=== PATIENT | male | born 1940 | race Caucasian/White ===

== ENCOUNTER 2022-12-22 17:26 | Inpatient (IN) ==
[2022-12-22] MEDS ORDERED: ACETAMINOPHEN 500 MG TAB PO STA (17:57)
--- NOTE | 2022-12-22 17:57 | ED Triage Note ---
Date of Service December 22, 2022 History of Present Illness This patient was briefly evaluated while in triage. An abbreviated physical exam was performed. This patient is a 82-year-old Male who presents to the ED for evaluation of cough, decreased energy, decreased appetite and weakness. Symptoms have been ongoing for 2 days. Physical Exam VITALS: Vitals are noted on the nurse's note and reviewed by myself. GENERAL: This is an 82-year-old male, in no acute distress but somewhat ill- appearing. SKIN: The skin was without rashes. HEART: Regular rate and rhythm without murmurs gallops or rubs. LUNGS: Decreased breath sounds bilateral bases. NEURO: Patient was alert and oriented to person place and time. Initial orders for labs and / or imaging were placed and patient was placed in the waiting area until a bed is available. Please see further documentation for the full ED course.
[2022-12-22 18:34] LABS: Basophils # (auto) 0.01 K/uL (0.00-0.20); Basophils % (auto) 0.1 %; Hematocrit (blood only) 30.7 % (42.0-52.0); Hemoglobin 10.8 g/dl (14.0-18.0); Immature Granulocytes # (auto) 0.02 K/uL (0.01-0.20); Immature Granulocytes % (auto) 0.2 %; Lymphocytes # (auto) 0.46 K/uL (1.20-3.40); Lymphocytes % (auto) 5.7 %; Mean Corpuscular Hemoglobin 30.5 pg (25.0-34.0); Mean Corpuscular Hgb Conc 35.2 g/dL (32.0-36.0); Mean Corpuscular Volume 86.7 fL (80.0-100.0); Mean Platelet Volume 9.7 fL (9.4-12.4); Monocytes # (auto) 1.29 K/uL (0.11-0.59); Monocytes % (auto) 15.9 %; Neutrophils # (auto) 6.33 K/uL (1.40-6.50); Neutrophils % (auto) 78.1 %; Platelet Count 181 K/uL (130-400); RDW Coefficient of Variation 15.1 % (11.5-14.5); RDW Standard Deviation 48.4 fL (36.4-46.3); Red Blood Count 3.54 M/uL (4.70-6.10); White Blood Count 8.11 K/ul (4.8-10.8)
[2022-12-22 18:44] LABS: Alanine Aminotransferase 15 U/L (7-52); Albumin Globulin Ratio 1.1 (0.9-2); Albumin Level 4.4 gm/dl (3.4-5.0); Alkaline Phosphatase 52 U/L (34-104); Anion Gap 11 (3-11); Aspartate Aminotransferase 23 U/L (13-39); BUN Creatinine Ratio 16.4 (10-20); Bilirubin,Total 1.4 mg/dl (0.2-1.0); Blood Urea Nitrogen 36 mg/dl (6-23); Calcium 9.4 mg/dl (8.6-10.3); Carbon Dioxide 20 mmol/L (21-32); Chloride 97 mmol/L (98-107); Est GFR (African American) 30.9 ml/min; Est GFR (Non-African American) 26.7 ml/min; Glucose 262 mg/dl (70-99(Fasting)); Potassium 3.9 mmol/L (3.5-5.1); Sodium 128 mmol/L (136-145); Total Protein 8.4 gm/dl (6.0-8.3)
--- NOTE | 2022-12-22 19:04 | XRay Report ---
XR chest 1V portable CLINICAL HISTORY: cough, fever COMPARISON STUDY: Chest radiograph December 09, 2012. FINDINGS: Low lung volumes are noted. There is no pneumothorax or pleural effusion. There are mild bi basilar opacities. Cardiomegaly is noted without evidence for pulmonary edema. IMPRESSION: 1. Cardiomegaly without evidence for pulmonary edema. 2. Bibasilar opacities which favor atelectasis although an infectious process could appear similar. R adiographic follow-up is recommended. ACT 112: Negative or not required by law. Electronically signed by: Wiliam Disla M.D. 12/22/2022 7:03 PM
[2022-12-22 19:23] LABS: Influenza A virus by PCR Negative (Neg); Influenza B virus by PCR Negative (Neg); RSV by PCR Negative (Neg)
[2022-12-22 19:28] LABS: SARS CoV2 RNA(COVID-19) Ceph POSITIVE (Negative)
[2022-12-22] MEDS ORDERED: METOPROLOL TARTRATE 25 MG TAB PO STA (20:06)
[2022-12-22] MEDS ORDERED: SODIUM CHLORIDE 0.9% 500 ML IV ONE (20:08)
--- NOTE | 2022-12-22 20:13 | Emergency Department Note ---
Impression & Plan COVID, Acute hyponatremia ED Provider Note NAME: HANNAH MARY AGE: 82 SEX: M : 1940 ARRIVES VIA: Walk-In INFORMANT: Patient, ED PROVIDER(S): John Estrella MD CHIEF COMPLAINT: Cough, congestion HPI: This is an 82-year-old male with history of CKD, hypertension, diabetes, hypercholesterolemia presenting for cough, congestion. Patient states that over the past 2 days he has noticed increasing presser type symptoms. He notes a cough that was pretty severe for the past 2 days, slowly improving over the past 1 day. He notes fevers. He notes weakness, fatigue. He notes that drinking water but overall feels dehydrated and weak. He notes no nausea or vomiting. No chest pain. No slight shortness of breath. He notes pain with cough but otherwise no pleurisy. ROS: See above HPI for pertinent positives & negatives. A total of 10 systems reviewed and were otherwise negative. PAST MEDICAL HISTORY: See Below PAST SURGICAL HISTORY: See Below FAMILY HISTORY: See Below SOCIAL HISTORY: See Below HOME MEDICATIONS: See Below ALLERGIES: See Below VITALS: See Below PHYSICAL EXAMINATION: General: resting comfortably in no acute distress Head: Normocephalic and atraumatic Eyes: Normal inspection, extraocular muscles intact, no conjunctival pallor Ear, nose, throat: Normal external exam Neck: Normal range of motion Respiratory: Rhonchi Cardiovascular: RRR without murmur appreciated GI: soft, nontender, no guarding or rebound Extremities: pulses intact with good cap refills, no LE pitting edema or calf tenderness Neuro: The patient awake and alert, appropriately conversive,no focal decifits Skin: Warm, dry, and intact MEDICAL DECISION MAKING: This is an 82-year-old male presenting for cough and congestion. Patient was noted to be COVID-19 positive at triage. Chest x-ray independently interpreted by me as hazy opacities in bilateral lower segments consistent with pneumonia versus atelectasis. Also does show cardiomegaly. Otherwise patient had blood work done at triage, reviewed by me showing hyponatremia, hypochloremia. Patient does appear clinically dry. Patient not hypoxic at this time likely. He is slightly tachycardic with fever. Will admit for dehydration And hyponatremia. Triage Nursing notes reviewed. Prior medical records reviewed Vital Signs: reviewed and remarkable for no significant abnormalities Differential diagnosis: Pneumonia, low concern for PE, dehydration, CHF ER treatment provided: See below Diagnostics interpreted by me: ECG: ECG independently interpreted by me with atrial fibrillation with ventricular rate 98, normal QRS, normal QTc, no ST segment elevations consistent with STEMI criteria Cardiac Monitoring: An order was placed for continuous cardiac monitoring. The monitor shows a rate of 100 with sinus rhythm. Laboratory studies: As stated above and show below. Imaging studies: See below. 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 Verified 12/22/22 20:47 niacin Allergy Unknown RASH Verified 12/22/22 20:47 Home Meds Home Medications Medication Instructions Recorded Confirmed amlodipine 2.5 mg tablet 2.5 mg PO HS 12/22/22 12/22/22 aspirin 81 mg tablet,delayed 81 mg PO QDL 12/22/22 12/22/22 release atorvastatin 10 mg tablet 10 mg PO QDD 12/22/22 12/22/22 brinzolamide 1 %-brimonidine 0.2 % 1 p OPB AMPM 12/22/22 12/22/22 eye drops,suspension (Simbrinza) cholecalciferol (vitamin D3) 25 25 mcg PO QAM 12/22/22 12/22/22 mcg (1,000 unit) tablet (Vitamin D3) cyanocobalamin (vitamin B-12) 1,000 mcg PO QAM 12/22/22 12/22/22 1,000 mcg tablet (Vitamin B-12) insulin aspart U-100 100 unit/mL 22 unit subcut TIDM 12/22/22 12/22/22 (3 mL) subcutaneous pen (Novolog FlexPen U-100 Insulin aspart) insulin glargine 100 unit/mL (3 35 unit subcut QDB 12/22/22 12/22/22 mL) subcutaneous pen (Basaglar KwikPen U-100 Insulin) isosorbide mononitrate 60 mg 60 mg PO QAM 12/22/22 12/22/22 tablet,extended release 24 hr linagliptin 5 mg tablet (Tradjenta) 5 mg PO QDL 12/22/22 12/22/22 losartan 50 mg tablet 50 mg PO BID 12/22/22 12/22/22 metformin 500 mg tablet 500 mg PO BIDM 12/22/22 12/22/22 metoprolol tartrate 25 mg tablet 12.5 mg PO BID 12/22/22 12/22/22 netarsudil 0.02 %-latanoprost 1 drp OPB HS 12/22/22 12/22/22 0.005 % eye drops (Rocklatan) pantoprazole 40 mg tablet,delayed 40 mg PO Q OTHER DAY 12/22/22 12/22/22 release timolol maleate 0.5 % eye drops 1 drp OPB QAM 12/22/22 12/22/22 Previous Rx's Medication Instructions Recorded fluocinolone acetonide oil 0.01 % See Rx Instructions otic (ear) 01/29/21 ear drops .COMPLEX ear itching #20 mL Results & Data (ED) Vital Signs Vital Signs - 24 hr 12/22/22 17:55 Temperature 38 C H Temperature Source Temporal Artery Scan Pulse Rate 101 H Respiratory Rate 18 Blood Pressure 158/82 H Blood Pressure Mean 107 Pulse Oximetry 95 Oxygen Delivery Method Room Air Sepsis Recent Fever Within 48 Hours No Sepsis New/Unexplained Change in Mental Status No Sepsis Action Taken by Nursing No Action Required Laboratory Data 12/22/22 18:15 12/23/22 00:41 Lab Results 12/22/22 12/22/22 Range/Units 18:15 18:17 WBC 8.11 (4.8-10.8) K/ul RBC 3.54 L (4.70-6.10) M/uL Hgb 10.8 L (14.0-18.0) g/dl Hct 30.7 L (42.0-52.0) % MCV 86.7 (80.0-100.0) fL MCH 30.5 (25.0-34.0) pg MCHC 35.2 (32.0-36.0) g/dL RDW Std Deviation 48.4 H (36.4-46.3) fL RDW Coeff of Madina 15.1 H (11.5-14.5) % Plt Count 181 (130-400) K/uL MPV 9.7 (9.4-12.4) fL Immature Gran % (Auto) 0.2 % Neut % (Auto) 78.1 % Lymph % (Auto) 5.7 % [place] % (Auto) 15.9 % Eos % (Auto) 0.0 % Baso % (Auto) 0.1 % Neut # (Auto) 6.33 (1.40-6.50) K/uL Lymph # (Auto) 0.46 L (1.20-3.40) K/uL [place] # (Auto) 1.29 H (0.11-0.59) K/uL Eos # (Auto) 0.00 (0.00-0.50) K/uL Baso # (Auto) 0.01 (0.00-0.20) K/uL Immature Gran # (Auto) 0.02 (0.01-0.20) K/uL Sodium 128 L (136-145) mmol/L Potassium 3.9 (3.5-5.1) mmol/L Chloride 97 L (98-107) mmol/L Carbon Dioxide 20 L (21-32) mmol/L Anion Gap 11 (3-11) BUN 36 H (6-23) mg/dl Creatinine 2.19 H (0.6-1.4) mg/dl Est Cr Clr Drug Dosing Not Reportable Est GFR ( Amer) 30.9 ml/min Est GFR (Non-Af Amer) 26.7 ml/min BUN/Creatinine Ratio 16.4 (10-20) Glucose 262 H (70-99(Fasting)) mg/dl Osmolality 294 (280-300) mOsm/kg Calcium 9.4 (8.6-10.3) mg/dl Magnesium 1.7 (1.7-2.4) mg/dl Total Bilirubin 1.4 H (0.2-1.0) mg/dl AST 23 (13-39) U/L ALT 15 (7-52) U/L Alkaline Phosphatase 52 (34-104) U/L Total Protein 8.4 H (6.0-8.3) gm/dl Albumin 4.4 (3.4-5.0) gm/dl Globulin 4.0 (2.5-4.0) gm/dl Albumin/Globulin Ratio 1.1 (0.9-2) TSH 3.400 (0.300-4.500) uIu/ml SARS-CoV-2 (PCR) POSITIVE A* (Negative) Influenza Type A (PCR) Negative (Neg) Influenza Type B (PCR) Negative (Neg) RSV (RT-PCR) Negative (Neg) Administered Medications Insulin Aspart (Insulin Aspart Per Unit Charge) 0 units SC ACHS KATELIN Stop: 01/21/23 23:09 Last Admin: 12/22/22 23:44 Dose: 6 units Documented By: ESG Co-signed By: YULIA Insulin Glargine (Lantus Per Unit Charge) 5 units SQ BID KATELIN Stop: 01/21/23 23:09 Last Admin: 12/22/22 23:43 Dose: 5 units Documented By: ESG Co-signed By: YULIA Garzacellaneous (Order Awaiting Action: Brinzolamide-Brimonidine [Simbrinza] 1-0.2 % Drops,Suspension) 1 each N/A QS [facility] Stop: 01/22/23 00:00 Last Admin: 12/23/22 00:25 Dose: Not Given Documented By: ESZachary Miscellaneous (Order Awaiting Action: Netarsudil-Latanoprost [Rocklatan] 0.02- 0.005 % Drops) 1 each N/A QS [facility] Stop: 01/22/23 00:00 Last Admin: 12/23/22 00:25 Dose: Not Given Documented By: ESG Discontinued Medications Acetaminophen (Acetaminophen 500 Mg Tab) 1,000 mg PO NOW STA Stop: 12/22/22 17:58 Last Admin: 12/22/22 18:18 Dose: 1,000 mg Documented By: CL Sodium Chloride (Nss) 500 mls @ 100 mls/hr IV .Q5H ONE Stop: 12/23/22 01:07 Last Admin: 12/22/22 20:19 Dose: 100 mls/hr Documented By: OAM Magnesium Sulfate/Dextrose (Magnesium Sulfate / D5w) 1 gm in 100 mls @ 50 mls/hr IV ONE ONE Stop: 12/23/22 00:29 Last Admin: 12/22/22 23:43 Dose: 50 mls/hr Documented By: ESZachary Metoprolol Tartrate (Metoprolol Tartrate 25 Mg Tab) 12.5 mg PO NOW STA Stop: 12/22/22 20:07 Last Admin: 12/22/22 20:19 Dose: 12.5 mg Documented By: OAM Imaging Data Radiologist's Impression: Chest X-Ray 12/22/22 17:58 XR chest 1V portable CLINICAL HISTORY: cough, fever COMPARISON STUDY: Chest radiograph December 09, 2012. FINDINGS: Low lung volumes are noted. There is no pneumothorax or pleural effusion. There are mild bibasilar opacities. Cardiomegaly is noted without evidence for pulmonary edema. IMPRESSION: 1. Cardiomegaly without evidence for pulmonary edema. 2. Bibasilar opacities which favor atelectasis although an infectious process could appear similar. Radiographic follow-up is recommended. ACT 112: Negative or not required by law. Electronically signed by: Wiliam Disla M.D. 12/22/2022 7:03 PM Discharge Plan Visit Data Chief Complaint: Flu Like Symptoms Stated Complaint: COUGH, WEAKNESS ED Provider: John Estrella Discharge Problem: COVID, Acute hyponatremia Patient Disposition: Admitted As Inpatient Discharge Instructions Interventions: ED Discharge Assessment Last Done: 12/22/22 22:31
[2022-12-22 21:16] LABS: Magnesium 1.7 mg/dl (1.7-2.4)
[2022-12-22] MEDS ORDERED: LEVALBUTEROL TARTRATE 15 GM HFA.AER.AD INH STA (22:00)
--- NOTE | 2022-12-22 22:01 | History & Physical Report ---
Date of Service December 22, 2022 Assessment & Plan (1) Acute hyponatremia: Plan: Acute on chronic hyponatremia Secondary to decreased p.o. intake secondary to COVID-19 illness COVID-19 bronchitis, patient with wheezing on exam. hx CAD status post stent/PVD valvular heart disease (mild AR/TR), hypertension, slight elevated secondary discomfort hyperlipidemia, on statin Rx DM 2 insulin requiring, well-controlled as of recent hemoglobin A1c of 7 last August 2022 CRI, creatinine at baseline chronic anemia, hemoglobin at baseline past tobacco abuse Medical telemetry Careful correction of sodium Hyponatremia work-up Nephrology consult if without improvement. Supportive management for COVID-19 illness PT OT eval DVT prophylaxis. Heparin subcu Full code Patient son requesting updates providers. Mr. Patrick Martínez, contact #[phone]. Text document was generated using [employer] voice recognition software. It may contain grammatical or spelling errors. Kindly contact undersigned for clarification of any documentation item in question. History of Present Illness Chief Complaint: Weakness Primary Care Provider: Tito Grullon MD History obtained from patient, family, and records. Medical history significant for CAD status post stent, valvular heart disease (mild AR/TR), aortic root enlargement as per records, hypertension, hyperlipidemia, DM 2 insulin requiring, CRI (baseline creatinine 2), chronic hyponatremia, chronic anemia (baseline hemoglobin of 10 ), GERD, glaucoma, past tobacco abuse. Last confinement August 2012 for pericarditis status post NSAID Rx. Few days history of cough symptoms. Patient unable to expectorate. No chest pain or unusual shortness of breath. No fluid retention. Poor appetite. Generalized weakness and fatigue. Sick COVID-19 contacts. Patient completed COVID-19 vaccination. Patient brought by family to ER. 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 Verified 12/22/22 20:47 niacin Allergy Unknown RASH Verified 12/22/22 20:47 Home Medications Medication Instructions Recorded Confirmed Type fluocinolone acetonide oil 0.01 % See Rx Instructions otic (ear) 01/29/21 12/22/22 Rx ear drops .COMPLEX ear itching #20 mL amlodipine 2.5 mg tablet 2.5 mg PO HS 12/22/22 12/22/22 History aspirin 81 mg tablet,delayed 81 mg PO QDL 12/22/22 12/22/22 History release atorvastatin 10 mg tablet 10 mg PO QDD 12/22/22 12/22/22 History brinzolamide 1 %-brimonidine 0.2 % 1 drp OPB AMPM 12/22/22 12/22/22 History eye drops,suspension (Simbrinza) cholecalciferol (vitamin D3) 25 25 mcg PO QAM 12/22/22 12/22/22 History mcg (1,000 unit) tablet (Vitamin D3) cyanocobalamin (vitamin B-12) 1,000 mcg PO QAM 12/22/22 12/22/22 History 1,000 mcg tablet (Vitamin B-12) insulin aspart U-100 100 unit/mL 22 unit subcut TIDM 12/22/22 12/22/22 History (3 mL) subcutaneous pen (Novolog FlexPen U-100 Insulin aspart) insulin glargine 100 unit/mL (3 35 unit subcut QDB 12/22/22 12/22/22 History mL) subcutaneous pen (Basaglar KwikPen U-100 Insulin) isosorbide mononitrate 60 mg 60 mg PO QAM 12/22/22 12/22/22 History tablet,extended release 24 hr linagliptin 5 mg tablet (Tradjenta) 5 mg PO QDL 12/22/22 12/22/22 History losartan 50 mg tablet 50 mg PO BID 12/22/22 12/22/22 History metformin 500 mg tablet 500 mg PO BIDM 12/22/22 12/22/22 History metoprolol tartrate 25 mg tablet 12.5 mg PO BID 12/22/22 12/22/22 History netarsudil 0.02 %-latanoprost 1 drp OPB HS 12/22/22 12/22/22 History 0.005 % eye drops (Rocklatan) pantoprazole 40 mg tablet,delayed 40 mg PO Q OTHER DAY 12/22/22 12/22/22 History release timolol maleate 0.5 % eye drops 1 drp OPB QAM 12/22/22 12/22/22 History Past Med/Surg History Medical History History of Mohs micrographic surgery for skin cancer Surgical History History of cholecystectomy Family History Other No family history of adverse response to anesthesia No family history of bleeding disorder No significant family history Social History Smoking Status: Never smoker Tobacco Type: Cigars Cigarettes Per Day: 1 CIGAR/DAY; Second Hand Exposure: No; Do You Dip or Chew Tobacco: No; Hx Alcohol Use: No Hx Substance Use: No Preferred Language: Maori Communication Ability: Effective 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 Required: No Beliefs That Will Affect Care: None marital status: Current Living Situation: Alone current occupational status: retired Other Information That Helps Us Care for You: No Feels Safe at Home: Yes Safety Concerns: Feels Safe At This Time Assistive Devices: None Review of Systems Review of Systems: As per HPI, all other systems reviewed and negative Physical Exam Physical Exam: GENERAL: Slightly uncomfortable, pleasant, slightly hard of hearing, dysphonic, no respiratory distress SKIN: Pallor, warm HEENT: Alopecia, pale palpebral conjunctivae, no ptosis, dry buccal mucosa NECK : Supple, no tenderness CHEST : Decreased breath sounds, expiratory wheezes, no tenderness HEART : Tachycardic, no obvious murmurs ABDOMEN: Some distention, nontender EXTREMITIES : Minimal LE swelling, no LE tenderness, no other conspicuous deformities noted NEUROLOGIC : Coherent, no facial asymmetry, slightly hard of hearing, gait and stance not assessed Results & Data Results & Data Vital Signs (Past 12 Hours) Vital Signs Temp Pulse Resp BP Pulse Ox O2 Del Method 12/22/22 17:55 38 C H 101 H 18 158/82 H 95 Room Air Diagnostic Findings Laboratory Results WBC 8.11 K/ul (4.8-10.8) 12/22/22 18:15 RBC 3.54 M/uL (4.70-6.10) L 12/22/22 18:15 Hgb 10.8 g/dl (14.0-18.0) L 12/22/22 18:15 Hct 30.7 % (42.0-52.0) L 12/22/22 18:15 MCV 86.7 fL (80.0-100.0) 12/22/22 18:15 MCH 30.5 pg (25.0-34.0) 12/22/22 18:15 MCHC 35.2 g/dL (32.0-36.0) 12/22/22 18:15 RDW Std Deviation 48.4 fL (36.4-46.3) H 12/22/22 18:15 RDW Coeff of Madina 15.1 % (11.5-14.5) H 12/22/22 18:15 Plt Count 181 K/uL (130-400) 12/22/22 18:15 MPV 9.7 fL (9.4-12.4) 12/22/22 18:15 Immature Gran % (Auto) 0.2 % 12/22/22 18:15 Neut % (Auto) 78.1 % 12/22/22 18:15 Lymph % (Auto) 5.7 % 12/22/22 18:15 [place] % (Auto) 15.9 % 12/22/22 18:15 Eos % (Auto) 0.0 % 12/22/22 18:15 Baso % (Auto) 0.1 % 12/22/22 18:15 Neut # (Auto) 6.33 K/uL (1.40-6.50) 12/22/22 18:15 Lymph # (Auto) 0.46 K/uL (1.20-3.40) L 12/22/22 18:15 [place] # (Auto) 1.29 K/uL (0.11-0.59) H 12/22/22 18:15 Eos # (Auto) 0.00 K/uL (0.00-0.50) 12/22/22 18:15 Baso # (Auto) 0.01 K/uL (0.00-0.20) 12/22/22 18:15 Immature Gran # (Auto) 0.02 K/uL (0.01-0.20) 12/22/22 18:15 Sodium 128 mmol/L (136-145) L 12/22/22 18:15 Potassium 3.9 mmol/L (3.5-5.1) 12/22/22 18:15 Chloride 97 mmol/L (98-107) L 12/22/22 18:15 Carbon Dioxide 20 mmol/L (21-32) L 12/22/22 18:15 Anion Gap 11 (3-11) 12/22/22 18:15 BUN 36 mg/dl (6-23) H 12/22/22 18:15 Creatinine 2.19 mg/dl (0.6-1.4) H 12/22/22 18:15 Est Cr Clr Drug Dosing Not Reportable 12/22/22 18:15 Est GFR ( Amer) 30.9 ml/min 12/22/22 18:15 Est GFR (Non-Af Amer) 26.7 ml/min 12/22/22 18:15 BUN/Creatinine Ratio 16.4 (10-20) 12/22/22 18:15 Glucose 262 mg/dl (70-99(Fasting)) H 12/22/22 18:15 Osmolality 294 mOsm/kg (280-300) 12/22/22 18:15 Calcium 9.4 mg/dl (8.6-10.3) 12/22/22 18:15 Magnesium 1.7 mg/dl (1.7-2.4) 12/22/22 18:15 Total Bilirubin 1.4 mg/dl (0.2-1.0) H 12/22/22 18:15 AST 23 U/L (13-39) 12/22/22 18:15 ALT 15 U/L (7-52) 12/22/22 18:15 Alkaline Phosphatase 52 U/L (34-104) 12/22/22 18:15 Total Protein 8.4 gm/dl (6.0-8.3) H 12/22/22 18:15 Albumin 4.4 gm/dl (3.4-5.0) 12/22/22 18:15 Globulin 4.0 gm/dl (2.5-4.0) 12/22/22 18:15 Albumin/Globulin Ratio 1.1 (0.9-2) 12/22/22 18:15 TSH 3.400 uIu/ml (0.300-4.500) 12/22/22 18:15 SARS-CoV-2 (PCR) POSITIVE (Negative) A* 12/22/22 18:17 Influenza Type A (PCR) Negative (Neg) 12/22/22 18:17 Influenza Type B (PCR) Negative (Neg) 12/22/22 18:17 RSV (RT-PCR) Negative (Neg) 12/22/22 18:17 Impressions Chest X-Ray 12/22/22 17:58 XR chest 1V portable CLINICAL HISTORY: cough, fever COMPARISON STUDY: Chest radiograph December 09, 2012. FINDINGS: Low lung volumes are noted. There is no pneumothorax or pleural effusion. There are mild bibasilar opacities. Cardiomegaly is noted without evidence for pulmonary edema. IMPRESSION: 1. Cardiomegaly without evidence for pulmonary edema. 2. Bibasilar opacities which favor atelectasis although an infectious process could appear similar. Radiographic follow-up is recommended. ACT 112: Negative or not required by law. Electronically signed by: Wiliam Disla M.D. 12/22/2022 7:03 PM
[2022-12-22] MEDS ORDERED: oxyCODONE HCL IR 5 MG TAB (IMMEDIATE RELEASE) PO PRN (22:07)
[2022-12-22] MEDS ORDERED: ACETAMINOPHEN 325 MG TAB PO PRN (22:07)
[2022-12-22] MEDS ORDERED: PROMETHAZINE HCL 6.25 MG in SODIUM CHLORIDE 0.9% 50 ML IV PRN (22:07)
[2022-12-22] MEDS ORDERED: MAGNESIUM SULFATE / D5W 1 GM/100 ML BAG IV ONE (22:30)
[2022-12-22] MEDS ORDERED: INSULIN ASPART PER UNIT CHARGE SC SCH (23:10)
[2022-12-22] MEDS ORDERED: LANTUS PER UNIT CHARGE SQ SCH (23:10)
[2022-12-22] MEDS ORDERED: GLUCAGON FOR INJ 1 MG VIAL SQ PRN (23:10)
[2022-12-22] MEDS ORDERED: GLUCOSE 10 TAB/TUBE PO PRN (23:10)
[2022-12-22] MEDS ORDERED: DEXTROSE 50% 50 ML SYRINGE IV PRN (23:10)
[2022-12-22] MEDS ORDERED: GLUCOSE 40% GEL 15 GM TUBE PO PRN (23:10)
[2022-12-22] MEDS ORDERED: CARBOHYDRATES FOR HYPOGLYCEMIA PO PRN (23:10)
[2022-12-23 01:19] LABS: BUN Creatinine Ratio 17.6 (10-20); Creatinine Clr Calc Pharmacy 27.6 ml/min; Est GFR (African American) 30.4 ml/min; Est GFR (Non-African American) 26.2 ml/min; Potassium 3.7 mmol/L (3.5-5.1)
[2022-12-23 02:49] LABS: Appearance Urine Clear (Clear); Bacteria Urine Automated Negative (Negative); Bilirubin Urine Negative (Negative); Blood Urine 3+ (Negative); Color Urine Yellow; Epithelial Cell Urine Auto 20-30 /lpf (0-5); Glucose Urine UA 3+ (Negative); Ketones Urine Negative (Negative); Leukocyte Esterase Urine Negative (Negative); Nitrite Urine Negative (Negative); Protein Urine 3+ (Negative); RBC Urine Automated 0-4 /hpf (0-4); Specific Gravity Urine 1.019 (1.000-1.030); Urobilinogen Urine Negative (Negative); pH Urine 6.5 (4.5-7.5)
[2022-12-23 06:04] LABS: Basophils # (auto) 0.01 K/uL (0.00-0.20); Basophils % (auto) 0.2 %; Hematocrit (blood only) 29.1 % (42.0-52.0); Hemoglobin 10.3 g/dl (14.0-18.0); Immature Granulocytes # (auto) 0.03 K/uL (0.01-0.20); Immature Granulocytes % (auto) 0.5 %; Lymphocytes # (auto) 0.43 K/uL (1.20-3.40); Lymphocytes % (auto) 7.3 %; Mean Corpuscular Hemoglobin 30.3 pg (25.0-34.0); Mean Corpuscular Hgb Conc 35.4 g/dL (32.0-36.0); Mean Corpuscular Volume 85.6 fL (80.0-100.0); Mean Platelet Volume 9.8 fL (9.4-12.4); Monocytes # (auto) 1.11 K/uL (0.11-0.59); Monocytes % (auto) 18.8 %; Neutrophils # (auto) 4.33 K/uL (1.40-6.50); Neutrophils % (auto) 73.2 %; Platelet Count 172 K/uL (130-400); RDW Coefficient of Variation 15.1 % (11.5-14.5); RDW Standard Deviation 47.5 fL (36.4-46.3); White Blood Count 5.91 K/ul (4.8-10.8)
[2022-12-23 06:42] LABS: BUN Creatinine Ratio 17.4 (10-20); Creatinine Clr Calc Pharmacy 29.6 ml/min; Est GFR (African American) 33.1 ml/min; Est GFR (Non-African American) 28.6 ml/min; Potassium 3.7 mmol/L (3.5-5.1)
[2022-12-23] MEDS ORDERED: LACTATED RINGER'S 1,000 ML IV ONE (06:44)
[2022-12-23] MEDS ORDERED: INSULIN ASPART PER UNIT CHARGE SC SCH (06:45)
[2022-12-23] MEDS ORDERED: DEXTROSE 50% 50 ML SYRINGE IV PRN (06:46)
[2022-12-23] MEDS ORDERED: GLUCOSE 40% GEL 15 GM TUBE PO PRN (06:46)
[2022-12-23] MEDS ORDERED: CARBOHYDRATES FOR HYPOGLYCEMIA PO PRN (06:46)
[2022-12-23] MEDS ORDERED: GLUCOSE 10 TAB/TUBE PO PRN (06:46)
[2022-12-23] MEDS ORDERED: GLUCAGON FOR INJ 1 MG VIAL SQ PRN (06:46)
[2022-12-23] MEDS ORDERED: INSULIN ASPART PER UNIT CHARGE SC STA (06:51)
[2022-12-23] MEDS ORDERED: LANTUS PER UNIT CHARGE SQ SCH (07:00)
[2022-12-23] MEDS ORDERED: LEVALBUTEROL TARTRATE 15 GM HFA.AER.AD INH SCH (07:00)
[2022-12-23] MEDS: CYANOCOBALAMIN (B-12) 500 MCG TABLET PO SCH (08:20)
[2022-12-23] MEDS: TIMOLOL MALEATE 0.5% OP SOLN 5 ML BTL OP SCH (08:21)
[2022-12-23] MEDS: METOPROLOL TARTRATE 25 MG TAB PO SCH ×2 (08:21→21:39)
[2022-12-23] MEDS: PANTOprazole 40 MG TAB PO SCH (08:21)
[2022-12-23] MEDS ORDERED: LEVALBUTEROL TARTRATE 15 GM HFA.AER.AD INH PRN (10:04)
--- NOTE | 2022-12-23 10:07 | Hospitalist Progress Note ---
Date of Service December 23, 2022 Assessment & Plan (1) Acute hyponatremia: Plan: Sodium is around 129 likely secondary to poor p.o. intake. We will add a bag of fluid overnight as patient is still not eating and drinking sufficient amount and is now febrile. Trend BMP in AM. (2) COVID: Plan: Fever and weak with low appetite. Continue supportive care. Adding guaifenesin with codeine as needed cough and Flonase scheduled daily. Tylenol for fever or pain. We will trend CRP in AM. No evidence of pneumonia and no requirement for oxygen at this time. Continue supportive care. (3) HTN, goal below 140/90: Plan: Chronic, around goal. Continue amlodipine per home regimen. (4) CKD (chronic kidney disease), stage III: Plan: he is at his baseline creatinine of 2.1. Losartan was held. Trend BMP in am and consider restarting in am. (5) CAD (coronary artery disease): Plan: Chronic stable, continue current medical therapy. DVT prophy: heparin SQ Full Code Dispo-dc telemetry. Notably patient was documented as having afib on initial EKG and on telemetry all last night. RN called me with a report on afib. On telemetry review, however, he has been in sinus rhythm, not afib which he does not have a history of I spent a total [id number] coordinating, documenting, and providing care for this patient excluding time spent in the performance of separately billed services Kami Hill DO [facility]ist Admission and Anticipated Discharge Date Admission Date: December 22, 2022 Subjective Patient is an 82-year-old diabetic man with heart disease who presents with cough found to have COVID-19 infection. He is fatigued and weak with poor appetite. Has been sick for 3 days prior to arrival cough is improving feeling very weak, exhausted, fatigued able to ambulate in the room to the bathroom Physical Exam Physical Exam: CONSTITUTIONAL: WNWD, vitals as above, generally ill-appearing, fatigued EYES: normal conjunctivae, no scleral icterus ENT: external ear and nose normal, MMM NECK: trachea midline RESPIRATORY: clear to auscultation bilaterally, no crackles, rales or wheezes, normal respiratory effort CARDIOVASCULAR: regular rate and rhythm, S1 and 2 heard without murmurs, gallops or rubs, no JVD, no peripheral edema CHEST: inspection of chest was normal GASTROINTESTINAL: soft, nontender, ND, no guarding MUSCULOSKELETAL: strength 5/5 throughout, head is normocephalic and atraumatic SKIN: warm and dry NEUROLOGIC: CN 2-12 grossly intact, no sensory deficit, normal cognition, normal speech, no tremor PSYCHIATRIC: alert cooperative and oriented to person, place and time. Euthymic mood, makes good eye contact, language grossly intact, recent and remote memory grossly intact. Results & Data Results & Data Vital Signs (Past 12 Hours) Vital Signs Temp Pulse Pulse Pulse Resp BP Pulse Ox 12/23/22 08:00 99 H 12/23/22 07:45 12/23/22 07:21 96 H 16 95 12/23/22 02:45 37.5 C 93 H 18 166/71 H 95 12/22/22 23:10 71 12/22/22 23:10 37.6 C H 81 20 163/78 H 96 12/22/22 22:50 12/22/22 22:31 12/22/22 22:26 37.3 C 81 18 134/71 94 O2 Del Method 12/23/22 08:00 12/23/22 07:45 Room Air 12/23/22 07:21 Room Air 12/23/22 02:45 Room Air 12/22/22 23:10 12/22/22 23:10 Room Air 12/22/22 22:50 Room Air 12/22/22 22:31 Room Air 12/22/22 22:26 Room Air Laboratory Results Short CBC 12/22/22 12/23/22 Range/Units 18:15 05:30 WBC 8.11 5.91 (4.8-10.8) K/ul Hgb 10.8 L 10.3 L (14.0-18.0) g/dl Hct 30.7 L 29.1 L (42.0-52.0) % Plt Count 181 172 (130-400) K/uL BMP 12/22/22 12/23/22 12/23/22 18:15 00:41 05:30 Sodium 128 L 128 L 129 L Potassium 3.9 3.7 3.7 Chloride 97 L 99 99 Carbon Dioxide 20 L 21 20 L BUN 36 H 39 H 36 H Creatinine 2.19 H 2.22 H 2.07 H Glucose 262 H 293 H 304 H* Calcium 9.4 9.0 9.0 Liver Function 12/22/22 Range/Units 18:15 Total Bilirubin 1.4 H (0.2-1.0) mg/dl AST 23 (13-39) U/L ALT 15 (7-52) U/L Alkaline Phosphatase 52 (34-104) U/L Albumin 4.4 (3.4-5.0) gm/dl Urine 12/23/22 Range/Units 02:28 Urine Color Yellow Urine Appearance Clear (Clear) Urine pH 6.5 (4.5-7.5) Ur Specific [place] 1.019 (1.000-1.030) Urine Protein 3+ H (Negative) Urine Glucose (UA) 3+ H (Negative) Medications Administered Current Inpatient Medications Acetaminophen (Acetaminophen 325 Mg Tab) 650 mg PO QID PRN PRN Reason: pain/fever Stop: 01/21/23 22:06 Amlodipine Besylate (Amlodipine Besylate 5 Mg Tab) 2.5 mg PO HS KATELIN Stop: 01/22/23 20:59 Aspirin (Aspirin 81 Mg Ectab) 81 mg PO QDL KATELIN Stop: 01/22/23 11:29 Atorvastatin Calcium (Atorvastatin 10 Mg Tab) 10 mg PO QDD KATELIN Stop: 01/22/23 16:29 Cyanocobalamin (Cyanocobalamin (B-12) 500 Mcg Tablet) 1,000 mcg PO QAM KATELIN Stop: 01/22/23 08:59 Last Admin: 12/23/22 08:20 Dose: 1,000 mcg Dextrose (Dextrose 50% 50 Ml Syringe) 25 - 50 ml IV UD PRN; Protocol PRN Reason: Hypoglycemia Protocol Stop: 01/21/23 23:09 Dextrose (Dextrose 50% 50 Ml Syringe) 25 - 50 ml IV UD PRN; Protocol PRN Reason: Hypoglycemia Protocol Stop: 01/22/23 06:45 Glucagon (Glucagon For Inj 1 Mg Vial) 1 mg SQ UD PRN; Protocol PRN Reason: Hypoglycemia Protocol Stop: 01/21/23 23:09 Glucagon (Glucagon For Inj 1 Mg Vial) 1 mg SQ UD PRN; Protocol PRN Reason: Hypoglycemia Protocol Stop: 01/22/23 06:45 Glucose (Glucose 10 Tab/Tube) 4 - 8 tab PO UD PRN; Protocol PRN Reason: Hypoglycemia Treatment Stop: 01/21/23 23:09 Glucose (Glucose 40% Gel 15 Gm Tube) 15 - 30 gm PO UD PRN; Protocol PRN Reason: Hypoglycemia Protocol Stop: 01/21/23 23:09 Glucose (Glucose 10 Tab/Tube) 4 - 8 tab PO UD PRN; Protocol PRN Reason: Hypoglycemia Treatment Stop: 01/22/23 06:45 Glucose (Glucose 40% Gel 15 Gm Tube) 15 - 30 gm PO UD PRN; Protocol PRN Reason: Hypoglycemia Protocol Stop: 01/22/23 06:45 Promethazine HCl 6.25 mg/ (Sodium Chloride) 50.25 mls @ 201 mls/hr IV Q6H PRN PRN Reason: Nausea And Vomiting Stop: 01/21/23 22:06 Insulin Aspart (Insulin Aspart Per Unit Charge) 0 units SC ACHS KATELIN Stop: 01/22/23 11:29 Insulin Glargine (Lantus Per Unit Charge) 20 units SQ DAILY KATELIN Stop: 01/22/23 06:59 Last Admin: 12/23/22 07:04 Dose: 20 units Levalbuterol HCl (Levalbuterol Tartrate 15 Gm Hfa.Aer.Ad) 2 puffs INH QIDR PRN PRN Reason: SOB/wheezing Stop: 01/22/23 06:59 Metoprolol Tartrate (Metoprolol Tartrate 25 Mg Tab) 12.5 mg PO BID KATELIN Stop: 01/22/23 08:59 Last Admin: 12/23/22 08:21 Dose: 12.5 mg Miscellaneous (Order Awaiting Action: Brinzolamide-Brimonidine [Simbrinza] 1-0.2 % Drops,Suspension) 1 each N/A QS KATELIN Stop: 01/22/23 00:00 Last Admin: 12/23/22 07:35 Dose: Not Given Miscellaneous (Order Awaiting Action: Netarsudil-Latanoprost [Rocklatan] 0.02- 0.005 % Drops) 1 each N/A QS KATELIN Stop: 01/22/23 00:00 Last Admin: 12/23/22 07:35 Dose: Not Given Miscellaneous (Carbohydrates For Hypoglycemia ) 15 - 30 gm PO UD PRN PRN Reason: Hypoglycemia Protocol Stop: 01/21/23 23:09 Miscellaneous (Carbohydrates For Hypoglycemia ) 15 - 30 gm PO UD PRN PRN Reason: Hypoglycemia Protocol Stop: 01/22/23 06:45 Oxycodone HCl (Oxycodone Hcl Ir 5 Mg Tab (Immediate Release)) 5 mg PO Q4H PRN PRN Reason: Pain Stop: 01/05/23 22:06 Pantoprazole Sodium (Pantoprazole 40 Mg Tab) 40 mg PO Q48H [facility] Stop: 01/22/23 08:59 Last Admin: 12/23/22 08:21 Dose: 40 mg Timolol Maleate (Timolol Maleate 0.5% Op Soln 5 Ml Btl) 1 drops OP QAM [facility] Stop: 01/22/23 08:59 Last Admin: 12/23/22 08:21 Dose: 1 drops
--- NOTE | 2022-12-23 11:41 | Electrocardiogram Report ---
Test Reason : Blood Pressure : / mmHG Vent. Rate : 098 BPM Atrial Rate : 000 BPM P-R Int : 000 ms QRS Dur : 074 ms QT Int : 368 ms P-R-T Axes : 000 013 022 degrees QTc Int : 469 ms Poor data quality, interpretation may be adversely affected Atrial fibrillation Nonspecific T wave abnormality Abnormal ECG When compared with ECG of 09-DEC-2012 13:14, Previous ECG has undetermined rhythm, needs review Nonspecific T wave abnormality, improved in Lateral leads QT has lengthened Confirmed by Cholo Tomlinson ([id number]) on 12/23/2022 11:41:22 AM Referred By: REFERRED SELF Confirmed By:Vahe Tomlinson
[2022-12-23] MEDS: INSULIN ASPART PER UNIT CHARGE SC SCH ×3 (11:59→21:28)
[2022-12-23] MEDS: ASPIRIN 81 MG ECTAB PO SCH (12:02)
[2022-12-23] MEDS ORDERED: Heparin IV Adult Wt-Based Standard WITH Bolus Protocol IV STA (14:19)
[2022-12-23] MEDS ORDERED: POTASSIUM CHLORIDE CRTAB 20 MEQ TABCR PO STA (14:33)
[2022-12-23] MEDS ORDERED: HEPARIN SOD (PORCINE) 1000 UNIT/ML IV ONE (14:35)
--- NOTE | 2022-12-23 14:35 | Cardiology Consultation ---
Date of Consultation December 23, 2022 Assessment & Plan (1) New onset atrial fibrillation: (2) COVID: (3) CAD (coronary artery disease): (4) HTN, goal below 140/90: (5) Hyponatremia: History of Present Illness Reason for Consultation: New onset atrial fibrillation Requesting Physician: [facility] hospitalist Attending Physician: Kami Hill DO History of Present Illness 82-year-old male who initially presented to [facility] emergency department on 12/22 due to cough and generalized weakness. Patient was positive for COVID-19. Has not been eating or drinking well over the last few days due to illness and hyponatremia was noted on blood work. Supportive treatments were implemented. Cardiology consulted for concerns of new onset atrial fibrillation. Primary outpatient bass fisher: Dr. 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 Verified 12/22/22 20:47 niacin Allergy Unknown RASH Verified 12/22/22 20:47 Home Medications Medication Instructions Recorded Confirmed Type fluocinolone acetonide oil 0.01 % See Rx Instructions otic (ear) 01/29/21 12/22/22 Rx ear drops .COMPLEX ear itching #20 mL amlodipine 2.5 mg tablet 2.5 mg PO HS 12/22/22 12/22/22 History aspirin 81 mg tablet,delayed 81 mg PO QDL 12/22/22 12/22/22 History release atorvastatin 10 mg tablet 10 mg PO QDD 12/22/22 12/22/22 History brinzolamide 1 %-brimonidine 0.2 % 1 drp OPB AMPM 12/22/22 12/22/22 History eye drops,suspension (Simbrinza) cholecalciferol (vitamin D3) 25 25 mcg PO QAM 12/22/22 12/22/22 History mcg (1,000 unit) tablet (Vitamin D3) cyanocobalamin (vitamin B-12) 1,000 mcg PO QAM 12/22/22 12/22/22 History 1,000 mcg tablet (Vitamin B-12) insulin aspart U-100 100 unit/mL 22 unit subcut TIDM 12/22/22 12/22/22 History (3 mL) subcutaneous pen (Novolog FlexPen U-100 Insulin aspart) insulin glargine 100 unit/mL (3 35 unit subcut QDB 12/22/22 12/22/22 History mL) subcutaneous pen (Basaglar KwikPen U-100 Insulin) isosorbide mononitrate 60 mg 60 mg PO QAM 12/22/22 12/22/22 History tablet,extended release 24 hr linagliptin 5 mg tablet (Tradjenta) 5 mg PO QDL 12/22/22 12/22/22 History losartan 50 mg tablet 50 mg PO BID 12/22/22 12/22/22 History metformin 500 mg tablet 500 mg PO BIDM 12/22/22 12/22/22 History metoprolol tartrate 25 mg tablet 12.5 mg PO BID 12/22/22 12/22/22 History netarsudil 0.02 %-latanoprost 1 drp OPB HS 12/22/22 12/22/22 History 0.005 % eye drops (Rocklatan) pantoprazole 40 mg tablet,delayed 40 mg PO Q OTHER DAY 12/22/22 12/22/22 History release timolol maleate 0.5 % eye drops 1 drp OPB QAM 12/22/22 12/22/22 History Patient History Medical History History of Mohs micrographic surgery for skin cancer Surgical History History of cholecystectomy Family History Other No family history of adverse response to anesthesia No family history of bleeding disorder No significant family history Social History Smoking Status: Never smoker Tobacco Type: Cigars Cigarettes Per Day: 1 CIGAR/DAY; Second Hand Exposure: No; Do You Dip or Chew Tobacco: No; Hx Alcohol Use: No Hx Substance Use: No Preferred Language: Yoruba Communication Ability: Effective Sole Tier Required: No Beliefs That Will Affect Care: None marital status: Current Living Situation: Alone current occupational status: retired Other Information That Helps Us Care for You: No Feels Safe at Home: Yes Safety Concerns: Feels Safe At This Time Assistive Devices: None Results & Data Vital Signs (Past 12 Hours) Vital Signs Temp Pulse Pulse Resp BP Pulse Ox O2 Del Method 12/23/22 11:57 36.8 C 77 20 133/62 95 Room Air 12/23/22 08:00 99 H 12/23/22 07:45 Room Air 12/23/22 07:21 96 H 16 95 Room Air 12/23/22 02:45 37.5 C 93 H 18 166/71 H 95 Room Air Diagnostic Findings Outpatient echocardiogram November 19, 2020 Normal LV chamber size with mild concentric LVH. Normal LV systolic function. The apical septum is mildly hypokinetic at rest, otherwise, normal wall motion. Calculated LV ejection Fraction = 56% (bi-plane method of discs). The global longitudinal strain (GLS) is - 18 %. Normal left ventricular systolic function is suggested if GLS is -14% to -30%. Grade 1 diastolic dysfunction. Mild aortic valve sclerosis without stenosis. Mild aortic regurgitation. Mild tricuspid regurgitation. The aortic root is normal sized. The proximal ascending thoracic aorta is mildly enlarged
[2022-12-23] MEDS ORDERED: HEPARIN SODIUM/DEXTROSE 25,000 UNITS/500 ML BAG IV SCH (14:45)
[2022-12-23] MEDS: ATORVASTATIN 10 MG TAB PO SCH (15:08)
[2022-12-23] MEDS: SODIUM CHLORIDE 0.9% 1,000 ML IV SCH (19:30)
[2022-12-23] MEDS: FLUTICASONE PROPIONATE NA SPR 16 GM BTL SCH (21:24)
[2022-12-23] MEDS: HEPARIN SOD 5,000 UNIT/0.5 ML VIAL SQ SCH (21:25)
[2022-12-23] MEDS: LANTUS PER UNIT CHARGE SQ SCH (21:28)
[2022-12-23] MEDS: amLODIPine BESYLATE 5 MG TAB PO SCH (21:35)
[2022-12-23] MEDS: BRIMONIDINE TARTRATE 0.2% 5ML OP SCH (21:37)
[2022-12-23] MEDS: BRINZOLAMIDE (AZOPT) OPS 10 ML BTL OP SCH (21:38)
[2022-12-24] MEDS: HEPARIN SOD 5,000 UNIT/0.5 ML VIAL SQ SCH ×3 (05:01→21:45)
[2022-12-24 06:59] LABS: Hematocrit (blood only) 25.4 % (42.0-52.0); Mean Corpuscular Hemoglobin 30.5 pg (25.0-34.0); Mean Corpuscular Hgb Conc 35.4 g/dL (32.0-36.0); Mean Corpuscular Volume 86.1 fL (80.0-100.0); Mean Platelet Volume 9.6 fL (9.4-12.4); Platelet Count 172 K/uL (130-400); RDW Coefficient of Variation 15.4 % (11.5-14.5); RDW Standard Deviation 48.3 fL (36.4-46.3); Red Blood Count 2.95 M/uL (4.70-6.10); White Blood Count 5.59 K/ul (4.8-10.8)
[2022-12-24 07:51] LABS: BUN Creatinine Ratio 18.7 (10-20); C Reactive Protein 14.99 mg/dl (0-0.5); Calcium 7.8 mg/dl (8.6-10.3); Creatinine Clr Calc Pharmacy 26.1 ml/min; Est GFR (African American) 28.4 ml/min; Est GFR (Non-African American) 24.5 ml/min; Magnesium 1.8 mg/dl (1.7-2.4); Phosphorus 2.7 mg/dl (2.5-4.9); Potassium 3.4 mmol/L (3.5-5.1)
[2022-12-24 08:02] LABS: Estimated Average Glucose 174 mg/dl; Hemoglobin A1C 7.7 % (4.5-5.6)
[2022-12-24] MEDS ORDERED: POTASSIUM CHLORIDE CRTAB 20 MEQ TABCR PO STA (08:08)
[2022-12-24] MEDS: INSULIN ASPART PER UNIT CHARGE SC SCH ×4 (08:41→21:43)
[2022-12-24] MEDS: LANTUS PER UNIT CHARGE SQ SCH ×2 (08:42→21:44)
[2022-12-24] MEDS: SODIUM CHLORIDE 0.9% 1,000 ML IV SCH (09:04)
[2022-12-24] MEDS: METOPROLOL TARTRATE 25 MG TAB PO SCH ×2 (09:10→19:48)
[2022-12-24] MEDS: CYANOCOBALAMIN (B-12) 500 MCG TABLET PO SCH (09:10)
[2022-12-24] MEDS: BRINZOLAMIDE (AZOPT) OPS 10 ML BTL OP SCH ×2 (09:10→19:48)
[2022-12-24] MEDS: BRIMONIDINE TARTRATE 0.2% 5ML OP SCH ×2 (09:11→19:48)
[2022-12-24] MEDS: TIMOLOL MALEATE 0.5% OP SOLN 5 ML BTL OP SCH (09:11)
[2022-12-24] MEDS: ASPIRIN 81 MG ECTAB PO SCH (12:36)
[2022-12-24] MEDS: ATORVASTATIN 10 MG TAB PO SCH (17:10)
--- NOTE | 2022-12-24 18:12 | Hospitalist Progress Note ---
Date of Service December 24, 2022 Assessment & Plan (1) Acute hyponatremia: Plan: Sodium is improved and he is now eating. Stop IVF. Trend BMP in am. (2) COVID: Plan: Fever and weak with low appetite. Continue supportive care. No evidence of pneumonia and no requirement for oxygen at this time. He is improving. (3) HTN, goal below 140/90: Plan: Chronic, around goal. Continue amlodipine per home regimen. (4) CKD (chronic kidney disease), stage III: Plan: he is at his baseline creatinine of 2.1. Losartan was held. Trend BMP in am and consider restarting in am. (5) CAD (coronary artery disease): Plan: Chronic stable, continue current medical therapy. DVT prophy: heparin SQ Full Code Dispo-to home tomorrow. I spent a total [id number] coordinating, documenting, and providing care for this patient excluding time spent in the performance of separately billed services [facility] and [facility]tic[facility]ated Discharge Date Admission Date: December 22, 2022 Subjective Patient is an 82-year-old diabetic man with heart disease who presents with cough found to have COVID-19 infection. He is fatigued and weak with poor appetite. cough, weakness and appetite have improved feeling better lives alone and not quite back to baseline so one more night. Physical Exam Physical Exam: CONSTITUTIONAL: WNWD, vitals as above, NAD, ambulating independently around the room. EYES: normal conjunctivae, no scleral icterus ENT: external ear and nose normal, MMM NECK: trachea midline RESPIRATORY: clear to auscultation bilaterally, no crackles, rales or wheezes, normal respiratory effort CARDIOVASCULAR: regular rate and rhythm, S1 and 2 heard without murmurs, gallops or rubs, no JVD, no peripheral edema CHEST: inspection of chest was normal GASTROINTESTINAL: soft, nontender, ND, no guarding MUSCULOSKELETAL: strength 5/5 throughout, head is normocephalic and atraumatic SKIN: warm and dry NEUROLOGIC: CN 2-12 grossly intact, no sensory deficit, normal cognition, normal speech, no tremor PSYCHIATRIC: alert cooperative and oriented to person, place and time. Euthymic mood, makes good eye contact, language grossly intact, recent and remote memory grossly intact. Results & Data Results & Data Vital Signs (Past 12 Hours) Vital Signs Temp Pulse Resp BP Pulse Ox O2 Del Method 12/24/22 15:23 37.1 C 80 18 144/71 H 99 Room Air 12/24/22 09:00 Room Air 12/24/22 08:05 36.8 C 80 16 132/67 99 Room Air Laboratory Results Short CBC 12/24/22 Range/Units 06:35 WBC 5.59 (4.8-10.8) K/ul Hgb 9.0 L (14.0-18.0) g/dl Hct 25.4 L (42.0-52.0) % Plt Count 172 (130-400) K/uL BMP 12/24/22 06:35 Sodium 130 L Potassium 3.4 L Chloride 104 Carbon Dioxide 19 L BUN 44 H Creatinine 2.35 H Glucose 214 H Calcium 7.8 L Medications Administered Current Inpatient Medications Acetaminophen (Acetaminophen 325 Mg Tab) 650 mg PO QID PRN PRN Reason: pain/fever Stop: 01/21/23 22:06 Amlodipine Besylate (Amlodipine Besylate 5 Mg Tab) 2.5 mg PO HS KATELIN Stop: 01/22/23 20:59 Last Admin: 12/23/22 21:35 Dose: 2.5 mg Aspirin (Aspirin 81 Mg Ectab) 81 mg PO QDL [facility]ELIN Stop: 01/22/23 11:29 Last Admin: 12/24/22 12:36 Dose: 81 mg Atorvastatin Calcium (Atorvastatin 10 Mg Tab) 10 mg PO QDD KATELIN Stop: 01/22/23 16:29 Last Admin: 12/24/22 17:10 Dose: 10 mg Brimonidine Tartrate (Brimonidine Tartrate 0.2% 5ml) 1 drops OP BID [facility] Stop: 01/22/23 20:59 Last Admin: 12/24/22 09:11 Dose: 1 drops Brinzolamide (Brinzolamide (Azopt) Ops 10 Ml Btl) 1 drops OP BID [facility]ELIN Stop: 01/22/23 20:59 Last Admin: 12/24/22 09:10 Dose: 1 drops Cyanocobalamin (Cyanocobalamin (B-12) 500 Mcg Tablet) 1,000 mcg PO QAM [facility] Stop: 01/22/23 08:59 Last Admin: 12/24/22 09:10 Dose: 1,000 mcg Dextrose (Dextrose 50% 50 Ml Syringe) 25 - 50 ml IV UD PRN; Protocol PRN Reason: Hypoglycemia Protocol Stop: 01/22/23 06:45 Fluticasone Propionate (Fluticasone Propionate Na Spr 16 Gm Btl) 2 sprays NA HS [facility] Stop: 01/22/23 20:59 Last Admin: 12/23/22 21:24 Dose: 2 sprays Glucagon (Glucagon For Inj 1 Mg Vial) 1 mg SQ UD PRN; Protocol PRN Reason: Hypoglycemia Protocol Stop: 01/22/23 06:45 Glucose (Glucose 10 Tab/Tube) 4 - 8 tab PO UD PRN; Protocol PRN Reason: Hypoglycemia Treatment Stop: 01/22/23 06:45 Glucose (Glucose 40% Gel 15 Gm Tube) 15 - 30 gm PO UD PRN; Protocol PRN Reason: Hypoglycemia Protocol Stop: 01/22/23 06:45 Guaifenesin/Codeine Phosphate (Guaifenesin/Codeine 200mg/20mg 10ml Udc) 10 ml PO Q6H PRN PRN Reason: Cough Stop: 01/22/23 19:18 Heparin Sodium (Porcine) (Heparin Sod 5,000 Unit/0.5 Ml Vial) 5,000 units SQ Q8 [facility]ATELIN Stop: 01/22/23 21:59 Last Admin: 12/24/22 15:17 Dose: 5,000 units Promethazine HCl 6.25 mg/ (Sodium Chloride) 50.25 mls @ 201 mls/hr IV Q6H PRN PRN Reason: Nausea And Vomiting Stop: 01/21/23 22:06 Sodium Chloride (Nss) 1,000 mls @ 80 mls/hr IV .[id number] [facility] Stop: 12/24/22 20:29 Last Admin: 12/24/22 09:04 Dose: 80 mls/hr Insulin Aspart (Insulin Aspart Per Unit Charge) 0 units SC ACHS [facility] Stop: 01/22/23 11:29 Last Admin: 12/24/22 17:00 Dose: 4 units Insulin Glargine (Lantus Per Unit Charge) 25 units SQ BID [facility] Stop: 01/22/23 20:59 Last Admin: 12/24/22 08:42 Dose: 25 units Levalbuterol HCl (Levalbuterol Tartrate 15 Gm Hfa.Aer.Ad) 2 puffs INH QIDR PRN PRN Reason: SOB/wheezing Stop: 01/22/23 06:59 Metoprolol Tartrate (Metoprolol Tartrate 25 Mg Tab) 12.5 mg PO BID [facility] Stop: 01/22/23 08:59 Last Admin: 12/24/22 09:10 Dose: 12.5 mg Miscellaneous (Order Awaiting Action: Netarsudil-Latanoprost [Rocklatan] 0.02- 0.005 % Drops) 1 each N/A QS [facility] Stop: 01/22/23 00:00 Last Admin: 12/24/22 15:18 Dose: Not Given Miscellaneous (Carbohydrates For Hypoglycemia ) 15 - 30 gm PO UD PRN PRN Reason: Hypoglycemia Protocol Stop: 01/22/23 06:45 Oxycodone HCl (Oxycodone Hcl Ir 5 Mg Tab (Immediate Release)) 5 mg PO Q4H PRN PRN Reason: Pain Stop: 01/05/23 22:06 Pantoprazole Sodium (Pantoprazole 40 Mg Tab) 40 mg PO Q48H [facility] Stop: 01/22/23 08:59 Last Admin: 12/23/22 08:21 Dose: 40 mg Timolol Maleate (Timolol Maleate 0.5% Op Soln 5 Ml Btl) 1 drops OP QAM [facility] Stop: 01/22/23 08:59 Last Admin: 12/24/22 09:11 Dose: 1 drops
[2022-12-24] MEDS: amLODIPine BESYLATE 5 MG TAB PO SCH (19:46)
[2022-12-24] MEDS: FLUTICASONE PROPIONATE NA SPR 16 GM BTL SCH (19:49)
[2022-12-25] MEDS ORDERED: SODIUM CHLORIDE 0.65% NA SOLN 45 ML (OCEAN) PRN (03:02)
[2022-12-25] MEDS: HEPARIN SOD 5,000 UNIT/0.5 ML VIAL SQ SCH (05:37)
[2022-12-25 07:21] LABS: BUN Creatinine Ratio 19.9 (10-20); Calcium 8.1 mg/dl (8.6-10.3); Est GFR (African American) 28.2 ml/min; Est GFR (Non-African American) 24.4 ml/min; Potassium 3.7 mmol/L (3.5-5.1)
[2022-12-25] MEDS: INSULIN ASPART PER UNIT CHARGE SC SCH ×2 (08:34→12:21)
[2022-12-25] MEDS: LANTUS PER UNIT CHARGE SQ SCH (08:35)
[2022-12-25] MEDS: TIMOLOL MALEATE 0.5% OP SOLN 5 ML BTL OP SCH (08:52)
[2022-12-25] MEDS: BRINZOLAMIDE (AZOPT) OPS 10 ML BTL OP SCH (08:52)
[2022-12-25] MEDS: BRIMONIDINE TARTRATE 0.2% 5ML OP SCH (08:52)
[2022-12-25] MEDS: CYANOCOBALAMIN (B-12) 500 MCG TABLET PO SCH (08:52)
[2022-12-25] MEDS: METOPROLOL TARTRATE 25 MG TAB PO SCH (08:53)
[2022-12-25] MEDS: PANTOprazole 40 MG TAB PO SCH (08:54)
[2022-12-25] MEDS: ASPIRIN 81 MG ECTAB PO SCH (12:37)
--- NOTE | 2022-12-25 13:02 | Discharge Summary ---
Discharge Summary Date of Service December 25, 2022 Notes For Next Care Provider BMP in 1 week Medication Changes From Visit see med rec Admission HPI Per Admitting Provider History obtained from patient, family, and records. Medical history significant for CAD status post stent, valvular heart disease (mild AR/TR), aortic root enlargement as per records, hypertension, hyperlipidemia, DM 2 insulin requiring, CRI (baseline creatinine 2), chronic hyponatremia, chronic anemia (baseline hemoglobin of 10 ), GERD, glaucoma, past tobacco abuse. Last confinement August 2012 for pericarditis status post NSAID Rx. Few days history of cough symptoms. Patient unable to expectorate. No chest pain or unusual shortness of breath. No fluid retention. Poor appetite. Generalized weakness and fatigue. Sick COVID-19 contacts. Patient completed COVID-19 vaccination. Patient brought by family to ER. 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 Work-up revealed acute hyponatremia and COVID-19 infection. Chest x-ray revealed bibasilar opacities favoring atelectasis although an infectious process could appear similar. Patient was not hypoxic. He was slightly tachycardic and febrile. He was admitted for treatment of dehydration and hyponatremia. His poor oral intake improved throughout his hospital stay. Chronic comorbidities including CAD and CKD Stage III remained stable and he continues to respond well to supportive care and time. At time of discharge she was hemodynamically stable and afebrile with symptoms greatly improved. He was eager to return home. He was evaluated by physical therapy who supported safety to return home. He was discharged in stable condition with close primary care follow-up recommended. Discharge Exam CONSTITUTIONAL: WNWD, vitals as above, NAD, ambulating independently around the room. EYES: normal conjunctivae, no scleral icterus ENT: external ear and nose normal, MMM NECK: trachea midline RESPIRATORY: clear to auscultation bilaterally, no crackles, rales or wheezes, normal respiratory effort CARDIOVASCULAR: regular rate and rhythm, S1 and 2 heard without murmurs, gallops or rubs, no JVD, no peripheral edema CHEST: inspection of chest was normal GASTROINTESTINAL: soft, nontender, ND, no guarding MUSCULOSKELETAL: strength 5/5 throughout, head is normocephalic and atraumatic SKIN: warm and dry NEUROLOGIC: CN 2-12 grossly intact, no sensory deficit, normal cognition, normal speech, no tremor PSYCHIATRIC: alert cooperative and oriented to person, place and time. Euthymic mood, makes good eye contact, language grossly intact, recent and remote memory grossly intact. Updated Medication List Medication Instructions Recorded Confirmed Type fluocinolone acetonide oil 0.01 % See Rx Instructions otic (ear) 01/29/21 12/29/22 Rx ear drops .COMPLEX ear itching #20 mL amlodipine 2.5 mg tablet 2.5 mg PO HS 12/22/22 12/29/22 History aspirin 81 mg tablet,delayed 81 mg PO QDL 12/22/22 12/29/22 History release atorvastatin 10 mg tablet 10 mg PO QDD 12/22/22 12/29/22 History brinzolamide 1 %-brimonidine 0.2 % 1 drp OPB AMPM 12/22/22 12/29/22 History eye drops,suspension (Simbrinza) cholecalciferol (vitamin D3) 25 25 mcg PO QAM 12/22/22 12/29/22 History mcg (1,000 unit) tablet (Vitamin D3) cyanocobalamin (vitamin B-12) 1,000 mcg PO QAM 12/22/22 12/29/22 History 1,000 mcg tablet (Vitamin B-12) insulin aspart U-100 100 unit/mL 22 unit subcut TIDM 12/22/22 12/29/22 History (3 mL) subcutaneous pen (Novolog FlexPen U-100 Insulin aspart) insulin glargine 100 unit/mL (3 35 unit subcut QDB 12/22/22 12/29/22 History mL) subcutaneous pen (Basaglar KwikPen U-100 Insulin) isosorbide mononitrate 60 mg 60 mg PO QAM 12/22/22 12/29/22 History tablet,extended release 24 hr linagliptin 5 mg tablet (Tradjenta) 5 mg PO QDL 12/22/22 12/29/22 History losartan 50 mg tablet 50 mg PO BID 12/22/22 12/29/22 History metformin 500 mg tablet 500 mg PO BIDM 12/22/22 12/29/22 History metoprolol tartrate 25 mg tablet 12.5 mg PO BID 12/22/22 12/29/22 History netarsudil 0.02 %-latanoprost 1 drp OPB HS 12/22/22 12/29/22 History 0.005 % eye drops (Rocklatan) pantoprazole 40 mg tablet,delayed 40 mg PO Q2D 12/22/22 12/29/22 History release timolol maleate 0.5 % eye drops 1 drp OPB QAM 12/22/22 12/29/22 History codeine 10 mg-guaifenesin 100 mg/5 10 ml PO Q6H PRN cough #120 mL 12/25/22 12/29/22 Rx mL oral liquid fluticasone propionate 50 2 spray NA HS #16 grams 12/25/22 12/29/22 Rx mcg/actuation nasal spray,suspension Hospital Stay Data Consultations 12/22/22 20:03 ED Decision to Admit Stat Pending Results Patient Have Any Pending Studies at Discharge: No Discharge Instructions Given to Patient (Per Discharging Provider) Please take all medications as instructed on discharge list below. Please follow-up with your primary care physician in one week to repeat labwork and make sure this has improved. Specifically, we want to repeat your chemistry panel to check on your sodium--low in the setting of poor food intake over the past few days--and your kidney function, etc. You are contagious as long as you have ongoing symptoms of covid-19. Ten days after symptom onset you may come off isolation. If you are around anyone prior to that, please wear a mask to protect others. It was a pleasure taking care of you! Please call if you have any questions or problems. You can reach a [facility] hospitalist on duty at [facility] 24 hours a day by calling [phone]. Take care of yourself. Kami Hill, [facility] Campusist Total Time Total Time Spent Total Time Spent (In Minutes): 60
--- OUTSIDE RECORDS SUMMARY | 2022-12-29 09:29 | External Medical Summary | Summary of Care ---
Author Name Unknown Organization [facility] Address [address] [facility] [address] [address] [address] Phone [phone] Care Team Providers Care Hotel Engineer Name Role Phone Tito Grullon MD Primary Care Provider + Reason for Visit * Reason Onset Date Comments Order Request 12/20/2022 RSV Vaccination Encounter Details Date Type Department Care Team (Late st Contact Info) Description 12/20/2022 Telephone Family Practice [facility] [address] [place] [address] Tito Grullon MD [address] [facility] [place] [id number] Order Request (RSV Vaccination) Allergies Active Allergy Reactions Criticality Noted Date Comments Lisinopril 07/15/2008 Swelling, hives Metronidazole Hcl 06/28/2001 rash,itchy Niacin 10/16/2008 Itching, Can tolerate Niacin documented as of this encounter (statuses as of 12/20/2022) Medications Medication Sig Dispensed Refills Start Date End Date Status ASPIRIN 81 MG PO CHEW One pill by mouth once a day with food 100 5 07/12/2007 Active Jymob ULTRA SYSTEM W/DEVICE KITIndications:DM type 2, goal A1C 7-8 Use to check sugar once a day. Dx: 250.00 1 Kit 0 03/04/2013 Active Cyanocobalamin (B-12-SL) [address] 1,000 mcg under the tongue daily. 90 Tab 3 09/26/2017 Active Glucose Blood In Vitro StripIndications:Typ e 2 diabetes mellitus with hemoglobin A1c goal of less than 8.0% ([facility]) Tests daily 100 Strip 3 09/27/2017 Active Cholecalciferol 1000 units Capsule Take 1 Capsule by mouth in the morning. 0 05/24/2018 Active tacrolimus (PROTOPIC) 0.1 % ointment Apply topically to affected area 2 times a day . Apply to eyelids as needed 0 Active Pen [place] 32G X 6 MMIndications: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 ([facility]) Use as directed . Use to take insulin 4 times daily 400 Each 3 11/02/2021 Active Timolol Maleate 0.5 % Ophthalmic Solution (Timoptic) INSTILL ONE DROP IN BOTH EYES EVERY MORNING 10 mL 5 01/18/2022 01/18/2023 Active Insulin Pen Needle 32G X 6 MM USE DIRECTED TAKE INSULIN 4 TIMES DAILY 400 Each 11/02/2021 2023 Active Isosorbide Mononitrate ER 60 MG Oral Tablet Extended Release 24 Hour (Imdur)Indications:C oronary artery disease involving [place] coronary artery of [place] heart without angina pectoris,Dyslipidemi a, goal LDL below 70,Type 2 diabetes mellitus with hemoglobin A1c goal of less than 8.0% ([facility]),Essential hypertension with goal blood pressure less than 140/90 TAKE ONE TABLET BY MOUTH IN THE MORNING 90 Tablet 3 03/21/2022 03/21/2023 Active Insulin Aspart 100 UNIT/ML Subcutaneous Solution Pen-injector (novoLOG) 22 units subcut 3 times a day with meals as directed by diabetes team 9 mL 5 04/17/2022 Active Rocklatan 0.02-0.005 % Ophthalmic Solution (Netarsudil-Latanopr ost) Instill 1 drop into both eyes at night 7.5 mL 5 05/04/2022 Active Simbrinza 1-0.2 % Ophthalmic Suspension (Brinzolamide-Brimon idine) instill one drop into both eyes twice daily 24 mL 6 06/17/2022 Active Metoprolol Tartrate 25 MG Oral Tablet (Lopressor)Indicatio ns:Dyslipidemia, goal LDL below 100,HTN, goal below 130/80 TAKE 1/2 TBLET BY MOUTH IN THE MORNING THEN 1/2 TABLET BEFORE BEDTIME 90 Tablet 3 06/27/2022 06/27/2023 Active amLODIPine Besylate 5 MG Oral Tablet (Norvasc) TAKE ONE TABLET BY MOUTH IN THE MORNING 90 Tablet 3 06/27/2022 06/27/2023 Active NovoLOG FlexPen 100 UNIT/ML Subcutaneous Solution Pen-injector (insulin aspart) INJECT 30 UNITS UNDER THE SKIN THREE TIMES A DAY WITH MEALS DIRECTED BY DIABETIC CLINIC 90 mL 2 07/25/2022 07/25/2023 Active Losartan Potassium 50 MG Oral Tablet (Cozaar)Indications: 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) TAKE ONE TABLET BY MOUTH IN THE MORNING AND ONE TABLET BEFORE BEDTIME 180 Tablet 1 09/06/2022 Active linaGLIPtin 5 MG Oral Tablet (Tradjenta)Indicatio ns:Type 2 diabetes mellitus with hemoglobin A1c goal of less than 8.0% ([facility]) Take 1 Tablet by mouth in the morning. 90 Tablet 3 09/09/2022 Active Pantoprazole Sodium 40 MG Oral Tablet Delayed Release (Protonix)Indication s:Gastroesophageal reflux disease without esophagitis Take 1 Tablet by mouth every other day. 90 Tablet 3 09/09/2022 Active Atorvastatin Calcium 10 MG Oral Tablet (Lipitor) TAKE 1 WHOLE TABLET BY MOUTH DAILY. 90 Tablet 0 10/19/2022 10/19/2023 Active Insulin Glargine Solostar 100 UNIT/ML Subcutaneous Solution Pen-injector (Basaglar KwikPen)Indications: 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 45 mL 1 10/19/2022 Active Nitroglycerin 0.4 MG Sublingual Tablet Sublingual (Nitrostat)Indicatio ns:Coronary artery disease involving [place] coronary artery of [place] heart without angina pectoris DISSOLVE ONE TABLET UNDER THE TONGUE EVERY 5 MINUTES NEEDED FOR CHEST PAINS 25 Tablet 1 10/27/2022 10/27/2023 Active RSVPreF3 Vac Recomb Adjuvanted 120 MCG/0.5ML Intramuscular Suspension Reconstituted Inject 0.5 mL into a large muscle once for 1 dose. 1 Each 0 12/20/2022 12/20/2022 Active documented as of this encounter (statuses as of 12/20/2022) Active Problems Problem Noted Date Diagnosed Date Type 2 diabetes mellitus wit h stage 3 chronic kidney disease and hypertension 03/03/2021 Chronic kidney disease, stage 3b 08/04/2020 Overview: Per CKD protocol Hypertension associated with stage 3b chronic kidney disease due to type 2 diabetes mellitus 06/30/2020 Overview: Per CKD protocol Primary open-angle glaucoma, bilateral, indeterm inate stage 08/01/2019 Gastroesophageal reflux disease without esophagi tis 01/15/[address] 01/15/2019 Overview: HCP. Son Seamus and daughter are backup Well adult exam 01/03/2018 Overview: 07/[address] Arreola. 01/08 decrease metformin due to ckd3, inc glipizide. 07/09 a1c 8+ B12 deficiency 09/26/2017 Chronic right shoulder pain 06/22/2017 HTN, goal below 140/90 11/19/2015 CAD (coronary artery disease) 11/03/2012 S/P primary angioplasty with coronary stent 10/21 Overview: ENRIKE-LAD x 1 Dyslipidemia, goal LDL below 70 01/27/2009 Overview: Per Lipid Taxonomy. Type 2 diabetes mellitus wit h hemoglobin A1c goal of less than 8.0% 12/18/2008 Overview: Per Diabetes Taxonomy. ICD-10 update of inactive term History of herpes zoster 07/06/2007 ADVANCE DIRECTIVE INFORMATION 10/06/2004 Overview: Yes, Patient instructed to provide copy of advance directive for provider to review and to be scanned into Electronic Medical Record GENERAL OSTEOARTHROSIS Diaphragmatic hernia documented as of this encounter (statuses as of 12/20/2022) Resolved Problems Problem Noted Date Diagnosed Date Resolved Date Type 2 diabetes mellitus wit h stage 3 chronic kidney disease and hypertension 01/03/2018 07/03/19 21 Overview: Per CKD protocol Kidney disease, chronic, sta ge III (GFR 30-59 ml/min) 04/15/2013 02/02/2018 Overview: Per CKD protocol #1 Unstable angina 11/03/2012 12/14/2016 [employer] Other*[id number] 11/02/2012 03/29/2016 Overview: Study Title: Genomic Markers for Patients with Cardiovascular Disease Project # [id number] Quarantine Officer: Eleni Briggs MD [phone] HTN, goal below 130/80 10/12/201211/18 ACTIVE CASE MANAGEMENT Tamera De RN [phone] 07/04/2008 12/07/2009 ACTIVE CASE MANAGEMENT Tamera De RN [phone] 07/06/2007 05/14/2008 RECTAL & ANAL DIS NEC 11/26/20022016 Dermatitis 02/07/2002 12/14/2016 Other psoriasis 02/07/2002 01/03/2018 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 Type 2 diabetes mellitus wit h hemoglobin A1c goal of less than 7.0% 12/18/2008 Overview: Per Diabetes Taxonomy. ICD-10 update of inactive term HYPERTENSION NOS 01/13/2009 Overview: Modified per HTN protocol #16. documented as of this encounter (statuses as of 12/20/2022) Immunizations Name Administration Dates Next Due COVID-19 mRNA, LNP-s, No Pre serve, 2-Dose Series (Pfizer) 05/28/2021,11/16/2020,05/15/2020,2020 Covid-19, Mrna, Lnp-s, Pf, B ivalent, 30 Mcg, IM, 12 yrs and above (Pfizer) 11/09/2021 Pneumococcal Conjugate Vacc, 13 Valent (Prevnar) 12/02/2015 SEASONAL INFLUENZA, PF, 6 M & Above, IM , (FLULAVAL or FLUZONE) 11/21/2020,11/06/2017,12/14/2016 Season Influenza, Quad, PF, Adjuvanted, 65+ Yrs, IM (FLUAD) 11/02/2019 Seasonal Influenza, Quadriva lent Hd (Fluzone Hd) 12/14/2022,11/04/2021 Seasonal Influenza, Quadriva lent, No Preserve, IM 12/02/2015,12/06/2014 Seasonal Influenza, Split, I IV3, With Preserve, Inj 11/25/2013,11/07/2012,12/20/2011,2010,11/30/2009,12/10/2008,12/05/2007,1 ,11/30/2005 Seasonal Influenza, Trivalen t, Adjuvanted, 65+ yrs 11/13/2018 TD - Tetanus/Diptheria (ADULT) 10/08/2007 TDAP (age 10 and older)(Boostrix) 09/25/2013 Varicella Zoster Vaccine (Adult) 09/18/2008 Zoster Vaccine Recombinant (Shingrix) 01/15/2019 ,07/13/2018 documented as of this encounter Social History Tobacco Use Types Packs/Day Years Used Date Smoking Tobacco: Former Cigars Q uit: 02/21/1972 Smokeless Tobacco: Never Alcohol Use Standard Drinks/Week Comments No 0 (1 standard drink = 0.6 oz pur e alcohol) PHQ-2 Answer Date Recorded PHQ Adult Total Score 0 09/09/2022 Hunger Vital Sign Answer Date Recorded Within the past 12 months, y ou worried that your food would run out before you got the money to buy more. Never true 09/10/19 23 Within the past 12 months, t he food you bought just didn't last and you didn't have money to get more. Never true 09/09/2022 Sex and Gender Information Value Date Recorded Sex Assigned at Male 09/23/2019 9:43 AM EDT Gender Identity Male 09/23/2019 9:43 AM EDT Sexual Orientation Straight 09/23/2019 9: 43 AM EDT Job Start Date Occupation Industry Not on file Not on file Not on file documented as of this encounter Miscellaneous Notes * Telephone Encounter - Tito Grullon MD - 12/20/2022 3:06 PM EDT Rx signed-notify pt can get at pharmacy * Telephone Encounter - Nika Haney LPN - 12/20/2022 2:39 PM EDT Order pend below if you agree * Telephone Encounter - Rosalio Dunbar OSA - 12/20/2022 12:06 PM EDT An order was requested for this patient. Name of Requesting Provider: Patient request Order Requested: RSV Vaccination Diagnosis/Reason for Request: Health Maintenance If order request is for Mammogram: Is the patient having any breast symptoms? N/A Is there a chance of ? N/A Has the patient had any breast problems in the past? NA What location AND department does the patient wish to have their order completed at? [facility] Fax Number, if applicable: N/A Call Back Number: [phone] If the caller is not a current patient, please advise the patient to call their current PCP to havethe order's prior to being seen in our office. The patient was informed that our providers would not order anything (medication, labs, etc.) prior to being seen. documented in this encounter Plan of Treatment Upcoming Encounters Date Type Department Care Team (Late st Contact Info) Description 12/21/2022 10:00 AM EDT Immunization Ancillary [address] [place] [address] [place], Covid19 Vaccine [address] [place] [address] 04/21/2023 9:20 AM EST Office Visit Family Practice [facility] [address] [address] Tito Grullon MD [address] [place] [address] 05/04/2023 11:00 AM EDT Office Visit Pharmacy, [facility] [address] [address] [facility] [address] [facility] [place] [address] 05/26/2023 2:00 PM EDT Office Visit Nephrology, [facility] [address] [place] [address] Marshal Davis MD [address] [place] [address] Health Maintenance Due Date Last Done Comments Hepatitis B (1 of 3 - Risk 3-dose series) 1998 COVID-19 Vaccine ( season) 2022 11/09/2021, 05/28/2021, 11/16/2020, Additional history exists HbA1c 03/08/2023 09/05/2022, 06/2022, 08/27/2021, Additional history exists GFR 05/16/2023 11/15/2022, 08/20, 12/30/2021, Additional history exists Diabetic Eye Exam 08/02/2023 08/01/2022, , 05/19/2020, Additional history exists Albumin/Creatinine Ratio 09/06/2023 023, 08/27/2021, 05/06/2021, Additional history exists CKD HGB USE SMARTSET 21627 09/06/202309/05, 06/18/2021, 06/18/2021, Additional history exists CKD PHOS USE SMARTSET 80411 09/06/202308/20, 05/06/2021, 07/16/2020, Additional history exists Depression Screening 09/10/2023 09/09/2022 DTaP,Tdap,and Td Vaccines (2 - Td or Tdap) 09/26/2023 09/25/2013, 10/08/2007 Diabetic Foot Exam 10/11/2023 10/10/2022, 0 08/27/2021, 09/23/2019, Additional history exists Pneumococcal Vaccine: 65+ Years Completed 12/02/2015, 12/08/2004 Zoster Vaccines Completed 01/15/2019, 06/21, 09/18/2008 Influenza Vaccine (FLU shot) Completed , 11/04/2021, 11/21/2020, Additional history exists GARDASIL-HPV IMMUNIZATION SERIES Aged Out No longer eligible based on patient's age to complete this topic MENINGOCOCCAL (MENACTRA/MENVEO) Aged Out No longer eligible based on patient's age to complete this topic documented as of this encounter Medical Devices Not on filedocumented as of this encounter Advance Directives Latest Code Status on File Code Status Date Activated Date Inactivated Comments Full Code 11/02/2012 2:17 PM 11/03/2012 4:32 PM This order reflects the patients wishes and were consensually agreed upon. Question Answer Comments Discussion of Advance Directives occurred with: Not Discussed Does the patient have a Living Will? No Does the patient have Health Care Power of Academic Hospitalist? No Care Teams Hotel Engineer Relationship Specialty Start Date End Date Tito Grullon MD [address] [facility] [place] [address] PCP - General Family Medicine 09/01/15 documented as of this encounter
--- OUTSIDE RECORDS SUMMARY | 2022-12-29 09:30 | External Medical Summary ---
Author Name Unknown Address Unknown Organization : Laboratory Report Ordering Provider Test Date Status NEYMAR AYALA 11/29/2022 15:21:00 Final Observation Date Value Abnormality Reference (Units ) Status Color of Urine by Auto 11/29/2022 15:21:00 Yellow Light Yellow, Yellow Final Clarity, Urine 11/29/2022 15:21:00 Clear Clear Final Glucose [Mass/volume] in Urine by Automated test strip 11/29/2022 15:21:00 100 Abnormal Negative (mg/dL) Final Bilirubin.total [Presence] in Urine by Automated test strip 11/29/2022 15:21:00 Negative Negative Final Ketones [Mass/volume] in Urine by Automated test strip 11/29/2022 15:21:00 Negative Negative (mg/dL) Final Specific gravity, Urine 11/29/2022 15:21:00 1.010 1.003-1.030 Final Hemoglobin [Presence] in Urine by Automated test strip 11/29/2022 15:21:00 Trace-intact Abnormal Negative Final pH, Urine 11/29/2022 15:21:00 7.0 5.0, 5.5, 6.0, 6.5, 7.0, 7.5 (units) Final Protein [Mass/volume] in Urine by Automated test strip 11/29/2022 15:21:00 Trace Abnormal Negative (mg/dL) Final Urobilinogen, Urine 11/29/2022 15:21:00 0.2 0.2, 1.0 (mg/dL) Final Nitrite [Presence] in Urine by Automated test strip 11/29/2022 15:21:00 Negative Negative Final Leukocyte esterase [Presence] in Urine by Automated test strip 11/29/2022 15:21:00 Negative Negative Final Performing Location
--- OUTSIDE RECORDS SUMMARY | 2022-12-29 09:30 | External Medical Summary | Summary of Care ---
Author Name Unknown Organization [facility] Address [address] [facility] [place] [address] Phone [phone] Care Team Providers Care Senior Manager Mmcoe Name Role Phone Tito Grullon MD Primary Care Provider + Reason for Visit * Reason Comments Outpatient Testing Encounter Details Date Type Department Care Team Description 11/15/2022 Laboratory Laboratory, [facility] [address] [facility] [place] [id number] [facility] [address] Arrived Allergies Active Allergy Reactions Severity Noted Date Comments Lisinopril 07/15/2008 Swelling, hives Metronidazole Hcl 06/28/2001 rash,itchy Niacin 10/16/2008 Itching, Can tolerate Niacin documented as of this encounter (statuses as of 11/15/2022) Medications Medication Sig Dispensed Refills Start Date End Date Status ASPIRIN 81 MG PO CHEW One pill by mouth once a day with food 100 5 07/12/2007 Active ONEPanGo NetworksUCH ULTRA SYSTEM W/DEVICE KITIndications:DM type 2, goal A1C 7-8 Use to check sugar once a day. Dx: 250.00 1 Kit 0 03/04/2013 Active Cyanocobalamin (B-12-SL) [address] 1,000 mcg under the tongue daily. 90 Tab 3 09/26/2017 Active Glucose Blood In Vitro StripIndications:Ty pe 2 diabetes mellitus with hemoglobin A1c goal of less than 8.0% ([facility]) Tests daily 100 Strip 3 09/27/2017 Active Cholecalciferol 1000 units Capsule Take 1 Capsule by mouth in the morning. 0 05/24/2018 Active tacrolimus (PROTOPIC) 0.1 % ointment Apply topically to affected area 2 times a day . Apply to eyelids as needed 0 Active Pen Tripp 32G X 6 MMIndications: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 ([facility]) Use as directed . Use to take insulin 4 times daily 400 Each 3 11/02/2021 Active Timolol Maleate 0.5 % Ophthalmic Solution (Timoptic) INSTILL ONE DROP IN BOTH EYES EVERY MORNING 10 mL 5 01/18/2022 01/18/2023 Active Insulin Pen Needle 32G X 6 MM USE DIRECTED TAKE INSULIN 4 TIMES DAILY 400 Each 3 11/02/2021 2023 Active Isosorbide Mononitrate ER 60 MG Oral Tablet Extended Release 24 Hour (Imdur)Indications: Coronary artery disease involving [place] coronary artery of [place] heart without angina pectoris,Dyslipidem ia, goal LDL below 70,Type 2 diabetes mellitus with hemoglobin A1c goal of less than 8.0% ([facility]),Essential hypertension with goal blood pressure less than 140/90 TAKE ONE TABLET BY MOUTH IN THE MORNING 90 Tablet 3 03/21/2022 03/21/2023 Active Insulin Aspart 100 UNIT/ML Subcutaneous Solution Pen-injector (novoLOG) 22 units subcut 3 times a day with meals as directed by diabetes team 9 mL 5 04/17/2022 Active Rocklatan 0.02-0.005 % Ophthalmic Solution (Netarsudil-Latanop kyrie) Instill 1 drop into both eyes at night 7.5 mL 5 05/04/2022 Active Simbrinza 1-0.2 % Ophthalmic Suspension (Brinzolamide-Brimo nidine) instill one drop into both eyes twice daily 24 mL 6 06/17/2022 Active Metoprolol Tartrate 25 MG Oral Tablet (Lopressor)Indicati ons:Dyslipidemia, goal LDL below 100,HTN, goal below 130/80 [...] Active Losartan Potassium 50 MG Oral Tablet (Cozaar)Indications :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) TAKE ONE TABLET BY MOUTH IN THE MORNING AND ONE TABLET BEFORE BEDTIME 180 Tablet 1 09/06/2022 Active linaGLIPtin 5 MG Oral Tablet (Tradjenta)Indicati ons:Type 2 diabetes mellitus with hemoglobin A1c goal of less than 8.0% (HCC) Take 1 Tablet by mouth in the morning. 90 Tablet 3 09/09/2022 Active Pantoprazole Sodium 40 MG Oral Tablet Delayed Release (Protonix)Indicatio ns:Gastroesophageal reflux disease without esophagitis Take 1 Tablet by mouth every other day. 90 Tablet 3 09/09/2022 Active Clopidogrel Bisulfate 75 MG Oral Tablet (pLAVix) TAKE 1 TABLET BY MOUTH DAILY IN THE MORNING 90 Tablet 1 09/29/2022 09/29/2023 Active Atorvastatin Calcium 10 MG Oral Tablet (Lipitor) TAKE 1 WHOLE TABLET BY MOUTH DAILY. 90 Tablet 0 10/19/2022 10/19/2023 Active Insulin Glargine Solostar 100 UNIT/ML Subcutaneous Solution Pen-injector (Basaglar KwikPen)Indications :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 45 mL 1 10/19/2022 Active Nitroglycerin 0.4 MG Sublingual Tablet Sublingual (Nitrostat)Indicati ons:Coronary artery disease involving [place] coronary artery of [place] heart without angina pectoris DISSOLVE ONE TABLET UNDER THE TONGUE EVERY 5 MINUTES NEEDED FOR CHEST PAINS 25 Tablet 1 10/27/2022 10/27/2023 Active documented as of this encounter (statuses as of 11/15/2022) Active Problems Problem Noted Date Type 2 diabetes mellitus wit h stage 3 chronic kidney disease and hypertension 03/03/2021 Chronic kidney disease, stage 3b 021 Overview: Per CKD protocol Hypertension associated with stage 3b chronic kidney disease due to type 2 diabetes mellitus 06/30/2020 Overview: Per CKD protocol Primary open-angle glaucoma, bilateral, indeterminate stage 08/01/2019 Gastroesophageal reflux disease without esophagitis 01/15/[address] 01/15/2019 Overview: HCP. Son Seamus and daughter are backup Well adult exam 01/03/2018 Overview: 07/[address]TM[address] Dr Arreola. 01/08 decrease metformin due to ckd3, inc glipizide. 07/09 a1c 8+ B12 deficiency 09/26/2017 Chronic right shoulder pain 06/22/2017 HTN, goal below 140/90 11/19/2015 CAD (coronary artery disease) 11/03/2012 S/P primary angioplasty with coronary st ent 11/03/2012 Overview: ENRIKE-LAD x 1 Dyslipidemia, goal LDL below 70 01/28/20 09 Overview: Per Lipid Taxonomy. Type 2 diabetes mellitus with hemoglobin A1c goal [...] as of this encounter (statuses as of 11/15/2022) Resolved Problems Problem Noted Date Resolved Date Type 2 diabetes mellitus wit h stage 3 chronic kidney disease and hypertension 01/03/2018 07/02/2020 Overview: Per CKD protocol Kidney disease, chronic, stage III (GFR 30-59 ml /min) 04/15/2013 02/02/2018 Overview: Per CKD protocol #1 Unstable angina 11/03/2012 12/14/2016 [employer] Other*[id number] 201203/29/2016 Overview: Study Title: Genomic Markers for Patients with Cardiovascular Disease Project # [id number] [employer] [place]: Eleni Briggs MD [phone] HTN, goal below 130/80 10/12/2012 6 ACTIVE CASE MANAGEMENT Tamera De RN 07/04/2008 12/07/2009 ACTIVE CASE MANAGEMENT Tamera De RN 07/06/2007 05/14/2008 RECTAL & ANAL DIS NEC 11/26/2002 12/14/2016 Dermatitis 02/07/2002 12/14/2016 Other psoriasis 02/07/2002 01/03/2018 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 Type 2 diabetes mellitus wit h hemoglobin A1c goal of less than 7.0% 12/18/2008 Overview: Per Diabetes Taxonomy. ICD-10 update of inactive term HYPERTENSION NOS 01/13/2009 Overview: Modified per HTN protocol #16. documented as of this encounter (statuses as of 11/15/2022) Immunizations Name Administration Dates Next Due COVID-19 mRNA, LNP-s, No Pre serve, 2-Dose Series ([employer]) 05/28/2021,11/16/2020,05/15/2020,2020 Covid-19, Mrna, Lnp-s, Pf, B ivalent, 30 Mcg, IM, 12 yrs and above (Pfizer) 11/09/2021 Pneumococcal Conjugate Vacc, 13 Valent (Prevnar) 12/02/2015 Season Influenza, Quad, PF, Adjuvanted, 65+ Yrs, IM (FLUAD) 11/02/2019 Seasonal Influenza, PF, 6 mo ns & Above, IM , (Flulaval) 11/21/2020,11/06/2017,12/14/2016 Seasonal Influenza, Quadriva lent Hd (Fluzone Hd) 11/04/2021 Seasonal Influenza, Quadriva lent, No Preserve, IM [...] drink = 0.6 oz pur e alcohol) Food Insecurity Answer Date Recorded Within the past 12 months, y ou worried that your food would run out before you got money to buy more. Never true 09/09/2022 Within the past 12 months, t he food you bought just didn't last and you didn't have money to get more. Never true 09/09/2022 Sex Assigned at Date Recorded Male 09/23/2019 9:43 AM E DT Job Start Date Occupation Industry Not on file Not on file Not on file documented as of this encounter Plan of Treatment Upcoming Encounters Date Type Specialty Care Team Description 11/29/2022 Appointment Radiology 11/29/2022 Procedure Only Urology Ned España MD [address] [place] [address] 12/07/2022 Office Visit Nephrology Sabina Keyes PA-C [address] [facility] [place] [address] 12/14/2022 Office Visit Cardiology Aminata Estrada PA-C [address] [place] [id number] 04/21/2023 Office Visit Family Medicine Tito Grullon MD [address] [place] [address] 05/04/2023 Office Visit Pharmacy [facility] [address] [place] [address] Health Maintenance Due Date Last Done Comments Influenza Vaccine (FLU shot) (#1) 2022 11/04/2021, 11/21/2020, 11/02/2019, Additional history exists GFR 03/08/2023 09/05/2022, 12/21, 08/27/2021, Additional history exists HbA1c 03/08/2023 09/05/2022, 06/2022, 08/27/2021, Additional history exists DIABETES-EYE EXAM 08/02/2023 08/01/2022, , 05/19/2020, Additional history exists Albumin/Creatinine Ratio 09/06/2023 023, 08/27/2021, 05/06/2021, Additional history exists CKD HGB USE SMARTSET 57379 09/06/202309/05, 06/18/2021, 06/18/2021, Additional history exists CKD PHOS USE SMARTSET 94579 09/06/202308/20, 05/06/2021, 07/16/2020, Additional history exists Depression Screening 09/10/2023 09/09/2022 DTaP,Tdap,and Td Vaccines (2 - Td or Tdap) 09/26/2023 09/25/2013, 10/08/2007 Diabetic Foot Exam 10/11/2023 10/10/2022, 0 08/27/2021, 09/23/2019, Additional history exists Pneumococcal Vaccine: 65+ Years Completed 12/02/2015, 12/08/2004 Zoster Vaccines Completed 01/15/2019, 06/21, 09/18/2008 COVID-19 Vaccine Completed 11/09/2021, 09/2021, 11/16/2020, Additional history exists GARDASIL-HPV IMMUNIZATION SERIES Aged Out No longer eligible based on patient's age to complete this topic Hepatitis B Aged Out No longer eligi ble based on patient's age to complete this [...] the patient have Health Care Power of Accountant Budget? No Care Teams Senior Manager Mmcoe Relationship Specialty Start Date End Date Tito Grullon MD [address] [place] [address] PCP - General Family Medicine 09/01/15 documented as of this encounter
--- OUTSIDE RECORDS SUMMARY | 2022-12-29 09:30 | External Medical Summary | Summary of Care ---
Author Name Unknown Organization [facility] Address [address] [place] [address] Phone [phone] Care Team Providers Care Cath Lab Manager Name Role Phone Tito Grullon MD Primary Care Provider + Reason for Visit * Reason Comments Chronic Kidney Disease (CKD) Encounter Details Date Type Department Care Team Description 12/07/2022 Office Visit Nephrology, Mira Newcomb [address] [facility] [place] [address] ZemaitisSabina PA-C [address] [facility] [place] [address] Stage 3b chronic kidney disease (HCC)*; HTN, goal below 140/90; Hyponatremia Allergies Active Allergy Reactions Severity Noted Date Comments Lisinopril 07/15/2008 Swelling, hives Metronidazole Hcl 06/28/2001 rash,itchy Niacin 10/16/2008 Itching, Can tolerate Niacin documented as of this encounter (statuses as of 12/09/2022) Medications Medication Sig Dispensed Refills Start Date End Date Status ASPIRIN 81 MG PO CHEW One pill by mouth once a day with food 100 5 07/12/2007 Active PlaySpan ULTRA SYSTEM W/DEVICE KITIndications:DM type 2, goal A1C 7-8 Use to check sugar once a day. Dx: 250.00 1 Kit 0 03/04/2013 Active Cyanocobalamin (B-12-SL) [address] 1,000 mcg under the tongue daily. 90 Tab 3 09/26/2017 Active Glucose Blood In Vitro StripIndications:Ty pe 2 diabetes mellitus with hemoglobin A1c goal of less than 8.0% ([facility]) Tests daily 100 Strip 3 09/27/2017 Active Cholecalciferol 1000 units Capsule Take 1 Capsule by mouth in the morning. 0 05/24/2018 Active tacrolimus (PROTOPIC) 0.1 % ointment Apply topically to affected area 2 times a day . Apply to eyelids as needed 0 Active Pen Dameron 32G X 6 MMIndications: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 ([facility]) Use as directed . Use [...] 24 Hour (Imdur)Indications: Coronary artery disease involving [place] coronary artery of [place] heart without angina pectoris,Dyslipidem ia, goal LDL below 70,Type 2 diabetes mellitus with hemoglobin A1c goal of less than 8.0% ([facility]),Essential hypertension with goal blood pressure [...] Tablet Sublingual (Nitrostat)Indicati ons:Coronary artery disease involving [place] coronary artery of [place] heart without angina pectoris DISSOLVE ONE TABLET UNDER THE TONGUE EVERY 5 MINUTES NEEDED FOR CHEST PAINS 25 Tablet 1 10/27/2022 10/27/2023 Active documented as of this encounter (statuses as of 12/09/2022) Active Problems Problem Noted Date Type 2 [...] 1 Dyslipidemia, goal LDL below 70 01/28/20 Overview: Per Lipid Taxonomy. Type 2 diabetes [...] as of this encounter (statuses as of 12/09/2022) Resolved Problems Problem Noted Date Resolved Date Type 2 diabetes mellitus wit h stage 3 chronic kidney disease and hypertension 01/03/2018 07/02/2020 Overview: Per CKD protocol Kidney disease, chronic, stage III (GFR 30-59 ml /min) 04/15/2013 02/02/2018 Overview: Per CKD protocol #1 Unstable angina 11/03/2012 12/14/2016 [employer] Other*[id number] 201203/29/2016 Overview: Study Title: Genomic Markers for Patients with Cardiovascular Disease Project # [id number] Exploration Manager: Eleni Briggs MD [phone] HTN, goal below 130/80 10/12/2012 6 ACTIVE [...] as of this encounter (statuses as of 12/09/2022) Immunizations Name Administration Dates Next Due COVID-19 mRNA, LNP-s, No Pre serve, 2-Dose Series (Polyheal) 05/28/2021,11/16/2020,05/15/2020,2020 Covid-19, Mrna, Lnp-s, Pf, B ivalent, [...] on file documented as of this encounter Last Filed Vital Signs Vital Sign Reading Time Taken Comments Blood Pressure 139/60 12/07/2022 1:36 PM EDT Pulse 65 12/07/2022 1:36 PM EDT Temperature 36.5 C (97.7 F) 12/07/2022 1:36 PM ED T Respiratory Rate - - Oxygen Saturation - - Inhaled Oxygen Concentration - - Weight 90.8 kg (200 lb 3.2 oz) 12/07/2022 1:36 P M EDT Height - - Body Mass Index 30.44 10/10/2022 10:40 AM EDT documented in this encounter Patient Instructions * Patient Instructions* Sabina Keyes PA-C - 12/07/2022 2:03 PM EDT Cont to monitor bp Repeat labs in January documented in this encounter Progress Notes * Sabina Keyes PA-C - 12/07/2022 1:30 PM EDT NEPHROLOGY CLINIC NOTE Nephrology, [facility] [address] [facility] [place] [address] Patient Name: Rei Martínez Patient Active Problem List Diagnosis Code GENERAL OSTEOARTHROSIS M15.9 ADVANCE DIRECTIVE INFORMATION History of herpes zoster Z86.19 Type 2 diabetes mellitus with hemoglobin A1c goal of less than 8.0% ([facility]) E11.9 Dyslipidemia, goal LDL below 70 E78.5 Diaphragmatic hernia K44.9 CAD (coronary artery disease) I25.10 S/P primary angioplasty with coronary stent Z95.5 HTN, goal below 140/90 I10 Chronic right shoulder pain M25.511, G89.29 B12 deficiency E53.8 Well adult exam Z00.00 Gastroesophageal reflux disease without esophagitis K21.[address] Z78.9 Primary open-angle glaucoma, bilateral, indeterminate stage H40.1134 Hypertension associated with stage 3b chronic kidney disease due to type 2 diabetes mellitus (HCC) E11.22, I12.9, N18.32 Chronic kidney disease, stage 3b (HCC) N18.32 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) E11.22, I12.9, N18.30 BACKGROUND: 82 year old male presents for f/u of non proteinuric CKD3 secondary to advanced age, HTN, and diabetes PMH (from last Nephrology note): Patient with hypertension since about 2003 and diabetes since age 58. PMH also includes hyponatremia, CAD with hx of a stent in [address] Doe. Quit tobacco in 2004. Has garden, lawn work , weed whatcking; working around house. He does most of this work w/ some help from his who does the trimming. has early dementia; to point where pt has to cook. Took care of her mother w/ dementia as well. Follows w/ MTM re DM. Goes to chiropactor for the pass 30 yrs- helps with aches and pains Drinks at least : ? oz water daily. Drinks by the cup full throughout the day Home blood pressure checks: yes- with validated cuff NSAID use: No does not take anything -only Aspirin 81 mg Herbals/supplements: Vit b12, Vit D, Today 12/07/22: Denies any recent hospitalizations, procedures or infections. Reports bout of hematuria and dec RBC - imaging completed with no significant findings Patient reports taking bp once daily has been trying to get hal on his phone to work but even his grandson has been unsuccessful. Reports sipping water throghout the day but has been trying to increase due to constipation - approx 24 oz daily Metformin stopped given renal function REVIEW OF SYSTEMS General: + fatigue, No change in weight Head: No significant headache Respiratory: No cough,No wheezing, No shortness of breath Cardiovascular:No chest pain, No palpitations, and No syncope, No falls Gastrointestinal: No nausea, vomiting, diarrhea No blood in stools No abdominal pain Urinary: No dysuira, + Microhematuria. No flank pain Musculoskeletal: + muscle/joint pains , No edema Skin: No itching All other systems were reviewed and were negative. Current Outpatient Medications Medication Sig Dispense Refill ASPIRIN 81 MG PO CHEW One pill by mouth once a day with food 100 5 OneTok SYSTEM W/DEVICE KIT Use to check sugar once a day. Dx: 250.00 1 Kit 0 Cyanocobalamin (B-12-SL) [address] 1,000 mcg under the tongue daily. 90 Tab 3 Glucose Blood In Vitro Strip Tests daily 100 Strip 3 Cholecalciferol 1000 units Capsule Take 1 Capsule by mouth in the morning. tacrolimus (PROTOPIC) 0.1 % ointment Apply topically to affected area 2 times a day . Apply to eyelids as needed Pen Dameron 32G X 6 MM Use as directed . Use to take insulin 4 times daily 400 Each 3 Timolol Maleate 0.5 % Ophthalmic Solution (Timoptic) INSTILL ONE DROP IN BOTH EYES EVERY MORNING 10mL 5 Insulin Pen Needle 32G X 6 MM USE DIRECTED TAKE INSULIN 4 TIMES DAILY 400 Each 3 Isosorbide Mononitrate ER 60 MG Oral Tablet Extended Release 24 Hour (Imdur) TAKE ONE TABLET BY MOUTH IN THE MORNING 90 Tablet 3 Insulin Aspart 100 UNIT/ML Subcutaneous Solution Pen-injector (novoLOG) 22 units subcut 3 times a day with meals as directed by diabetes team 9 mL 5 Rocklatan 0.02-0.005 % Ophthalmic Solution (Netarsudil-Latanoprost) Instill 1 drop into both eyes at night 7.5 mL 5 Simbrinza 1-0.2 % Ophthalmic Suspension (Brinzolamide-Brimonidine) instill one drop into both eyes twice daily 24 mL 6 Metoprolol Tartrate 25 MG Oral Tablet (Lopressor) TAKE 1/2 TBLET BY MOUTH IN THE MORNING THEN 1/2 TABLET BEFORE BEDTIME 90 Tablet 3 amLODIPine Besylate 5 MG Oral Tablet (Norvasc) TAKE ONE TABLET BY MOUTH IN THE MORNING 90 Tablet 3 NovoLOG FlexPen 100 UNIT/ML Subcutaneous Solution Pen-injector (insulin aspart) INJECT 30 UNITS UNDER THE SKIN THREE TIMES A DAY WITH MEALS DIRECTED BY DIABETIC CLINIC 90 mL 2 Losartan Potassium 50 MG Oral Tablet (Cozaar) TAKE ONE TABLET BY MOUTH IN THE MORNING AND ONE TABLET BEFORE BEDTIME 180 Tablet 1 linaGLIPtin 5 MG Oral Tablet (Tradjenta) Take 1 Tablet by mouth in the morning. 90 Tablet 3 Pantoprazole Sodium 40 MG Oral Tablet Delayed Release (Protonix) Take 1 Tablet by mouth every otherday. 90 Tablet 3 Clopidogrel Bisulfate 75 MG Oral Tablet (pLAVix) TAKE 1 TABLET BY MOUTH DAILY IN THE MORNING 90 Tablet 1 Atorvastatin Calcium 10 MG Oral Tablet (Lipitor) TAKE 1 WHOLE TABLET BY MOUTH DAILY. 90 Tablet 0 Insulin Glargine Solostar 100 UNIT/ML Subcutaneous Solution Pen-injector (Basaglar KwikPen) Inject 35 Units under the skin every night at bedtime. 45 mL 1 Nitroglycerin 0.4 MG Sublingual Tablet Sublingual (Nitrostat) DISSOLVE ONE TABLET UNDER THE TONGUE EVERY 5 MINUTES NEEDED FOR CHEST PAINS 25 Tablet 1 No current facility-administered medications for this visit. PHYSICAL EXAMINATION Last 4 BP Readings: BP Readings from Last 4 Encounters: 12/07/22 139/60 11/29/22 142/68 10/10/22 150/70 10/06/22 150/67 Last 3 Weights: Wt Readings from Last 3 Encounters: 12/07/22 90.8 kg (200 lb 3.2 oz) 10/10/22 90.1 kg (198 lb 9.6 oz) 09/09/22 90.1 kg (198 lb 9 oz) BP 139/60 (BP Site: Right Arm, BP Position: Sitting, BP Cuff Size: Regular) | Pulse 65 | Temp 36.5 C (97.7 F) (Tympanic) | Wt 90.8 kg (200 lb 3.2 oz) | BMI 30.44 kg/m | BSA 2.09 m Wt Readings from Last 1 Encounters: 12/07/22 90.8 kg (200 lb 3.2 oz) General appearance: alert, no apparent distress. Ambulatory without assistance HEAD: Normocephalic, No masses, lesions, tenderness Respiratory: clear to auscultation, no rhonchi, no wheezes, and no crackles Heart: regular rate and regular rhythm Abdomen: abdomen soft, non-tender, and no CVA tenderness EXTREMITIES: No edema, No cyanosis or clubbing Skin: skin color, texture, turgor are normal NEURO: alert & oriented x 3 with fluent speech, no focal motor/sensory deficits No tremor Patient is a reliable historian of events LABS: Latest Reference Range & Units 05/06/21 08:47 06/18/21 10:00 08/27/21 09:46 12/30/21 11:21 09/05/22 09:33 11/15/22 09:58 Sodium 135 - 146 mmol/L 133 (L) 133 (L) 135 135 136 Potassium 3.5 - 5.1 mmol/L 4.5 4.7 4.3 4.5 4.6 Chloride 98 - 107 mmol/L 99 98 102 101 103 CO2 22 - 32 mmol/L 23 22 22 21 (L) 21 (L) BUN 6 - 20 mg/dL 29 (H) 24 (H) 27 (H) 38 (H) 36 (H) Creatinine 0.6 - 1.2 mg/dL 1.9 (H) 1.7 (H) 1.9 (H) 1.9 (H) 2.2 (H) 2.1 (H) Estimated Glomerular Filtration Rate >=60 mL/min 34 (L) 39 (L) 35 (L) 34 (L) 29 (L) 30 (L) Anion Gap 7 - 15 mmol/L 11 13 11 13 12 Glucose 70 - 120 mg/dL 164 (H) 264 (H) 253 (H) 252 (H) 182 (H) Calcium 8.4 - 10.2 mg/dL 9.4 9.3 9.2 9.1 9.1 Magnesium 1.5 - 2.6 mg/dL 2.0 Phosphorus 2.5 - 4.8 mg/dL 4.3 4.0 (L): Data is abnormally low (H): Data is abnormally high Latest Reference Range & Units 07/16/20 11:38 10/16/20 10:10 05/06/21 08:47 08/27/21 09:46 09/05/22 09:33 Albumin / Creatinine Ratio, Urine <30 mg/g Creat 225 (H) 108 (H) 105 (H) 204 (H) 209 (H) ALBUMIN / CREATININE RATIO, URINE Rpt ! Rpt ! Rpt ! Rpt ! Rpt ! (H): Data is abnormally high !: Data is abnormal Rpt: View report in Results Review for more information IMAGING: PROCEDURE INFORMATION: Exam: US Retroperitoneal; Complete; Kidneys and Bladder Exam date and time: 10/03/2022 1:55 PM Age: 82 years old Clinical indication: Hematuria, unspecified; Additional info: Hematuria, crcl30. TECHNIQUE: Imaging protocol: Real-time ultrasound of the retroperitoneum with image documentation. Complete exam focused on the kidneys and bladder. COMPARISON: US (Sonographers Findings, ABDOMEN, ) 10/20/2015 12:00 AM FINDINGS: Right kidney: 11.2 cm demonstrating multiple cortical simple cysts, largest in the lower pole measuring 2.4 cm. Otherwise normal echotexture, renal cortical thickness is normal without shadowing calculi or hydronephrosis. Left kidney: 11.7 cm demonstrating multiple cortical simple cysts, largest measuring 8 mm. Otherwise normal echotexture, renal cortical thickness is normal without shadowing calculi or hydronephrosis. Urinary bladder: Likely apparent wall thickening of a partially distended urinary bladder. Other findings: Visualized aorta/IVC unremarkable. IMPRESSION IMPRESSION: 1. Bilateral renal cortical simple cysts, otherwise unremarkable kidneys without hydronephrosis or nephrolithiasis. 2. Likely apparent wall thickening of a partially distended urinary bladder. Recommend correlation with urinary analysis. PROCEDURE INFORMATION: Exam: CT Abdomen And Pelvis Without And With Contrast Exam date and time: 11/29/2022 2:38 PM Age: 82 years old Clinical indication: Asymptomatic microscopic hematuria; Additional info: Gross hematuria TECHNIQUE: Imaging protocol: Computed tomography of the abdomen and pelvis without and with contrast. 3D rendering (Not supervised by radiologist): MIP and/or 3D reconstructed images were created by the technologist. Radiation optimization: All CT scans at this facility use at least one of these dose optimization techniques: automated exposure control; mA and/or kV adjustment per patient size (includes targeted exams where dose is matched to clinical indication); or iterative reconstruction. Contrast material: ULTRAVIST 30; Contrast volume: 100 ml; Contrast route: INTRAVENOUS (IV); REPORTING DATA: Count of CT and Cardiac NM exams in prior 12 months: This patient has received 0 known CTs and 0 known cardiac nuclear medicine studies in the 12 months prior to the current study. COMPARISON: US RENAL 10/03/2022 1:55 PM FINDINGS: Lungs: Mild chronic increased interstitial markings in the lung bases. Coronary arteries: Coronary artery calcifications are present. Diaphragm: Small to moderate hiatal hernia. Liver: Normal. No mass. Gallbladder and bile ducts: Status post cholecystectomy. Pancreas: Normal. No ductal dilation. Spleen: Normal. No splenomegaly. Adrenal glands: Normal. No mass. Kidneys and ureters: 2.3 cm cyst lower pole right kidney. Stomach and bowel: Few proximal duodenal diverticula measuring up to 3 cm. Focal inflammatory changes adjacent to redone in sigmoid colon in the left mid abdomen with diverticula and findings are suggestive of mild diverticulitis (series 8, images 65-71). Appendix: No evidence of appendicitis. Intraperitoneal space: Unremarkable. No free air. No significant fluid collection. Vasculature: Arterial calcifications are present. Dilatation of the aortic root measuring up to 4.4 cm. Lymph nodes: Unremarkable. No enlarged lymph nodes. Urinary bladder: Unremarkable as visualized. Reproductive: Unremarkable as visualized. Bones/joints: Spinal degenerative changes are noted. Soft tissues: Unremarkable. IMPRESSION IMPRESSION: 1. Dilatation of the aortic root measuring up to 4.4 cm. 2. Focal inflammatory changes adjacent to redone in sigmoid colon in the left mid abdomen with diverticula and findings are suggestive of mild diverticulitis (series 8, images 65-71). 3. No etiology for the patient's hematuria is identified. Remainder of findings as described above. ASSESSMENT/PLAN: The patient's most recent labs (from 3 months ago) were reviewed and the assessment/plan is as follows: Stable ckd 3B w/ acceptable with slightly worsening albuminuria. Volume status good but with mild edema noted to the left leg-likely due to inc car traveling. Chemistries stable with normal sodium lvls in the pss yr. Worsening albuminuria Stage 3b chronic kidney disease (HCC) (Primary) - RENAL FUNCTION PANEL; Future; Expected date: 01/20/2023 - PTH; Future; Expected date: 01/20/2023 - 25-HYDROXY VITAMIN D; Future; Expected date: 01/20/2023 - PHOSPHORUS; Future; Expected date: 01/20/2023 HTN, goal below 140/90 Labile bp w/ higher morning readings; cont current meds: losartan 50 mg bid, amlodipine 5 qhs, Metoprolol,12.5 mg bid and isosorbide 60 mg qd, More liberal target d/t age, bP lability.- cont with remote bp monitoring Hyponatremia-stable NA levels stable with most recent labs( )- No offending meds. Fluid levels discussed . Will cont to monitor - RENAL FUNCTION PANEL; Future; Expected date: 01/20/2023 Repeat labs in 3 months for stability No changes to medications Cont with remote bp monitoring Fluid monitoring of 40-50 oz daily. 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 Take only tylenol (acetaminophen) up to 2000 mg daily as needed for pain or as directed by your primary care provider. Reviewed previous status of kidney function and goals of care. All questions were answered. Check-out note: 3-5 months with Ryan Keyes PA-C Nephrology, [address] [place] [address] documented in this encounter Nursing Notes * Carolyn Harley LPN - 12/07/2022 1:36 PM EDT Return patient- no recent illness or hospitalizations.pt stated he has notice a tiny bit of swelling around his socks. documented in this encounter Plan of Treatment Upcoming Encounters Date Type Specialty Care Team Description 12/14/2022 Office Visit Cardiology Aminata Estrada PA-C [address] [place] [address] 04/21/2023 Office Visit Family Medicine Tito Grullon MD [address] [place] [address] 05/04/2023 Office Visit [facility] [address] [place] [address] 05/26/2023 Office Visit Nephrology Marshal Davis MD [address] [facility] [place] [address] Scheduled Orders Name Type Priority Associated Diagnoses Orde r Schedule RENAL FUNCTION PANEL Lab Routine Stage 3b chronic kidney disease (HCC) Hyponatremia Expected: 01/20/2023, Expires: 12/08/2023 PTH Lab Routine Stage 3b chronic kidney disease (HCC) Expected: 01/20/2023, Expires: 12/08/2023 25-HYDROXY VITAMIN D Lab Routine Stage 3b chronic kidney disease (HCC) Expected: 01/20/2023, Expires: 12/08/2023 PHOSPHORUS Lab Routine Stage 3b chronic kidney disease (HCC) Expected: 01/20/2023, Expires: 12/08/2023 Health Maintenance Due Date Last Done Comments COVID-19 Vaccine ( season) 2022 11/09/2021, 05/28/2021, 11/16/2020, Additional history exists Influenza Vaccine (FLU shot) (#1) 2022 11/04/2021, 11/21/2020, 11/02/2019, Additional history exists HbA1c 03/08/2023 09/05/2022, 01/0 06/2022, 08/27/2021, Additional history exists GFR 05/16/2023 11/15/2022, 08/20, 12/30/2021, Additional history exists DIABETES-EYE EXAM 08/02/2023 08/01/2022, , 05/19/2020, Additional history exists Albumin/Creatinine Ratio 09/06/2023 023, 08/27/2021, 05/06/2021, Additional history exists CKD HGB USE SMARTSET 54976 09/06/202309/05, 06/18/2021, 06/18/2021, Additional history exists CKD PHOS USE SMARTSET 10998 09/06/202308/20, 05/06/2021, 07/16/2020, Additional history exists Depression Screening 09/10/2023 09/09/2022 DTaP,Tdap,and Td Vaccines (2 - Td or Tdap) 09/26/2023 09/25/2013, 10/08/2007 Diabetic Foot Exam 10/11/2023 10/10/2022, 0 08/27/2021, 09/23/2019, Additional history exists Pneumococcal Vaccine: 65+ Years Completed 12/02/2015, 12/08/2004 Zoster Vaccines Completed 01/15/2019, 06/21, 09/18/2008 GARDASIL-HPV IMMUNIZATION SERIES Aged Out No longer eligible based on patient's age to complete this topic Hepatitis B Aged Out No longer eligi ble based on patient's age to complete this topic MENINGOCOCCAL (MENACTRA/MENVEO) Aged Out No longer eligible based on patient's age to complete this topic documented as of this encounter Medical Devices Not on filedocumented as of this encounter Visit Diagnoses Diagnosis Stage 3b chronic kidney disease (HCC)- Primary HTN, goal below 140/90 Unspecified essential hypertension Hyponatremia Hyposmolality and/or hyponatremia documented in this encounter Advance Directives Latest Code Status on File Code Status Date Activated Date Inactivated Comments Full Code 11/02/2012 2:17 PM 11/03/2012 4:32 PM This order reflects the patients wishes and were consensually agreed upon. Question Answer Comments Discussion of Advance Directives occurred with: Not Discussed Does the patient have a Living Will? No Does the patient have Health Care Power of Gas Flow Regulator? No Care Teams Cath Lab Manager Relationship Specialty Start Date End Date Tito Grullon MD [address] [place] [address] PCP - General Family Medicine 09/01/15 documented as of this encounter"
--- OUTSIDE RECORDS SUMMARY | 2022-12-29 09:30 | External Medical Summary | Summary of Care ---
Author Name Unknown Organization [facility] Address [address] [place] [address] Phone [phone] Care Team Providers Care Development Mgr Name Role Phone Tito Grullon MD Primary Care Provider + Reason for Visit * Precert (Within 10 days (routine)) - Authorized Specialty Diagnoses / Procedures Referred By Contac t Referred To Contact Radiology Diagnoses Asymptomatic microscopic hematuria Procedures CT UROGRAPHY W WO CONTRAST Lynette Thomson PA-C [address] [place] [address] Referral ID Status Reason Start Date Expiration Date V isits Requested Visits Authorized [id number] Authorized 10/06/[phone] Encounter Details Date Type Department Care Team Description 11/29/2022 Hospital Encounter Radiology, [place] [address] [place] [address] Arrived Allergies Active Allergy Reactions Severity Noted Date Comments Lisinopril 07/15/2008 Swelling, hives Metronidazole Hcl 06/28/2001 rash,itchy Niacin 10/16/2008 Itching, Can tolerate Niacin documented as of this encounter (statuses as of 11/30/2022) Medications Medication Sig Dispensed Refills Start Date End Date Status ASPIRIN 81 MG PO CHEW One pill by mouth once a day with food 100 5 07/12/2007 Active ONETOUCH ULTRA SYSTEM W/DEVICE KITIndications:DM type 2, goal A1C 7-8 Use to check sugar once a day. Dx: 250.00 1 Kit 0 03/04/2013 Active Cyanocobalamin (B-12-SL) [address] 1,000 mcg under the tongue daily. 90 Tab 3 09/26/2017 Active Glucose Blood In Vitro StripIndications:Ty pe 2 diabetes mellitus with hemoglobin A1c goal of less than 8.0% ([facility]) Tests daily 100 Strip 3 09/27/2017 Active Cholecalciferol 1000 units Capsule Take 1 Capsule by mouth in the morning. 0 05/24/2018 Active tacrolimus (PROTOPIC) 0.1 % ointment Apply topically to affected area 2 times a day . 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 Use [...] 24 Hour (Imdur)Indications: Coronary artery disease involving [place] coronary artery of [place] heart without angina pectoris,Dyslipidem ia, goal LDL below 70,Type 2 diabetes mellitus with hemoglobin A1c goal of less than 8.0% ([facility]),Essential hypertension with goal blood pressure [...] stage 3 chronic kidney disease and hypertension ([facility]) TAKE ONE TABLET BY MOUTH IN THE MORNING AND ONE TABLET BEFORE BEDTIME 180 Tablet 1 09/06/2022 Active linaGLIPtin 5 MG Oral Tablet (Tradjenta)Indicati ons:Type 2 diabetes mellitus with hemoglobin A1c goal of less than 8.0% ([facility]) Take 1 Tablet by mouth in the [...] Solostar 100 UNIT/ML Subcutaneous Solution Pen-injector (Basaglar KwikMiguel)Indications :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 45 mL 1 10/19/2022 Active Nitroglycerin 0.4 MG Sublingual Tablet Sublingual (Nitrostat)Indicati ons:Coronary artery disease involving [place] coronary artery of [place] heart without angina pectoris DISSOLVE ONE TABLET UNDER THE TONGUE EVERY 5 MINUTES NEEDED FOR CHEST PAINS 25 Tablet 1 10/27/2022 10/27/2023 Active documented as of this encounter (statuses as of 11/30/2022) Active Problems Problem Noted Date Type 2 [...] as of this encounter (statuses as of 11/30/2022) Resolved Problems Problem Noted Date Resolved Date Type 2 diabetes mellitus wit h stage 3 chronic kidney disease and hypertension 01/03/2018 07/02/2020 Overview: Per CKD protocol Kidney disease, chronic, stage III (GFR 30-59 ml /min) 04/15/2013 02/02/2018 Overview: Per CKD protocol #1 Unstable angina 11/03/2012 12/14/2016 [employer] Other*[id number] 201203/29/2016 Overview: Study Title: [employer]omic Markers for Patients with Cardiovascular Disease Project # [id number] Care Manager: Eleni Briggs MD [phone] HTN, goal below 130/80 10/12/2012 6 ACTIVE CASE MANAGEMENT Tamera De RN [phone] 07/04/2008 12/07/2009 ACTIVE CASE MANAGEMENT Tamera De [...] as of this encounter (statuses as of 11/30/2022) Immunizations Name Administration Dates Next Due COVID-19 [...] Encounters Date Type Specialty Care Team Description 12/07/2022 [facility] [address] [facility] [address] 12/14/2022 Office Visit Cardiology Aminata Estrada PA-C [address] [place] [address] 04/21/2023 Office Visit Family Medicine Tito Grullon MD [address] [place] [address] 05/04/2023 Office Visit Pharmacy [facility] [address] [place] [address] Health Maintenance Due Date Last Done Comments COVID-19 Vaccine (2022- season) 2022 11/09/2021, 05/28/2021, 11/16/2020, Additional history exists Influenza Vaccine (FLU shot) (#1) 2022 11/04/2021, 11/21/2020, 11/02/2019, Additional history exists HbA1c 03/08/2023 09/05/2022, 06/2022, 08/27/2021, Additional history exists GFR 05/16/2023 11/15/2022, 08/20, 12/30/2021, Additional history exists DIABETES-EYE EXAM 08/02/2023 08/01/2022, , 05/19/2020, Additional history exists Albumin/Creatinine Ratio 09/06/2023 023, 08/27/2021, 05/06/2021, Additional history exists CKD HGB USE SMARTSET 82358 09/06/202309/05, 06/18/2021, 06/18/2021, Additional history exists CKD PHOS USE SMARTSET 73881 09/06/202308/20, 05/06/2021, 07/16/2020, Additional history exists Depression [...] Not on filedocumented as of this encounter Procedures Procedure Name Priority Date/Time Associated Diagnosis Comments CT UROGRAPHY W WO CONTRAST Routine 11/29/2022 2:44 PM EDT Asymptomatic microscopic hematuria documented in this encounter Administered Medications Inactive Administered Medications - up to 3 most recent administrations Medication Order MAR Action Action Date Dose Rate Site Iopromide 77% (Ultravist 370) inj 100 mL 100 mL, Intravenous, ONCE, On Tu11/29/22 at 1446, For 1 dose, Radiology Medication Routing (Non-IR) Given 11/29/2022 2:46 PM EDT 89 mL documented in this encounter Advance Directives Latest [...] the patient have Health Care Power of Buncher Machine? No Care Teams Development Mgr Relationship Specialty Start Date End Date Tito Grullon MD [address] [place] [address] PCP - General Family Medicine 09/01/15 documented as of this encounter
--- OUTSIDE RECORDS SUMMARY | 2022-12-29 09:30 | External Medical Summary ---
Author Name Unknown Address Unknown Organization [facility] [address] [place] [id number] Laboratory Report Ordering Provider Test Date Status JEWELL CID 11/15/2022 09:58:03 Final Observation Date Value Abnormality Reference (Units ) Status Creatinine 11/15/2022 09:58:03 2.1 Above high normal 0.6-1.2 (mg/dL) Final Glomerular filtration rate/1.73 sq M.predicted [Volume Rate/Area] in Serum, Plasma or Blood by Creatinine-based formula (CKD-EPI) 11/15/2022 09:58:03 30 Below low normal >=60 (mL/min) Final eGFR is calculated based on the CKD-EPI 2020 equation [facility] [address] [place] [address]
--- OUTSIDE RECORDS SUMMARY | 2022-12-29 09:30 | External Medical Summary | Summary of Care ---
Author Name Unknown Organization [facility] Address [address] [place] [address] Phone [phone] Care Team Providers Care Packaging Coordinator Name Role Phone Tito Grullon MD Primary Care Provider + Reason for Visit * Reason Comments Cystoscopy Encounter Details Date Type Department Care Team Description 11/29/2022 Procedure Only Urology, [place] [address] [place] [address] Ned España MD [address] [place] [address] Asymptomatic microscopic hematuria* Allergies Active Allergy Reactions Severity Noted Date Comments Lisinopril 07/15/2008 Swelling, hives Metronidazole Hcl 06/28/2001 rash,itchy Niacin 10/16/2008 Itching, Can tolerate Niacin documented as of this encounter (statuses as of 12/01/2022) Medications Medication Sig Dispensed Refills Start Date End Date Status ASPIRIN 81 MG PO CHEW One pill by mouth once a day with food 100 5 07/12/2007 Active OpenCurriculum ULTRA SYSTEM W/DEVICE KITIndications:DM type 2, goal A1C 7-8 Use to check sugar once a day. Dx: 250.00 1 Kit 0 03/04/2013 Active Cyanocobalamin (B-12-SL) [address] 1,000 mcg under the tongue daily. 90 Tab 3 09/26/2017 Active Glucose Blood In Vitro StripIndications:Ty pe 2 diabetes mellitus with hemoglobin A1c goal of less than 8.0% ([facility]) Tests daily 100 Strip 3 09/27/2017 Active Cholecalciferol 1000 units Capsule Take 1 Capsule by mouth in the morning. 0 05/24/2018 Active tacrolimus (PROTOPIC) 0.1 % ointment Apply topically to affected area 2 times a day . Apply to eyelids as needed 0 Active Pen [place] 32G X 6 MMIndications: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 ([facility]) Use as directed . Use to take [...] 24 Hour (Imdur)Indications: Coronary artery disease involving [place] coronary artery of [place] heart without angina pectoris,Dyslipidem ia, goal LDL below 70,Type 2 diabetes mellitus with hemoglobin A1c goal of less than 8.0% ([facility]),Essential hypertension with goal blood pressure less than [...] goal of less than 8.0% ([facility]) Take 1 Tablet by mouth in the [...] Tablet Sublingual (Nitrostat)Indicati ons:Coronary artery disease involving [place] coronary artery of [place] heart without angina pectoris DISSOLVE ONE TABLET UNDER THE TONGUE EVERY 5 MINUTES NEEDED FOR CHEST PAINS 25 Tablet 1 10/27/2022 10/27/2023 Active Hospital, Clinic, or Other Facility Administered Medication Ordered Dose Route Frequency Start Date End Date Status lidocaine urethral/mucosal 2 % gelIndications:Asymptomatic microscopic hematuria TOP ONCE 11/29/2022 11/30/2022 End ed documented as of this encounter (statuses as of 12/01/2022) Active Problems Problem Noted Date Type 2 [...] as of this encounter (statuses as of 12/01/2022) Resolved Problems Problem Noted Date Resolved Date Type 2 diabetes mellitus wit h stage 3 chronic kidney disease and hypertension 01/03/2018 07/02/2020 Overview: Per CKD protocol Kidney disease, chronic, stage III (GFR 30-59 ml /min) 04/15/2013 02/02/2018 Overview: Per CKD protocol #1 Unstable angina 11/03/2012 12/14/2016 [employer] Other*[id number] 201203/29/2016 Overview: Study Title: [employer] Markers for Patients with Cardiovascular Disease Project # [id number] Developer Advisor: Eleni Briggs MD [phone] HTN, goal below 130/80 10/12/2012 6 ACTIVE CASE MANAGEMENT Tameragayle De RN [phone] 07/04/2008 12/07/2009 ACTIVE CASE MANAGEMENT Tamera [...] as of this encounter (statuses as of 12/01/2022) Immunizations Name Administration Dates Next Due COVID-19 [...] Sign Reading Time Taken Comments Blood Pressure 142/68 11/29/2022 3:16 PM EDT Pulse 68 11/29/2022 3:16 PM EDT Temperature 37.1 C (98.7 F) 11/29/2022 3:16 PM ED T Respiratory Rate - - Oxygen Saturation - - Inhaled Oxygen Concentration - - Weight - - Height - - Body Mass Index - - documented in this encounter Plan of Treatment Upcoming Encounters Date Type Specialty Care Team Description 12/07/2022 Office Visit Nephrology Sabina Keyes PA-C [address] [facility] [place] [address] 12/14/2022 Office Visit Cardiology Aminata Estrada PA-C [address] [place] [address] 04/21/2023 Office Visit Family Medicine Tito Grullon MD [address] [place] [address] 05/04/2023 Office Visit [facility] [address] [place] [address] Health Maintenance Due Date Last Done Comments COVID-19 Vaccine ( season) 2022 11/09/2021, 05/28/2021, 11/16/2020, Additional history exists Influenza Vaccine (FLU shot) (#1) 2022 11/04/2021, 11/21/2020, 11/02/2019, Additional history exists HbA1c 03/08/2023 09/05/2022, 06/2022, 08/27/2021, Additional history exists GFR 05/16/2023 11/15/2022, 08/20, 12/30/2021, Additional history exists DIABETES-EYE EXAM 08/02/2023 08/01/2022, , 05/19/2020, Additional history exists Albumin/Creatinine Ratio 09/06/202309/05/2 023, 08/27/2021, 05/06/2021, Additional history exists CKD HGB USE SMARTSET 33522 09/06/202309/05, 06/18/2021, 06/18/2021, Additional history exists CKD PHOS USE SMARTSET 93766 09/06/202308/20, 05/06/2021, 07/16/2020, Additional history exists Depression [...] Procedure Name Priority Date/Time Associated Diagnosis Comments URINALYSIS, POINT OF CARE WU 11/29/2022 3:21 PM EDT documented in this encounter Results * (ABNORMAL) URINALYSIS, POINT OF CARE (11/29/2022 3:21 PM EDT) Color, Urine Yellow Light Yellow, Yellow 11/29/2022 3:24 PM EDT [facility] Clarity, Urine Clear Clear 11/29/2022 3:24 PM EDT [facility] Glucose, Urine 100(A) Negative mg/dL 11/29/2022 3:24 PM EDT [facility] Bilirubin, Urine Negative Negative 11/29/2022 3:24 PM EDT [facility] Ketone, Urine Negative Negative mg/dL 11/29/2022 3:24 PM EDT [facility] Specific [employer], Urine 1.010 1.003 - 1.030 11/29/2022 3:24 PM EDT [facility] Blood, Urine Trace-intact (A) Negative 11/29/2022 3:24 PM EDT [facility] pH, Urine 7.0 5.0, 5.5, 6.0, 6.5, 7.0, 7.5 units 11/29/2022 3:24 PM EDT [facility] Protein, Urine Trace(A) Negative mg/dL 11/29/2022 3:24 PM EDT [employer], Urine 0.2 0.2, 1.0 mg/dL 11/29/2022 3:24 PM EDT [facility] [employer] [facility] Nitrite, Urine Negative Negative 11/29/2022 3:24 PM EDT [facility] [employer] [facility] Esterase, Urine Negative Negative 11/29/2022 3:24 PM EDT [facility] [employer] Urine 11/29/2022 3:21 PM EDT 11/29/2022 3:24 PM EDT Ned España MD LAB POINT OF CARE TE ST DOCKED DEVICE UNSOLICITED RESULTS [facility] [address] [place] [address] documented in this encounter Visit Diagnoses Diagnosis Asymptomatic microscopic hematuria- Primary documented in this encounter Advance Directives Latest [...] the patient have Health Care Power of Market Risk Analyst? No Care Teams Packaging Coordinator Relationship Specialty Start Date End Date Tito Grullon MD [address] [place] [address] PCP - General Family Medicine 09/01/15 documented as of this encounter
--- OUTSIDE RECORDS SUMMARY | 2022-12-29 09:31 | External Medical Summary | Summary of Care ---
Author Name Unknown Organization [facility] Address [address] [facility] [place] [address] Phone [phone] Care Team Providers Care Bridge Expert Name Role Phone Tito Grullon MD Primary Care Provider + Reason for Visit * Reason Comments Dosage Adjustment In Person (Anticoag Cl inic) Diabetes Follow-Up Encounter Details Date Type Department Care Team Description 11/03/2022 Office Visit Pharmacy, [facility] [address] [facility] [place] [address] [facility] [address] [facility] [place] [address] Type 2 diabetes mellitus with hemoglobin A1c goal of less than 8.0% ([facility])* Allergies Active Allergy Reactions Severity Noted Date Comments Lisinopril 07/15/2008 Swelling, hives Metronidazole Hcl 06/28/2001 rash,itchy Niacin 10/16/2008 Itching, Can tolerate Niacin documented as of this encounter (statuses as of 11/03/2022) Medications Medication Sig Dispensed Refills Start Date End Date Status ASPIRIN 81 MG PO CHEW One pill by mouth once a day with food 100 5 07/12/2007 Active Imalogix SYSTEM W/DEVICE KITIndications:DM type 2, goal A1C 7-8 Use to check sugar once a day. Dx: 250.00 1 Kit 0 03/04/2013 Active Cyanocobalamin (B-12-SL) [address] 1,000 mcg under the tongue daily. 90 Tab 3 09/26/2017 Active Glucose Blood In Vitro StripIndications:T ype 2 diabetes mellitus with hemoglobin A1c goal of less than 8.0% ([facility]) Tests daily 100 Strip 3 09/27/2017 Active Cholecalciferol 1000 units Capsule Take 1 Capsule by mouth in the morning. 0 05/24/2018 Active tacrolimus (PROTOPIC) 0.1 % ointment Apply topically to affected area 2 times a day . 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 Use to take insulin 4 times daily 400 Each 3 11/02/2021 Active Timolol Maleate 0.5 % Ophthalmic Solution (Timoptic) INSTILL ONE DROP IN BOTH EYES EVERY MORNING 10 mL 5 01/18/2022 3 Active Insulin Pen Needle 32G X 6 MM USE DIRECTED TAKE INSULIN 4 TIMES DAILY 400 Each 3 11/02/2021 3 Active Isosorbide Mononitrate ER 60 MG Oral Tablet Extended Release 24 Hour (Imdur)Indications :Coronary artery disease involving [place] coronary artery of [place] heart without angina pectoris,Dyslipide yelitza, goal LDL below 70,Type 2 diabetes mellitus with hemoglobin A1c goal of less than 8.0% ([facility]),Essential hypertension with goal blood pressure less than 140/90 TAKE ONE TABLET BY MOUTH IN THE MORNING 90 Tablet 3 03/21/2022 4 Active Insulin Aspart 100 UNIT/ML Subcutaneous Solution Pen-injector (novoLOG) 22 units subcut 3 times a day with meals as directed by diabetes team 9 mL 5 04/17/2022 Active Rocklatan 0.02-0.005 % Ophthalmic Solution (Netarsudil-Latano prost) Instill 1 drop into both eyes at night 7.5 mL 5 05/04/2022 Active Simbrinza 1-0.2 % Ophthalmic Suspension (Brinzolamide-Brim onidine) instill one drop into both eyes twice daily 24 mL 6 06/17/2022 Active Metoprolol Tartrate 25 MG Oral Tablet (Lopressor)Indicat ions:Dyslipidemia, goal LDL below 100,HTN, goal below 130/80 TAKE 1/2 TBLET BY MOUTH IN THE MORNING THEN 1/2 TABLET BEFORE BEDTIME 90 Tablet 3 06/27/2022 4 Active amLODIPine Besylate 5 MG Oral Tablet (Norvasc) TAKE ONE TABLET BY MOUTH IN THE MORNING 90 Tablet 3 06/27/2022 4 Active NovoLOG FlexPen 100 UNIT/ML Subcutaneous Solution Pen-injector (insulin aspart) INJECT 30 UNITS UNDER THE SKIN THREE TIMES A DAY WITH MEALS DIRECTED BY DIABETIC CLINIC 90 mL 2 07/25/2022 4 Active Losartan Potassium 50 MG Oral Tablet (Cozaar)Indication s: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 90 Tablet 3 09/09/2022 Active Pantoprazole Sodium 40 MG Oral Tablet Delayed Release (Protonix)Indicati ons:Gastroesophage al reflux disease without esophagitis Take 1 Tablet by mouth every other day. 90 Tablet 3 09/09/2022 Active Clopidogrel Bisulfate 75 MG Oral Tablet (pLAVix) TAKE 1 TABLET BY MOUTH DAILY IN THE MORNING 90 Tablet 1 09/29/2022 4 Active Atorvastatin Calcium 10 MG Oral Tablet (Lipitor) TAKE 1 WHOLE TABLET BY MOUTH DAILY. 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 45 mL 1 10/19/2022 Active Nitroglycerin 0.4 MG Sublingual Tablet Sublingual (Nitrostat)Indicat ions:Coronary artery disease involving [place] coronary artery of [place] heart without angina pectoris DISSOLVE ONE TABLET UNDER THE TONGUE EVERY 5 MINUTES NEEDED FOR CHEST PAINS 25 Tablet 1 10/27/2022 4 Active metFORMIN HCl 500 MG Oral Tablet (Glucophage)Indica tions:Type 2 diabetes mellitus with hemoglobin A1c goal of less than 8.0% ([facility]) Take 1 Tablet by mouth 2 times a day with morning and evening meals. 180 Tablet 3 09/09/2022 3 Discontinue d(Medicatio n/Dose Changed) documented as of this encounter (statuses as of 11/03/2022) Active Problems Problem Noted Date Type 2 [...] as of this encounter (statuses as of 11/03/2022) Resolved Problems Problem Noted Date Resolved Date Type 2 diabetes mellitus wit h stage 3 chronic kidney disease and hypertension 01/03/2018 07/02/2020 Overview: Per CKD protocol Kidney disease, chronic, stage III (GFR 30-59 ml /min) 04/15/2013 02/02/2018 Overview: Per CKD protocol #1 Unstable angina 11/03/2012 12/14/2016 [employer] Other*[id number] 201203/29/2016 Overview: Study Title: [employer]omic Markers for Patients with Cardiovascular Disease Project # [id number] Police Captain: Eleni Briggs MD [phone] HTN, goal below 130/80 10/12/2012 6 ACTIVE [...] as of this encounter (statuses as of 11/03/2022) Immunizations Name Administration Dates Next Due COVID-19 [...] on file documented as of this encounter Progress Notes * Loan Morales, [facility] - 11/03/2022 11:07 AM EDT Medication Therapy Disease Management Clinic - Diabetes Management Progress Note Rei Martínez, identified by name and date of , is a 82 year old male being seen for diabetes management/education. Patient presents for return diabetic visit. DIABETES: Current diabetic medications: Metformin 500 mg BID Trajenta 5 mg daily Basaglar 32 units daily Novolog 22 units with meals Serum creatinine: 2.2 mg/dL (H) 09/05/22 0933 Estimated creatinine clearance: 27.3 mL/min (A) Medication Injection Site: Abdomen Lifestyle: Diet: unchanged Glucose Review/SMBG: Readings obtained from patient device Pre am Post am Pre Lunch Post Lunch Pre pm Post pm HS 3am 212 148 196 158 183 140 186 91 149 136 174 167 272 117 163 164 181 181 184 169 188 201 179 178 157 110 165 165 206 152 184 161 Average 186 #DIV/0! #DIV/0! #DIV/0! 152 #DIV/0! #DIV/0! #DIV/0! Hi 272 0 0 0 201 0 0 0 Lo 149 0 0 0 [address]7143 0 0 0 153.286 0 0 0 Range 123 0 0 0 110 0 0 0 Hypoglycemia: Does your blood sugar go below 70 mg/dL? No Hyperglycemia symptoms present: none Recent Labs Units 09/05/22 0933 02/24/22 1521 08/27/21 0946 HEMOGLOBIN A1C - [facility] % 7.0* 6.8* 6.9* Recent Labs Units 09/05/22 0933 12/30/21 1121 08/27/21 0946 ESTIMATED GLOMERULAR FILTRATION RATE - [facility] mL/min 29* 34* 35* CREATININE - [facility] mg/dL 2.2* 1.9* 1.9* HYPERTENSION: Patient on ACEi/ARB: yes BP Readings from Last 3 Encounters: 10/10/22 150/70 10/06/22 150/67 09/09/22 126/52 Blood pressure at goal: yes HYPERLIPIDEMIA: Patient is taking moderate or high intensity statin: yes HEALTH MAINTENANCE REVIEW: Health Maintenance Due Topic Date Due Influenza Vaccine (FLU shot) (1) 10/21/2022 ASSESSMENT & PLAN: ICD-10-CM 1. Type 2 diabetes mellitus with hemoglobin A1c goal of less than 8.0% (HCC) E11.9 BG Readings - Blood sugars controlled. Medications - Reviewed current regimen, patient is adherent to regimen. Will stop metformin due to kidney function/GFR<30 which does not support continuation. Diet, Exercise, Lifestyle - No significant lifestyle changes since last visit. Discussed with patient. Patient is agreeable to SMBG 1-2 time(s) daily. Patient aware to contact clinic if any hypoglycemia before next visit. MEDICATION CHANGES: yes, see below; preferred pharmacy: [facility] ([facility]) Diabetic Medications: STOP: Metformin 500 mg BID Trajenta 5 mg daily Basaglar 32 units daily Novolog 22 units with meals Serum creatinine: 2.2 mg/dL (H) 09/05/22 0933 Estimated creatinine clearance: 27.3 mL/min (A) HEALTH MAINTENANCE INTERVENTIONS: Labs: Up to Date Immunizations: patient will get flu shot from flu clinic per preference Foot Exam: Up to Date Eye Exam: Up to Date Annual Wellness Visit: Up to Date FOLLOW UP: Return to clinic in 6 months 05/04/2023 Loan Morales [facility] Clinical Pharmacist - Adobe Maker Medication Therapy Management Clinic 11/03/2022, 11:07 AM documented in this encounter Plan of Treatment Upcoming Encounters Date Type Specialty Care Team Description 11/15/2022 Laboratory Laboratory Haylie Kearns [address] [place] [address] 11/29/2022 Appointment Radiology 11/29/2022 Procedure Only Urology Ned España MD [address] [place] [address] 12/07/2022 Office Visit Nephrology Sabina Keyes PA-C [address] [place] [address] 12/14/2022 Office Visit Cardiology Aminata Estrada PA-C [address] [place] [address] 04/21/2023 Office Visit Family Medicine Tito Grullon MD [address] [place] [address] 05/04/2023 Office Visit Pharmacy Pablo Kearns [facility] [address] [place] [address] Health Maintenance Due Date Last Done Comments Influenza Vaccine (FLU shot) (#1) 2022 11/04/2021, 11/21/2020, 11/02/2019, Additional history exists GFR 03/08/2023 09/05/2022, 12/21, 08/27/2021, Additional history exists HbA1c 03/08/2023 09/05/2022, 06/2022, 08/27/2021, Additional history exists DIABETES-EYE EXAM 08/02/2023 08/01/2022, , 05/19/2020, Additional history exists Albumin/Creatinine Ratio 09/06/2023 023, 08/27/2021, 05/06/2021, Additional history exists CKD HGB USE SMARTSET 97505 09/06/202309/05, 06/18/2021, 06/18/2021, Additional history exists CKD PHOS USE SMARTSET 92473 09/06/202308/20, 05/06/2021, 07/16/2020, Additional history exists Depression [...] as of this encounter Visit Diagnoses Diagnosis Type 2 diabetes mellitus with hemoglobin A1c goal of less than 8.0% (HCC)- Primary documented in this encounter Advance Directives [...] the patient have Health Care Power of Front Office Java Developer? No Care Teams Bridge Expert Relationship Specialty Start Date End Date Tito Grullon MD [address] [place] [address] PCP - General Family Medicine 09/01/15 documented as of this encounter
--- OUTSIDE RECORDS SUMMARY | 2022-12-29 09:31 | External Medical Summary | Summary of Care ---
Author Name Unknown Organization [facility] Address [address] [facility] [place] [address] Phone [phone] Care Team Providers Care Pre Press Operator Name Role Phone Tito Grullon MD Primary Care Provider + Reason for Visit * Reason Comments Medication Refill Encounter Details Date Type Department Care Team Description 10/27/2022 Refill Cardiology, [facility] [address] [place] [address] Jaswinder Doe MD [address] [place] [address] Coronary artery disease involving [place] coronary artery of [place] heart without angina pectoris* Allergies Active Allergy Reactions Severity Noted Date Comments Lisinopril 07/15/2008 Swelling, hives Metronidazole Hcl 06/28/2001 rash,itchy Niacin 10/16/2008 Itching, Can tolerate Niacin documented as of this encounter (statuses as of 10/27/2022) Medications Medication Sig Dispensed Refills Start Date End Date Status ASPIRIN 81 MG PO CHEW One pill by mouth once a day with food 100 5 07/12/2007 Active VPEP ULTRA SYSTEM W/DEVICE KITIndications:DM type 2, goal A1C 7-8 Use to check sugar once a day. Dx: 250.00 1 Kit 0 03/04/2013 Active Cyanocobalamin (B-12-SL) [address] 1,000 mcg under the tongue daily. 90 Tab 3 09/26/2017 Active Glucose Blood In Vitro StripIndications:Ty pe 2 diabetes mellitus with hemoglobin A1c goal of less than 8.0% ([facility]) Tests daily 100 Strip 3 09/27/2017 Active Cholecalciferol 1000 units Capsule Take 1 Capsule by mouth in the morning. 0 05/24/2018 Active tacrolimus (PROTOPIC) 0.1 % ointment Apply topically to affected area 2 times a day . 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 Use to take insulin 4 times daily 400 Each 3 11/02/2021 Active Timolol Maleate 0.5 % Ophthalmic Solution (Timoptic) INSTILL ONE DROP IN BOTH EYES EVERY MORNING 10 mL 5 01/18/2022 01/18/2023 Active Insulin Pen Needle 32G X 6 MM USE DIRECTED TAKE INSULIN 4 TIMES DAILY 400 Each 3 11/02/2021 01/24/2023 Active Isosorbide Mononitrate ER 60 MG Oral Tablet Extended Release 24 Hour (Imdur)Indications: Coronary artery disease involving [place] coronary artery of [place] heart without angina pectoris,Dyslipidem ia, goal LDL below 70,Type 2 diabetes mellitus with hemoglobin A1c goal of less than 8.0% ([facility]),Essential hypertension with goal blood pressure less than [...] the morning. 90 Tablet 3 09/09/2022 Active metFORMIN HCl 500 MG Oral Tablet (Glucophage)Indicat ions:Type 2 diabetes mellitus with hemoglobin A1c goal of less than 8.0% (HCC) Take 1 Tablet by mouth 2 times a day with morning and evening meals. 180 Tablet 3 09/09/2022 Active Pantoprazole Sodium 40 [...] Tablet Sublingual (Nitrostat)Indicati ons:Coronary artery disease involving [place] coronary artery of [place] heart without angina pectoris DISSOLVE ONE TABLET UNDER THE TONGUE EVERY 5 MINUTES NEEDED FOR CHEST PAINS 25 Tablet 1 10/27/2022 10/27/2023 Active documented as of this encounter (statuses as of 10/27/2022) Active Problems Problem Noted Date Type 2 [...] 01/03/2018 Overview: 07/[address] Arroela. 01/08 decrease metformin due to ckd3, inc [...] as of this encounter (statuses as of 10/27/2022) Resolved Problems Problem Noted Date Resolved Date Type 2 diabetes mellitus wit h stage 3 chronic kidney disease and hypertension 01/03/2018 07/02/2020 Overview: Per CKD protocol Kidney disease, chronic, stage III (GFR 30-59 ml /min) 04/15/2013 02/02/2018 Overview: Per CKD protocol #1 Unstable angina 11/03/2012 12/14/2016 [employer] Other*[id number] 201203/29/2016 Overview: Study Title: [employer]omic Markers for Patients with Cardiovascular Disease Project # [id number] Shoe Salesman: Eleni Briggs MD [phone] HTN, goal below 130/80 10/12/2012 6 ACTIVE [...] as of this encounter (statuses as of 10/27/2022) Immunizations Name Administration Dates Next Due COVID-19 [...] encounter Miscellaneous Notes * Telephone Encounter - Tawana Tang PA-C - 10/27/2022 9:42 AM EDT Signed Prescriptions: Disp Refills Nitroglycerin 0.4 MG Sublingual Tablet Sub*25 Tab*1 Sig: DISSOLVE ONE TABLET UNDER THE TONGUE EVERY 5 MINUTES NEEDED FOR CHEST PAINS Authorizing Provider: TAWANA TANG * Telephone Encounter - BASILIA Henriquez - 10/27/2022 9:19 AM EDTPending Prescriptions: Disp Refills Nitroglycerin 0.4 MG Sublingual Tablet Sub*25 Tab*1 Sig: DISSOLVE ONE TABLET UNDER THE TONGUE EVERY 5 MINUTES NEEDED FOR CHEST PAINS * Telephone Encounter - BASILIA Henriquez - 10/27/2022 9:18 AM EDT Did you pend patient's preferred pharmacy and medication before forwarding?yes [facility] Pending Prescriptions: Disp Refills Nitroglycerin 0.4 MG Sublingual Tablet Yee*25 Tab*1 Sig: DISSOLVE ONE TABLET UNDER THE TONGUE EVERY 5 MINUTES NEEDED FOR CHEST PAINS Last Visit: 02/22/2022 (in office), Visit date not found (telemedicine) Next Visit: 12/14/2022 If no future appointments scheduled, and last appointment is greater than a year ago, please schedule patient for a follow-up appointment Last date the medication was ordered: Is this request for a controlled substance?No Urine Drug Screen:No results found for this or any previous visit. Patient Phone Numbers Labs: Lab Results Component Value Date/Time CREAT 2.2 (H) 09/05/2022 09:33 AM CREAT 1.9 (H) 01/14/2020 09:19 AM POTASSIUM 4.6 09/05/2022 09:33 AM POTASSIUM 4.8 01/14/2020 09:19 AM TSH 4.10 06/18/2021 10:00 AM TSH 3.29 08/01/2011 10:03 AM LDLCALC UNINTERPRETABLE RESULT 07/09/2018 08:53 AM LDLDIRECT 48 09/05/2022 09:33 AM LDLDIRECT 31 08/12/2019 08:50 AM LDLDIRECT 35 04/03/2015 10:16 AM ALT <5 (L) 09/25/2017 07:55 AM HGBA1C 7.0 (H) 09/05/2022 09:33 AM HGBA1C 8.8 (H) 08/12/2019 08:50 AM documented in this encounter Plan of Treatment Upcoming Encounters Date Type Specialty Care Team Description 11/03/2022 Office Visit Pharmacy [facility], [facility] [address] [place] [address] 11/15/2022 Laboratory Laboratory Haylie Kearns [address] [place] [address] 11/29/2022 Appointment Radiology 11/29/2022 Procedure Only Urology Ned España MD [address] [place] [address] 12/07/2022 Office Visit Nephrology Sabina Keyes PA-C [address] [place] [address] 12/14/2022 Office Visit Cardiology Tawana Tang PA-C [address] [place] [address] 04/21/2023 Office Visit Family Medicine Tito Grullon MD [address] [place] [address] Health Maintenance Due Date Last Done Comments Influenza Vaccine (FLU shot) (#1) 2022 11/04/2021, 11/21/2020, 11/02/2019, Additional history exists GFR 03/08/2023 09/05/2022, 12/21, 08/27/2021, Additional history exists HbA1c 03/08/2023 09/05/2022, 06/2022, 08/27/2021, Additional history exists DIABETES-EYE EXAM 08/02/2023 08/01/2022, , 05/19/2020, Additional history exists Albumin/Creatinine Ratio 09/06/2023 023, 08/27/2021, 05/06/2021, Additional history exists CKD HGB USE SMARTSET 39015 09/06/202309/05, 06/18/2021, 06/18/2021, Additional history exists CKD PHOS USE SMARTSET 45783 09/06/202308/20, 05/06/2021, 07/16/2020, Additional history exists Depression Screening, Annual for Pts 12 and Over 09/10/2023 09/09/2022 DTaP,Tdap,and Td Vaccines (2 - [...] as of this encounter Visit Diagnoses Diagnosis Coronary artery disease involving [place] coronary artery of [place] heart without angina pectoris- Primary documented in this encounter Advance Directives [...] the patient have Health Care Power of Child Welfare Assistant? No Care Teams Pre Press Operator Relationship Specialty Start Date End Date Tito Grullon MD [address] [place] [address] PCP - General Family Medicine 09/01/15 documented as of this encounter
--- OUTSIDE RECORDS SUMMARY | 2022-12-29 09:31 | External Medical Summary | Summary of Care ---
Author Name Unknown Organization [facility] Address [address] [place] [address] Phone [phone] Care Team Providers Care Pick Up Driver Name Role Phone Tito Grullon MD Primary Care Provider + Encounter Details Date Type Department Care Team Description 10/25/2022 Orders Only Outcomes Research Department [address] [place] [address] Eleni Mccray CHRA [facility] Other*[id number] Allergies Active Allergy Reactions Severity Noted Date Comments Lisinopril 07/15/2008 Swelling, hives Metronidazole Hcl 06/28/2001 rash,itchy Niacin 10/16/2008 Itching, Can tolerate Niacin documented as of this encounter (statuses as of 10/25/2022) Medications Medication Sig Dispensed Refills Start Date End Date Status ASPIRIN 81 MG PO CHEW One pill by mouth once a day with food 100 5 07/12/2007 Active Tuxebo SYSTEM W/DEVICE KITIndications:DM type 2, goal A1C 7-8 Use to check sugar once a day. Dx: 250.00 1 Kit 0 03/04/2013 Active Cyanocobalamin (B-12-SL) [address] 1,000 mcg under the tongue daily. 90 Tab 3 09/26/2017 Active Glucose Blood In Vitro StripIndications:Ty pe 2 diabetes mellitus with hemoglobin A1c goal of less than 8.0% ([facility]) Tests daily 100 Strip 3 09/27/2017 Active Cholecalciferol 1000 units Capsule Take 1 Capsule by mouth in the morning. 0 05/24/2018 Active tacrolimus (PROTOPIC) 0.1 % ointment Apply topically to affected area 2 times a day . Apply to eyelids as needed 0 Active Pen [place] 32G X 6 MMIndications: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 ([facility]) Use as directed . Use to take insulin 4 times daily 400 Each 3 11/02/2021 Active Timolol Maleate 0.5 % Ophthalmic Solution (Timoptic) INSTILL ONE DROP IN BOTH EYES EVERY MORNING 10 mL 5 01/18/2022 01/18/2023 Active Insulin Pen Needle 32G X 6 MM USE DIRECTED TAKE INSULIN 4 TIMES DAILY 400 Each 3 11/02/2021 11/02/2022 Active Isosorbide Mononitrate ER 60 MG Oral Tablet Extended Release 24 Hour (Imdur)Indications: Coronary artery disease involving [place] coronary artery of [place] heart without angina pectoris,Dyslipidem ia, goal LDL below 70,Type 2 diabetes mellitus with hemoglobin A1c goal of less than 8.0% ([facility]),Essential hypertension with goal blood pressure less [...] at bedtime. 45 mL 1 10/19/2022 Active documented as of this encounter (statuses as of 10/25/2022) Active Problems Problem Noted Date Type 2 [...] as of this encounter (statuses as of 10/25/2022) Resolved Problems Problem Noted Date Resolved Date Type 2 diabetes mellitus wit h stage 3 chronic kidney disease and hypertension 01/03/2018 07/02/2020 Overview: Per CKD protocol Kidney disease, chronic, stage III (GFR 30-59 ml /min) 04/15/2013 02/02/2018 Overview: Per CKD protocol #1 Unstable angina 11/03/2012 12/14/2016 [facility] Other*[id number] 201203/29/2016 Overview: Study Title: Genomic Markers for Patients with Cardiovascular Disease Project # [id number] Video Game Repair Technician: Eleni Briggs MD [phone] HTN, goal below 130/80 10/12/2012 6 ACTIVE [...] as of this encounter (statuses as of 10/25/2022) Immunizations Name Administration Dates Next Due COVID-19 [...] Team Description 11/03/2022 Office Visit Pharmacy [facility] [address] [place] [address] 11/15/2022 Laboratory Laboratory Haylie Kearns [address] [facility] [place] [address] 11/29/2022 Appointment Radiology 11/29/2022 Procedure Only Urology Ned España MD [address] [place] [address] 12/07/2022 Office Visit Nephrology Sabina Keyes PA-C [address] [place] [address] 12/14/2022 Office Visit Cardiology Aminata Estrada PA-C [address] [place] [address] 04/21/2023 Office Visit Family Medicine Tito Grullon MD [address] [facility] [place] [address] Scheduled Orders Name Type Priority Associated Diagnoses Orde r Schedule MYCODE SUBSEQUENT ADULT Lab Routine [facility] Research Other*[id number] Every 6 Months for 2 Occurrences starting 10/25/2022 until 11/14/2023 Health Maintenance Due Date Last Done Comments Influenza Vaccine (FLU shot) (#1) 2022 11/04/2021, 11/21/2020, 11/02/2019, Additional history exists GFR 03/08/2023 09/05/2022, 12/21, 08/27/2021, Additional history exists HbA1c 03/08/2023 09/05/2022, 06/2022, 08/27/2021, Additional history exists DIABETES-EYE EXAM 08/02/2023 08/01/2022, , 05/19/2020, Additional history exists Albumin/Creatinine Ratio 09/06/2023 023, 08/27/2021, 05/06/2021, Additional history exists CKD HGB USE SMARTSET 95842 09/06/202309/05, 06/18/2021, 06/18/2021, Additional history exists CKD PHOS USE SMARTSET 56683 09/06/202308/20, 05/06/2021, 07/16/2020, Additional history exists Depression Screening, Annual for Pts 12 and Over 09/10/2023 09/09/2022 DTaP,Tdap,and Td Vaccines (2 - Td or Tdap) 09/26/2023 09/25/2013, 10/08/2007 DIABETES-FOOT EXAM 10/11/2023 10/10/2022, 0 08/27/2021, 09/23/2019, Additional history [...] as of this encounter Visit Diagnoses Diagnosis [facility] Other*[id number] documented in this encounter Advance Directives Latest [...] the patient have Health Care Power of Chief Chemist? No Care Teams Pick Up Driver Relationship Specialty Start Date End Date Tito Grullon MD [address] [place] [address] PCP - General Family Medicine 09/01/15 documented as of this encounter
--- OUTSIDE RECORDS SUMMARY | 2022-12-29 09:31 | External Medical Summary | Summary of Care ---
Author Name Unknown Organization [facility] Address [address] [facility] [place] [address] Phone [phone] Care Team Providers Care Photography Intern Name Role Phone Tito Brooks MD Primary Care Provider + Reason for Visit * Reason Comments Medication Refill Encounter Details Date Type Department Care Team Description 10/18/2022 Refill Family Practice [facility] [address] [place] [address] Tito Brooks MD [address] [facility] [place] [address] Allergies Active Allergy Reactions Severity Noted Date Comments Lisinopril 07/15/2008 Swelling, hives Metronidazole Hcl 06/28/2001 rash,itchy Niacin 10/16/2008 Itching, Can tolerate Niacin documented as of this encounter (statuses as of 10/19/2022) Medications Medication Sig Dispensed Refills Start Date [...] hemoglobin A1c goal of less than 8.0% ([facility]) Tests daily 100 Strip 3 09/27/2017 Active Cholecalciferol 1000 units Capsule Take 1 Capsule by mouth in the morning. 0 05/24/2018 Active tacrolimus (PROTOPIC) 0.1 % ointment Apply topically to affected area 2 times a day . 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 45 mL 1 10/19/2022 Active Atorvastatin Calcium 10 MG Oral Tablet (Lipitor) TAKE 1 WHOLE TABLET BY MOUTH DAILY. 90 Tablet 0 06/28/2022 3 Discontinue d(Refill) documented as of this encounter (statuses as of 10/19/2022) Active Problems Problem Noted Date Type 2 [...] as of this encounter (statuses as of 10/19/2022) Resolved Problems Problem Noted Date Resolved Date Type 2 diabetes mellitus wit h stage 3 chronic kidney disease and hypertension 01/03/2018 07/02/2020 Overview: Per CKD protocol Kidney disease, chronic, stage III (GFR 30-59 ml /min) 04/15/2013 02/02/2018 Overview: Per CKD protocol #1 Unstable angina 11/03/2012 12/14/2016 [employer] [facility] Other*[id number] 201203/29/2016 Overview: Study Title: Genomic Markers for Patients with Cardiovascular Disease Project # [id number] Director Biostatistics: Eleni Briggs MD [phone] HTN, goal below 130/80 10/12/2012 6 ACTIVE CASE MANAGEMENT Tamera Santino MOORE 07/04/2008 12/07/2009 ACTIVE CASE MANAGEMENT Tamera De [...] as of this encounter (statuses as of 10/19/2022) Immunizations Name Administration Dates Next Due COVID-19 [...] encounter Miscellaneous Notes * Telephone Encounter - Juan Luis Orourke RPh - 10/19/2022 9:45 AM EDTSigned Prescriptions: Disp Refills Atorvastatin Calcium 10 MG Oral Tablet (Li*90 Tab*0 Sig: TAKE 1 WHOLE TABLET BY MOUTH DAILY.Authorizing Provider: TITO BROOKS User: JUAN LUIS OROURKE documented in this encounter Plan of Treatment Upcoming Encounters Date Type Specialty Care Team Description 11/03/2022 Office Visit Pharmacy [facility] [address] [place] [address] 11/15/2022 Laboratory Laboratory Haylie Kearns [address] [place] [address] 11/29/2022 Appointment Radiology 11/29/2022 Procedure Only Urology Ned España MD [address] [place] [address] 12/07/2022 Office Visit Nephrology Sabina Keyes PA-C [address] [place] [address] 12/14/2022 Office Visit Cardiology Aminata Estrada PA-C [address] [place] [address] 04/21/2023 Office Visit Family Medicine Tito Brooks MD [address] [place] [address] Health Maintenance Due Date Last Done Comments Influenza Vaccine (FLU shot) (#1) 2022 11/04/2021, 11/21/2020, 11/02/2019, Additional history exists GFR 03/08/2023 09/05/2022, 12/21, 08/27/2021, Additional history exists HbA1c 03/08/2023 09/05/2022, 06/2022, 08/27/2021, Additional history exists DIABETES-EYE EXAM 08/02/2023 08/01/2022, , 05/19/2020, Additional history exists Albumin/Creatinine Ratio 09/06/20232 023, 08/27/2021, 05/06/2021, Additional history exists CKD HGB USE SMARTSET 75362 09/06/202309/05, 06/18/2021, 06/18/2021, Additional history exists CKD PHOS USE SMARTSET 05148 09/06/202308/20, 05/06/2021, 07/16/2020, Additional history exists Depression [...] the patient have Health Care Power of Licensed Marine Engineer? No Care Teams Photography Intern Relationship Specialty Start Date End Date Tito Brooks MD [address] [place] [address] PCP - General Family Medicine 09/01/15 documented as of this encounter
--- OUTSIDE RECORDS SUMMARY | 2022-12-29 09:32 | External Medical Summary | Continuity of Care Document ---
Author Name Unknown Organization [facility] [address] [facility] Address [address] [id number] Care Team Providers Care Chemical Processing Laborer Name Role Phone Tito Grullon Primary Care Physician [phone] [id number] Date(s): 10/13/22 - 10/13/22 [facility] [address] [facility] [address] [id number] Encounter Diagnosis Inflamed seborrheic keratosis(Discharge Diagnosis) - 10/13/22 History of basal cell carcinoma of skin(Discharge Diagnosis) - 10/13/22 Discharge Disposition: Home or Self Care Attending Physician: MD Baker Thomas A Referring Physician: MD Baker Thomas A Allergies, Adverse Reactions, Alerts Substance Reaction Severity Status lisinopril facial swelling Active Niaspan ER itching hot flashes Active Flagyl itching Active Assessment and Plan Extracted from: Title:Clinical Document Author:MD Olivia, [facility] Date:10/13/22 OUTPATIENT NOTE Name: REI MARTÍNEZ Patient Number:[id number] : 1940 Date of Service: 10/13/2022 _ Rei Martínez turns for reevaluation. 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 He notes prior treatment sites are clear. He is aware of 3 keratotic papules present on right parietal scalp which were treated with cryotherapy as actinic keratoses with patient consent. Side effects were discussed. He notes keratotic papules on the right and left neck and preauricular areas which were treated as inflamed seborrheic keratoses at the patient's request because of his tendency to pick at them. These were treated with cryotherapy with patient consent total of 5 lesions were treated. Review of systems medications allergies as noted on the chart. The patient is in stable health. Examination reveals pleasant well-nourished white male type I skin alert and oriented x3 with normal mood and affect. Examination of the head and neck reveals findings noted above and is otherwise unremarkable. The patient will return in 6 months for reevaluation. Medications amLODIPine 2.5 mg oral tablet Start: 02/05/20 11:23:00 EST, 1 tab, PO, Daily Start Date: 02/05/20 Status: Ordered aspirin 81 mg oral tablet Start: 02/27/13 10:12:00, 1 tab, PO, Daily Start Date: 02/27/13 Status: Ordered atorvastatin 10 mg oral tablet Start: 05/14/20 13:51:00 EDT, 1 tab, PO, Daily Start Date: 05/14/20 Status: Ordered Basaglar KwikPen 100 units/mL subcutaneous solution Start: 05/14/20 13:48:00 EDT, 32 unit =, subQ Start Date: 05/14/20 Status: Ordered betamethasone dipropionate 0.05% topical lotion Start: 04/12/16 9:54:35, 1 appl, topical, Daily, Disp# 60 mL, Refills: 3, apply to scalp for scaling, Pharmacy: ERIC [facility] @[facility] Start Date: 04/12/16 Status: Ordered clopidogrel 75 mg oral tablet Start: 02/27/13 10:11:00, 1 tab, PO, Daily Start Date: 02/27/13 Status: Ordered isosorbide mononitrate 60 mg oral tablet, extended release Start: 05/14/20 13:50:00 EDT, 1 tab, PO, qAM Start Date: 05/14/20 Status: Ordered lidocaine 5% topical ointment Start: 03/09/17 12:12:00, See Instructions, Disp# 35 g, Refills: 1, apply to skin on lip tid as needed for pain, Pharmacy: [facility] @[facility] Start Date: 03/09/17 Status: Ordered losartan Start: 03/30/12 16:43:00 EST, 50 mg =, PO, Daily Start Date: 03/30/12 Status: Ordered metFORMIN 500 mg oral tablet Start: 03/06/14 9:02:00 EST, 1 tab, PO, bid Start Date: 03/06/14 Status: Ordered metoprolol tartrate 25 mg oral tablet Start: 10/30/12 11:13:00, 0.5 tab, PO, bid Start Date: 10/30/12 Status: Ordered mometasone 0.1% topical cream Start: 01/02/18 16:48:00 EST, 1 appl, topical, bid, Disp# 15 g, Refills: 2, for seborrheic dermatits, Pharmacy: ERIC SIERRA [facility] Start Date: 01/02/18 Status: Ordered nitroglycerin 0.4 mg sublingual tablet Start: 02/27/13 10:11:00, 1 tab, SL, q5min, Disp# 25 tab, PRN: as needed for chest pain Start Date: 02/27/13 Status: Ordered NovoLOG FlexPen Start: 08/26/20 10:57:00 EDT, 22 unit =, subQ, tid Start Date: 08/26/20 Status: Ordered pantoprazole 40 mg oral delayed release tablet Start: 05/14/20 13:48:00 EDT, 1 tab, PO, q48h Start Date: 05/14/20 Status: Ordered Rocklatan 0.02%-0.005% ophthalmic solution Start: 05/14/20 13:52:00 EDT, 1 drop, both eyes, qPM Start Date: 05/14/20 Status: Ordered Simbrinza 1%- 0.2% ophthalmic suspension Start: 05/14/20 13:50:00 EDT, 1 drop, both eyes, bid Start Date: 05/14/20 Status: Ordered TIMOLOL MAL GERARDO 0.2 Start: 08/26/20 10:57:00 EDT, TIMOLOL MAL GERARDO 0.2, 1 drop, both eyes, Daily Start Date: 08/26/20 Status: Ordered Tradjenta 5 mg oral tablet Start: 07/10/15 9:20:00, 1 tab, PO, Daily Start Date: 07/10/15 Status: Ordered Vitamin B12 1000 mcg oral tablet Start: 05/14/20 13:49:00 EDT, 1 tab, PO, Daily Start Date: 05/14/20 Status: Ordered Vitamin D3 1000 intl units (25 mcg) oral tablet Start: 05/14/20 13:49:00 EDT, 1 tab, PO, Daily Start Date: 05/14/20 Status: Ordered Problem List Condition Confirmation Course Effective Dates Status H ealth Status Informant Actinic Keratosis Confirmed Active Active living will Confirmed 01/15/19 Active Apocrine cystadenoma Confirmed Active BCC (basal cell carcinoma of skin) Confirmed Active Changing skin lesion Confirmed Active Chronic pain of right upper limb Confirmed 06/22/17 Active Cobalamin deficiency Confirmed 09/26/17 Active Coronary arteriosclerosis Confirmed 11/03/12 Active Degenerative joint disease involving multiple joints Confirmed Active Diabetes Confirmed Active Diaphragmatic hernia Confirmed Active Elevated cholesterol Confirmed Active Essential hypertension Confirmed 11/19/15 Active Gastroesophageal reflux disease without esophagitis Confirmed 01/15/19 Active GERD Confirmed Active Glaucoma Confirmed Active History of herpes zoster Confirmed 07/06/07 Active History of basal cell carcinoma of skin Confirmed Active History of placement of stent for coronary artery disease Confirmed 11/03/12 Active Hyperlipidemia Confirmed 01/27/09 Active Hypertension Confirmed Active NIDDM (non-insulin dependent diabetes mellitus) Confirmed Active Patient encounter status Confirmed 01/03/18 Active Type 2 diabetes mellitus Confirmed 12/18/08 Active Weight disorder Confirmed Active Diagnosis Diagnosis Type Effective Dates Health Status Clinical Service Informant Inflamed seborrheic keratosis Discharge Diagnosis 10/13/22 History of basal cell carcinoma of skin Discharge Diagnosis 10/13/22 Procedures Procedure Date Related Diagnosis Body Site Status Shave biopsy and cauterization of skin 12/14/21 Completed Mohs' micrographic surgery 12/08/20 Completed Shave biopsy 11/26/20 Completed Mohs micrographic surgery 09/14/20 Completed Shave biopsy of skin 08/26/20 Comp leted Electrodesiccation with curettage 05/14/20 Completed Mohs surgery 11/25/19 Completed Shave biopsy of skin 10/23/19 Comp leted Electrodesiccation with curettage 04/24/19 Completed Mohs micrographic surgery 04/24/19 Completed Shave biopsy and cauterization of skin 04/05/19 Completed Shave biopsy and cauterizati on of skin/ED&C x 2 06/28/18 Completed Shave biopsy 1 12/28/17 Completed Mohs micrographic surgery 07/04/17 Completed Shave biopsy of skin 06/13/17 Comp leted Shave biopsy and cauterizati on of skin 2 04/12/16 Completed Shave biopsy of skin 3 01/13/16 Co mpleted Toenail abnormality 06/2015 Compl eted Shave biopsy and cauterizati on of skin 4 07/04/14 Completed Shave biopsy and cauterizati on of skin 5 06/04/14 Completed Surgery 6 02/2014 Completed Electrodesiccation with curettage 7 05/28/13 Completed Shave biopsy of skin 02/27/13 Comp leted Stent 8 11/02/12 Completed Shave biopsy of skin 06/27/12 Comp leted Cholecystectomy Completed fistula repair Completed 1shave E D & C left helix ear 2with curettage 3ED&C 4with curettage 5right preauricular, left cheek posterior, left cheek anterior 6tear duct drained left eye 7and shave bx 8heart Social History Social History Type Response Smoking Status Never smoked cigaret edwardo Sex Male Outpatient Note * MD Olivia, Seamus Rust: PERFORM Event Display: .Outpt Note Authored Date: OUTPATIENT NOTE Name: REI MARTÍNEZ Patient Number:[id number] : 1940 Date of Service: 10/13/2022 _ Rei Martínez turns for reevaluation. 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 He notes prior treatment sites are clear. He is aware of 3 keratotic papules present on right parietal scalp which were treated with cryotherapy as actinic keratoses with patient consent. Side effects were discussed. He notes keratotic papules on the right and left neck and preauricular areas which were treated as inflamed seborrheic keratoses at the patient's request because of his tendency to pick at them. These were treated with cryotherapy with patient consent total of 5 lesions were treated. Review of systems medications allergies as noted on the chart. The patient is in stable health. Examination reveals pleasant well-nourished white male type I skin alert and oriented x3 with normal mood and affect. Examination of the head and neck reveals findings noted above and is otherwise unremarkable. The patient will return in 6 months for reevaluation. Electronic Signature on File Electronically Reviewed/Signed by: Seamus Baker MD Author Signature Dt/Tm:10/13/2022 12:14 PM Department of Dermatology [facility] Patient Care team information Care Team Personnel Name: MD Yadi, Tito Swanson Position: Referring DIRECT Member Role: Primary Care Provider Address: Address: [address] [place] [address] [place] Care Team Related Persons Name: SEAMUS MARTÍNEZ Address: home No Address Provided
--- OUTSIDE RECORDS SUMMARY | 2022-12-29 09:32 | External Medical Summary | Summary of Care ---
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 Name Role Phone Tito Grullon MD Primary Care Provider + Reason for Visit * Reason Onset Date Comments Adult Annual Wellness Visit, Subsequent Visit Encounter Details Date Type Department Care Team Description 10/10/2022 Nurse Only Ancillary [facility] [address] [facility] [place] [id number] [facility], Nurse Annual Wellness [facility] [address] [place] [address] Adult Annual Wellness Visit, Subsequent Visit Allergies Active Allergy Reactions Severity Noted Date Comments Lisinopril 07/15/2008 Swelling, hives Metronidazole Hcl 06/28/2001 rash,itchy Niacin 10/16/2008 Itching, Can tolerate Niacin documented as of this encounter (statuses as of 10/10/2022) Medications Medication Sig Dispensed Refills Start Date End Date Status ASPIRIN 81 MG PO CHEW One pill by mouth once a day with food 100 5 07/12/2007 Active [employer] ULTRA SYSTEM W/DEVICE KITIndications:DM type 2, goal A1C 7-8 Use to check sugar once a day. Dx: 250.00 1 Kit 0 03/04/2013 Active Cyanocobalamin (B-12-SL) [address] 1,000 mcg under the tongue daily. 90 Tab 3 09/26/2017 Active Glucose Blood In Vitro StripIndications:Ty pe 2 diabetes mellitus with hemoglobin A1c goal of less than 8.0% ([facility]) Tests daily 100 Strip 3 09/27/2017 Active Cholecalciferol 1000 units Capsule Take 1 Capsule by mouth in the morning. 0 05/24/2018 Active tacrolimus (PROTOPIC) 0.1 % ointment Apply topically to affected area 2 times a day . Apply to eyelids as needed 0 Active Pen Austin 32G X 6 MMIndications: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 ([facility]) Use as directed . 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 45 mL 1 02/24/2022 Active Isosorbide Mononitrate ER 60 MG Oral Tablet Extended Release 24 Hour (Imdur)Indications: Coronary artery disease involving [place] coronary artery of [place] heart without angina pectoris,Dyslipidem ia, goal LDL below 70,Type 2 diabetes mellitus with hemoglobin A1c goal of less than 8.0% ([facility]),Essential hypertension with goal blood pressure less than [...] MORNING 90 Tablet 3 06/27/2022 06/27/2023 Active Atorvastatin Calcium 10 MG Oral Tablet (Lipitor) TAKE 1 WHOLE TABLET BY MOUTH DAILY. 90 Tablet 0 06/28/2022 06/28/2023 Active NovoLOG FlexPen 100 UNIT/ML Subcutaneous Solution [...] MORNING 90 Tablet 1 09/29/2022 09/29/2023 Active documented as of this encounter (statuses as of 10/10/2022) Active Problems Problem Noted Date Type 2 [...] as of this encounter (statuses as of 10/10/2022) Resolved Problems Problem Noted Date Resolved Date Type 2 diabetes mellitus wit h stage 3 chronic kidney disease and hypertension 01/03/2018 07/02/2020 Overview: Per CKD protocol Kidney disease, chronic, stage III (GFR 30-59 ml /min) 04/15/2013 02/02/2018 Overview: Per CKD protocol #1 Unstable angina 11/03/2012 12/14/2016 [employer] Other*[id number] 201203/29/2016 Overview: Study Title: Genomic Markers for Patients with Cardiovascular Disease Project # [id number] Title Curator: Eleni Briggs MD [phone] HTN, goal below 130/80 10/12/2012 6 ACTIVE [...] as of this encounter (statuses as of 10/10/2022) Immunizations Name Administration Dates Next Due COVID-19 mRNA, LNP-s, No Pre serve, 2-Dose Series ([employer]) 05/28/2021,11/16/2020,05/15/2020,2020 Covid-19, Mrna, Lnp-s, Pf, B ivalent, [...] Sign Reading Time Taken Comments Blood Pressure 150/70 10/10/2022 10:40 AM EDT Pulse 76 10/10/2022 10:40 AM EDT Temperature 36.6 C (97.8 F) 10/10/2022 10:40 AM E DT Respiratory Rate - - Oxygen Saturation - - Inhaled Oxygen Concentration - - Weight 90.1 kg (198 lb 9.6 oz) 10/10/2022 10:40 AM EDT Height 172.7 cm (5' 8") 10/10/2022 10:40 AM EDT Body Mass Index 30.2 10/10/2022 10:40 AM EDT documented in this encounter Patient Instructions * Patient Instructions* Renata Pastor RN - 10/10/2022 10:35 AM EDT Hi Nicolas Martínez, As your primary care physician, I know that regular visits with my patients who have several chronic conditions can go a long way in helping you stay healthy. Many times, the clinic team and I are in touch with you and/or other care team members between office visits to adjust medications, discuss any changes in your health, and review our care plan to make sure it is still meeting your needs. I am dedicated to helping you take a more active role in your overall care. It is important that there are resources available to you, so I created a personalized plan of care with a Health Calendar for you, which is included on the next page of this letter. Below is a list that summarizes your electronic health record: Health Maintenance Due: Health Maintenance Due Topic Date Due DIABETES-FOOT EXAM 08/27/2022 Current Medication List: (as of 09/27/2017 (in office), Visit date not found (telemedicine) ) Current Outpatient Medications Medication Sig Dispense Refill ASPIRIN 81 MG PO CHEW One pill by mouth once a day with food 100 5 Cyanocobalamin (B-12-SL) [address] 1,000 mcg under the tongue daily. 90 Tab 3 Cholecalciferol 1000 units Capsule Take 1 Capsule by mouth in the morning. tacrolimus (PROTOPIC) 0.1 % ointment Apply topically to affected area 2 times a day . Apply to eyelids as needed Timolol Maleate 0.5 % Ophthalmic Solution (Timoptic) INSTILL ONE DROP IN BOTH EYES EVERY MORNING 10 mL 5 Insulin Glargine Solostar 100 UNIT/ML Subcutaneous Solution Pen-injector (Basaglar KwikPen) Inject 35 Units under the skin every night at bedtime. 45 mL 1 Isosorbide Mononitrate ER 60 MG Oral Tablet Extended Release 24 Hour (Imdur) TAKE ONE TABLET BYMOUTH IN THE MORNING 90 Tablet 3 Insulin Aspart 100 UNIT/ML Subcutaneous Solution Pen-injector (novoLOG) 22 units subcut 3 timesa day with meals as directed by diabetes [...] MOUTH IN THE MORNING 90 Tablet 3 Atorvastatin Calcium 10 MG Oral Tablet (Lipitor) TAKE 1 WHOLE TABLET BY MOUTH DAILY. 90 Tablet 0 Losartan Potassium 50 MG Oral Tablet (Cozaar) TAKE ONE TABLET BY MOUTH IN THE MORNING AND ONE TABLET BEFORE BEDTIME 180 Tablet 1 linaGLIPtin 5 MG Oral Tablet (Tradjenta) Take 1 Tablet by mouth in the morning. 90 Tablet 3 metFORMIN HCl 500 MG Oral Tablet (Glucophage) Take 1 Tablet by mouth 2 times a day with morningand evening meals. 180 Tablet 3 Pantoprazole Sodium 40 MG Oral Tablet Delayed Release (Protonix) Take 1 Tablet by mouth every other day. 90 Tablet 3 Clopidogrel Bisulfate 75 MG Oral Tablet (pLAVix) TAKE 1 TABLET BY MOUTH DAILY IN THE MORNING 90Tablet 1 [employer] Powertrain SYSTEM W/DEVICE KIT Use to check sugar once a day. Dx: 250.00 1 Kit 0 Glucose Blood In Vitro Strip Tests daily 100 Strip 3 Pen [place] 32G X 6 MM Use as directed . Use to take insulin 4 times daily 400 Each 3 Insulin Pen Needle 32G X 6 MM USE DIRECTED TAKE INSULIN 4 TIMES DAILY 400 Each 3 NovoLOG FlexPen 100 UNIT/ML Subcutaneous Solution Pen-injector (insulin aspart) INJECT 30 UNITSUNDER THE SKIN THREE TIMES A DAY WITH MEALS DIRECTED BY DIABETIC CLINIC 90 mL 2 No current facility-administered medications for this visit. Current List of Allergies: (as of 09/27/2017 (in office), Visit date not found (telemedicine) ) Review of patient's allergies indicates: Allergen Reactions Lisinopril Swelling, hives Metronidazole Hcl rash,itchy Niaspan [Niacin] Itching, Can tolerate Niacin Most Recent Lab Results: Results for orders placed or performed in visit on 10/06/22 URINALYSIS, POINT OF CARE Result Value Ref Range Color, Urine Yellow Light Yellow, Yellow Clarity, Urine Clear Clear Glucose, Urine 500 (A) Negative mg/dL Bilirubin, Urine Negative Negative Ketone, Urine Negative Negative mg/dL Specific [place], Urine 1.020 1.003 - 1.030 Blood, Urine Trace-intact (A) Negative pH, Urine 7.0 5.0, 5.5, 6.0, 6.5, 7.0, 7.5 units Protein, Urine 30 (A) Negative mg/dL Urobilinogen, Urine 0.2 0.2, 1.0 mg/dL Nitrite, Urine Negative Negative Esterase, Urine Negative Negative Sincerely, Tito Grullon MD 10/10/2022 [place] (as of 09/27/2017 (in office), Visit date not found (telemedicine) ) Care needs Care needs Last completed Due next Yearly foot exam 08/27/2021 08/27/2022 Flu vaccine (recommended) (1) 11/04/2021 10/21/2022 A1C blood sugar test 09/05/2022 03/08/2023 Kidney Function Test 09/05/2022 03/08/2023 Dilated eye exam (by eye doctor or retinal camera) 08/01/2022 08/02/2023 Urine albumin/creatinine test 09/05/2022 09/06/2023 Diphtheria, tetanus & pertussis vaccines (2 - Td or Tdap) 09/25/2013 09/26/2023 As you look over the recommended services, be sure to check with your insurance company to determine what's covered. goBalto is a great tool that helps you review your medical record online, including test results, doctor notes and your health summary. You can also schedule appointments with me and other members of your care team, request prescription refills and ask for advice related to your medical conditions at [email or web address]. Diabetes: Keeping Feet Healthy Inspect your feet every day for signs of a problem. Diabetes can damage nerves in your feet and cause neuropathy. This condition makes it hard for you to feel injuries or sore spots. Diabetes can also change blood flow, making it harder for small problems, like a blister, to heal properly. In fact, minor injuries can quickly become serious infections that send you to the hospital. Practice self-care to protect your feet and keep them healthy. Take Special Care Inspect your feet daily for problems such as redness, blisters, cracks, dry skin, or numbness. Use a mirror to see the bottoms of your feet. Or, ask for help. Manage your diabetes. Monitor and control your blood sugar. Take all your medications as prescribed. Avoid walking barefoot, even indoors. Wash your feet with warm water and mild soap. Dry well, especially between toes. Dont treat corns or calluses yourself. Talk to your doctor or dinking machine operator (a doctor who specializes in foot care) if you need assistance trimming your toenails. Use moisturizing cream or lotion if you have dry skin, but dont use it between toes. Dont use heating pads on your feet. If you have neuropathy, you could get a burn and not feel it. Stop smoking. Smoking restricts blood flow and can make it harder for wounds to heal. Have Regular Checkups Foot problems can develop quickly. So be sure to follow your healthcare teams schedule for regular checkups. During office visits, take off your shoes and socks as soon as you get in the exam room. Ask your healthcare provider to examine your feet for problems. This will make it easier to find and treat small skin irritations before they get worse. Regular checkups can also help keep track of the blood flow and feeling in your feet. If you have neuropathy, you may need to have checkups more often. Wear Proper Footwear Wearing proper footwear is very important. If areas of your feet have been damaged by too much pressure, your healthcare provider may recommend changing your footwear. In some cases, avoiding high heels or tight work boots may be all thats needed. Or, your healthcare provider may recommend special shoes or custom inserts. These help protect your feet and keep existing irritations from getting worse. If you need special footwear, ask your healthcare provider if you qualify for [employer] diabetic shoe program. Make Sure Shoes and Socks Fit Any pair of shoes--new or old--should feel comfortable as soon as you put them on. There shouldnt be any rubbing when you walk. Wear the right shoe for any activity. For instance, a running shoe is designed to keep your feet injury-free while jogging. Buy shoes at the end of the day, when your feet are larger. Make sure they provide support without feeling too loose. Make sure your socks fit, too. Wear soft, seamless, well-padded socks for activity. Cotton or microfiber socks are best to help to absorb sweat. To protect your feet, avoid shoes that are open-toed or open-heeled. If you have questions about what kinds of shoes and socks are best, talk to your healthcare team. Get Regular Exercise Regular exercise improves blood flow in your feet. It also increases foot strength and flexibility.Gentle exercises, like walking or riding a stationary bicycle, are best. You can also do special foot exercises. Just be sure to talk with your healthcare provider before starting any exercise program. Also mention if any exercise causes pain, redness, or other signs of foot problems. Note: If you have any kind of break in the skin of your foot or ankle, keep the area clean. Then call your doctor--especially if the area doesnt appear to be healing. [id number] [employer], [address] [place] [address]. All rights reserved. This information is not intended as a substitute for professional medical care. Always follow your healthcare professional's instructions. documented in this encounter Progress Notes * Renata Pastor RN - 10/10/2022 10:34 AM EDT Adult Annual Wellness Visit: Rei Martínez is a 82 year old male who presents for an Adult Annual Wellness Visit. Depression Screening: Did the patient complete the screening questionnaire for Depression? Yes Is the patient's total score for Depression 15 or greater? No, no further intervention needed, unless requested by patient. Did the patient answer positively to the suicide question? No, no further intervention needed, unless requested by patient. In general, compared to other people your age, what would you say that your health is? Good Ht Readings from Last 1 Encounters: 10/10/22 1.727 m (5' 8") Wt Readings from Last 1 Encounters: 10/10/22 90.1 kg (198 lb 9.6 oz) Body Mass Index: BMI Greater than 30 Body mass index is 30.2 kg/m. 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 Son Seamus and daughter are backup Mild nonproliferative diabetic retinopathy of both eyes without macular edema associated with type 2 diabetes mellitus (HCC) OTHER 08/15/2008 right eye20/20, left 20/25, nosigns of HTN retinopathy Other psoriasis Psoriasis Primary open-angle glaucoma, bilateral, indeterminate stage 08/01/2019 Past Surgical History: Procedure Laterality Date CARDIAC ANGIOPLASTY, PERCUTANEOUS, 1 ARTERY 11/02/2012 [facility], CARDIAC ANGIOPLASTY, PERCUTANEOUS, 1 ARTERY performed by Eleni Briggs MD at [facility] COLONOSCOPY, DIAGNOSTIC (RECTUM) 06/11/07 diverticula and moderate hemorroids EGD, FLEXIBLE, INSERT WIRE, PASS DILATOR 10/06/2010 ring, bx mild inflammation from acid reflux EGD, FLEXIBLE, TRANSENDOSCOPIC DILATION <30MM 09/23/10 Schatzki ring/hiatal hernia EGD, FLEXIBLE, TRANSENDOSCOPIC DILATION <30MM 09/30/2010 moderate schattzki ring dilated consider repeat EGd in 1 week FLUORO ERCP 1999 [place] FLUORO UPPER GI W AIR WO KUB 11/10/03 hiatal hernia with mod reflux, small narrowing INFORMATION 09/2001 sigmoidoscopy LAPAROSCOPY; CHOLECYSTECTOMY 1999 [place] KARLIE, 1ST STAGE; FACE, HANDS, FEET, NERVE 06/2017 Mohs @[facility] derm cheek SCC REPAIR BOWEL FISTULA 2000 Family History Problem Relation Age of Onset Diabetes Mother Heart Disorder Father Breast Cancer Sister 74 dx '23. Hypertension Brother lives nearby him. mostly home bound. Depression Brother Other (colostomy) Brother from infection later in life. Other (Other) Other pt denies hx of skin cancer for parents Other (keratosis) Rosalinda Cazares Has patient ever had cancer? 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 Yes Hospital Care: Admissions (within the last year): Not Applicable ER within 30 days: No Does the patient have an Advance Directives/Living Will? Yes Last Physical Exam: Last physical exam: 08/2022 Does patient see primary provider regularly? Yes Does patient see other providers? Yes, Specialist Patient Care Team updated? Yes Review of patient's allergies indicates: Allergen Reactions Lisinopril Swelling, hives Metronidazole Hcl rash,itchy Niaspan [Niacin] Itching, Can tolerate Niacin Immunization History Administered Date(s) Administered COVID-19 mRNA, LNP-s, No Preserve, 2-Dose Series ([employer]) 04/24/2020, 05/15/2020, 11/16/2020, 05/28/2021 Covid-19, Mrna, Lnp-s, Pf, Bivalent, 30 Mcg, IM, 12 yrs and above (Pfizer) 11/09/2021 Pneumococcal Conjugate Vacc, 13 Valent (Prevnar) 12/02/2015 Pneumococcal Polysaccharide PPV23 (Pneumovax) 12/08/2004 Season Influenza, Quad, PF, Adjuvanted, 65+ Yrs, IM (FLUAD) 11/02/2019 Seasonal Influenza, PF, 6 mons & Above, IM , (Flulaval) 12/14/2016, 11/06/2017, 11/21/2020 Seasonal Influenza, Quadrivalent Hd (Fluzone Hd) 11/04/2021 Seasonal Influenza, Quadrivalent, No Preserve, IM 12/06/2014, 12/02/2015 Seasonal Influenza, Split, IIV3, With Preserve, Inj 12/26/2002, 12/08/2004, 11/30/2005, 11/28/2006,12/05/2007, 12/10/2008, 11/30/2009, 11/17/2010, 12/20/2011, 11/07/2012, 11/25/2013 Seasonal Influenza, Trivalent, Adjuvanted, 65+ yrs 11/13/2018 TD - Tetanus/Diptheria (ADULT) 10/08/2007 TDAP (age 10 and older)(Boostrix) 09/25/2013 Varicella Zoster Vaccine (Adult) 09/18/2008 Zoster Vaccine Recombinant (Shingrix) 07/13/2018, 01/15/2019 Current Outpatient Medications Medication Sig Dispense Refill ASPIRIN 81 MG PO CHEW One pill by mouth once a day with food 100 5 Cyanocobalamin (B-12-SL) [address] 1,000 mcg under the tongue daily. 90 Tab 3 Cholecalciferol 1000 units Capsule Take 1 Capsule by mouth in the morning. tacrolimus (PROTOPIC) 0.1 % ointment Apply topically to affected area 2 times a day . Apply to eyelids as needed Timolol Maleate 0.5 % Ophthalmic Solution (Timoptic) INSTILL ONE DROP IN BOTH EYES EVERY MORNING 10mL 5 Insulin Glargine Solostar 100 UNIT/ML Subcutaneous Solution Pen-injector (Basaglar KwikPen) Inject 35 Units under the skin every night at bedtime. 45 mL 1 Isosorbide Mononitrate ER 60 MG Oral Tablet [...] MOUTH IN THE MORNING 90 Tablet 3 Atorvastatin Calcium 10 MG Oral Tablet (Lipitor) TAKE 1 WHOLE TABLET BY MOUTH DAILY. 90 Tablet 0 Losartan Potassium 50 MG Oral Tablet (Cozaar) TAKE ONE TABLET BY MOUTH IN THE MORNING AND ONE TABLET BEFORE BEDTIME 180 Tablet 1 linaGLIPtin 5 MG Oral Tablet (Tradjenta) Take 1 Tablet by mouth in the morning. 90 Tablet 3 metFORMIN HCl 500 MG Oral Tablet (Glucophage) Take 1 Tablet by mouth 2 times a day with morning andevening meals. 180 Tablet 3 Pantoprazole Sodium 40 MG Oral Tablet Delayed Release (Protonix) Take 1 Tablet by mouth every otherday. 90 Tablet 3 Clopidogrel Bisulfate 75 MG Oral Tablet (pLAVix) TAKE 1 TABLET BY MOUTH DAILY IN THE MORNING 90 Tablet 1 [employer] Powertrain SYSTEM W/DEVICE KIT Use to check sugar once a day. Dx: 250.00 1 Kit 0 Glucose Blood In Vitro Strip Tests daily 100 Strip 3 Pen Austin 32G X 6 MM Use as directed . Use to take insulin 4 times daily 400 Each 3 Insulin Pen Needle 32G X 6 MM USE DIRECTED TAKE INSULIN 4 TIMES DAILY 400 Each 3 NovoLOG FlexPen 100 UNIT/ML Subcutaneous Solution Pen-injector (insulin aspart) INJECT 30 UNITS UNDER THE SKIN THREE TIMES A DAY WITH MEALS DIRECTED BY DIABETIC CLINIC 90 mL 2 No current facility-administered medications for this visit. Patient Active Problem List Diagnosis Code GENERAL OSTEOARTHROSIS M15.9 ADVANCE DIRECTIVE INFORMATION History of herpes zoster Z86.19 Type 2 diabetes mellitus with hemoglobin A1c goal of less than 8.0% ([facility]) E11.9 Dyslipidemia, goal LDL below 70 E78.5 [...] disease and hypertension (HCC) E11.22, I12.9, N18.30 Medication Compliance: Patient is able to obtain all of his medications? Yes Patient takes medications as prescribed? Yes Patient manages own medications: Yes Patient uses a pill box? No Dental Exam: Yes: Every 6 Months Eye Screening: Yes: Every 3-4 months Are you having trouble with hearing? Yes Do you use an assistive device to help your hearing? Yes Exercise Screening: does not exercise regularly Nutrition Assessment: Eats a balanced diet Pain Screening: Are you having any pain? No Sleep Screening Tool 'STOP': Do you snore? No Do you feel fatigued during the day? No Do you wake up feeling like you haven't slept? No Have you been told you stop breathing at night? No Do you gasp for air or choke while sleeping? No Have you been told you have Sleep Apnea? No Do you have high blood pressure or are on medication(s) to control high blood pressure? Yes SCORE: If you check YES to two or more questions, make a referral for Obstructive Sleep Apnea Patient and Caregiver Support System: Patient lives alone Means of Transportation: Drives. Not a concern. Patient lives in One Story - with basement stairs: 10-11 with railings on both sides Community Resources: Not Applicable Functional Status and ADL Skills: Has patient ever had an amputation? No Functional Assessment: 90- Able to carry on normal activity, minor symptoms of disease Ambulation: Patient ambulates without assistive device. Independent Dressing: Gets clothes and dresses without any assistance: Independent Able to move freely in chair or bed including turning over: Independent Repositioning (bed or chair): Not applicable Transfers: Independent Toileting: Goes to bathroom, uses toilet, arranges clothes and returns without any assistance: Independent Toileting: continent of bladder and continent of bowel Feeding: Self Bathing: Self; tub/shower with grab bar Requires none assistance with ADLs. Instrumental ADL's: Shopping: Independent Housekeeping: Independent Handling Finances: Independent Shahab P. Tabatabai, Broker Vendor Name: Not Applicable Fall Risk Assessment: Can the patient demonstrate that he can stand from a sitting position? Yes Has the patient had a fall within the last 6 months? No Does the patient have a problem with his gait or balance? No Does the patient take 4 or more prescription medicines? Yes Does the patient use sedatives or narcotics? No Fall Risk Factors Present: Uses more than 4 medications Older than age 70 Gah-Di-qku-Go Test: Time began at 1030. Patient stood from sitting position and walked approximately 10 feet, returned and sat down. Total time for hed-tk-hmd-go test was 10 seconds. Eyg-Zg-npn-Go Test completed? Yes Gender Specific Preventative Plan: Health Maintenance Topic Date Due Influenza Vaccine (FLU shot) (1) 10/21/2022 HbA1c 03/08/2023 GFR 03/08/2023 DIABETES-EYE EXAM 08/02/2023 Albumin/Creatinine Ratio 09/06/2023 CKD HGB USE SMARTSET 43269 09/06/2023 CKD PHOS USE SMARTSET [id number] 09/06/2023 Depression Screening, Annual for Pts 12 and Over 09/10/2023 DTaP,Tdap,and Td Vaccines (2 - Td or Tdap) 09/26/2023 DIABETES-FOOT EXAM 10/11/2023 Zoster Vaccines Completed Pneumococcal Vaccine: 65+ Years Completed COVID-19 Vaccine Completed Hepatitis B Aged Out MENINGOCOCCAL (MENACTRA/MENVEO) Aged Out [facility] SER[facility] Aged Out Follow Up/ Referrals/Handouts: No further action needed Routine general medical examination at a health care facility (Primary) AWV completed today DM type 2 nursing care encounter (HCC) - DIABETES FOOT EXAM Type 2 diabetes mellitus with hemoglobin A1c goal of less than 8.0% ([facility]) - Med reconciliation completed and compliance discussed. - pt to continue present medications. Hemoglobin AIC Results: Lab Results Component Value Date/Time HEMOGLOBIN A1C - [facility] 7.0 (H) 09/05/2022 09:33 AM HEMOGLOBIN A1C - [facility] 6.8 (H) 02/24/2022 03:21 PM HEMOGLOBIN A1C - [facility] 6.9 (H) 08/27/2021 09:46 AM HEMOGLOBIN A1C - [facility] 8.8 (H) 08/12/2019 08:50 AM HEMOGLOBIN A1C - [facility] 8.8 (H) 07/10/2019 09:13 AM HEMOGLOBIN A1C - [facility] 7.8 (H) 01/07/2019 08:21 AM Coronary artery disease involving [place] coronary artery of [place] heart without angina pectoris - Med reconciliation completed and compliance discussed. - pt to continue present medications. Dyslipidemia, goal LDL below 70 - Med reconciliation completed and compliance discussed. - pt to continue present medications. Lipid Panel Results: Results for orders placed or performed in visit on 09/26/13 LIPID PANEL Result Value Ref Range HOURS FASTING 12 hours Triglycerides 283 (H) <200 mg/dL Cholesterol 99 <200 mg/dL HDL Cholesterol 21 (L) >39 mg/dL Cholesterol-HDL Ratio 4.7 LDL Cholesterol 21 0 - 129 mg/dL Results for orders placed or performed in visit on 09/05/22 LIPID PANEL WITH DIRECT LDL IF TG IS HIGH Result Value Ref Range Triglycerides 184 (H) <=174 mg/dL Cholesterol 101 <200 mg/dL HDL Cholesterol 24 (L) >39 mg/dL Non-HDL Cholesterol 77 <=159 mg/dL HTN, goal below 140/90 - Med reconciliation completed and compliance discussed. - pt to continue present medications. BP Readings from Last 3 Encounters: 10/10/22 150/70 10/06/22 150/67 09/09/22 126/52 B12 deficiency - Med reconciliation completed and compliance discussed. - pt to continue present medications. Gastroesophageal reflux disease without esophagitis - Med reconciliation completed and compliance discussed. - pt to continue present medications. Primary open-angle glaucoma, bilateral, indeterminate stage - Med reconciliation completed and compliance discussed. - pt to continue present medications. Hypertension associated with stage 3b chronic kidney disease due to type 2 diabetes mellitus (HCC) Chronic kidney disease, stage 3b (HCC) - Med reconciliation completed and compliance discussed. - pt to continue present medications. 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 - pt to continue present medications. Creatinine Results: Lab Results Component Value Date/Time CREATININE - [facility] 2.2 (H) 09/05/2022 09:33 AM CREATININE - [facility] 1.9 (H) 12/30/2021 11:21 AM CREATININE - [facility] 1.9 (H) 08/27/2021 09:46 AM CREATININE - [facility] 1.9 (H) 01/14/2020 09:19 AM CREATININE - [facility] 1.9 (H) 01/10/2020 10:46 AM CREATININE - [facility] 1.8 (H) 08/12/2019 08:50 AM CREATININE, RANDOM URINE - [facility] 49 09/05/2022 09:33 AM CREATININE, RANDOM URINE - [facility] 74 08/27/2021 09:46 AM CREATININE, RANDOM URINE - [facility] 46 05/06/2021 08:47 AM CREATININE, RANDOM URINE - [facility] 37 01/10/2020 10:46 AM CREATININE, RANDOM URINE - [facility] 38 01/10/2020 10:46 AM CREATININE, RANDOM URINE - [facility] 60 07/10/2019 09:10 AM Follow Up: Return in 1 year (on 10/11/2023) for 12 month Subsequent Adult Wellness Visit. | For: 12 month Subsequent Adult Wellness Visit | Check-out note: 12 month Subsequent Adult Wellness Visit Would patient like to schedule next AWV visit? Yes Renata Pastor RN AD8 Dementia Screening Interview Person answering questions: patient Remember, "Yes, a change" indicates that there has been a change in the last several years caused by cognitive (thinking and memory) problems 1. Problems with judgement (eg: problems making decisions, bad financial decisions, problems with thinking). No (0) 2. Less interest in hobbies/activities. No (0) 3. Repeats the same things over and over (questions, stories, or statements). No (0) 4. Trouble learning how to use a tool, appliance, or gadget (eg: VCR, computer, microwave, remote control). No (0) 5. Forgets correct month or year. No (0) 6. Trouble handling complicated financial affairs (eg: balancing checkbook, income taxes, paying bills). No (0) 7. Trouble remembering appointments. No (0) 8. Daily problems with thinking and/or memory. No (0) TOTAL AD8: 0 - AD8 Dementia Screening Score The final score is a sum of the number items marked "Yes, A Change". 0 - 1: Normal cognition; 2 or greater: Cognitive impairments is likely to be present - further testing requiredDM Foot Exam completed today. Provider aware. Renata Pastor, RN Socks and Shoes Removed for Annual Diabetic Foot Screening RIGHT FOOT: No Reddened, Cracking, Or Open Areas Noted. RIGHT Dorsalis Pedis Pulse: Palpable RIGHT Posterior Tibial Pulse: Palpable RIGHT Monofilament:Patient reports feeling monofilament pressure on plantar surface of foot LEFT FOOT: No Reddened, Cracking or Open Areas Noted. LEFT Dorsalis Pedis Pulse: Palpable LEFT Posterior Tibial Pulse: Palpable LEFT Monofilament:Patient reports feeling monofilament pressure on plantar surface of foot Do you need diabetic shoes: N/A documented in this encounter Miscellaneous Notes * Pt Handout (on AVS) - Renata Pastor RN - 10/10/2022 11:03 AM EDT 51148 Preventing Falls: How to Prepare and What to Do Falling is not something you want to think about. But it can make a big difference to plan ahead. If you're prepared, you'll know how to get help. And you'll be less likely to panic if you fall. Thismeans you'll be able to do what's needed to get help right away. How to prepare Have someone check on you daily, either in person or by phone. Keep a list of emergency numbers near the phone. Always have a way to call for help. Keep a cell phone with you at all times. Or talk with your healthcare provider about how to set up a home monitoring service. This involves wearing a small device around your neck or wrist. If you fall, you can press the button on the device. This alerts emergency responders. Talk with your healthcare provider about an exercise program that's right for you. Regular exercise may reduce the risk of falling and the risk for injury related to a fall. Have good lighting in your home. Don't use throw rugs, because they can raise your risk of tripping and falling. Add grab bars in the bathroom to help reduce the risk of falling. Small changes canmake your home safer. Talk with your healthcare provider about making your home safer. What to do if you fall Above all, try to stay calm: If you start to fall, try to relax your body. This will reduce the impact of the fall. After you fall, press your monitor button, or use your phone to call for help. Don't mora to get up. First, make sure you're not hurt. Roll onto your side, then crawl to a chair. Pull yourself up onto the chair slowly. Get checked if you struck your head, lost consciousness, were confused afterward, or have any other concerns for injury. Tell your healthcare provider that you fell. They can check you for injuries as needed, try to determine what made you fall, and help prevent you from falling again. A note to family and friends If you're with a loved one when they start to fall, don't try to stop the fall. Ease the person to the floor carefully, so neither of you gets hurt. Don't leave the person alone. And don't try to move them, especially if they may have hurt their head or neck. Check for injuries. If help is needed right away, call 911. Last Reviewed Date: 01/20/202219992394-7841 [employer]. All rights reserved. This information is not intended as a substitute for professional medical care. Always follow your healthcare professional's instructions. * Pt Handout (on AVS) - Renata Pastor RN - 10/10/2022 11:02 AM EDT Images from the original note were not included. 22601 Diabetes: Meal Planning You can help keep your blood sugar level in your target range by eating healthy foods. Your healthcare team can help you create a low-fat, nutritious meal plan. Take an active role in your diabetes management. Follow your meal plan and work with your healthcare team. Make your meal plan A meal plan gives guidelines for the types and amounts of food you should eat. The goal is to balance food and insulin (or other diabetes medicines). That way, your blood sugars will be in your target range. Your dietitian will help you make a flexible meal plan that has many foods that you like. Watch serving sizes Your meal plan will group foods by servings. To learn how much a serving is, start by measuring food portions at each meal. Soon you?ll know what a serving looks like on your plate. Ask your healthcare provider about how to balance servings of different foods. Eat from all the food groups The basis of a healthy meal plan is eating lots of different foods. Choose lean meats, fresh fruitsand vegetables, whole grains, and low-fat or nonfat dairy products. Eating a wide variety of foods gives your body the nutrients it needs. It can also keep you from getting bored with your meal plan. Learn about carbohydrates, fats, and protein Carbohydrates (carbs). These are starches, sugars, and fiber. They're found in many foods. Theseinclude fruit, bread, pasta, milk, and sweets. Of all the foods you eat, carbs have the most effecton your blood sugar. Your dietitian may teach you about carb counting . This is a way to figure outthe number of carbohydrates in a meal. Healthier carbs are absorbed more slowly. They don't raise your blood sugar as much. Fats. These have the most calories. They also have the most effect on your weight and your risk of heart disease. When you have diabetes, it?s important to control your weight and protect your heart. Foods that are high in fat include whole milk, cheese, snack foods, and desserts. You can eat more of the heart- healthy fats such as avocados, salmon, tuna, and olive oil. Protein. This is important for building and repairing muscles and bones. Choose low-fat protein sources, such as fish, egg whites, and skinless chicken. Reduce liquid sugars Extra calories from sodas, sports drinks, and fruit drinks make it hard to keep blood sugar in range. Cut as many liquid sugars from your meal plan as you can. This includes most fruit juices. They are often high in natural or added sugar. Instead, have plenty of water and other sugar-free drinks. Eat less fat If you need to lose weight, try to reduce the amount of fat in your diet. This can also help lower your cholesterol level to keep blood vessels healthier. Cut fat by using only small amounts of liquid oil for cooking. Read food labels carefully. Stay away from foods with unhealthy trans fats. Time your meals right When it comes to blood sugar control, when you eat is as important as what you eat. You may need toeat several small meals spaced evenly throughout the day to stay in your target range. So don?t skip breakfast or wait until late in the day to get most of your calories. Doing so can cause your blood sugar to rise too high or fall too low. Last Reviewed Date: 01/20/202119998628-0596 [employer]. All rights reserved. This information is not intended as a substitute for professional medical care. Always follow your healthcare professional's instructions. * Pt Handout (on AVS) - Renata Pastor RN - 10/10/2022 11:02 AM EDT Images from the original note were not included. 35353 Exercises to Prevent Falls Certain types of exercises may help make you less likely to fall. Try the ones below or do other exercises that your healthcare provider suggests. Depending on your health, you may need to start slowly. Don't let that stop you. Even small amountsof exercise can help you. Talk with your healthcare provider before starting any exercise program. Improve balance Many types of exercise can help improve balance. Chente chi and yoga are good examples. Here's anotherone to try. You can do it anytime and almost anywhere. Stand next to a counter or solid support. Push yourself up onto your tiptoes. Hold for 5 seconds. If you start to lose your balance, hold on to the counter. Rest and repeat 5 times. Work up to holding for 20 to 30 seconds, if you can. Increase flexibility Being more flexible makes it easier for you to move around safely. Try exercises like the seatedhamstring stretch. o Sit in a chair and put one foot on a stool. o Straighten your leg and reach with both hands down either side of your leg. Reach as far down your leg as you can. o Hold for about 20 seconds. o Go back to the starting position. Then repeat 5 times. Switch legs. o o Build strength o Resistance exercises help build strength. You can do them without equipment. Or you can use weights, elastic bands, or special machines. One such exercise is called the biceps curl. You can hold a 1-pound weight or even a can of soup. Do this exercise at least 3 times a week. Strive for every day. Sit up straight in a chair. Keep your elbow close to your body and your wrist straight. Bend your arm, moving your hand up to your shoulder. Then slowly lower your arm. Repeat 5 times. Switch to the other arm. Build your staying power Aerobic exercises make your heart and lungs stronger so you can keep moving longer. Walking and swimming are 2 of the best types of exercises you can do. Using a stationary bike is great, too. Find an aerobic exercise that you enjoy. Start slowly and build up. Even 5 minutes is helpful. Aim for a goal of 30 minutes, at least 3 times a week. You don't have to do 30 minutes in 1 session. Break it up and walk a little throughout the day. Starting out safely and slowly Start easy. Slowly work up to doing more. Talk with your healthcare provider about the best exercises for you. Call senior centers or health clubs about exercise programs. If needed, have a family member watch you walk every so often to check your stability. Exercise with a friend. Choose an activity you both enjoy. Be sure to gently warm up and cool down. Drink fluids, such as water, to stay hydrated. If your provider recommended that you limit fluids, ask them how much is OK to drink while exercising. Consider chente chi or yoga to strengthen your balance. Try exercises that you can do anytime, anywhere. Here are 2 examples. Have someone with you whenyou first try these: o Practice walking by placing one foot right in front of the other. o Stand up and sit down 10 times. Repeat this throughout the day. Last Reviewed Date: 12/21/202119997555-0030 [employer]. All rights reserved. This information is not intended as a substitute for professional medical care. Always follow your healthcare professional's instructions. documented in this encounter Plan of Treatment Upcoming Encounters Date Type Specialty Care Team Description 11/03/2022 Office Visit Pharmacy [facility] [address] [place] [address] 11/15/2022 Laboratory [facility] [address] [place] [address] 11/29/2022 Appointment Radiology 11/29/2022 Procedure Only Urology Ned España MD [address] [place] [address] 12/07/2022 Office Visit Nephrology Sabina Keyes PA-C [address] [place] [address] 12/14/2022 Office Visit Cardiology Aminata Estrada PA-C [address] [place] [address] 04/21/2023 [facility] [address] [place] [address] Health Maintenance Due Date Last Done Comments Influenza Vaccine (FLU shot) (#1) 2022 11/04/2021, 11/21/2020, 11/02/2019, Additional history exists GFR 03/08/2023 09/05/2022, 12/21, 08/27/2021, Additional history exists HbA1c 03/08/2023 09/05/2022, 06/2022, 08/27/2021, Additional history exists DIABETES-EYE EXAM 08/02/2023 08/01/2022, , 05/19/2020, Additional history exists Albumin/Creatinine Ratio 09/06/2023 023, 08/27/2021, 05/06/2021, Additional history exists CKD HGB USE SMARTSET 97935 09/06/202309/05, 06/18/2021, 06/18/2021, Additional history exists CKD PHOS USE SMARTSET 72063 09/06/202308/20, 05/06/2021, 07/16/2020, Additional history exists Depression [...] as of this encounter Visit Diagnoses Diagnosis Routine general medical examination at a health care facility- Primary DM type 2 nursing care encounter (HCC) Type II or unspecified type diabetes mellitus without mention of complication, not stated as uncontrolled Type 2 diabetes mellitus with hemoglobin A1c goal of less than 8.0% (HCC) Coronary artery disease involving [place] coronary artery of [place] heart without angina pectoris Dyslipidemia, goal LDL below 70 Other and unspecified hyperlipidemia HTN, goal below 140/90 Unspecified essential hypertension B12 deficiency Other B-complex deficiencies Gastroesophageal reflux disease without esophagitis Esophageal reflux Primary open-angle glaucoma, bilateral, indeterminate stage Hypertension associated with stage 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
--- OUTSIDE RECORDS SUMMARY | 2022-12-29 09:32 | External Medical Summary | Summary of Care ---
Author Name Unknown Organization [facility] Address [address] [place] [address] Phone [phone] Care Team Providers Care Care Companion Name Role Phone Tito Brooks MD Primary Care Provider + Reason for Referral * Precert (Within 10 days (routine)) - Authorized Specialty Diagnoses / Procedures Referred By Contac t Referred To Contact Radiology Diagnoses Asymptomatic microscopic hematuria Procedures CT UROGRAPHY W WO CONTRAST Lynette Thomson PA-C [address] [place] [address] Referral ID Status Reason Start Date Expiration Date V isits Requested Visits Authorized [id number] Authorized 10/06/2022 999 999 Reason for Visit * Reason Comments NEW PATIENT * Evaluate & Treat - Unlimited Visits (Within 30 days (routine)) - Authorized Specialty Diagnoses / Procedures Referred By Saturnino campbell Referred To Contact Urology Diagnoses Hematuria, unspecified type Penelope Alcaraz MD [address] [facility] [place] [address] Referral ID Status Reason Start Date Expiration Date Visits Requested Visits Authorized [id number] Authorized Specialty Services Required 09/23/2022 999 999 Encounter Details Date Type Department Care Team Description 10/06/2022 Office Visit Urology, [place] [address] [place] [address] Lynette Thomson PA-C [address] [place] [address] Asymptomatic microscopic hematuria* Allergies Active Allergy Reactions Severity Noted Date Comments Lisinopril 07/15/2008 Swelling, hives Metronidazole Hcl 06/28/2001 rash,itchy Niacin 10/16/2008 Itching, Can tolerate Niacin documented as of this encounter (statuses as of 10/06/2022) Medications Medication Sig Dispensed Refills Start Date End Date Status ASPIRIN 81 MG PO CHEW One pill by mouth once a day with food 100 5 07/12/2007 Active BitRock SYSTEM W/DEVICE KITIndications:DM type 2, goal A1C [...] to eyelids as needed 0 Active Pen [place] 32G X 6 MMIndications:Type 2 diabetes mellitus [...] Glargine Solostar 100 UNIT/ML Subcutaneous Solution Pen-injector (Basagltracy Leone)Indications :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 45 mL 1 02/24/2022 Active Isosorbide Mononitrate ER 60 MG Oral Tablet Extended Release 24 Hour (Imdur)Indications: Coronary artery disease involving [place] coronary artery of [place] heart without angina pectoris,Dyslipidem ia, goal LDL below 70,Type 2 diabetes mellitus with hemoglobin A1c goal of less than 8.0% (HCC),Essential hypertension with goal blood pressure less than [...] as of this encounter (statuses as of 10/06/2022) Active Problems Problem Noted Date Type 2 [...] as of this encounter (statuses as of 10/06/2022) Resolved Problems Problem Noted Date Resolved Date Type 2 diabetes mellitus wit h stage 3 chronic kidney disease and hypertension 01/03/2018 07/02/2020 Overview: Per CKD protocol Kidney disease, chronic, stage III (GFR 30-59 ml /min) 04/15/2013 02/02/2018 Overview: Per CKD protocol #1 Unstable angina 11/03/2012 12/14/2016 [employer] Other*[id number] 201203/29/2016 Overview: Study Title: Genomic Markers for Patients with Cardiovascular Disease Project # [id number] Correction Officer Supervisor: Eleni Briggs MD [phone] HTN, goal below 130/80 10/12/2012 6 ACTIVE [...] as of this encounter (statuses as of 10/06/2022) Immunizations Name Administration Dates Next Due COVID-19 mRNA, LNP-s, No Pre serve, 2-Dose Series ([employer]) 05/28/2021,11/16/2020,05/15/2020,2020 Covid-19, Mrna, Lnp-s, Pf, B ivalent, 30 Mcg, IM, 12 yrs and above (Pfizer) 11/09/2021 Pneumococcal Conjugate Vacc, 13 Valent (Prevnar) 12/02/2015 Seasonal Influenza, Quadriva lent Hd (Fluzone Hd) 11/04/2021 Seasonal Influenza, Quadriva lent, No Preserve, 6 Mons & Above, IM 11/21/2020,11/06/2017,12/14/2016 Seasonal Influenza, Quadriva lent, No Preserve, Adjuvanted, 65+ Yrs, IM 11/02/2019 Seasonal Influenza, Quadriva lent, No Preserve, IM [...] Cigars Q uit: 02/21/1972 Smokeless Tobacco: Never Tobacco Cessation:Counseling Given: Not Answered Alcohol Use Standard Drinks/Week Comments No 0 [...] Sign Reading Time Taken Comments Blood Pressure 150/67 10/06/2022 11:19 AM EDT Pulse 68 10/06/2022 11:19 AM EDT Temperature 36.1 C (97 F) 10/06/2022 11:19 AM EDT Respiratory Rate - - Oxygen Saturation - - Inhaled Oxygen Concentration - - Weight - - Height - - Body Mass Index - - documented in this encounter Progress Notes * Lynette Thomson PA-C - 10/06/2022 11:42 AM EDT NEW PATIENT EXAMINATION - Urology Name: Rei Martínez Date: 10/06/2022 Time: 11:42 AM Location: Urology Clinic PCP: TITO BROOKS [address] [place] [address] [phone] Chief Complaint: Microscopic hematuria two weeks. Rei Martínez is a 82 year old male presents in consultation from Tito Brooks MD for evaluationof the above. I extensively reviewed the patient's record prior to the appointment. The patient presents to the clinic today with who provided portions of the patient's history. The patient had a urinalysis on 09/21/2022 for nocturia and it showed trace amount of blood. He had 3-5 RBC by microscopic examination. His urinalysis showed trace amount of blood again. The patient denies gross hematuria, dysuria, obstructive or irritative voiding complaints, flank pain, f/c, n/v/c/d. The patient has not a family history of bladder, kidney, or prostate malignancies. The patient is aformer smoker. The patient denies exposure to chemicals/dyes, chronic mack, urolithiasis, recurrent UTI, chemotherapy, or pelvic radiation. He has diabetes. He is taking Plavix and Asprin. He had cho lecystectomy before. 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 B12 deficiency 09/26/2017 Chronic right shoulder pain 06/22/2017 Dermatitis Diaphragmatic hernia DM type 2, goal HbA1c 7%-8% (HCC) 12/18/2008 Dyslipidemia, goal LDL below 100 01/27/2009 [...] by Eleni Briggs MD [place] [facility] [place]NOSTIC (RECTUM) 06/11/07 diverticula and moderate hemorroids EGD, FLEXIBLE, INSERT WIRE, PASS DILATOR 10/06/2010 ring, bx mild inflammation from acid reflux EGD, FLEXIBLE, TRANSENDOSCOPIC DILATION <30MM 09/23/10 Schatzki ring/hiatal hernia EGD, FLEXIBLE, TRANSENDOSCOPIC DILATION <30MM 09/30/2010 moderate schattzki ring dilated consider repeat EGd in 1 week FLUORO ERCP [address] [place] FLUORO UPPER GI W AIR WO KUB 11/10/03 hiatal hernia with mod reflux, small narrowing INFORMATION 09/2001 sigmoidoscopy LAPAROSCOPY; CHOLECYSTECTOMY [address] [place] KARLIE, 1ST STAGE; FACE, HANDS, FEET, NERVE 06/2017 Mohs @[facility] derm cheek SCC REPAIR BOWEL FISTULA 2000 Social History Socioeconomic History Marital status: Spouse name: Sunshine Rodrigez Number of children: 2 Years of education: Not on file Highest education level: Not on file Occupational History Occupation: retired - Comment: [employer] Tobacco Use Smoking status: Former Types: Cigars Quit date: 02/21/1972 Years since quittin.6 Smokeless tobacco: Never Vaping Use Vaping Use: Never used Substance and Sexual Activity Alcohol use: No Drug use: No Sexual activity: Not Currently Comment: '23 has GF. '22. 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 Son lives down road from him., daughter in [employer]. Social Determinants of Health Financial Resource Strain: Not on file Food Insecurity: No Food Insecurity Worried About Running Out of Food in the Last Year: Never true Ran Out of Food in the Last Year: Never true Transportation Needs: Not on file Physical Activity: Not on file Stress: Not on file Social Connections: Not on file Intimate Partner Violence: Not on file Housing Stability: Not on file Family History Problem Relation Age of Onset Diabetes Mother Heart Disorder Father Breast Cancer Sister 74 dx '23. Hypertension Brother lives nearby him. mostly home bound. Depression Brother Other (colostomy) Brother from infection later in life. Other (Other) Other pt denies hx of skin cancer for parents Other (keratosis) Other AKs, Rosalinda Current Outpatient Medications Medication Sig Dispense Refill ASPIRIN 81 MG PO CHEW One pill by mouth once a day with food 100 5 BitRock SYSTEM W/DEVICE KIT Use to check sugar [...] . Apply to eyelids as needed Pen [place] 32G X 6 MM Use as directed . Use to take insulin 4 times daily 400 Each 3 Timolol Maleate 0.5 % Ophthalmic Solution (Timoptic) INSTILL ONE DROP IN BOTH EYES EVERY MORNING 10mL 5 Insulin Pen Needle 32G X 6 MM USE DIRECTED TAKE INSULIN 4 TIMES DAILY 400 Each 3 Insulin Glargine Solostar 100 UNIT/ML Subcutaneous Solution [...] TABLET BY MOUTH DAILY. 90 Tablet 0 NovoLOG FlexPen 100 UNIT/ML Subcutaneous Solution Pen-injector [...] DAILY IN THE MORNING 90 Tablet 1 No current facility-administered medications for this visit. Review of patient's allergies indicates: Allergen Reactions Lisinopril Swelling, hives Metronidazole Hcl rash,itchy Niaspan [Niacin] Itching, Can tolerate Niacin ROS EXAM: CONSTITUTIONAL: No change in weight, No weakness, No fatigue and No fevers, sweats, or chills PULMONARY: No cough, No wheezing, No shortness of breath and No recent change in breathing CARDIOVASCULAR: No chest pain, No shortness of breath, No dyspnea on exertion, No edema and No syncope GASTROINTESTINAL: No abdominal pain, No significant change in appetite and No nausea, vomiting, diarrhea, or constipation MALE: See HPI NEUROLOGIC: Normal balance and No weakness PHYSICAL EXAM: VITAL SIGNS: BP 150/67 (BP Site: Left Arm, BP Position: Sitting, BP Cuff Size: Regular) | Pulse 68 | Temp 36.1 C (97 F) (Tympanic) PSYCH/GENERAL APPEARANCE: no apparent distress, well - nourished, well developed MSK: no CVA tenderness RESPIRATORY: non-labored breathing, clear to auscultation bilaterally CARDIAC: regular rate and rhythm and no murmurs, no edema GASTRO-INTESTINAL: soft, non - obese, non - tender, non - distended, no masses palpable NEUROLOGIC: no focal deficits and gait normal : no urethral discharge. SKIN: No obvious cyanosis or ulcerations LABS Lab Results Component Value Date/Time PSA - [facility] 1.22 03/01/2013 11:27 AM PSA - [facility] 1.20 02/01/2012 09:43 AM PSA - [facility] 1.18 04/30/2007 09:55 AM PSA - [facility] 0.95 03/28/2005 09:19 AM PSA - [facility] 0.98 01/02/2002 09:18 AM PSA - [facility] 1.2 07/13/1999 10:20 AM PSA - [facility] 1.4 01/26/1999 11:52 AM PSA - [facility] 1.1 04/28/1997 02:35 PM PSA SCREENING 2.12 01/28/2011 10:23 AM PSA SCREENING 1.23 04/07/2009 08:48 AM PSA SCREENING 1.22 04/15/2008 09:11 AM Latest Reference Range & Units 09/21/22 14:00 10/06/22 10:53 Color, Urine Light Yellow, Yellow, Dark Yellow Yellow Color, Urine Light Yellow, Yellow Yellow Clarity, Urine Clear Clear Clarity, Urine Clear Clear Glucose, Urine Negative mg/dL 100 ! Glucose, Urine Negative mg/dL 500 ! Bilirubin, Urine Negative Negative Bilirubin, Urine Negative Negative Ketone, Urine Negative mg/dL Negative Ketone, Urine Negative mg/dL Negative Specific [place], Urine 1.003 - 1.030 1.015 Specific [place], Urine 1.003 - 1.030 1.020 Blood, Urine Negative Trace ! Blood, Urine Negative Trace-intact ! pH, Urine 5.0 - 7.5 Units 7.0 pH, Urine 5.0, 5.5, 6.0, 6.5, 7.0, 7.5 units 7.0 Protein, Urine Negative mg/dL 30 ! Protein, Urine Negative mg/dL 30 ! Urobilinogen, Urine 0.2, 1.0 mg/dL 0.2 Urobilinogen, Urine 0.2, 1.0 mg/dL 0.2 Nitrite, Urine Negative Negative Nitrite, Urine Negative Negative Esterase, Urine Negative Negative Esterase, Urine Negative Negative Bacteria, Urine 0 - 25 /HPF 0-25 WBC, Urine 0 - 2 /HPF 0-2 RBC, Urine 0 - 2 /HPF 3-5 ! !: Data is abnormal Imaging: Non recent. Impression: 82 year old male with microscopic hematuria two weeks ago and today. He is doing well with his urination except nocturia. He is a former smoker. He has no family history of bladder or kidney cancer. Plan: 1. Cystoscopy. 2. Ct urography. Creatinine. Lynette Thomson PA-C 11:42 AM 10/06/2022 documented in this encounter Plan of Treatment Upcoming Encounters Date Type Specialty Care Team Description 10/10/2022 Nurse Only Ancillary Som Nurse [facility] [address] [place] [address] 11/03/2022 Office Visit [facility] [place] [address] 11/15/2022 Laboratory Laboratory [place] [address] [facility] [place] [address] 11/29/2022 Appointment Radiology 11/29/2022 Procedure Only Urology Ned España MD [address] [place] [address] 12/07/2022 Office Visit Nephrology Sabina Keyes PA-C [address] [place] [address] 12/14/2022 Office Visit Cardiology Aminata Estrada PA-C [address] [place] [id number] 04/21/2023 Office Visit Family Medicine Tito Brooks MD [address] [place] [address] Scheduled Orders Name Type Priority Associated Diagnoses Orde r Schedule CT UROGRAPHY W WO CONTRAST Medical Imaging Routine Asymptomatic microscopic hematuria Ordered: 10/06/2022 CREATININE Lab Routine Asymptomatic microscopic hematuria Ordered: 10/06/2022 CYSTOSCOPY Procedures Routine Asymptomatic microscopic hematuria Expected: 11/06/2022, Expires: 11/07/2023 Health Maintenance Due Date Last Done Comments DIABETES-FOOT EXAM 08/27/2022 08/27/2021, 0 09/23/2019, 07/13/2018, Additional history exists Influenza Vaccine (FLU shot) (#1) 2022 11/04/2021, 11/21/2020, 11/02/2019, Additional history exists GFR 03/08/2023 09/05/2022, 12/21, 08/27/2021, Additional history exists HbA1c 03/08/2023 09/05/2022, 01/0 06/2022, 08/27/2021, Additional history exists DIABETES-EYE EXAM 08/02/2023 08/01/2022, , 05/19/2020, Additional history exists Albumin/Creatinine Ratio 09/06/2023 023, 08/27/2021, 05/06/2021, Additional history exists CKD HGB USE SMARTSET 35645 09/06/202309/05, 06/18/2021, 06/18/2021, Additional history exists CKD PHOS USE SMARTSET 80951 09/06/202308/20, 05/06/2021, 07/16/2020, Additional history exists Depression Screening, Annual for Pts 12 and Over 09/10/2023 09/09/2022 DTaP,Tdap,and Td Vaccines (2 - Td or Tdap) 09/26/2023 09/25/2013, 10/08/2007 Pneumococcal Vaccine: 65+ Years Completed 12/02/2015, 12/08/2004 [...] Diagnosis Comments URINALYSIS, POINT OF CARE WU 10/06/2022 10:53 AM EDT documented in this encounter Results * (ABNORMAL) URINALYSIS, POINT OF CARE (10/06/2022 10:53 AM EDT) Color, Urine Yellow Light Yellow, Yellow 10/06/2022 10:56 AM EDT [facility] Clarity, Urine Clear Clear 10/06/2022 10:56 AM EDT [facility] Glucose, Urine 500(A) Negative mg/dL 10/06/2022 10:56 AM EDT [facility] Bilirubin, Urine Negative Negative 10/06/2022 10:56 AM EDT [facility] Ketone, Urine Negative Negative mg/dL 10/06/2022 10:56 AM EDT [facility] Specific [place], Urine 1.020 1.003 - 1.030 10/06/2022 10:56 AM EDT [facility] Blood, Urine Trace-intact (A) Negative 10/06/2022 10:56 AM EDT [facility] pH, Urine 7.0 5.0, 5.5, 6.0, 6.5, 7.0, 7.5 units 10/06/2022 10:56 AM EDT [facility] Protein, Urine 30(A) Negative mg/dL 10/06/2022 10:56 AM EDT [facility] Urobilinogen, Urine 0.2 0.2, 1.0 mg/dL 10/06/2022 10:56 AM EDT [facility] Nitrite, Urine Negative Negative 10/06/2022 10:56 AM EDT [facility] Esterase, Urine Negative Negative 10/06/2022 10:56 AM EDT [facility] Urine 10/06/2022 10:5 3 AM EDT 10/06/2022 10:56 AM EDT Lynette Thomson PA-C LAB POINT OF CARE TE ST DOCKED DEVICE UNSOLICITED RESULTS [facility] [address] [facility] [place] [address] documented in this encounter Visit Diagnoses Diagnosis [...] the patient have Health Care Power of Journeyman Pipe Welder? No Care Teams Care Companion Relationship Specialty Start Date End Date Tito Brooks MD [address] [place] [address] PCP - General Family Medicine 09/01/15 documented as of this encounter"
--- OUTSIDE RECORDS SUMMARY | 2022-12-29 09:32 | External Medical Summary | Summary of Care ---
Author Name Unknown Organization [facility] Address [address] [facility] [place] [address] Phone [phone] Care Team Providers Care Blender Laborer Name Role Phone Tito Brooks MD Primary Care Provider + Reason for Visit * Reason Comments Medication Refill Encounter Details Date Type Department Care Team Description 10/18/[address] 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 ([facility]) Allergies Active Allergy Reactions Severity Noted Date Comments Lisinopril 07/15/2008 Swelling, hives Metronidazole Hcl 06/28/2001 rash,itchy Niacin 10/16/2008 Itching, Can tolerate Niacin documented as of this encounter (statuses as of 10/19/2022) Medications Medication Sig Dispensed Refills Start Date End Date Status ASPIRIN 81 MG PO CHEW One pill by mouth once a day with food 100 5 07/12/2007 Active [employer] ULTRA SYSTEM W/DEVICE KITIndications:DM type 2, goal [...] to eyelids as needed 0 Active Pen [place] 32G X 6 MMIndications:Type 2 diabetes mellitus [...] 24 Hour (Imdur)Indications :Coronary artery disease involving [place] coronary artery of [place] heart without angina pectoris,Dyslipide yelitza, goal LDL [...] MORNING 90 Tablet 3 06/27/2022 4 Active Atorvastatin Calcium 10 MG Oral Tablet (Lipitor) TAKE 1 WHOLE TABLET BY MOUTH DAILY. 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 45 mL 1 02/24/2022 3 Discontinue d(Refill) documented as of this [...] Unstable angina 11/03/2012 12/14/2016 [employer] Other*[id number] 201203/29/2016 Overview: Study Title: Genomic Markers for Patients with Cardiovascular Disease Project # [id number] Weather Strip Installer: Eleni Briggs MD [phone] HTN, goal below 130/80 10/12/2012 6 ACTIVE [...] Miscellaneous Notes * Telephone Encounter - Tito Brooks MD - 10/19/2022 9:22 AM EDTSigned Prescriptions: Disp Refills Insulin Glargine Solostar 100 UNIT/ML Subc*45 mL 1 Sig: Inject 35 Units under the skin every night at bedtime. Authorizing Provider: TITO BROOKS * Telephone Encounter - Mary Kevin LPN - 10/19/2022 8:40 AM EDTPending Prescriptions: Disp Refills Insulin Glargine Solostar 100 UNIT/ML Subc*45 mL 1 Sig: Inject 35 Units under the skin every night at bedtime. * Telephone Encounter - Mary Kevin LPN - 10/19/2022 8:35 AM EDT Provider to address: Pending Prescriptions: Disp Refills Insulin Glargine Solostar 100 UNIT/ML Sub*45 mL 1 Sig: Inject 35 Units under the skin every night at bedtime. Last Visit: 09/09/2022 (in office), Visit date not found (telemedicine) Next Visit: 04/21/2023 Last date the medication was ordered: 02/24/22 Patient Active Problem List Diagnosis Code GENERAL OSTEOARTHROSIS M15.9 ADVANCE DIRECTIVE INFORMATION History of herpes zoster Z86.19 Type 2 diabetes mellitus with hemoglobin A1c goal of less than 8.0% ([facility]) E11.9 Dyslipidemia, goal LDL below 70 E78.5 [...] disease due to type 2 diabetes mellitus ([facility]) E11.22, I12.9, N18.32 Chronic kidney disease, stage 3b ([facility]) N18.32 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 ([facility]) E11.22, I12.9, N18.30 Labs: Lab Results Component Value Date/Time CREATININE - [facility] 2.2 (H) 09/05/2022 09:33 AM CREATININE - [facility] 1.9 (H) 01/14/2020 09:19 AM CREATININE, RANDOM URINE - [facility] 49 09/05/2022 09:33 AM CREATININE, RANDOM URINE - [facility] 37 01/10/2020 10:46 AM CREATININE, RANDOM URINE - [facility] 38 01/10/2020 10:46 AM Lab Results Component Value Date/Time POTASSIUM - [facility] 4.6 09/05/2022 09:33 AM POTASSIUM - [facility] 4.8 01/14/2020 09:19 AM Lab Results Component Value Date/Time TSH - [facility] 4.10 06/18/2021 10:00 AM TSH - [facility] 3.29 08/01/2011 10:03 AM Lab Results Component Value Date/Time LDL CHOLESTEROL (CALCULATED) - [facility] UNINTERPRETABLE RESULT 07/09/2018 08:53 AM LDL CHOLESTEROL (CALCULATED) - [facility] 29 09/25/2017 07:55 AM LDL CHOLESTEROL (DIRECT MEASURE) - [facility] 48 09/05/2022 09:33 AM LDL CHOLESTEROL (DIRECT MEASURE) - [facility] 36 08/27/2021 09:46 AM LDL CHOLESTEROL (DIRECT MEASURE) - [facility] 31 08/12/2019 08:50 AM LDL CHOLESTEROL (DIRECT MEASURE) - [facility] 49 07/09/2018 08:53 AM LDL CHOLESTEROL (DIRECT MEASURE) - [facility] 35 04/03/2015 10:16 AM LDL CHOLESTEROL (DIRECT MEASURE) - [facility] 41 03/28/2014 11:02 AM Lab Results Component Value Date/Time ALT - [facility] <5 (L) 09/25/2017 07:55 AM Hemoglobin AIC Results: Lab Results Component Value Date/Time HEMOGLOBIN A1C - [facility] 7.0 (H) 09/05/2022 09:33 AM HEMOGLOBIN A1C - [facility] 6.8 (H) 02/24/2022 03:21 PM HEMOGLOBIN A1C - [facility] 6.9 (H) 08/27/2021 09:46 AM HEMOGLOBIN A1C - [facility] 8.8 (H) 08/12/2019 08:50 AM HEMOGLOBIN A1C - [facility] 8.8 (H) 07/10/2019 09:13 AM HEMOGLOBIN A1C - [facility] 7.8 (H) 01/07/2019 08:21 AM Reason for Call: Medication Refill Contact: Telephone Call Contact Type: Medication Total Time including non face to face (minutes): 5 documented in this encounter Plan of Treatment Upcoming Encounters Date Type Specialty Care Team Description 11/03/2022 Office Visit Pharmacy [facility] [address] [place] [address] 11/15/2022 Laboratory Laboratory Haylie [facility] [address] [place] [address] 11/29/2022 Appointment Radiology 11/29/2022 Procedure Only Urology Ned España MD [address] [place] [address] 12/07/2022 Office Visit Nephrology Sabina Keyes PA-C [address] [place] [address] 12/14/2022 Office Visit Cardiology Aminata Estrada PA-C [address] [place] [address] 04/21/2023 Office Visit Family Medicine Tito Brooks MD [address] [place] [address] Health Maintenance Due Date Last Done Comments Influenza Vaccine (FLU shot) (#1) 2022 11/04/2021, 11/21/2020, 11/02/2019, Additional history exists GFR 03/08/2023 09/05/2022, 12/21, 08/27/2021, Additional history exists HbA1c 03/08/2023 09/05/2022, 06/2022, 08/27/2021, Additional history exists DIABETES-EYE EXAM 08/02/2023 08/01/2022, , 05/19/2020, Additional history exists Albumin/Creatinine Ratio 09/06/2023 023, 08/27/2021, 05/06/2021, Additional history exists CKD HGB USE SMARTSET 49709 09/06/202309/05, 06/18/2021, 06/18/2021, Additional history exists CKD PHOS USE SMARTSET 61460 09/06/202308/20, 05/06/2021, 07/16/2020, Additional history exists Depression [...] Diagnoses Diagnosis 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 No Care Teams Blender Laborer Relationship Specialty Start Date End Date Tito Brooks MD [address] [place] [address] PCP - General Family Medicine 09/01/15 documented as of this encounter
--- OUTSIDE RECORDS SUMMARY | 2022-12-29 09:32 | External Medical Summary ---
Author Name Unknown Address Unknown Organization : Laboratory Report Ordering Provider Test Date Status JEWELL CID 10/06/2022 10:53:00 Final Observation Date Value Abnormality Reference (Units ) Status Color of Urine by Auto 10/06/2022 10:53:00 Yellow Light Yellow, Yellow Final Clarity, Urine 10/06/2022 10:53:00 Clear Clear Final Glucose [Mass/volume] in Urine by Automated test strip 10/06/2022 10:53:00 500 Abnormal Negative (mg/dL) Final Bilirubin.total [Presence] in Urine by Automated test strip 10/06/2022 10:53:00 Negative Negative Final Ketones [Mass/volume] in Urine by Automated test strip 10/06/2022 10:53:00 Negative Negative (mg/dL) Final Specific gravity, Urine 10/06/2022 10:53:00 1.020 1.003-1.030 Final Hemoglobin [Presence] in Urine by Automated test strip 10/06/2022 10:53:00 Trace-intact Abnormal Negative Final pH, Urine 10/06/2022 10:53:00 7.0 5.0, 5.5, 6.0, 6.5, 7.0, 7.5 (units) Final Protein [Mass/volume] in Urine by Automated test strip 10/06/2022 10:53:00 30 Abnormal Negative (mg/dL) Final Urobilinogen, Urine 10/06/2022 10:53:00 0.2 0.2, 1.0 (mg/dL) Final Nitrite [Presence] in Urine by Automated test strip 10/06/2022 10:53:00 Negative Negative Final Leukocyte esterase [Presence] in Urine by Automated test strip 10/06/2022 10:53:00 Negative Negative Final Performing Location
--- OUTSIDE RECORDS SUMMARY | 2022-12-29 09:33 | External Medical Summary | Summary of Care ---
Author Name Unknown Organization [facility] Address [address] [facility] [place] [address] Phone [phone] Care Team Providers Care Cushion Sewer Name Role Phone Tito Grullon MD Primary Care Provider + Reason for Visit * Reason Onset Date Comments Health Maintenance 09/29/2022 Encounter Details Date Type Department Care Team Description 09/29/2022 Telephone Family Practice [facility] [address] [place] [address] Tito Grullon MD [address] [place] [address] Health Maintenance Allergies Active Allergy Reactions Severity Noted Date Comments Lisinopril 07/15/2008 Swelling, hives Metronidazole Hcl 06/28/2001 rash,itchy Niacin 10/16/2008 Itching, Can tolerate Niacin documented as of this encounter (statuses as of 09/29/2022) Medications Medication Sig Dispensed Refills Start Date End Date Status ASPIRIN 81 MG PO CHEW One pill by mouth once a day with food 100 5 07/12/2007 Active [employer] ULTRA SYSTEM W/DEVICE KITIndications:DM type 2, goal A1C 7-8 Use to check sugar once a day. Dx: 250.00 1 Kit 0 03/04/2013 Active Cyanocobalamin (B-12-SL) [address] 1,000 mcg under the tongue daily. 90 Tab 3 09/26/2017 Active Glucose Blood In Vitro StripIndications:Ty pe 2 diabetes mellitus with hemoglobin A1c goal of less than 8.0% ([facility]) Tests daily 100 Strip 3 09/27/2017 Active Cholecalciferol 1000 units Capsule Take 1 Capsule by mouth in the morning. 0 05/24/2018 Active tacrolimus (PROTOPIC) 0.1 % ointment Apply topically to affected area 2 times a day . 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 Use to take [...] stage 3 chronic kidney disease and hypertension ([facility]) Inject 35 Units under the skin every night at bedtime. 45 mL 1 02/24/2022 Active Isosorbide Mononitrate ER 60 MG Oral Tablet Extended Release 24 Hour (Imdur)Indications: Coronary artery disease involving [place] coronary artery of [place] heart without angina pectoris,Dyslipidem ia, goal LDL below 70,Type 2 diabetes mellitus with hemoglobin A1c goal of less than 8.0% ([facility]),Essential hypertension with goal blood pressure less than [...] as of this encounter (statuses as of 09/29/2022) Active Problems Problem Noted Date Type 2 [...] as of this encounter (statuses as of 09/29/2022) Resolved Problems Problem Noted Date Resolved Date Type 2 diabetes mellitus wit h stage 3 chronic kidney disease and hypertension 01/03/2018 07/02/2020 Overview: Per CKD protocol Kidney disease, chronic, stage III (GFR 30-59 ml /min) 04/15/2013 02/02/2018 Overview: Per CKD protocol #1 Unstable angina 11/03/2012 12/14/2016 [employer] Other*[id number] 201203/29/2016 Overview: Study Title: Genomic Markers for Patients with Cardiovascular Disease Project # [id number] Reordering Clerk: Eleni Briggs MD [phone] HTN, goal below 130/80 10/12/2012 6 ACTIVE [...] as of this encounter (statuses as of 09/29/2022) Immunizations Name Administration Dates Next Due COVID-19 mRNA, LNP-s, No Pre serve, 2-Dose Series ([employer]) 05/28/2021,11/16/2020,05/15/2020,04/24 Covid-19, Mrna, Lnp-s, Pf, B ivalent, 30 Mcg, IM, 12 yrs and above ([employer]) 11/09/2021 Pneumococcal Conjugate Vacc, 13 Valent (Prevnar) 12/02/2015 Pneumococcal Polysaccharide PPV23 (Pneumovax) 12/08/2004 Seasonal Influenza, Quadriva lent Hd (Fluzone Hd) 11/04/2021 Seasonal Influenza, Quadriva lent, No Preserve, 6 Mons & Above, IM 11/21/2020,11/06/2017,12/14/2016 Seasonal Influenza, Quadriva lent, No Preserve, Adjuvanted, 65+ Yrs, IM 11/02/2019 Seasonal Influenza, Quadriva lent, No Preserve, IM 12/02/2015,12/06/2014 Seasonal Influenza, Split, I IV3, With Preserve, Inj 11/25/2013,11/07/2012,12/20/2011,11/17,11/30/2009,12/10/2008,12/05/2007 ,11/28/2006,11/30/2005,12/08/2004,11/0 07/2002 Seasonal Influenza, Trivalen t, Adjuvanted, 65+ yrs [...] encounter Miscellaneous Notes * Telephone Encounter - Pam Gutierrez LPN - 09/29/2022 3:00 PM EDT awv scheduled patient called me back * Telephone Encounter - Pam Gutierrez LPN - 09/29/2022 1:29 PM EDT Care Gaps Comprehensive Care Outreach Last Office/Telemedicine Visit: 09/09/2022 (in office), Visit date not found (telemedicine) Next Office Visit: 04/21/2023 Hemoglobin AIC Results: Lab Results Component Value Date/Time HEMOGLOBIN A1C - [facility] 7.0 (H) 09/05/2022 09:33 AM HEMOGLOBIN A1C - [facility] 6.8 (H) 02/24/2022 03:21 PM HEMOGLOBIN A1C - [facility] 6.9 (H) 08/27/2021 09:46 AM HEMOGLOBIN A1C - [facility] 8.8 (H) 08/12/2019 08:50 AM HEMOGLOBIN A1C - [facility] 8.8 (H) 07/10/2019 09:13 AM HEMOGLOBIN A1C - [facility] 7.8 (H) 01/07/2019 08:21 AM Reviewed Health Maintenance below: Health Maintenance Topic Date Due DXA Scan 11/09/2021 DIABETES-FOOT EXAM 08/27/2022 Influenza Vaccine (FLU shot) (1) 10/21/2022 dexa not due awv my g Care Gap Outreach Action Taken: Myportal message sent documented in this encounter Plan of Treatment Upcoming Encounters Date Type Specialty Care Team Description 10/03/2022 Imaging Radiology 10/03/2022 Imaging Radiology 10/06/2022 [facility] [address] [facility] [address] 10/10/2022 Nurse Only Ancillary Nurse [facility] [address] [place] [address] 11/03/2022 Office Visit Pharmacy [facility] [address] [place] [address] 12/07/2022 Office Visit Nephrology Sabina Keyes PA-C [address] [place] [address] 12/14/2022 Office Visit Cardiology Aminata Estrada PA-C [address] [place] [address] 04/21/2023 Office Visit Family Medicine Tito Grullon MD [address] [place] [address] Health Maintenance Due Date Last Done Comments DXA Scan 11/09/2021 11/09/2020 DIABETES-FOOT EXAM 08/27/2022 08/27/2021, 0 09/23/2019, 07/13/2018, Additional history exists Influenza Vaccine (FLU shot) (#1) 2022 11/04/2021, 11/21/2020, 11/02/2019, Additional history exists GFR 03/08/2023 09/05/2022, 12/21, 08/27/2021, Additional history exists HbA1c 03/08/2023 09/05/2022, 06/2022, 08/27/2021, Additional history exists DIABETES-EYE EXAM 08/02/2023 08/01/2022, , 05/19/2020, Additional history exists Albumin/Creatinine Ratio 09/06/2023 023, 08/27/2021, 05/06/2021, Additional history exists CKD HGB USE SMARTSET 57031 09/06/202309/05, 06/18/2021, 06/18/2021, Additional history exists CKD PHOS USE SMARTSET 07470 09/06/202308/20, 05/06/2021, 07/16/2020, Additional history exists Depression [...] the patient have Health Care Power of Lead Game Designer? No Care Teams Cushion Sewer Relationship Specialty Start Date End Date Tito Grullon MD [address] [place] [address] PCP - General Family Medicine 09/01/15 documented as of this encounter
--- OUTSIDE RECORDS SUMMARY | 2022-12-29 09:33 | External Medical Summary | Summary of Care ---
Author Name Unknown Organization [facility] Address [address] [facility] [place] [address] Phone [phone] Care Team Providers Care Welcome Desk Agent Name Role Phone Tito Grullon MD Primary Care Provider + Reason for Visit * Reason Comments Medication Refill Encounter Details Date Type Department Care Team Description 09/27/2022 Refill Family Practice [facility] [address] [place] [id number] Tito Grullon MD [address] [place] [address] Allergies Active Allergy Reactions Severity Noted Date Comments Lisinopril 07/15/2008 Swelling, hives Metronidazole Hcl 06/28/2001 rash,itchy Niacin 10/16/2008 Itching, Can tolerate Niacin documented as of this encounter (statuses as of 09/29/2022) Medications Medication Sig Dispensed Refills Start Date End Date Status ASPIRIN 81 MG PO CHEW One pill by mouth once a day with food 100 5 07/12/2007 Active [employer] ULTRA SYSTEM W/DEVICE KITIndications:DM type 2, goal A1C 7-8 Use to check sugar once a day. Dx: 250.00 1 Kit 0 03/04/2013 Active Cyanocobalamin (B-12-SL) [address] 1,000 mcg under the tongue daily. 90 Tab 3 09/26/2017 Active Glucose Blood In Vitro StripIndications:T ype 2 diabetes mellitus with hemoglobin A1c goal of less than 8.0% ([facility]) Tests daily 100 Strip 3 09/27/2017 Active Cholecalciferol 1000 units Capsule Take 1 Capsule by mouth in the morning. 0 05/24/2018 Active tacrolimus (PROTOPIC) 0.1 % ointment Apply topically to affected area 2 times a day . 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 45 mL 1 02/24/2022 Active Isosorbide Mononitrate ER 60 MG Oral Tablet Extended Release 24 Hour (Imdur)Indications :Coronary artery disease involving [place] coronary artery of [place] heart without angina pectoris,Dyslipide yelitza, goal LDL below 70,Type 2 diabetes mellitus with hemoglobin A1c goal of less than 8.0% ([facility]),Essential hypertension with goal blood pressure [...] MORNING 90 Tablet 1 09/29/2022 4 Active Clopidogrel Bisulfate 75 MG Oral Tablet (pLAVix) TAKE 1 TABLET BY MOUTH DAILY IN THE MORNING 90 Tablet 0 06/28/2022 3 Discontinue d(Refill) [...] Unstable angina 11/03/2012 12/14/2016 [employer] Other*[id number] 201203/29/2016 Overview: Study Title: [employer] Markers for Patients with Cardiovascular Disease Project # [id number] Clinical Nurse Reviewer: Eleni Briggs MD [phone] HTN, goal below 130/80 10/12/2012 6 ACTIVE CASE MANAGEMENT Tamera De RN [phone] 07/04/2008 12/07/2009 ACTIVE CASE MANAGEMENT Tamera De [...] mRNA, LNP-s, No Pre serve, 2-Dose Series ([employer]) 05/28/2021,11/16/2020,05/15/2020,2020 Covid-19, Mrna, Lnp-s, Pf, B ivalent, [...] Telephone Encounter - Tawana Tang PA-C - 09/29/2022 7:53 AM EDT Signed Prescriptions: Disp Refills Clopidogrel Bisulfate 75 MG Oral Tablet (p*90 Tab*1 Sig: TAKE 1 TABLET BY MOUTH DAILY IN THE MORNING Authorizing Provider: TAWANA TANG * Telephone Encounter - Tawana Tang PA-C - 09/29/2022 7:53 AM EDT Chart reviewed. No recent coronary interventions. Would be acceptable to hold plavix due to hematuria. However, must remain on ASA 81 mg daily * Telephone Encounter - Penelope Alcaraz MD - 09/28/2022 5:48 PM EDT Pending Prescriptions: Disp Refills Clopidogrel Bisulfate 75 MG Oral Tablet (p*90 Tab*1 Sig: TAKE 1 TABLET BY MOUTH DAILY IN THE MORNING * Telephone Encounter - Penelope Alcaraz MD - 09/28/2022 5:46 PM EDT Cardiology - patient with newly decreasing Hg, blood in urine. Dr Grullon out of office this week. Appreciate input regarding continuing plavix vs. Holding while work up hematuria. * Telephone Encounter - Jacquelyn Woodson RP - 09/28/2022 6:43 AM EDTPending Prescriptions: Disp Refills Clopidogrel Bisulfate 75 MG Oral Tablet (p*90 Tab*1 Sig: TAKE 1 TABLET BY MOUTH DAILY IN THE MORNING * Telephone Encounter - Jacquelyn Woodson [facility] - 09/28/2022 6:42 AM EDT Unable to authorize medication refills for pended medication(s) at this time. Part of the protocol criteria used for refill authorization was not satisfied. Patient had low HGB and HCT on last lab. Please approve if appropriate. HGB Date Value Ref Range Status 09/05/2022 10.5 (L) 14.0 - 16.8 g/dL Final 06/18/2021 11.4 (L) 14.0 - 16.8 g/dL Final HCT Date Value Ref Range Status 09/05/2022 31.0 (L) 40.0 - 48.4 % Final 06/18/2021 33.5 (L) 40.0 - 48.4 % Final Thank You, Jacquelyn Woodson [facility] Clinical Pharmacist [facility] ([facility]) (formerly Telepharmacy) [phone] 09/28/2022, 6:42 AM documented in this encounter Plan of Treatment Upcoming Encounters Date Type Specialty Care Team Description 10/03/2022 Imaging Radiology 10/03/2022 Imaging Radiology 11/03/2022 Office Visit Pharmacy [facility] [address] [place] [address] 12/07/2022 Office Visit Nephrology Sabina Keyes PA-C [address] [facility], [place] [address] 12/14/2022 Office Visit Cardiology Tawana Tang PA-C [address] [place] [address] 04/21/2023 Office Visit Family Medicine Tito Grullon MD [address] [place] [address] Health Maintenance Due Date Last Done Comments [...] Additional history exists CKD HGB USE SMARTSET 52712 09/06/202309/05, 06/18/2021, 06/18/2021, Additional history exists CKD PHOS USE SMARTSET 95131 09/06/202308/20, 05/06/2021, 07/16/2020, Additional history exists Depression [...] the patient have Health Care Power of Rn House Supervisor? No Care Teams Welcome Desk Agent Relationship Specialty Start Date End Date Tito Grullon MD [address] [place] [address] PCP - General Family Medicine 09/01/15 documented as of this encounter
--- OUTSIDE RECORDS SUMMARY | 2022-12-29 09:33 | External Medical Summary | Summary of Care ---
Author Name Unknown Organization [facility] Address [address] [facility] [address] Phone [phone] Care Team Providers Care Merchandise Planner Name Role Phone Tito Grullon MD Primary Care Provider + Reason for Visit * Reason Comments Outpatient Testing Encounter Details Date Type Department Care Team Description 09/21/2022 Laboratory [facility] [address] [facility] [address] [facility] [address] [place] [facility] [place] [address] Anemia, unspecified type Allergies Active Allergy Reactions Severity Noted Date Comments Lisinopril 07/15/2008 Swelling, hives Metronidazole Hcl 06/28/2001 rash,itchy Niacin 10/16/2008 Itching, Can tolerate Niacin documented as of this encounter (statuses as of 09/21/2022) Medications Medication Sig Dispensed Refills Start Date End Date Status ASPIRIN 81 MG PO CHEW One pill by mouth once a day with food 100 5 07/12/2007 Active [facility] ULTRA SYSTEM W/DEVICE KITIndications:DM type 2, goal A1C 7-8 Use to check sugar once a day. Dx: 250.00 1 Kit 0 03/04/2013 Active Cyanocobalamin (B-12-SL) [address] 1,000 mcg under the tongue daily. 90 Tab 3 09/26/2017 Active Glucose Blood In Vitro StripIndications:Ty pe 2 diabetes mellitus with hemoglobin A1c goal of less than 8.0% ([facility]) Tests daily 100 Strip 3 09/27/2017 Active Cholecalciferol 1000 units Capsule Take 1 Capsule by mouth in the morning. 0 05/24/2018 Active tacrolimus (PROTOPIC) 0.1 % ointment Apply topically to affected area 2 times a day . 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 Use to [...] stage 3 chronic kidney disease and hypertension ([facility]) Inject 35 Units under the skin every night at bedtime. 45 mL 1 02/24/2022 Active Isosorbide Mononitrate ER 60 MG Oral Tablet Extended Release 24 Hour (Imdur)Indications: Coronary artery disease involving [place] coronary artery of [place] heart without angina pectoris,Dyslipidem ia, goal LDL below 70,Type 2 diabetes mellitus with hemoglobin A1c goal of less than 8.0% ([facility]),Essential hypertension with goal blood pressure less [...] MORNING 90 Tablet 3 06/27/2022 06/27/2023 Active Clopidogrel Bisulfate 75 MG Oral Tablet (pLAVix) TAKE 1 TABLET BY MOUTH DAILY IN THE MORNING 90 Tablet 0 06/28/2022 06/28/2023 Active Atorvastatin Calcium 10 MG Oral Tablet [...] other day. 90 Tablet 3 09/09/2022 Active documented as of this encounter (statuses as of 09/21/2022) Active Problems Problem Noted Date Type 2 [...] as of this encounter (statuses as of 09/21/2022) Resolved Problems Problem Noted Date Resolved Date Type 2 diabetes mellitus wit h stage 3 chronic kidney disease and hypertension 01/03/2018 07/02/2020 Overview: Per CKD protocol Kidney disease, chronic, stage III (GFR 30-59 ml /min) 04/15/2013 02/02/2018 Overview: Per CKD protocol #1 Unstable angina 11/03/2012 12/14/2016 [employer] Other*[id number] 201203/29/2016 Overview: Study Title: [employer]omic Markers for Patients with Cardiovascular Disease Project # [id number] Clinical Specialty Rep: Eleni Briggs MD [phone] HTN, goal below 130/80 10/12/2012 6 ACTIVE CASE MANAGEMENT Tamera [place] MOORE 07/04/2008 12/07/2009 ACTIVE CASE MANAGEMENT Tamera [place] MOORE 07/06/2007 05/14/2008 RECTAL & ANAL DIS NEC [...] as of this encounter (statuses as of 09/21/2022) Immunizations Name Administration Dates Next Due COVID-19 mRNA, LNP-s, No Pre serve, 2-Dose Series ([employer]) 05/28/2021,11/16/2020,05/15/2020,2020 Covid-19, Mrna, Lnp-s, Pf, B ivalent, 30 Mcg, IM, 12 yrs and above ([employer]) 11/09/2021 Pneumococcal Conjugate Vacc, 13 Valent (Prevnar) [...] Team Description 11/03/2022 Office Visit Pharmacy [facility] [address] [place] [address] 12/07/2022 Office Visit Nephrology Sabina Keyes PA-C [address] [facility] [address] 12/14/2022 Office Visit Cardiology Aminata Estrada PA-C [address] [place] [address] 04/21/2023 Office Visit Family Medicine Tito Grullon MD [address] [place] [address] Pending Results Name Type Priority Associated Diagnoses Date /Time FECAL OCCULT BLOOD, EIA Lab Routine Anemia, unspecified type 09/21/2022 2:00 PM EDT Health Maintenance Due Date Last Done Comments [...] Additional history exists CKD HGB USE SMARTSET 14417 09/06/202309/05, 06/18/2021, 06/18/2021, Additional history exists CKD PHOS USE SMARTSET 75940 09/06/202308/20, 05/06/2021, 07/16/2020, Additional history exists Depression [...] Procedure Name Priority Date/Time Associated Diagnosis Comments URINALYSIS WITH MICROSCOPIC EXAM Routine 09/21/2022 2:00 PM EDT Anemia, unspecified type documented in this encounter Results * (ABNORMAL) URINALYSIS WITH MICROSCOPIC EXAM (09/21/2022 2:00 PM EDT) Color, Urine Yellow Light Yellow, Yellow, Dark Yellow 09/21/2022 2:14 PM EDT [facility] [place] [facility] Clarity, Urine Clear Clear 09/21/2022 2:14 PM EDT [facility] [place] [facility] Glucose, Urine 100(A) Negative mg/dL 09/21/2022 2:14 PM EDT [facility] [place] [facility] Bilirubin, Urine Negative Negative 09/21/2022 2:14 PM EDT [facility] [place] [facility] Ketone, Urine Negative Negative mg/dL 09/21/2022 2:14 PM EDT [facility] [place] [facility] Specific [place], Urine 1.015 1.003 - 1.030 09/21/2022 2:14 PM EDT [facility] [place] [facility] Blood, Urine Trace(A) Negative 09/21/2022 2:14 PM EDT [facility] [place] [facility] pH, Urine 7.0 5.0 - 7.5 Units 09/21/2022 2:14 PM EDT [facility] [place] [facility] Protein, Urine 30(A) Negative mg/dL 09/21/2022 2:14 PM EDT [facility] [place] [facility] Urobilinogen, Urine 0.2 0.2, 1.0 mg/dL 09/21/2022 2:14 PM EDT [facility] [place] [facility] Nitrite, Urine Negative Negative 09/21/2022 2:14 PM EDT [facility] [place] [facility] Esterase, Urine Negative Negative 09/21/2022 2:14 PM EDT [facility] [place] [facility] RBC, Urine 3-5(A) 0 - 2 /HPF 09/21/2022 2:14 PM EDT [facility] [place] [facility] WBC, Urine 0-2 0 - 2 /HPF 09/21/2022 2:14 PM EDT [facility] [place] [facility] Bacteria, Urine 0-25 0 - 25 /HPF 09/21/2022 2:14 PM EDT [facility] [place] [facility] Urine Non-blood Collection / Unknown 09/21/2022 2:00 PM EDT 09/21/2022 2:00 PM EDT Tito Grullon MD LAB URINE [facility] [place] [address] documented in this encounter Visit Diagnoses Diagnosis Anemia, unspecified type documented in this encounter Advance Directives Latest [...] the patient have Health Care Power of Assembler Small Products? No Care Teams Merchandise Planner Relationship Specialty Start Date End Date Tito Grullon MD [address] [place] [address] PCP - General Family Medicine 09/01/15 documented as of this encounter
--- OUTSIDE RECORDS SUMMARY | 2022-12-29 09:33 | External Medical Summary | Summary of Care ---
Author Name Unknown Organization [facility] Address [address] [facility] [place] [address] Phone [phone] Care Team Providers Care Stock Shaper Name Role Phone Tito Grullon MD Primary Care Provider + Reason for Visit * Reason Onset Date Comments Health Maintenance 09/29/2022 Encounter Details Date Type Department Care Team Description 09/29/2022 Telephone Family Practice [facility] [address] [place] [address] Tito Grullon MD [address] [place] [address] Health Maintenance Allergies Active Allergy Reactions Severity Noted Date Comments Lisinopril 07/15/2008 Swelling, hives Metronidazole Hcl 06/28/2001 rash,itchy Niacin 10/16/2008 Itching, Can tolerate Niacin documented as of this encounter (statuses as of 09/29/2022) Medications Medication Sig Dispensed Refills Start Date End Date Status ASPIRIN 81 MG PO CHEW One pill by mouth once a day with food 100 5 07/12/2007 Active [employer] ULTRA SYSTEM W/DEVICE KITIndications:DM type 2, goal A1C 7-8 Use to check sugar once a day. Dx: 250.00 1 Kit 0 03/04/2013 Active Cyanocobalamin (B-12-SL) [address] 1,000 mcg under the tongue daily. 90 Tab 3 09/26/2017 Active Glucose Blood In Vitro StripIndications:Ty pe 2 diabetes mellitus with hemoglobin A1c goal of less than 8.0% ([facility]) Tests daily 100 Strip 3 09/27/2017 Active Cholecalciferol 1000 units Capsule Take 1 Capsule by mouth in the morning. 0 05/24/2018 Active tacrolimus (PROTOPIC) 0.1 % ointment Apply topically to affected area 2 times a day . 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 Use to [...] chronic kidney disease and hypertension ([facility]) Inject 35 Units under the skin every night at bedtime. 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,Dyslipidem ia, goal LDL below 70,Type 2 diabetes mellitus with hemoglobin A1c goal of less than 8.0% ([facility]),Essential hypertension with goal blood pressure less [...] Unstable angina 11/03/2012 12/14/2016 [employer] Other*[id number] 201203/29/2016 Overview: Study Title: Genomic Markers for Patients with Cardiovascular Disease Project # [id number] Tuna Purse Seiner: Eleni Briggs MD [phone] HTN, goal below 130/80 10/12/2012 6 ACTIVE [...] mRNA, LNP-s, No Pre serve, 2-Dose Series ([employer]) 05/28/2021,11/16/2020,05/15/2020,2020 Covid-19, Mrna, Lnp-s, Pf, B ivalent, 30 Mcg, IM, 12 yrs and above ([employer]) 11/09/2021 Pneumococcal Conjugate Vacc, 13 Valent (Prevnar) [...] Miscellaneous Notes * Telephone Encounter - Pam GutierrezSNEHA - 09/29/2022 1:29 PM EDT Care Gaps [...] Visit Urology Lynette Thomson PA-C [address] [place] [address] 11/03/2022 Office Visit Pharmacy [facility] [address] [place] [address] 12/07/2022 [facility] [address] 12/14/2022 Office Visit Cardiology Aminata Estrada PA-C [address] [place] [address] 04/21/2023 Office Visit Family Medicine Tito Grullon MD [address] [place] [address] Health Maintenance Due Date Last Done Comments [...] Additional history exists CKD HGB USE SMARTSET 48759 09/06/202309/05, 06/18/2021, 06/18/2021, Additional history exists CKD PHOS USE SMARTSET 52326 09/06/202308/20, 05/06/2021, 07/16/2020, Additional history exists Depression [...] the patient have Health Care Power of Business Asst? No Care Teams Stock Shaper Relationship Specialty Start Date End Date Tito Grullon MD [address] [place] [address] PCP - General Family Medicine 09/01/15 documented as of this encounter
--- OUTSIDE RECORDS SUMMARY | 2022-12-29 09:33 | External Medical Summary | Summary of Care ---
Author Name Unknown Organization [facility] Address [address] [facility] [place] [address] Phone [phone] Care Team Providers Care Spd Tech Name Role Phone Tito Grullon MD Primary Care Provider + Reason for Referral * Evaluate & Treat - Unlimited Visits (Within 30 days (routine)) - Authorized Specialty Diagnoses / Procedures Referred By Contara t Referred To Contact Urology Diagnoses Hematuria, unspecified type Penelope Alcaraz MD [address] [place] [address] Referral ID Status Reason Start Date Expiration Date Visits Requested Visits Authorized [id number] Authorized Specialty Services Required 09/23/[phone] Question Answer Referral Priority Within 30 days (routine) What is the patient being referred for? Hematuria What is Hematuria condition? Microscopic Comments Worsening anemia. Reason for Visit * Reason Onset Date Comments Test Results 09/22/2022 Encounter Details Date Type Department Care Team Description 09/22/2022 Telephone Family Practice [facility] [address] [place] [address] Tito Grullon MD [address] [place] [address] Test Results Allergies Active Allergy Reactions Severity Noted Date Comments Lisinopril 07/15/2008 Swelling, hives Metronidazole Hcl 06/28/2001 rash,itchy Niacin 10/16/2008 Itching, Can tolerate Niacin documented as of this encounter (statuses as of 09/26/2022) Medications Medication Sig Dispensed Refills Start Date End Date Status ASPIRIN 81 MG PO CHEW One pill by mouth once a day with food 100 5 07/12/2007 Active [employer] ULTRA SYSTEM W/DEVICE KITIndications:DM type 2, goal [...] to eyelids as needed 0 Active Pen [place] 32G X 6 MMIndications:Type 2 diabetes mellitus [...] and hypertension ([facility]) Inject 35 Units under the skin every night at bedtime. 45 mL 1 02/24/2022 Active Isosorbide Mononitrate ER 60 MG Oral Tablet Extended Release 24 Hour (Imdur)Indications: Coronary artery disease involving knik coronary artery of knik heart without angina pectoris,Dyslipidem ia, goal LDL [...] as of this encounter (statuses as of 09/26/2022) Active Problems Problem Noted Date Type 2 [...] as of this encounter (statuses as of 09/26/2022) Resolved Problems Problem Noted Date Resolved Date Type 2 diabetes mellitus wit h stage 3 chronic kidney disease and hypertension 01/03/2018 07/02/2020 Overview: Per CKD protocol Kidney disease, chronic, stage III (GFR 30-59 ml /min) 04/15/2013 02/02/2018 Overview: Per CKD protocol #1 Unstable angina 11/03/2012 12/14/2016 [employer] Other*[id number] 201203/29/2016 Overview: Study Title: Genomic Markers for Patients with Cardiovascular Disease Project # [id number] Ross Lift Operator: Eleni Briggs MD [phone] HTN, goal below 130/80 10/12/2012 6 ACTIVE [...] as of this encounter (statuses as of 09/26/2022) Immunizations Name Administration Dates Next Due COVID-19 mRNA, LNP-s, No Pre serve, 2-Dose Series ([employer]) 05/28/2021,11/16/2020,05/15/2020,2020 Covid-19, Mrna, Lnp-s, Pf, B ivalent, [...] encounter Miscellaneous Notes * Telephone Encounter - Radha Roque - 09/26/2022 8:27 AM EDT appts scheduled with pt * Telephone Encounter - Radha Roque - 09/23/2022 3:39 PM EDT LM for pt to call back to schedule appts * Telephone Encounter - Leilani Smith LPN - 09/23/2022 3:34 PM EDT US,.. as the ct iv contrast seems to be contraindicated per Dr. Alcaraz. * Telephone Encounter - Radha Roque - 09/23/2022 3:[address] Shukla messages says CT and Dr Alcaraz ordered ultrasound just want to confirm its ultrasounds we should schedule not CT prior to calling the pt? * Telephone Encounter - Penelope Alcaraz MD - 09/23/2022 3:[address] Grullon out next week. Urology referral placed. CKD3b - IV contrast problematic. Will order renal/bladder US. * Telephone Encounter - Lien Stauffer LPN - 09/23/2022 9:11 AM EDT Provider to address: pt is agreeable to both Please order Reason for Call: Test Results Contact: Telephone Call Contact Type: Information Outcome: Patient returned call. Informed of message. Verbalized understanding. Total Time including non face to face (minutes): 5 * Telephone Encounter - MIGUEL Gupta - 09/22/2022 2:52 PM EDT message left for patient to call back. * Telephone Encounter - Tito Grullon MD - 09/22/2022 2:15 PM EDT Call pt. We did a urine test as he was anemic (low red blood cells). He is losing red blood cells in his urine. We see them under the microscope. To help figure out why he has blood in urine, I'd recommend a CT scan & seeing our urologist for a possible camera test. Is that ok w/him? documented in this encounter Plan of Treatment Upcoming Encounters Date Type Specialty Care Team Description 10/03/2022 Imaging Radiology 10/03/2022 Imaging Radiology 11/03/2022 Office Visit Pharmacy [facility] [address] [place] [address] 12/07/2022 Office Visit [facility]ph[facility] [address] [facility] [address] 12/14/2022 Office Visit Cardiology Aminata Estrada PA-C [address] [place] [address] 04/21/2023 Office Visit Family Medicine Tito Grullon MD [address] [place] [address] Scheduled Orders Name Type Priority Associated Diagnoses Orde r Schedule US RENAL Medical Imaging Routine Hematuria, unspecified type Expected: 09/23/2022, Expires: 10/25/2023 US PELVIS TRANS-ABDOMINAL LIMITED Medical Imaging Routine Hematuria, unspecified type Expected: 09/23/2022, Expires: 10/25/2023 Scheduled Referrals Name Type Priority Associated Diagnoses Orde r Schedule UROLOGY REFERRAL OP Referral Within 30 da ys (routine) Hematuria, unspecified type Ordered: 09/23/2022 Health Maintenance Due Date Last Done Comments [...] Additional history exists CKD HGB USE SMARTSET 79569 09/06/202309/05, 06/18/2021, 06/18/2021, Additional history exists CKD PHOS USE SMARTSET 47507 09/06/202308/20, 05/06/2021, 07/16/2020, Additional history exists Depression [...] as of this encounter Visit Diagnoses Diagnosis Hematuria, unspecified type- Primary documented in this encounter Advance Directives [...] the patient have Health Care Power of Tobacco Grower? No Care Teams Spd Tech Relationship Specialty Start Date End Date Tito Grullon MD [address] [place] [address] PCP - General Family Medicine 09/01/15 documented as of this encounter
--- OUTSIDE RECORDS SUMMARY | 2022-12-29 09:34 | External Medical Summary ---
Author Name Unknown Address Unknown Organization [facility] [address] [place] [address] Laboratory Report Ordering Provider Test Date Status CECILIA MARVIN 09/21/2022 14:00:48 Final Observation Date Value Abnormality Reference (Units ) Status Color of Urine by Auto 09/21/2022 14:00:48 Yellow Light Yellow, Yellow, Dark Yellow Final Clarity, Urine 09/21/2022 14:00:48 Clear Clear Final Glucose [Mass/volume] in Urine by Automated test strip 09/21/2022 14:00:48 100 Abnormal Negative (mg/dL) Final Bilirubin.total [Presence] in Urine by Automated test strip 09/21/2022 14:00:48 Negative Negative Final Ketones [Mass/volume] in Urine by Automated test strip 09/21/2022 14:00:48 Negative Negative (mg/dL) Final Specific gravity, Urine 09/21/2022 14:00:48 1.015 1.003-1.030 Final Hemoglobin [Presence] in Urine by Automated test strip 09/21/2022 14:00:48 Trace Abnormal Negative Final pH, Urine 09/21/2022 14:00:48 7.0 5.0-7.5 (Units) Final Protein [Mass/volume] in Urine by Automated test strip 09/21/2022 14:00:48 30 Abnormal Negative (mg/dL) Final Urobilinogen [Mass/volume] in Urine by Automated test strip 09/21/2022 14:00:48 0.2 0.2, 1.0 (mg/dL) Final Nitrite [Presence] in Urine by Automated test strip 09/21/2022 14:00:48 Negative Negative Final Leukocyte esterase [Presence] in Urine by Automated test strip 09/21/2022 14:00:48 Negative Negative Final RBC, Urine 09/21/2022 14:00:48 3-5 Abnormal 0-2 (/HPF) Final WBC, Urine 09/21/2022 14:00:48 0-2 0-2 (/HPF) Final Bacteria [#/area] in Urine sediment by Microscopy high power field 09/21/2022 14:00:48 0-25 0-25 (/HPF) Final Performing Location [facility] [address] [facility] [address]
--- OUTSIDE RECORDS SUMMARY | 2022-12-29 09:34 | External Medical Summary | Summary of Care ---
Author Name Unknown Organization [facility] Address [address] [facility] [address] Phone [phone] Care Team Providers Care Twill Cutter Name Role Phone Tito Grullon MD Primary Care Provider + Encounter Details Date Type Department Care Team Description 09/14/2022 Orders Only Family Practice [facility] [address] [place] [address] Tito Grullon MD [address] [place] [address] Allergies Active Allergy Reactions Severity Noted Date Comments Lisinopril 07/15/2008 Swelling, hives Metronidazole Hcl 06/28/2001 rash,itchy Niacin 10/16/2008 Itching, Can tolerate Niacin documented as of this encounter (statuses as of 09/14/2022) Medications Medication Sig Dispensed Refills Start Date End Date Status ASPIRIN 81 MG PO CHEW One pill by mouth once a day with food 100 5 07/12/2007 Active [employer] ULTRA SYSTEM W/DEVICE KITIndications:DM type 2, goal A1C 7-8 Use to check sugar once a day. Dx: 250.00 1 Kit 0 03/04/2013 Active Cyanocobalamin (B-12-SL) [address] 1,000 mcg under the tongue daily. 90 Tab 3 09/26/2017 Active Glucose Blood In Vitro StripIndications:Ty pe 2 diabetes mellitus with hemoglobin A1c goal of less than 8.0% ([facility]) Tests daily 100 Strip 3 09/27/2017 Active Cholecalciferol 1000 units Capsule Take 1 Capsule by mouth in the morning. 0 05/24/2018 Active tacrolimus (PROTOPIC) 0.1 % ointment Apply topically to affected area 2 times a day . 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 Use to take [...] 24 Hour (Imdur)Indications: Coronary artery disease involving blackfeet coronary artery of blackfeet heart without angina pectoris,Dyslipidem ia, goal LDL below 70,Type 2 diabetes mellitus with hemoglobin A1c goal of less than 8.0% ([facility]),Essential hypertension with goal blood pressure less [...] as of this encounter (statuses as of 09/14/2022) Active Problems Problem Noted Date Type 2 [...] as of this encounter (statuses as of 09/14/2022) Resolved Problems Problem Noted Date Resolved Date Type 2 diabetes mellitus wit h stage 3 chronic kidney disease and hypertension 01/03/2018 07/02/2020 Overview: Per CKD protocol Kidney disease, chronic, stage III (GFR 30-59 ml /min) 04/15/2013 02/02/2018 Overview: Per CKD protocol #1 Unstable angina 11/03/2012 12/14/2016 [employer] Other*[id number] 201203/29/2016 Overview: Study Title: Genomic Markers for Patients with Cardiovascular Disease Project # [id number] Breakdown Man: Eleni Briggs MD [phone] HTN, goal below 130/80 10/12/2012 6 ACTIVE CASE MANAGEMENT Tamera De RN 07/04/2008 12/07/2009 ACTIVE CASE MANAGEMENT Tamera De RN [phone] 07/06/2007 05/14/2008 RECTAL & ANAL DIS NEC [...] as of this encounter (statuses as of 09/14/2022) Immunizations Name Administration Dates Next Due COVID-19 mRNA, LNP-s, No Pre serve, 2-Dose Series ([employer]) 05/28/2021,11/16/2020,05/15/2020,2020 Covid-19, Mrna, Lnp-s, Pf, B ivalent, 30 Mcg, IM, 12 yrs and above ([employer]) 11/09/2021 Pneumococcal Conjugate Vacc, 13 Valent (Prevnar) [...] Care Team Description 11/03/2022 Office Visit Pharmacy [facility] [address] [place] [address] 12/07/2022 Office Visit Nephrology Sabina Keyes PA-C [address] [facility] [place] [address] 12/14/2022 Office Visit Cardiology Aminata Estrada PA-C [address] [place] [address] 04/21/2023 Office Visit Family Medicine Tito Grullon MD [address] [place] [address] Health Maintenance Due Date Last Done Comments DXA Scan 11/09/2021 11/09/2020 DIABETES-EYE EXAM 05/24/2022 08/01/2022, , 05/19/2020, Additional history exists DIABETES-FOOT EXAM 08/27/2022 08/27/2021, 0 09/23/2019, 07/13/2018, Additional history exists Influenza Vaccine (FLU shot) (#1) 2022 11/04/2021, 11/21/2020, 11/02/2019, Additional history exists GFR 03/08/2023 09/05/2022, 12/21, 08/27/2021, Additional history exists HbA1c 03/08/2023 09/05/2022, 06/2022, 08/27/2021, Additional history exists Albumin/Creatinine Ratio 09/06/2023 023, 08/27/2021, 05/06/2021, Additional history exists CKD HGB USE SMARTSET 76193 09/06/202309/05, 06/18/2021, 06/18/2021, Additional history exists CKD PHOS USE SMARTSET 43621 09/06/202308/20, 05/06/2021, 07/16/2020, Additional history exists Depression [...] Procedure Name Priority Date/Time Associated Diagnosis Comments DIABETIC EYE EXAM Routine 08/01/2022 documented in this encounter Results * DIABETIC EYE EXAM (08/01/2022) 08/01/2022 Tito Grullon MD OTHER OUTSIDE LAB (SEE SCANNED REPORT) documented in this encounter Advance Directives Latest [...] the patient have Health Care Power of Assistant Product Manager? No Care Teams Twill Cutter Relationship Specialty Start Date End Date Tito Grullon MD [address] [place] [address] PCP - General Family Medicine 09/01/15 documented as of this encounter
--- OUTSIDE RECORDS SUMMARY | 2022-12-29 09:34 | External Medical Summary | Summary of Care ---
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) Allergies Active Allergy Reactions Severity Noted Date Comments Lisinopril 07/15/2008 Swelling, hives Metronidazole Hcl 06/28/2001 rash,itchy Niacin 10/16/2008 Itching, Can tolerate Niacin documented as of this encounter (statuses as of 09/06/2022) Medications Medication Sig Dispensed Refills Start Date End Date Status ASPIRIN 81 MG PO CHEW One pill by mouth once a day with food 100 5 07/12/2007 Active Insurance Business Applications SYSTEM W/DEVICE KITIndications:DM type 2, goal A1C [...] Tests daily 100 Strip 3 09/27/2017 Active hydrocortisone 2.5 % creamIndications:Sk in abnormality Apply topically to affected area 2 times a day. To affected area. On face 30 g 5 01/03/2018 Active Cholecalciferol 1000 units Capsule Take 1 Capsule by mouth in the morning. 0 05/24/2018 Active tacrolimus (PROTOPIC) 0.1 % ointment Apply topically to affected area 2 times a day . Apply to eyelids as needed 0 Active Rocklatan 0.02-0.005 % Ophthalmic Solution 0 08/15/2020 Activ e Pen [place] 32G X 6 MMIndications:Type 2 diabetes mellitus [...] DAILY 400 Each 3 11/02/2021 11/02/2022 Active Pantoprazole Sodium 40 MG Oral Tablet Delayed Release (Protonix)Indicatio ns:Gastroesophageal reflux disease without esophagitis TAKE ONE TABLET BY MOUTH IN THE MORNING 30 MINUTES BEFORE THE FIRST MEAL OF THE DAY DO NOT CRUSH CUT OR CHEW TABLET 90 Tablet 3 08/12/2021 11/02/2022 Active metFORMIN HCl 500 MG Oral Tablet (Glucophage)Indicat ions:Type 2 diabetes mellitus with hemoglobin A1c goal of less than 8.0% ([facility]) TAKE ONE TABLET BY MOUTH IN THE MORNING THEN ONE TABLET BEFORE BEDTIME 180 Tablet 3 08/12/2021 11/02/2022 Active Insulin Glargine Solostar 100 UNIT/ML Subcutaneous Solution Pen-injector (Basaglar Sulema)Indications :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 45 mL 1 02/24/2022 Active Isosorbide Mononitrate ER 60 MG Oral Tablet Extended Release 24 Hour (Imdur)Indications: Coronary artery disease involving [place] coronary artery of [place] heart without angina pectoris,Dyslipidem ia, goal LDL below 70,Type 2 diabetes mellitus with hemoglobin A1c goal of less than 8.0% (HCC),Essential hypertension with goal blood pressure less than 140/90 TAKE ONE TABLET BY MOUTH IN THE MORNING 90 Tablet 3 03/21/2022 03/21/2023 Active linaGLIPtin 5 MG Oral Tablet (Tradjenta)Indicati ons:Type 2 diabetes mellitus with hemoglobin A1c goal of less than 8.0% (HCC) TAKE 1 TABLET BY MOUTH DAILY 90 Tablet 1 03/21/2022 03/21/2023 Active Insulin Aspart 100 UNIT/ML Subcutaneous Solution Pen-injector (novoLOG) 22 units subcut 3 times a day with meals as directed by diabetes team 9 mL 5 04/17/2022 Active Timolol Maleate 0.5 % Ophthalmic Solution (Timoptic) instill one drop in both eyes every morning 5 mL 5 04/25/2022 Active Rocklatan 0.02-0.005 % Ophthalmic Solution (Netarsudil-Latanop [...] DAILY. 90 Tablet 0 06/28/2022 06/28/2023 Active Simbrinza 1-0.2 % Ophthalmic Suspension (Brinzolamide-Brimo nidine) instill one drop into both eyes twice daily 24 mL 6 07/11/2022 Active NovoLOG FlexPen 100 UNIT/ML Subcutaneous Solution [...] BEFORE BEDTIME 180 Tablet 1 09/06/2022 Active documented as of this encounter (statuses as of 09/06/2022) Active Problems Problem Noted Date Type 2 [...] as of this encounter (statuses as of 09/06/2022) Resolved Problems Problem Noted Date Resolved Date Type 2 diabetes mellitus wit h stage 3 chronic kidney disease and hypertension 01/03/2018 07/02/2020 Overview: Per CKD protocol Kidney disease, chronic, stage III (GFR 30-59 ml /min) 04/15/2013 02/02/2018 Overview: Per CKD protocol #1 Unstable angina 11/03/2012 12/14/2016 [employer] Other*[id number] 201203/29/2016 Overview: Study Title: Genomic Markers for Patients with Cardiovascular Disease Project # [id number] Recenterer: Eleni Briggs MD [phone] HTN, goal below 130/80 10/12/2012 6 ACTIVE [...] as of this encounter (statuses as of 09/06/2022) Immunizations Name Administration Dates Next Due COVID-19 mRNA, LNP-s, No Pre serve, 2-Dose Series ([employer]) 05/28/2021,11/16/2020,05/15/2020,2020 Covid-19, Mrna, Lnp-s, Pf, B ivalent, [...] got money to buy more. Never true 08/27/2021 Within the past 12 months, t he food you bought just didn't last and you didn't have money to get more. Never true 08/27/2021 Sex Assigned at Date Recorded Male 09/23/2019 9:43 AM E DT Job Start Date Occupation Industry Not on file Not on file Not on file documented as of this encounter Miscellaneous Notes * Telephone Encounter - Isabell Henderson [facility] - 09/06/2022 3:42 PM EDTSigned Prescriptions: Disp Refills Losartan Potassium 50 MG Oral Tablet (Coza*180 Ta*1 Sig: TAKE ONE TABLET BY MOUTH IN THE MORNING AND ONE TABLET BEFORE BEDTIMEAuthorizing Provider: TITO BROOKS User: ISABELL HENDERSON documented in this encounter Plan of Treatment Upcoming Encounters Date Type Specialty Care Team Description 09/09/2022 Office Visit Family Medicine Tito Brooks MD [address] [place] [address] 11/03/2022 Office Visit Pharmacy [facility] [address] [place] [address] 12/07/2022 Office Visit Nephrology Sabina Keyes PA-C [address] [place] [address] 12/14/2022 Office Visit Cardiology Aminata Estrada PA-C [address] [place] [address] Health Maintenance Due Date Last Done Comments DXA Scan 11/09/2021 11/09/2020 DIABETES-EYE EXAM 05/24/2022 05/24/2021, , 04/08/2019, Additional history exists DIABETES-FOOT EXAM 08/27/2022 08/27/2021, 0 09/23/2019, 07/13/2018, Additional history exists Depression Screening, Annual for Pts 12 and Over 08/27/2022 08/27/2021 Influenza Vaccine (FLU shot) (#1) 2022 11/04/2021, 11/21/2020, 11/02/2019, Additional history exists GFR 03/08/2023 09/05/2022, 12/21, 08/27/2021, Additional history exists HbA1c 03/08/2023 09/05/2022, 06/2022, 08/27/2021, Additional history exists Albumin/Creatinine Ratio 09/06/2023 023, 08/27/2021, 05/06/2021, Additional history exists CKD HGB USE SMARTSET 91380 09/06/202309/05, 06/18/2021, 06/18/2021, Additional history exists CKD PHOS USE SMARTSET 82952 09/06/202308/20, 05/06/2021, 07/16/2020, Additional history exists DTaP,Tdap,and Td Vaccines (2 - Td or [...] patient have Health Care Power of Licensed Nursing Assistant? No Care Teams Vamp Seamer Relationship Specialty Start Date End Date Tito Brooks MD [address] [place] [address] PCP - General Family Medicine 09/01/15 documented as of this encounter
--- OUTSIDE RECORDS SUMMARY | 2022-12-29 09:34 | External Medical Summary | Summary of Care ---
Author Name Unknown Organization [facility] Address [address] [place] [address] Phone [phone] Care Team Providers Care Trustee Of Estate Name Role Phone Tito Grullon MD Primary Care Provider + Encounter Details Date Type Department Care Team Description 09/13/2022 Telephone Family Practice [facility] [address] [place] [address] Tito Grullon MD [address] [place] [address] Allergies Active Allergy Reactions Severity Noted Date Comments Lisinopril 07/15/2008 Swelling, hives Metronidazole Hcl 06/28/2001 rash,itchy Niacin 10/16/2008 Itching, Can tolerate Niacin documented as of this encounter (statuses as of 09/19/2022) Medications Medication Sig Dispensed Refills Start Date End Date Status ASPIRIN 81 MG PO CHEW One pill by mouth once a day with food 100 5 07/12/2007 Active Pixplit ULTRA SYSTEM W/DEVICE KITIndications:DM type 2, goal A1C 7-8 Use to check sugar once a day. Dx: 250.00 1 Kit 0 03/04/2013 Active Cyanocobalamin (B-12-SL) [address] 1,000 mcg under the tongue daily. 90 Tab 3 09/26/2017 Active Glucose Blood In Vitro StripIndications:Ty pe 2 diabetes mellitus with hemoglobin A1c goal of less than 8.0% ([facility]) Tests daily 100 Strip 3 09/27/2017 Active Cholecalciferol 1000 units Capsule Take 1 Capsule by mouth in the morning. 0 05/24/2018 Active tacrolimus (PROTOPIC) 0.1 % ointment Apply topically to affected area 2 times a day . Apply to eyelids as needed 0 Active Pen [place] 32G X 6 MMIndications:Type 2 diabetes mellitus [...] 24 Hour (Imdur)Indications: Coronary artery disease involving [place] coronary artery of [place] heart without angina pectoris,Dyslipidem ia, goal LDL below 70,Type 2 diabetes mellitus with hemoglobin A1c goal of less than 8.0% ([facility]),Essential hypertension with goal blood pressure less [...] as of this encounter (statuses as of 09/19/2022) Active Problems Problem Noted Date Type 2 [...] as of this encounter (statuses as of 09/19/2022) Resolved Problems Problem Noted Date Resolved Date Type 2 diabetes mellitus wit h stage 3 chronic kidney disease and hypertension 01/03/2018 07/02/2020 Overview: Per CKD protocol Kidney disease, chronic, stage III (GFR 30-59 ml /min) 04/15/2013 02/02/2018 Overview: Per CKD protocol #1 Unstable angina 11/03/2012 12/14/2016 [employer] Other*[id number] 201203/29/2016 Overview: Study Title: Genomic Markers for Patients with Cardiovascular Disease Project # [id number] Expeller Worker: Eleni Briggs MD [phone] HTN, goal below 130/80 10/12/2012 6 ACTIVE CASE MANAGEMENT Tamera De RN [phone] 07/04/2008 12/07/2009 ACTIVE CASE MANAGEMENT Tamera De [...] as of this encounter (statuses as of 09/19/2022) Immunizations Name Administration Dates Next Due COVID-19 mRNA, LNP-s, No Pre serve, 2-Dose Series ([employer]) 05/28/2021,11/16/2020,05/15/2020,2020 Covid-19, Mrna, Lnp-s, Pf, B ivalent, 30 Mcg, IM, 12 yrs and above ([employer]) 11/09/2021 Pneumococcal Conjugate Vacc, 13 Valent (Prevnar) [...] encounter Miscellaneous Notes * Telephone Encounter - Allyn Street LPN - 09/16/2022 10:51 AM EDT Called patient. Phone line busy. Will try sending [employer] message. * Telephone Encounter - Allyn Street LPN - 09/14/2022 8:26 AM EDT Called patient. Phone line rang as busy. Will try again later. * Telephone Encounter - Tito Grullon MD - 09/13/2022 9:44 PM EDT Call pt. I reviewed his labs again. His red blood cells are lower than they have been---any blood seen in his urine or stool? It may be due to his kidneys slowing down, but I'd also recommend a colonoscopy if he's willing, torule out bleeding. Is he interested in doing that? * Telephone Encounter - Tito Grullon MD - 09/13/2022 9:44 PM EDT ----- Message from Jacquelyn Woodson RPh sent at 09/06/2022 4:09 AM EDT ----- Regarding: Abnormal lab result FYI - For your review ----- Message ----- From: Octavio Thompson Automated Processing Sent: 09/05/2022 9:49 AM EDT To: Jacquelyn Woodson RPh documented in this encounter Plan of Treatment Upcoming Encounters Date Type Specialty Care Team Description 11/03/2022 Office Visit Pharmacy [facility] [address] [place] [address] 12/07/2022 [facility] [address] [facility] [address] [facility]/14/2022 Office Visit Cardiology Aminata Estrada PA-C [address] [place] [address] 04/21/2023 Office Visit Family Medicine Tito Grullon MD [address] [place] [address] Scheduled Orders Name Type Priority Associated Diagnoses Orde r Schedule FECAL OCCULT BLOOD, EIA Lab Routine Anemia, unspecified type Expected: 09/19/2022 (Approximate), Expires: 09/19/2023 URINALYSIS WITH MICROSCOPIC EXAM Lab Routine Anemia, unspecified type Expected: 09/19/2022 (Approximate), Expires: 09/19/2023 Health Maintenance Due Date Last Done Comments [...] Additional history exists CKD HGB USE SMARTSET 28883 09/06/202309/05, 06/18/2021, 06/18/2021, Additional history exists CKD PHOS USE SMARTSET 24772 09/06/202308/20, 05/06/2021, 07/16/2020, Additional history exists Depression [...] as of this encounter Visit Diagnoses Diagnosis Anemia, unspecified type- Primary documented in this encounter [...] the patient have Health Care Power of Meat Lugger? No Care Teams Trustee Of Estate Relationship Specialty Start Date End Date Tito Grullon MD [address] [place] [address] PCP - General Family Medicine 09/01/15 documented as of this encounter
--- OUTSIDE RECORDS SUMMARY | 2022-12-29 09:34 | External Medical Summary | Summary of Care ---
Author Name Unknown Organization [facility] Address [address] [place] [address] Phone [phone] Care Team Providers Care Clip On Sunglasses Inspector Name Role Phone Tito Grullon MD Primary Care Provider + Reason for Visit * Reason Comments Return Visit 6 month return Encounter Details Date Type Department Care Team Description 09/09/2022 Office Visit Family Practice [facility] [address] [place] [address] Tito Grullon MD [address] [place] [address] Type 2 diabetes mellitus with hemoglobin A1c goal of less than 8.0% ([facility])*; Risk and functional assessment; Dyslipidemia, goal LDL below 70; HTN, goal below 140/90; 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, with long-term current use of insulin ([facility]); Gastroesophageal reflux disease without esophagitis Allergies Active Allergy Reactions Severity Noted Date Comments Lisinopril 07/15/2008 Swelling, hives Metronidazole Hcl 06/28/2001 rash,itchy Niacin 10/16/2008 Itching, Can tolerate Niacin documented as of this encounter (statuses as of 09/09/2022) Medications Medication Sig Dispensed Refills Start Date End Date Status ASPIRIN 81 MG PO CHEW One pill by mouth once a day with food 100 5 8 Active Wannyi SYSTEM W/DEVICE KITIndications:DM type 2, goal A1C 7-8 Use to check sugar once a day. Dx: 250.00 1 Kit 0 4 Active Cyanocobalamin (B-12-SL) [address] 1,000 mcg under the tongue daily. 90 Tab 3 8 Active Glucose Blood In Vitro StripIndications: Type 2 diabetes mellitus with hemoglobin A1c goal of less than 8.0% ([facility]) Tests daily 100 Strip 3 8 Active Cholecalciferol 1000 units Capsule Take 1 Capsule by mouth in the morning. 0 9 Active tacrolimus (PROTOPIC) 0.1 % ointment Apply topically to affected area 2 times a day . Apply to eyelids as needed 0 Active Pen Edgar 32G X 6 MMIndications:Typ e 2 diabetes mellitus with stage 3 chronic kidney disease and hypertension ([facility]) Use as directed . Use to take insulin 4 times daily 400 Each 3 2 Active Timolol Maleate 0.5 % Ophthalmic Solution (Timoptic) INSTILL ONE DROP IN BOTH EYES EVERY MORNING 10 mL 5 2 01/19/20 23 Active Insulin Pen Needle 32G X 6 MM USE DIRECTED TAKE INSULIN 4 TIMES DAILY 400 Each 3 2 11/03/19 23 Active Insulin Glargine Solostar 100 UNIT/ML Subcutaneous Solution Pen-injector (Basagltracy Leone)Indicatio ns: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 ([facility]) Inject 35 Units under the skin every night at bedtime. 45 mL 1 3 Active Isosorbide Mononitrate ER 60 MG Oral Tablet Extended Release 24 Hour (Imdur)Indication s:Coronary artery disease involving nenana coronary artery of nenana heart without angina pectoris,Dyslipid emia, goal LDL below 70,Type 2 diabetes mellitus with hemoglobin A1c goal of less than 8.0% ([facility]),Essential hypertension with goal blood pressure less than 140/90 TAKE ONE TABLET BY MOUTH IN THE MORNING 90 Tablet 3 3 03/21/19 24 Active Insulin Aspart 100 UNIT/ML Subcutaneous Solution Pen-injector (novoLOG) 22 units subcut 3 times a day with meals as directed by diabetes team 9 mL 5 3 Active Rocklatan 0.02-0.005 % Ophthalmic Solution (Netarsudil-Latan oprost) Instill 1 drop into both eyes at night 7.5 mL 5 3 Active Simbrinza 1-0.2 % Ophthalmic Suspension (Brinzolamide-Christy monidine) instill one drop into both eyes twice daily 24 mL 6 3 Active Metoprolol Tartrate 25 MG Oral Tablet (Lopressor)Indica tions:Dyslipidemi a, goal LDL below 100,HTN, goal below 130/80 TAKE 1/2 TBLET BY MOUTH IN THE MORNING THEN 1/2 TABLET BEFORE BEDTIME 90 Tablet 3 3 06/27/19 24 Active amLODIPine Besylate 5 MG Oral Tablet (Norvasc) TAKE ONE TABLET BY MOUTH IN THE MORNING 90 Tablet 3 3 06/27/19 24 Active Clopidogrel Bisulfate 75 MG Oral Tablet (pLAVix) TAKE 1 TABLET BY MOUTH DAILY IN THE MORNING 90 Tablet 0 3 06/28/19 24 Active Atorvastatin Calcium 10 MG Oral Tablet (Lipitor) TAKE 1 WHOLE TABLET BY MOUTH DAILY. 90 Tablet 0 3 06/28/19 24 Active NovoLOG FlexPen 100 UNIT/ML Subcutaneous Solution Pen-injector (insulin aspart) INJECT 30 UNITS UNDER THE SKIN THREE TIMES A DAY WITH MEALS DIRECTED BY DIABETIC CLINIC 90 mL 2 3 07/25/19 24 Active Losartan Potassium 50 MG Oral Tablet (Cozaar)Indicatio ns: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) TAKE ONE TABLET BY MOUTH IN THE MORNING AND ONE TABLET BEFORE BEDTIME 180 Tablet 1 3 Active linaGLIPtin 5 MG Oral Tablet (Tradjenta)Indica tions:Type 2 diabetes mellitus with hemoglobin A1c goal of less than 8.0% (HCC) Take 1 Tablet by mouth in the morning. 90 Tablet 3 3 Active metFORMIN HCl 500 MG Oral Tablet (Glucophage)Indic ations:Type 2 diabetes mellitus with hemoglobin A1c goal of less than 8.0% (HCC) Take 1 Tablet by mouth 2 times a day with morning and evening meals. 180 Tablet 3 3 Active Pantoprazole Sodium 40 MG Oral Tablet Delayed Release (Protonix)Indicat ions:Gastroesopha geal reflux disease without esophagitis Take 1 Tablet by mouth every other day. 90 Tablet 3 3 Active hydrocortisone 2.5 % creamIndications: Skin abnormality Apply topically to affected area 2 times a day. To affected area. On face 30 g 5 8 09/10/19 23 Discontinued(Med ication List Clean Up) Rocklatan 0.02-0.005 % Ophthalmic Solution 0 1 09/10/19 23 Discontinued(Med ication List Clean Up) Pantoprazole Sodium 40 MG Oral Tablet Delayed Release (Protonix)Indicat ions:Gastroesopha geal reflux disease without esophagitis TAKE ONE TABLET BY MOUTH IN THE MORNING 30 MINUTES BEFORE THE FIRST MEAL OF THE DAY DO NOT CRUSH CUT OR CHEW TABLET 90 Tablet 3 2 09/10/19 23 Discontinued metFORMIN HCl 500 MG Oral Tablet (Glucophage)Indic ations:Type 2 diabetes mellitus with hemoglobin A1c goal of less than 8.0% (HCC) TAKE ONE TABLET BY MOUTH IN THE MORNING THEN ONE TABLET BEFORE BEDTIME 180 Tablet 3 2 09/10/19 23 Discontinued(Ref ill) linaGLIPtin 5 MG Oral Tablet (Tradjenta)Indica tions:Type 2 diabetes mellitus with hemoglobin A1c goal of less than 8.0% (HCC) TAKE 1 TABLET BY MOUTH DAILY 90 Tablet 1 3 09/10/19 23 Discontinued(Ref ill) Timolol Maleate 0.5 % Ophthalmic Solution (Timoptic) instill one drop in both eyes every morning 5 mL 5 3 09/10/19 23 Discontinued(Med ication List Clean Up) Simbrinza 1-0.2 % Ophthalmic Suspension (Brinzolamide-Christy monidine) instill one drop into both eyes twice daily 24 mL 6 3 09/10/19 23 Discontinued(Med ication List Clean Up) documented as of this encounter (statuses as of 09/09/2022) Active Problems Problem Noted Date Type 2 [...] as of this encounter (statuses as of 09/09/2022) Resolved Problems Problem Noted Date Resolved Date Type 2 diabetes mellitus wit h stage 3 chronic kidney disease and hypertension 01/03/2018 07/02/2020 Overview: Per CKD protocol Kidney disease, chronic, stage III (GFR 30-59 ml /min) 04/15/2013 02/02/2018 Overview: Per CKD protocol #1 Unstable angina 11/03/2012 12/14/2016 [employer] Other*[id number] 201203/29/2016 Overview: Study Title: Genomic Markers for Patients with Cardiovascular Disease Project # [id number] Bat Boy/Girl: Eleni Briggs MD [phone] HTN, goal below 130/80 10/12/2012 6 ACTIVE [...] as of this encounter (statuses as of 09/09/2022) Immunizations Name Administration Dates Next Due COVID-19 mRNA, LNP-s, No Pre serve, 2-Dose Series ([employer]) 05/28/2021,11/16/2020,05/15/2020,2020 Covid-19, Mrna, Lnp-s, Pf, B ivalent, [...] Sign Reading Time Taken Comments Blood Pressure 126/52 09/09/2022 9:22 AM EDT Pulse 60 09/09/2022 9:22 AM EDT Temperature - - Respiratory Rate 18 09/09/2022 9:22 AM EDT Oxygen Saturation 97% 09/09/2022 9:22 AM EDT Inhaled Oxygen Concentration - - Weight 90.1 kg (198 lb 9 oz) 09/09/2022 9:22 AM EDT Height 172.7 cm (5' 8") 09/09/2022 9:22 AM EDT Body Mass Index 30.19 09/09/2022 9:22 AM EDT documented in this encounter Patient Instructions * Patient Instructions* Allyn Street LPN - 09/09/2022 9:21 AM EDT Patient Instructions - Fall Prevention (This education is for all patients over 65 regardless of symptoms) Remember to take your current medications as prescribed. In order to prevent falls, you are encouraged to: Exercise Utilize assistive/adaptive devices Avoid multifocal lenses when walking Avoid hazards in home Maintain a regular toileting schedule Any questions please contact our office. Preventing Falls in the Home (This education is for all patients over 65 regardless of symptoms) As you get older, falls are more likely. Thats because your reaction time slows. Your muscles and joints may also get stiffer, making them less flexible. Illness, medications, and vision changes can also affect your balance. A fall could leave you unable to live on your own. To make your home safer, follow these tips: Floors Put nonskid pads under area rugs Remove throw rugs Replace worn floor coverings Tack carpets firmly to each step on carpeted stairs. Put nonskid strips on the edges of uncarpeted stairs Keep floors and stairs free of clutter and cords Arrange furniture so there are clear pathways Clean up any spills right away Bathrooms Install grab bars in the tub or shower Apply nonskid strips or put a nonskid rubber mat in the tub or shower Sit on a bath chair to bathe Use bathmats with nonskid backing Lighting Keep a flashlight in each room Put a nightlight along the pathway between the bedroom and the bathroom [employer] Patient Education Copyright 2008 - 2010 [employer] except where otherwise noted Preventing Falls: Exercises to Improve Balance, Flexibility, Strength, and Staying Power (This education is for all patients over 65 regardless of symptoms) Certain types of exercises may help make you less likely to fall. Try the ones below. Or do other exercises that your healthcare provider suggests. Depending on your health, you may need to start slowly. Dont let that stop you. Even small amounts of exercise can help you. Be sure to talk to yourhealthcare provider before starting any exercise program. Improve Balance Many types of exercise can help improve balance. Gregory chi and yoga are good examples. Heres another one to try. You can do it anytime and almost anywhere. Stand next to a counter or solid support. Push yourself up onto your tiptoes. Hold for 5 seconds. If you start to lose your balance, hold on to the counter. Rest and repeat 5 times. Work up to holding for 20 to 30 seconds, if you can. Increase Flexibility Being more flexible makes it easier for you to move around safely. Try exercises like the seated hamstring stretch. Sit in a chair and put one foot on a stool. Straighten your leg and reach with both hands down either side of your leg. Reach as far down your leg as you can. Hold for about 20 seconds. Go back to the starting position. Then repeat 5 times. Switch legs. Build Strength Resistance exercises help build strength. You can do them without equipment. Or you can use weights, elastic bands, or special machines. One such exercise is called the biceps curl. You can hold a 1 pound weight or even a can of soup. Do this exercise at least 3 times a week. Strive for everyday. Sit up straight in a chair. Keep your elbow close to your body and your wrist straight. Bend your arm, moving your hand up to your shoulder. Then slowly lower your arm. Repeat 5 times. Switch to the other arm. Build Your Staying Power Aerobic exercises make your heart and lungs stronger so you can keep moving longer. Walking and swimming are two of the best types of exercises you can do. Using a stationary bike is great, too. Find an aerobic exercise that you enjoy. Start slowly and build up. Even 5 minutes is helpful. Aimfor a goal of 30 minutes, at least 3 times a week. You dont have to do 30 minutes in one session. Break it up and walk a little throughout the day. More Helpful Tips Start easy. Slowly work up to doing more. Talk with your healthcare provider about the best exercises for you. Call senior centers or health clubs about exercise programs. If needed, have a family member watch you walk every so often to check your stability. Exercise with a friend. Choose an activity you both enjoy. Try exercises that you can do anytime, anywhere. Here are two examples. Have someone with you when you first try these: Practice walking by placing one foot right in front of the other. Stand up and sit down 10 times. Repeat this throughout the day. [employer] Patient Education Copyright 2009 - 2010 [employer] except where otherwise noted. Preventing Falls: Moving Safely Using a Cane or Walker (This education is for all patients over 65 regardless of symptoms) Keep the cane away from your feet so you dont trip. A walking aid, such as a cane or walker, can help you stay more independent and avoid falls. Remember to keep your walking aid within easy reach when youre in a chair or in bed. And learn how to use it safely so you dont injure yourself. Using a Cane If you have a stronger side, hold the cane on that side. 17. Get your balance. 18. Move the cane and your weaker leg forward. 19. Support your weight on both the cane and your weaker side. 20. Step with your stronger leg. 21. Start again from step 1. If youre using a folding walker, be sure you know how to lock it open. Check that its locked open before each use. Using a Walker 7. Roll the walker (or lift it, if youre using one without wheels) forward about 12 inches. 8. Step forward with your weaker leg first. 9. Use the walker to help keep your balance. 10. Bring your other foot forward to the center of the walker. 11. Start again from step 1. Helpful Tips Check with your healthcare provider about the right walking aid to use. Ask about a walker with a seat attached. Check the tips of your cane or walker to make sure they have nonskid covers. Move slowly from room to room. Dont mora. Sit down to get dressed. Use a laura pack or backpack to keep your hands free. Get help for jobs that mean climbing, even on a stepstool. [employer] Patient Education Copyright 2009 - 2010 M[employer] except where otherwise noted. Treating Urinary Incontinence in Men (This education is for all patients over 65 regardless of symptoms) You can't always control the release of urine. You may leak urine. Or you may not be able to hold your urine until you can get to a bathroom. This is called urinary incontinence. The problem can be managed. Talk to your doctor about your treatment options. Taking Medications Prescription medications may help you. They may: Help the sphincter to work better. (This is the muscle that closes to keep urine from leaking out of the bladder.) Help stop the bladder from rafy too often to push urine out. Help the bladder muscles contract with more force. Help relax the sphincter muscle and allow urine to flow more freely. Making Changes to Your Routine Certain changes in your daily routine may help. These include: Avoiding caffeine and alcohol. Using timed voiding. This is following a schedule for drinking fluids and urinating. Doing Kegel exercises daily. These exercises involve tightening the muscles in your sphincter and around your bladder to help strengthen them. Your doctor can explain how to do them. Using a Catheter A catheter is a narrow tube that is inserted through the urethra into the bladder. It drains urine.A condom catheter covers the penis. It channels urine into a collection bag. It is worn most of thetime. Intermittent catheterization means inserting a catheter to drain the bladder, then removing it. This is done on a regular schedule. Having Surgery If other options don't work, surgery may be recommended. If surgery is an option, your healthcare provider can discuss it with you and explain its risks and benefits. Healing After Prostate Surgery Surgery on the prostate gland can cause incontinence. Most often, the incontinence is only for a short time. It clears up when healing is complete. Very rarely, prostate surgery can result in permanent incontinence. documented in this encounter Progress Notes * Tito Grullon MD - 09/09/2022 10:07 AM EDT SUBJECTIVE: Rei Martínez is a 82 year old male here for Return Visit (6 month return) . Here for f/u Has new GF from [place]--they see each other at least 1 / week. +ED so no vaginal sex. (viagra contraindicated) No fever, chills, chest pain, shortness of breath, headache, nausea, vomit, diarrhea, constipation or vision changes Mood good Physical: BP 126/52 | Pulse 60 | Resp 18 | Ht 1.727 m (5' 8") | Wt 90.1 kg (198 lb 9 oz) | SpO2 97% | BMI 30.19 kg/m | BSA 2.08 m General-No apparent Distress Head, Eyes, Ears, Nose, Throat--Normocephalic, atraumatic Neck-Supple Lymph-no lymphadenopathy Lungs-Clear to Auscultation bilaterally Cardiovascular--Regular rate & Rhythm, +s1, s2, no murmur Abdomen-soft, nontender, nondistended + bowel sounds Extremities--no edema Neuro-alert & oriented x3 (E11.9) Type 2 diabetes mellitus with hemoglobin A1c goal of less than 8.0% ([facility]) (primary encounter diagnosis) Plan: linaGLIPtin 5 MG Oral Tablet (Tradjenta), metFORMIN HCl 500 MG Oral Tablet (Glucophage) Labs reviewed Rx renewed Metformin--he is right at borderline CKD4 so will cont metformin for now, if continues to decrease GFR will likely d/c metformin in future. 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 Consider trying D/c, declined for now. (This note was completed using the dictation program Fluency Direct. As such, there may be misspellings, word substitutions, or other variations that should not change the essence of the clinical content of this encounter note.If there is need for further clarification, please direct questions to the provider listed above.) Tito Grullon MD documented in this encounter Nursing Notes * Allyn Street LPN - 09/09/2022 9:22 AM EDT The patient has been properly identified by confirmation of name and date of . Chief Complaint Patient presents with Return Visit 6 month return documented in this encounter Plan of Treatment Upcoming Encounters Date Type Specialty Care Team Description 11/03/2022 Office Visit Pharmacy [facility] [address] [place] [address] 12/07/2022 Office Visit Nephrology Sabina Keyes PA-C [address] [facility] [place] [place] [address] 12/14/2022 Office Visit Cardiology Aminata Estrada PA-C [address] [place] [address] 04/21/2023 Office Visit Family Medicine Tito Grullon MD [address] [place] [address] Health Maintenance Due Date Last Done Comments DXA Scan 11/09/2021 11/09/2020 DIABETES-EYE EXAM 05/24/2022 05/24/2021, , 04/08/2019, Additional history exists DIABETES-FOOT EXAM 08/27/2022 08/27/2021, 0 09/23/2019, 07/13/2018, Additional history exists Influenza Vaccine (FLU shot) (#1) 2022 11/04/2021, 11/21/2020, 11/02/2019, Additional history exists GFR 03/08/2023 09/05/2022, 12/21, 08/27/2021, Additional history exists HbA1c 03/08/2023 09/05/2022, 0 06/2022, 08/27/2021, Additional history exists Albumin/Creatinine Ratio 09/06/2023 023, 08/27/2021, 05/06/2021, Additional history exists CKD HGB USE SMARTSET 20208 09/06/202309/05, 06/18/2021, 06/18/2021, Additional history exists CKD PHOS USE SMARTSET 77959 09/06/202308/20, 05/06/2021, 07/16/2020, Additional history exists Depression [...] less than 8.0% ([facility])- Primary Risk and functional assessment Screening for unspecified condition Dyslipidemia, goal LDL below 70 Other and unspecified hyperlipidemia HTN, goal below 140/90 Unspecified essential hypertension 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 No Care Teams Clip On Sunglasses Inspector Relationship Specialty Start Date End Date Tito Grullon MD [address] [place] [address] PCP - General Family Medicine 09/01/15 documented as of this encounter
--- OUTSIDE RECORDS SUMMARY | 2022-12-29 09:34 | External Medical Summary | Summary of Care ---
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 Dx: 250.00 1 Kit 0 03/04/2013 Active Cyanocobalamin (B-12-SL) [address] 1,000 mcg under the tongue daily. 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,Dyslipidem ia, goal LDL [...] CLINIC 90 mL 2 07/25/2022 07/25/2023 Active documented as of this encounter (statuses as of 09/05/2022) Active Problems Problem Noted Date Type 2 [...] as of this encounter (statuses as of 09/05/2022) Resolved Problems Problem Noted Date Resolved Date Type 2 diabetes mellitus wit h stage 3 chronic kidney disease and hypertension 01/03/2018 07/02/2020 Overview: Per CKD protocol Kidney disease, chronic, stage III (GFR 30-59 ml /min) 04/15/2013 02/02/2018 Overview: Per CKD protocol #1 Unstable angina 11/03/2012 12/14/2016 [employer] Other*[id number] 201203/29/2016 Overview: Study Title: Genomic Markers for Patients with Cardiovascular Disease Project # [id number] Harness Inspector: Eleni Briggs MD [phone] HTN, goal below 130/80 10/12/2012 6 ACTIVE [...] as of this encounter (statuses as of 09/05/2022) Immunizations Name Administration Dates Next Due COVID-19 mRNA, LNP-s, No Pre serve, 2-Dose Series ([employer]) 05/28/2021,11/16/2020,05/15/2020,2020 Covid-19, Mrna, Lnp-s, Pf, B ivalent, [...] Description 09/09/2022 Office Visit Family Medicine Tito Grullon MD [address] [place] [address] 11/03/2022 Office Visit Pharmacy [facility] [address] [place] [address] 12/07/2022 Office Visit Nephrology Sabina Keyes PA-C [address] [place] [address] 12/14/2022 Office Visit Cardiology Aminata Estrada PA-C [address] [place] [address] Pending Results Name Type Priority Associated Diagnoses Date /Time HEMOGLOBIN A1C Lab Routine 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) 09/05/2022 9:33 AM EDT ALBUMIN / CREATININE RATIO, URINE Lab Routine 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) 09/05/2022 9:33 AM EDT BASIC METABOLIC PANEL Lab Routine 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) 09/05/2022 9:33 AM EDT LIPID PANEL WITH DIRECT LDL IF TG IS HIGH Lab Routine 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) 09/05/2022 9:33 AM EDT VITAMIN B12 Lab Routine B12 deficiency 09/05/2022 9:33 AM EDT PHOSPHORUS Lab Routine Encounter for long-term (current) use of medications 09/05/2022 9:33 AM EDT Health Maintenance Due Date Last Done Comments DXA Scan 11/09/2021 11/09/2020 CKD PHOS USE SMARTSET 74650 05/06/202204/20, 07/16/2020, 07/10/2019, Additional history exists DIABETES-EYE EXAM 05/24/2022 05/24/2021, , 04/08/2019, Additional history exists CKD HGB USE SMARTSET 94748 06/18/202209/05, 06/18/2021, 06/18/2021, Additional history exists GFR 06/29/2022 12/30/2021, 07/0 09/2021, 06/18/2021, Additional history exists HbA1c 08/24/2022 02/24/2022, 07/0 09/2021, 10/16/2020, Additional history exists Albumin/Creatinine Ratio 08/27/2022 022, 05/06/2021, 10/16/2020, Additional history exists DIABETES-FOOT EXAM 08/27/2022 08/27/2021, 0 09/23/2019, 07/13/2018, Additional history exists Depression Screening, Annual for Pts 12 and Over 08/27/2022 08/27/2021 Influenza Vaccine (FLU shot) (#1) 2022 11/04/2021, 11/21/2020, 11/02/2019, Additional history exists DTaP,Tdap,and Td Vaccines (2 [...] Procedure Name Priority Date/Time Associated Diagnosis Comments CBC Routine 09/05/2022 9:33 AM EDT Encounter for long-term (current) use of medications documented in this encounter Results * (ABNORMAL) CBC (09/05/2022 9:33 AM EDT) WBC 4.98 4.00 - 10.80 K/uL 09/05/2022 9:49 AM EDT [facility] RBC 3.52 4.50 - 5.25 M/uL 09/05/2022 9:49 AM EDT [facility] HGB 10.5(L) 14.0 - 16.8 g/dL 09/05/2022 9:49 AM EDT [facility] HCT 31.0(L) 40.0 - 48.4 % 09/05/2022 9:49 AM EDT [facility] MCV 88.1 82.0 - 99.5 fL 09/05/2022 9:49 AM EDT [facility] MCH 29.8 27.0 - 34.0 pg 09/05/2022 9:49 AM EDT [facility] [place] [facility] MCHC 33.9 32.0 - 36.0 g/dL 09/05/2022 9:49 AM EDT [facility] RDW 15.0 11.5 - 15.5 % 09/05/2022 9:49 AM EDT [facility] [place] [facility] PLT 202 140 - 400 K/uL 09/05/2022 9:49 AM EDT [facility] MPV 9.4 6.6 - 11.1 fL 09/05/2022 9:49 AM EDT [facility] Blood Venous blood specimen / Unknown Venipuncture / Unknown 09/05/2022 9:33 AM EDT 09/05/2022 9:34 AM EDT Jacquelyn Woodson [facility] BLOOD ORDERABLES [facility] [place] [facility] [address] [facility] [place] [address] documented in this encounter Visit Diagnoses Diagnosis 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 No Care Teams Marine Engine Driver Relationship Specialty Start Date End Date Tito Grullon MD [address] [place] [address] PCP - General Family Medicine 09/01/15 documented as of this encounter
--- OUTSIDE RECORDS SUMMARY | 2022-12-29 09:35 | External Medical Summary | Summary of Care ---
Author Name Unknown Organization [facility] Address [address] [facility] [place] [address] Phone [phone] Care Team Providers Care Cage Loader Name Role Phone Tito Grullon MD Primary Care Provider + Reason for Visit * Reason Comments Medication Refill Encounter Details Date Type Department Care Team Description 06/27/2022 Refill Cardiology, [facility] [address] [place] [address] Caleb Curran MD [address] [place] [address] Dyslipidemia, goal LDL below 100; HTN, goal below 130/80 Allergies Active Allergy Reactions Severity Noted Date Comments Lisinopril 07/15/2008 Swelling, hives Metronidazole Hcl 06/28/2001 rash,itchy Niacin 10/16/2008 Itching, Can tolerate Niacin documented as of this encounter (statuses as of 06/27/2022) Medications Medication Sig Dispensed Refills Start Date End Date Status ASPIRIN 81 MG PO CHEW One pill by mouth once a day with food 100 5 07/12/2007 Active Magpower SYSTEM W/DEVICE KITIndications:DM type 2, goal A1C 7-8 Use to check sugar once a day. Dx: 250.00 1 Kit 0 03/04/2013 Active Cyanocobalamin (B-12-SL) [address] 1,000 mcg under the tongue daily. 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 ([facility]) TAKE ONE TABLET BY MOUTH IN THE MORNING AND ONE TABLET BEFORE BEDTIME 180 Tablet 3 08/12/2021 08/14/2022 Active Pantoprazole Sodium 40 MG Oral Tablet Delayed Release (Protonix)Indicatio ns:Gastroesophageal reflux disease without esophagitis TAKE ONE TABLET BY MOUTH IN THE MORNING 30 MINUTES BEFORE THE FIRST MEAL OF THE DAY DO NOT CRUSH CUT OR CHEW TABLET 90 Tablet 3 08/12/2021 08/12/2022 Active metFORMIN HCl 500 MG Oral Tablet (Glucophage)Indicat ions:Type 2 diabetes mellitus with hemoglobin A1c goal of less than 8.0% ([facility]) TAKE ONE TABLET BY MOUTH IN THE MORNING THEN ONE TABLET BEFORE BEDTIME 180 Tablet 3 08/12/2021 08/12/2022 Active Atorvastatin Calcium 10 MG Oral Tablet (Lipitor) TAKE 1 TABLET BY MOUTH DAILY. 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 45 mL 1 02/24/2022 Active Isosorbide Mononitrate ER 60 MG Oral Tablet Extended Release 24 Hour (Imdur)Indications: Coronary artery disease involving [place] coronary artery of [place] heart without angina pectoris,Dyslipidem ia, goal LDL [...] MORNING 90 Tablet 3 06/27/2022 06/27/2023 Active documented as of this encounter (statuses as of 06/27/2022) Active Problems Problem Noted Date Type 2 [...] as of this encounter (statuses as of 06/27/2022) Resolved Problems Problem Noted Date Resolved Date Type 2 diabetes mellitus wit h stage 3 chronic kidney disease and hypertension 01/03/2018 07/02/2020 Overview: Per CKD protocol Kidney disease, chronic, stage III (GFR 30-59 ml /min) 04/15/2013 02/02/2018 Overview: Per CKD protocol #1 Unstable angina 11/03/2012 12/14/2016 [employer] Other*[id number] 201203/29/2016 Overview: Study Title: Genomic Markers for Patients with Cardiovascular Disease Project # [id number] Stamping Bench Die Maker: Eleni Briggs MD [phone] HTN, goal below 130/80 10/12/2012 6 ACTIVE CASE MANAGEMENT Tamera De RN [phone] 07/04/2008 12/07/2009 ACTIVE [...] as of this encounter (statuses as of 06/27/2022) Immunizations Name Administration Dates Next Due COVID-19 mRNA, LNP-s, No Pre serve, 2-Dose Series (Pfizer) 05/28/2021,11/16/2020,05/15/2020,2020 Covid-19, Mrna, Lnp-s, Pf, B ivalent Booster, 30 Mcg, IM, 12 yrs and above [...] encounter Miscellaneous Notes * Telephone Encounter - Caleb Curran MD - 06/27/2022 1:19 PM EDTSigned Prescriptions: Disp Refills Metoprolol Tartrate 25 MG Oral Tablet (Lop*90 Tab*3 Sig: TAKE 1/2 TBLET BY MOUTH IN THE MORNING THEN 1/2 TABLET BEFORE BEDTIME Authorizing Provider: CALEB CURRAN amLODIPine Besylate 5 MG Oral Tablet (Norv*90 Tab*3 Sig: TAKE ONE TABLET BY MOUTH IN THE MORNING Authorizing Provider: CALEB CURRAN * Telephone Encounter - Missael Taylor RN - 06/27/2022 1:14 PM EDTPending Prescriptions: Disp Refills Metoprolol Tartrate 25 MG Oral Tablet (Lop*90 Tab*3 Sig: TAKE 1/2 TBLET BY MOUTH IN THE MORNING THEN 1/2 TABLET BEFORE BEDTIME amLODIPine Besylate 5 MG Oral Tablet (Norv*90 Tab*3 Sig: TAKE ONE TABLET BY MOUTH IN THE MORNING * Telephone Encounter - Missael Taylor RN - 06/27/2022 1:13 PM EDT Pending Prescriptions: Disp Refills Metoprolol Tartrate 25 MG Oral Tablet (Lo*90 Tab*3 Sig: TAKE 1/2 TBLET BY MOUTH IN THE MORNING THEN 1/2 TABLET BEFORE BEDTIME amLODIPine Besylate 5 MG Oral Tablet (Nor*90 Tab*3 Sig: TAKE ONE TABLET BY MOUTH IN THE MORNING Last Visit: 02/22/2022 (in office), Visit date not found (telemedicine) Next Visit: 08/29/2022 Last medication order date:unknown Have you choosen a preferred pharm?? yes Patient Active Problem List Diagnosis Code GENERAL OSTEOARTHROSIS M15.9 ADVANCE DIRECTIVE INFORMATION History of herpes zoster Z86.19 Type 2 diabetes mellitus with hemoglobin A1c goal of less than 8.0% ([facility]) E11.9 Dyslipidemia, goal LDL below 70 [...] disease and hypertension (HCC) E11.22, I12.9, N18.30 Labs: Lab Results Component Value Date/Time CREATININE - [facility] 1.9 (H) 12/30/2021 11:21 AM CREATININE - [facility] 1.9 (H) 01/14/2020 09:19 AM CREATININE, RANDOM URINE - [facility] 74 08/27/2021 09:46 AM CREATININE, RANDOM URINE - [facility] 37 01/10/2020 10:46 AM CREATININE, RANDOM URINE - [facility] 38 01/10/2020 10:46 AM Lab Results Component Value Date/Time POTASSIUM - [facility] 4.5 12/30/2021 11:21 AM POTASSIUM - [facility] 4.8 01/14/2020 09:19 [...] AM LDL CHOLESTEROL (DIRECT MEASURE) - [facility] 34 10/16/2020 10:10 AM LDL CHOLESTEROL (DIRECT MEASURE) - [facility] [...] Component Value Date/Time HEMOGLOBIN A1C - [facility] 6.8 (H) 02/24/2022 03:21 PM HEMOGLOBIN A1C - [facility] 6.9 (H) 08/27/2021 09:46 AM HEMOGLOBIN A1C - [facility] 6.9 (H) 10/16/2020 10:10 AM HEMOGLOBIN A1C - [facility] 8.8 (H) 08/12/2019 08:50 AM HEMOGLOBIN A1C - [facility] 8.8 (H) 07/10/2019 09:13 AM HEMOGLOBIN A1C - [facility] 7.8 (H) 01/07/2019 08:21 AM documented in this encounter Plan of Treatment Upcoming Encounters Date Type Specialty Care Team Description 08/29/2022 Office Visit Cardiology Caleb Curran MD [address] [place] [address] 09/02/2022 Nurse Only Ancillary [place], Nurse Annual [facility] [address] [place] [address] 09/09/2022 Office Visit Family Medicine Tito Grullon MD [address] [place] [address] 11/03/2022 Office Visit Pharmacy [facility] [address] [place] [address] 12/07/2022 Office Visit Nephrology Sabina Keyes PA-C [address] [place] [address] Health Maintenance Due Date Last Done Comments DXA Scan 11/09/2021 11/09/2020 CKD PHOS USE SMARTSET 36064 05/06/202204/20, 07/16/2020, 07/10/2019, Additional history exists DIABETES-EYE EXAM 05/24/2022 05/24/2021, , 04/08/2019, Additional history exists CKD HGB USE SMARTSET 27913 06/18/202206/18, 06/18/2021, 05/06/2021, Additional history exists GFR - Renal Function 06/29/2022 12/30/2021, 08/27/2021, 06/18/2021, Additional history exists HgA1C 08/24/2022 02/24/2022, 07/0 09/2021, 10/16/2020, Additional history exists Albumin/Creatinine Ratio 08/27/2022 022, 05/06/2021, 10/16/2020, Additional history exists DIABETES-FOOT EXAM 08/27/2022 08/27/2021, 0 09/23/2019, 07/13/2018, Additional history exists Depression Screening, Annual for Pts 12 and Over 08/27/2022 08/27/2021 DTaP,Tdap,and Td Vaccines (2 - Td or Tdap) 09/26/2023 09/25/2013, 10/08/2007 Pneumococcal Vaccine: 65+ Years Completed 12/02/2015, 12/08/2004 Zoster Vaccines Completed 01/15/2019, 06/21, 09/18/2008 Influenza Vaccine (FLU shot) Completed , 11/21/2020, 11/02/2019, Additional history exists COVID-19 Vaccine Completed 11/09/2021, 09/2021, 11/16/2020, Additional [...] as of this encounter Visit Diagnoses Diagnosis Dyslipidemia, goal LDL below 100 Other and unspecified hyperlipidemia HTN, goal below 130/80 Unspecified essential hypertension documented in this encounter Advance Directives Latest [...] the patient have Health Care Power of Cooperage Shop Supervisor? No Care Teams Cage Loader Relationship Specialty Start Date End Date Tito Grullon MD [address] [place] [address] PCP - General Family Medicine 09/01/15 documented as of this encounter
--- OUTSIDE RECORDS SUMMARY | 2022-12-29 09:35 | External Medical Summary ---
Author Name Unknown Address Unknown Organization K01:[facility] [place] - [address] [place] [address] Laboratory Report Ordering Provider Test Date Status CECILIA MARVIN 09/05/2022 09:33:03 Final Observation Date Value Abnormality Reference (Units ) Status Vitamin B12 09/05/2022 09:33:03 4843 750-7246 (pg/mL) Final Performing Location [facility] - [address] [place] [address]
--- OUTSIDE RECORDS SUMMARY | 2022-12-29 09:35 | External Medical Summary ---
Author Name Unknown Address Unknown Organization K01:[facility] [place] - [address] [place] [address] Laboratory Report Ordering Provider Test Date Status CECILIA MARVIN 09/05/2022 09:33:03 Final Observation Date Value Abnormality Reference (Units ) Status LDL, (direct) 09/05/2022 09:33:03 48 <=129 (mg/dL) Final LDL Cholesterol Reference Ra nges (mg/dL):
<70 Target level for high risk ASCVD patient
<100 Optimal for general population
100-129 Near optimal for general population
130-159 Borderline high
160-189 High
>=190 Very high Performing Location [facility] - [address] [place] [address]
--- OUTSIDE RECORDS SUMMARY | 2022-12-29 09:35 | External Medical Summary | Summary of Care ---
Author Name Unknown Organization [facility] Address [address] [place] [address] Phone [phone] Care Team Providers Care Supervisor Baking Name Role Phone Tito Grullon MD Primary Care Provider + Reason for Visit * Reason Comments Medication Refill Encounter Details Date Type Department Care Team Description 07/25/2022 Refill Family Practice [facility] [address] [place] [address] Tito Grullon MD [address] [place] [address] Allergies Active Allergy Reactions Severity Noted Date Comments Lisinopril 07/15/2008 Swelling, hives Metronidazole Hcl 06/28/2001 rash,itchy Niacin 10/16/2008 Itching, Can tolerate Niacin documented as of this encounter (statuses as of 07/25/2022) Medications Medication Sig Dispensed Refills Start Date End Date Status ASPIRIN 81 MG PO CHEW One pill by mouth once a day with food 100 5 07/12/2007 Active frestyl ULTRA SYSTEM W/DEVICE KITIndications:DM type 2, goal [...] Ophthalmic Solution 0 08/15/2020 Activ e Pen [place] 32G X 6 MMIndications:Type 2 diabetes mellitus [...] INSULIN 4 TIMES DAILY 400 Each 11/02/2021 11/02/2022 Active Losartan Potassium 50 MG [...] CRUSH CUT OR CHEW TABLET 90 Tablet 08/12/2021 08/12/2022 Active metFORMIN HCl 500 MG Oral Tablet (Glucophage)Indicat ions:Type 2 diabetes mellitus with hemoglobin A1c goal of less than 8.0% ([facility]) TAKE ONE TABLET BY MOUTH IN THE MORNING THEN ONE TABLET BEFORE BEDTIME 180 Tablet 3 08/12/2021 08/12/2022 Active Insulin Glargine Solostar 100 UNIT/ML Subcutaneous Solution Pen-injector (Basaglar Sulema)Indications :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 45 mL 1 02/24/2022 Active Isosorbide Mononitrate ER 60 MG Oral Tablet Extended Release 24 Hour (Imdur)Indications: Coronary artery disease involving [place] coronary artery of [place] heart without angina pectoris,Dyslipidem ia, goal LDL [...] as of this encounter (statuses as of 07/25/2022) Active Problems Problem Noted Date Type 2 [...] as of this encounter (statuses as of 07/25/2022) Resolved Problems Problem Noted Date Resolved Date Type 2 diabetes mellitus wit h stage 3 chronic kidney disease and hypertension 01/03/2018 07/02/2020 Overview: Per CKD protocol Kidney disease, chronic, stage III (GFR 30-59 ml /min) 04/15/2013 02/02/2018 Overview: Per CKD protocol #1 Unstable angina 11/03/2012 12/14/2016 [employer] Other*[id number] 201203/29/2016 Overview: Study Title: Gen[employer] Markers for Patients with Cardiovascular Disease Project # [id number] Rehabilitation Engineer: Eleni Briggs MD [phone] HTN, goal below 130/80 10/12/2012 6 ACTIVE [...] as of this encounter (statuses as of 07/25/2022) Immunizations Name Administration Dates Next Due COVID-19 mRNA, LNP-s, No Pre serve, 2-Dose Series ([employer]) 05/28/2021,11/16/2020,05/15/2020,03/05/ 2021 Covid-19, Mrna, Lnp-s, Pf, B ivalent, 30 [...] encounter Miscellaneous Notes * Telephone Encounter - Sara Roque DO - 07/25/2022 11:07 AM EDT Signed Prescriptions: Disp Refills NovoLOG FlexPen 100 UNIT/ML Subcutaneous S*90 mL 2 Sig: INJECT 30 UNITS UNDER THE SKIN THREE TIMES A DAY WITH MEALS DIRECTED BY DIABETIC CLINICAuthorizing Provider: SARA ROQUE documented in this encounter Plan of Treatment Upcoming Encounters Date Type Specialty Care Team Description 08/29/2022 Office Visit Cardiology Jaswinder Doe MD [address] [place] [address] 09/02/2022 Nurse Only Ancillary [facility] [address] [place] [address] 09/09/2022 Office Visit Family Medicine Tito Grullon MD [address] [place] [address] 11/03/2022 Office Visit Pharmacy [facility] [address] [place] [address] 12/07/2022 Office Visit Nephrology Sabina Keyes PA-C [address] [place] [address] Health Maintenance Due Date Last Done Comments DXA Scan 11/09/2021 11/09/2020 CKD PHOS USE SMARTSET 72222 05/06/202204/20, 07/16/2020, 07/10/2019, Additional history exists DIABETES-EYE EXAM 05/24/2022 05/24/2021, , 04/08/2019, Additional history exists CKD HGB USE SMARTSET 49610 06/18/202206/18, 06/18/2021, 05/06/2021, Additional history exists GFR 06/29/2022 12/30/2021, 07/0 [...] the patient have Health Care Power of Raised Printer? No Care Teams Supervisor Baking Relationship Specialty Start Date End Date Tito Grullon MD [address] [place] [address] PCP - General Family Medicine 09/01/15 documented as of this encounter
--- OUTSIDE RECORDS SUMMARY | 2022-12-29 09:35 | External Medical Summary ---
Author Name Unknown Address Unknown Organization K01:[facility] [place] - [address] [facility] [address] [facility] [address] Laboratory Report Ordering Provider Test Date Status CECILIA MARVIN 09/05/2022 09:33:03 Final Observation Date Value Abnormality Reference (Units ) Status HbA1C 09/05/2022 09:33:03 7.0 Above high normal 4. 0-5.6 (%) Final The use of HbA1c to monitor glycemic status is based on normal hemoglobin and HbA composition. This test should not be used in patients with abnormal hemoglobin that affects the half life of the red blood cell or the in vivo glycation rates. Glucose, estimated average 09/05/2022 09:33:03 154 Above high normal <126 (mg/dL) Edgard phillips Performing Location [facility] [place] - [address] [facility] [facility] [address]
--- OUTSIDE RECORDS SUMMARY | 2022-12-29 09:35 | External Medical Summary ---
Author Name Unknown Address Unknown Organization [id number]:[facility] [place] [address] [place] [address] Laboratory Report Ordering Provider Test Date Status CECILIA MARVIN 09/05/2022 09:33:03 Final Normal: <30 mg/g creatinine< br/>High: 30-300 mg/g creatinine
Very High: >300 mg/g creatinine
Nephrotic: >2200 mg/g creatinine Observation Date Value Abnormality Reference (Units ) Status Albumin, Urine 09/05/2022 09:33:03 10.26 (mg/dL) Final Creatinine, Urine 09/05/2022 09:33:03 49 (mg/dL) Final Albumin/Creatinine [Mass Ratio] in Urine 09/05/2022 09:33:03 209 Above high normal <30 (mg/g Creat) Final Performing Location [facility] [place] [address] [place] [address]
--- OUTSIDE RECORDS SUMMARY | 2022-12-29 09:35 | External Medical Summary ---
Author Name Unknown Address Unknown Organization K01:[facility] - [address] [place] [address] Laboratory Report Ordering Provider Test Date Status JAZMYN PERDOMO 09/05/2022 09:33:03 Final Observation Date Value Abnormality Reference (Units ) Status Phosphate 09/05/2022 09:33:03 4.0 2.5-4.8 (m g/dL) Final Performing Location [facility] - [address] [place] [address]
--- OUTSIDE RECORDS SUMMARY | 2022-12-29 09:35 | External Medical Summary | Continuity of Care Document ---
Author Name Unknown Organization [facility] [address] [facility] 2 Address [address] [facility] [address] [id number] Care Team Providers Care Supervisor Customer Services Name Role Phone iTto Grullon Primary Care Physician [phone] [id number] Date(s): 06/29/22 - 06/29/22 [facility] [address] [facility] 2 [facility] CINYDRHEA TRUJILLO [address] [id number] Encounter Diagnosis AK (actinic keratosis)(Discharge Diagnosis) - 06/29/22 History of basal cell carcinoma of skin(Discharge Diagnosis) - 06/29/22 Inflamed seborrheic keratosis(Discharge Diagnosis) - 06/29/22 Discharge Disposition: Home or Self Care Attending Physician: MD Baker Thomas A Referring Physician: MD Baker Thomas A Allergies, Adverse Reactions, Alerts Substance Reaction Severity Status lisinopril facial swelling Active Niaspan ER itching hot flashes Active Flagyl itching Active Medications amLODIPine 2.5 mg oral tablet Start: [...] 3, apply to scalp for scaling, [facility] Start Date: 04/12/16 Status: Ordered clopidogrel 75 [...] lip tid as needed for pain, Pharmacy: [facility] Start Date: 03/09/17 Status: Ordered losartan Start: [...] g, Refills: 2, for seborrheic dermatits, Pharmacy: [facility] Start Date: 01/02/18 Status: Ordered nitroglycerin 0.4 [...] PO, Daily Start Date: 05/14/20 Status: Ordered Mental Status 06/29/22 Barriers to Learning one year None evide nt Mandatory Health Literacy Documentation Yes Health Literacy Communication Barriers N ever Primary Language Tamazight Problem List Condition Confirmation Course Effective Dates [...] Effective Dates Health Status Clinical Service Informant AK (actinic keratosis) Discharge Diagnosis 06/29/22 Inflamed seborrheic keratosis Discharge Diagnosis 06/29/22 History of basal cell carcinoma of skin Discharge Diagnosis 06/29/22 Procedures Procedure Date Related Diagnosis Body Site [...] Status Never smoked cigaret edwardo Sex Male Patient Care team information Care Team Personnel Name: MD Yaid, Tito Swanson Position: Referring DIRECT Member Role: Primary Care Provider Address: Address: [address] [place] [address] [place] Care Team Related Persons Name: MARYMARIS Address: home No Address Provided
--- OUTSIDE RECORDS SUMMARY | 2022-12-29 09:35 | External Medical Summary ---
Author Name Unknown Address Unknown Organization K0G:[facility] [address] - [address] [place] [address] Laboratory Report Ordering Provider Test Date Status JAZMYN PERDOMO 09/05/2022 09:33:03 Final Observation Date Value Abnormality Reference (Units ) Status WBC, Total 09/05/2022 09:33:03 4.98 4.00-10.8 0 (K/uL) Final RBC 09/05/2022 09:33:03 3.52 4.50-5.25 (M/uL) Final Hemoglobin 09/05/2022 09:33:03 10.5 Below low normal 14 .0-16.8 (g/dL) Final HCT 09/05/2022 09:33:03 31.0 Below low normal 40. 0-48.4 (%) Final MCV 09/05/2022 09:33:03 88.1 82.0-99.5 (fL) Final MCH 09/05/2022 09:33:03 29.8 27.0-34.0 (pg) Final MCHC 09/05/2022 09:33:03 33.9 32.0-36.0 (g/dL) Final RDW 09/05/2022 09:33:03 15.0 11.5-15.5 (%) Final Platelets 09/05/2022 09:33:03 202 140-400 (K /uL) Final MPV 09/05/2022 09:33:03 9.4 6.6-11.1 ( fL) Final Performing Location [facility] - [address] [place] [address]
--- OUTSIDE RECORDS SUMMARY | 2022-12-29 09:35 | External Medical Summary ---
Author Name Unknown Address Unknown Organization K0G:[facility] [place] [address] - [address] [place] [address] Laboratory Report Ordering Provider Test Date Status ECCILIA MARVIN 09/05/2022 09:33:03 Final Observation Date Value Abnormality Reference (Units ) Status BUN 09/05/2022 09:33:03 36 Above high normal 6-20 (mg/dL) Final Creatinine 09/05/2022 09:33:03 2.2 Above high normal 0.6-1.2 (mg/dL) Final Glomerular filtration rate/1.73 sq M.predicted [Volume Rate/Area] in Serum, Plasma or Blood by Creatinine-based formula (CKD-EPI) 09/05/2022 09:33:03 29 Below low normal >=60 (mL/min) Final eGFR is calculated based on the CKD-EPI 2020 equation SODIUM 09/05/2022 09:33:03 136 135-146 (m mol/L) Final Potassium 09/05/2022 09:33:03 4.6 3.5-5.1 (m mol/L) Final Cl 09/05/2022 09:33:03 103 98-107 (mm ol/L) Final CO2 09/05/2022 09:33:03 21 Below low normal 22- 32 (mmol/L) Final Anion gap 09/05/2022 09:33:03 12 7-15 (mmol /L) Final Glucose 09/05/2022 09:33:03 182 Above high normal 70 -120 (mg/dL) Final Calcium 09/05/2022 09:33:03 9.1 8.4-10.2 ( mg/dL) Final [facility] [address] [place] [address]
--- OUTSIDE RECORDS SUMMARY | 2022-12-29 09:35 | External Medical Summary ---
Author Name Unknown Address Unknown Organization K01:[facility] [place] - [address] [place] [address] Laboratory Report Ordering Provider Test Date Status CECILIA MARVIN 09/05/2022 09:33:03 Final Observation Date Value Abnormality Reference (Units ) Status Triglyceride 09/05/2022 09:33:03 184 Above high normal <=174 (mg/dL) Final Triglyceride Reference Range s (mg/dL):
<150 Acceptable
150-174 Borderline high
175-499 High
>=500 Very high Cholesterol 09/05/2022 09:33:03 101 <200 (mg /dL) Final Total Cholesterol Reference Ranges (mg/dL):
<200 Desirable
200-239 Borderline high
>=240 High HDL 09/05/2022 09:33:03 24 Below low normal >39 (mg/dL) Final HDL Cholesterol Reference Ra nges (mg/dL):
>=60 High (Desirable)
<50 Low (Undesirable) For Females
<40 Low (Undesirable) For Males NON-HDL CHOLESTEROL 09/05/2022 09:33:03 77 <=159 (mg/dL) Final Non-HDL Cholesterol Referenc e Range (mg/dL):
<100 Target level for high risk ASCVD patient
<130 Optimal for general population
130-159 Near optimal for general population
160-189 Borderline High
190-219 High
>=220 Very High Performing Location [facility] [place] - [address] [place] [address]
--- NOTE | 2022-12-30 12:13 | Coding Query ---
To promote full compliance with coding requirements relating to patient care, provider participation is requested in all cases of metals sales representative uncertainty. Please assist us with the question(s) below: Coding Question(s): The diagnosis(es) below was documented in the H&P then subsequently fell off all further documentation. Please indicate if it is still a possible diagnosis or ruled out. Physician's Response(s): Bronchitis ( ) Diagnosed and POA ( ) Diagnosed and not POA ( ) Ruled out ( x ) Other (please specify) respiratory symptoms were consistent with covid-19 infection. MTDD
== END 2022-12-25 13:38 | disposition home or self-care (01) | DRG 178 ==
LOC: ED 17:26 → 2S 22:04 → 3E 12-23 20:56

== ENCOUNTER 2022-12-29 19:30 | Inpatient (IN) ==
[2022-12-29 20:23] LABS: Basophils # (auto) 0.02 K/uL (0.00-0.20); Basophils % (auto) 0.2 %; Eosinophils # (auto) 0.06 K/uL (0.00-0.50); Eosinophils % (auto) 0.6 %; Hematocrit (blood only) 22.9 % (42.0-52.0); Immature Granulocytes # (auto) 0.22 K/uL (0.01-0.20); Immature Granulocytes % (auto) 2.2 %; Lymphocytes # (auto) 0.33 K/uL (1.20-3.40); Lymphocytes % (auto) 3.3 %; Mean Corpuscular Hemoglobin 29.7 pg (25.0-34.0); Mean Corpuscular Hgb Conc 34.9 g/dL (32.0-36.0); Mean Corpuscular Volume 85.1 fL (80.0-100.0); Mean Platelet Volume 9.4 fL (9.4-12.4); Monocytes # (auto) 0.82 K/uL (0.11-0.59); Monocytes % (auto) 8.2 %; Neutrophils # (auto) 8.53 K/uL (1.40-6.50); Neutrophils % (auto) 85.5 %; Platelet Count 322 K/uL (130-400); RDW Coefficient of Variation 14.7 % (11.5-14.5); RDW Standard Deviation 45.9 fL (36.4-46.3); Red Blood Count 2.69 M/uL (4.70-6.10); White Blood Count 9.98 K/ul (4.8-10.8)
[2022-12-29 20:33] LABS: Alanine Aminotransferase 99 U/L (7-52); Albumin Globulin Ratio 0.9 (0.9-2); Albumin Level 3.3 gm/dl (3.4-5.0); Alkaline Phosphatase 93 U/L (34-104); Anion Gap 10 (3-11); Aspartate Aminotransferase 93 U/L (13-39); BUN Creatinine Ratio 21.5 (10-20); Bilirubin,Total 0.8 mg/dl (0.2-1.0); Blood Urea Nitrogen 62 mg/dl (6-23); Calcium 8.6 mg/dl (8.6-10.3); Carbon Dioxide 17 mmol/L (21-32); Chloride 99 mmol/L (98-107); Est GFR (African American) 22.2 ml/min; Est GFR (Non-African American) 19.2 ml/min; Globulin 3.7 gm/dl (2.5-4.0); Glucose 199 mg/dl (70-99(Fasting)); Lipase 28 U/L (11-82); Potassium 3.8 mmol/L (3.5-5.1); Sodium 126 mmol/L (136-145)
[2022-12-29 20:39] LABS: Troponin I High Sensitivity 11.3 pg/ml (0-20)
[2022-12-29] MEDS ORDERED: SODIUM CHLORIDE 0.9% 1,000 ML IV SCH (22:00)
--- NOTE | 2022-12-29 22:30 | CT Scan Report ---
Exam(s): CT HEAD Without Contrast EXAM: CT Head Without Intravenous Contrast CLINICAL HISTORY: Reason for exam: cionfusion. TECHNIQUE: Axial computed tomography images of the head/brain without intravenous contrast. CTDI is 39.03 mGy and DLP is 2114.08 mGy-cm. Automated exposure control was utilized for the study. A dose lowering technique was utilized adhering to the principles of ALARA. COMPARISON: No relevant prior studies available. FINDINGS: Brain: Unremarkable. No hemorrhage. No significant white matter disease. No edema. Ventricles: Unremarkable. No ventriculomegaly. Bones/joints: Unremarkable. No acute fracture. Soft tissues: Unremarkable. Sinuses: Air-fluid levels within bilateral maxillary sinuses and left frontal sinus. Near complete opacification of bilateral ethmoid air cells. Mastoid air cells: Unremarkable as visualized. No mastoid effusion. IMPRESSION: No acute intracranial abnormality. Air-fluid levels within bilateral maxillary sinuses and left frontal sinus. Electronically signed by: Aditya Estrella M.D. 12/29/22 22:30 PM
[2022-12-29] MEDS ORDERED: dexAMETHasone**PF** 10 MG/ML VIAL IV ONE (22:36)
--- NOTE | 2022-12-29 22:38 | CT Scan Report ---
Exam(s): CT ABDOMEN + PELVIS Without Contrast EXAM: CT Abdomen and Pelvis Without Intravenous Contrast CLINICAL HISTORY: Reason for exam: ro sbo. TECHNIQUE: Axial computed tomography images of the abdomen and pelvis without intravenous contrast. CTDI is 39.03 mGy and DLP is 2141.08 mGy-cm. Automated exposure control was utilized for the study. A dose lowering technique was utilized adhering to the principles of ALARA. COMPARISON: No relevant prior studies available. FINDINGS: Lung bases: Bilateral lower lobe parenchymal opacities concerning for an infectious etiology. High density material within the left base parenchyma concerning for aspiration. ABDOMEN: Liver: Unremarkable. Gallbladder and bile ducts: Gallbladder has been removed. No ductal dilation. Pancreas: Unremarkable. No ductal dilation. Spleen: Unremarkable. No splenomegaly. Adrenals: Unremarkable. No mass. Kidneys and ureters: 1.4 cm simple cyst arising off the mid to inferior right kidney. No further workup is required. No obstructing stones. No hydronephrosis. Stomach and bowel: Small hiatal hernia. No obstruction. No mucosal thickening. PELVIS: Appendix: No findings to suggest acute appendicitis. Bladder: Unremarkable. No stones. Reproductive: Unremarkable as visualized. ABDOMEN and PELVIS: Intraperitoneal space: Unremarkable. No free air. No significant fluid collection. Bones/joints: No acute fracture. No dislocation. Soft tissues: Unremarkable. Vasculature: Unremarkable. No abdominal aortic aneurysm. Lymph nodes: Unremarkable. No enlarged lymph nodes. IMPRESSION: Bilateral lower lobe parenchymal opacities concerning for an infectious etiology. High density material within the left base parenchyma concerning for aspiration. No acute abdominal or pelvic process. No evidence of bowel obstruction. Electronically signed by: Aditya Estrella M.D. 12/29/22 22:36 PM
[2022-12-29] MEDS ORDERED: AMPICILLIN/SULBACTAM SOD 3,000 MG in SODIUM CHLOR 0.9% MINI-B 100 ML IV STA (23:22)
--- NOTE | 2022-12-29 23:22 | Emergency Department Note ---
History of Present Illness General Chief complaint: Referred by Doctor Stated complaint: REF BY , RECENTLY DISCHARED, COVID + Time Seen by Provider: 12/29/22 20:36 Source: patient and family (Son at bedside) History of Present Illness Provider complaint: Weakness difficulty breathing constipation 82-year-old male presents emergency department for weakness difficulty breathing constipation. Patient states he was recently diagnosed with COVID and discharged from the hospital on December 25, 4 days ago. Since going home the patient's been increasingly weak. No falls. No trauma. No vomiting. Patient reports constipation abdominal pain. Patient reports difficulty breathing and cough. Son is concerned about dehydration. Home Medications Medication Instructions Recorded Confirmed Type fluocinolone acetonide oil 0.01 % See Rx Instructions otic (ear) 01/29/21 12/29/22 Rx ear drops .COMPLEX ear itching #20 mL amlodipine 2.5 mg tablet 2.5 mg PO HS 12/22/22 12/29/22 History aspirin 81 mg tablet,delayed 81 mg PO QDL 12/22/22 12/29/22 History release atorvastatin 10 mg tablet 10 mg PO QDD 12/22/22 12/29/22 History brinzolamide 1 %-brimonidine 0.2 % 1 drp OPB AMPM 12/22/22 12/29/22 History eye drops,suspension (Simbrinza) cholecalciferol (vitamin D3) 25 25 mcg PO QAM 12/22/22 12/29/22 History mcg (1,000 unit) tablet (Vitamin D3) cyanocobalamin (vitamin B-12) 1,000 mcg PO QAM 12/22/22 12/29/22 History 1,000 mcg tablet (Vitamin B-12) insulin aspart U-100 100 unit/mL 22 unit subcut TIDM 12/22/22 12/29/22 History (3 mL) subcutaneous pen (Novolog FlexPen U-100 Insulin aspart) insulin glargine 100 unit/mL (3 35 unit subcut QDB 12/22/22 12/29/22 History mL) subcutaneous pen (Basaglar KwikPen U-100 Insulin) isosorbide mononitrate 60 mg 60 mg PO QAM 12/22/22 12/29/22 History tablet,extended release 24 hr linagliptin 5 mg tablet (Tradjenta) 5 mg PO QDL 12/22/22 12/29/22 History losartan 50 mg tablet 50 mg PO BID 12/22/22 12/29/22 History metformin 500 mg tablet 500 mg PO BIDM 12/22/22 12/29/22 History metoprolol tartrate 25 mg tablet 12.5 mg PO BID 12/22/22 12/29/22 History netarsudil 0.02 %-latanoprost 1 drp OPB HS 12/22/22 12/29/22 History 0.005 % eye drops (Rocklatan) pantoprazole 40 mg tablet,delayed 40 mg PO Q2D 12/22/22 12/29/22 History release timolol maleate 0.5 % eye drops 1 drp OPB QAM 12/22/22 12/29/22 History codeine 10 mg-guaifenesin 100 mg/5 10 ml PO Q6H PRN cough #120 mL 12/25/22 12/29/22 Rx mL oral liquid fluticasone propionate 50 2 spray NA HS #16 grams 12/25/22 12/29/22 Rx mcg/actuation nasal spray,suspension Allergies Allergy/AdvReac Type Severity Reaction Status Date / Time metronidazole Allergy Mild Rash Verified 12/29/22 22:59 GIGI Inhibitors Allergy Unknown EDEMA- Verified 12/29/22 22:59 LOWER EXTREMITIES niacin Allergy Unknown RASH Verified 12/29/22 22:59 Past Med/Surg History Medical History CKD (chronic kidney disease), stage III Hyponatremia CAD (coronary artery disease) COVID History of Mohs micrographic surgery for skin cancer Surgical History History of cholecystectomy Family History Other No family history of adverse response to anesthesia No family history of bleeding disorder No significant family history Social History Smoking Status: Never smoker Tobacco Type: Cigars Cigarettes Per Day: 1 CIGAR/DAY; Second Hand Exposure: No; Do You Dip or Chew Tobacco: No; Hx Alcohol Use: No Hx Substance Use: No Preferred Language: Bahraini Communication Ability: Effective Cafe Lead Required: No Beliefs That Will Affect Care: None marital status: Current Living Situation: Alone current occupational status: retired Feels Safe at Home: Yes Assistive Devices: None Physical Exam Vital Signs Vital Signs - 24 hr 12/29/22 19:38 12/29/22 21:43 12/29/22 21:43 Temperature 37.4 C Temperature Source Temporal Artery Scan Pulse Rate 90 85 85 Pulse Rate [Apical] Pulse Rate from SpO2 Sensor 85 Respiratory Rate 22 20 Respiratory Depth Normal Blood Pressure 141/84 H Blood Pressure [Right Arm] Blood Pressure Mean 103 Blood Pressure Mean [Right Arm] Pulse Oximetry 94 93 Oxygen Delivery Method Room Air Oxygen Flow Rate Sepsis Recent Fever Within 48 Hours Yes Sepsis New/Unexplained Change in Mental Status No Sepsis Action Taken by Nursing No Action Required Oxygen Flow Rate - Titration Pulse Oximetry Post Tiitration 12/29/22 22:00 12/29/22 22:19 12/29/22 22:30 Temperature Temperature Source Pulse Rate 80 81 Pulse Rate [Apical] Pulse Rate from SpO2 Sensor 79 81 Respiratory Rate 22 22 Respiratory Depth Blood Pressure Blood Pressure [Right Arm] Blood Pressure Mean Blood Pressure Mean [Right Arm] Pulse Oximetry 91 92 94 Oxygen Delivery Method Room Air Oxygen Flow Rate Sepsis Recent Fever Within 48 Hours Sepsis New/Unexplained Change in Mental Status Sepsis Action Taken by Nursing Oxygen Flow Rate - Titration Pulse Oximetry Post Tiitration 12/29/22 22:30 12/29/22 22:34 12/29/22 23:00 Temperature Temperature Source Pulse Rate Pulse Rate [Apical] 85 Pulse Rate from SpO2 Sensor Respiratory Rate 18 Respiratory Depth Blood Pressure 123/66 Blood Pressure [Right Arm] 136/68 Blood Pressure Mean 88 Blood Pressure Mean [Right Arm] 90 Pulse Oximetry 88 L 96 Oxygen Delivery Method Room Air Nasal Cannula Oxygen Flow Rate 2 Sepsis Recent Fever Within 48 Hours Sepsis New/Unexplained Change in Mental Status Sepsis Action Taken by Nursing Oxygen Flow Rate - Titration 2 Pulse Oximetry Post Tiitration 93 12/29/22 23:00 12/29/22 23:00 Temperature Temperature Source Pulse Rate 82 Pulse Rate [Apical] Pulse Rate from SpO2 Sensor 83 Respiratory Rate 23 Respiratory Depth Blood Pressure 136/68 Blood Pressure [Right Arm] Blood Pressure Mean 95 Blood Pressure Mean [Right Arm] Pulse Oximetry 96 Oxygen Delivery Method Oxygen Flow Rate Sepsis Recent Fever Within 48 Hours Sepsis New/Unexplained Change in Mental Status Sepsis Action Taken by Nursing Oxygen Flow Rate - Titration Pulse Oximetry Post Tiitration Physical Exam GENERAL: oriented to person, place, and time. appears well-developed and well- nourished. HENT: Exam performed. - Head: Normocephalic and atraumatic. EYES: Conjunctivae and EOM are normal. Right eye exhibits no discharge. Left eye exhibits no discharge. No scleral icterus. NECK: Normal range of motion. Neck supple. No JVD present. CV: Normal rate, regular rhythm, normal heart sounds and intact distal pulses. There is no peripheral edema. Palpable radial pulses bue. PULM/CHEST: Effort normal and breath sounds normal. No respiratory distress. No stridor. no wheezes. no rales. ABD: The abdomen is soft. There is no tenderness. NEURO: Motor and sensation grossly intact. SKIN: Skin is warm and dry. He is not diaphoretic. PSYCH: normal mood and affect. Behavior is normal. Judgment and thought content normal. Course Course 2035: The patient was evaluated in room A4. A complete history and physical exam was performed Cardiac monitoring: An order was placed for continuous cardiac monitoring. The monitor shows a rate of 90 with sinus rhythm interpreted by me 2323: Patient became hypoxic on room air. Supplemental oxygen was applied which improved the patient's oxygen saturation. Decadron ordered for the patient given his recent COVID infection. Labs show sodium of 126. Patient's creatinine is slightly worse indicating dehydration. No seizure-like activity no need for hypertonic saline. Gentle IV hydration started the patient. CT of the and pelvis shows no obstruction. There is incidental finding of possible aspiration pneumonia on the CT of the abdomen pelvis. Patient be treated with Unasyn given his hypoxia also. CT of the head within normal limits. [facility]. Administered Medications Sodium Chloride (Nss) 1,000 mls @ 80 mls/hr IV .[id number] [facility] Stop: 01/28/23 21:59 Last Admin: 12/29/22 22:34 Dose: 80 mls/hr Documented By: RONY Discontinued Medications Dexamethasone Sodium Phosphate (DexamethasonePf 10 Mg/Ml Vial) 6 mg IV NOW ONE Stop: 12/29/22 22:37 Last Admin: 12/29/22 22:56 Dose: 6 mg Documented By: RONY Critical Care Time Critical Care Time: Yes Total Critical Care Time: 48 I have personally spent greater than 48 minutes of critical care time in the direct management of this patient. This includes bedside care, interpretation of diagnostic studies, and testing, discussion with consultants, patient, and family members, and other required patient management activities. This 48 minutes is in excess of all separately billable procedures. Medical Decision Making Laboratory Data Attestation: I reviewed the patient's lab results. 12/29/22 19:56 12/29/22 19:56 Lab Results 12/29/22 Range/Units 19:56 WBC 9.98 (4.8-10.8) K/ul RBC 2.69 L (4.70-6.10) M/uL Hgb 8.0 L (14.0-18.0) g/dl Hct 22.9 L (42.0-52.0) % MCV 85.1 (80.0-100.0) fL MCH 29.7 (25.0-34.0) pg MCHC 34.9 (32.0-36.0) g/dL RDW Std Deviation 45.9 (36.4-46.3) fL RDW Coeff of Madina 14.7 H (11.5-14.5) % Plt Count 322 (130-400) K/uL MPV 9.4 (9.4-12.4) fL Immature Gran % (Auto) 2.2 % Neut % (Auto) 85.5 % Lymph % (Auto) 3.3 % [place] % (Auto) 8.2 % Eos % (Auto) 0.6 % Baso % (Auto) 0.2 % Neut # (Auto) 8.53 H (1.40-6.50) K/uL Lymph # (Auto) 0.33 L (1.20-3.40) K/uL [place] # (Auto) 0.82 H (0.11-0.59) K/uL Eos # (Auto) 0.06 (0.00-0.50) K/uL Baso # (Auto) 0.02 (0.00-0.20) K/uL Immature Gran # (Auto) 0.22 H (0.01-0.20) K/uL Sodium 126 L (136-145) mmol/L Potassium 3.8 (3.5-5.1) mmol/L Chloride 99 (98-107) mmol/L Carbon Dioxide 17 L (21-32) mmol/L Anion Gap 10 (3-11) BUN 62 H (6-23) mg/dl Creatinine 2.88 H (0.6-1.4) mg/dl Est Cr Clr Drug Dosing Not Reportable Est GFR ( Amer) 22.2 ml/min Est GFR (Non-Af Amer) 19.2 ml/min BUN/Creatinine Ratio 21.5 H (10-20) Glucose 199 H (70-99(Fasting)) mg/dl Calcium 8.6 (8.6-10.3) mg/dl Total Bilirubin 0.8 (0.2-1.0) mg/dl AST 93 H (13-39) U/L ALT 99 H (7-52) U/L Alkaline Phosphatase 93 (34-104) U/L Troponin I High Sens 11.3 (0-20) pg/ml Total Protein 7.0 (6.0-8.3) gm/dl Albumin 3.3 L (3.4-5.0) gm/dl Globulin 3.7 (2.5-4.0) gm/dl Albumin/Globulin Ratio 0.9 (0.9-2) Lipase 28 (11-82) U/L Imaging Data Attestation: I personally reviewed and interpreted this imaging study as follows: My Impression: Chest x-ray: No significant change from the chest x-ray done in December 22, 2022. Radiologist's Impression: Abdomen/Pelvis CT 12/29/22 21:19 Exam(s): CT ABDOMEN + PELVIS Without Contrast EXAM: CT Abdomen and Pelvis Without Intravenous Contrast CLINICAL HISTORY: Reason for exam: ro sbo. TECHNIQUE: Axial computed tomography images of the abdomen and pelvis without intravenous contrast. CTDI is 39.03 mGy and DLP is 2141.08 mGy-cm. Automated exposure control was utilized for the study. A dose lowering technique was utilized adhering to the principles of ALARA. COMPARISON: No relevant prior studies available. FINDINGS: Lung bases: Bilateral lower lobe parenchymal opacities concerning for an infectious etiology. High density material within the left base parenchyma concerning for aspiration. ABDOMEN: Liver: Unremarkable. Gallbladder and bile ducts: Gallbladder has been removed. No ductal dilation. Pancreas: Unremarkable. No ductal dilation. Spleen: Unremarkable. No splenomegaly. Adrenals: Unremarkable. No mass. Kidneys and ureters: 1.4 cm simple cyst arising off the mid to inferior right kidney. No further workup is required. No obstructing stones. No hydronephrosis. Stomach and bowel: Small hiatal hernia. No obstruction. No mucosal thickening. PELVIS: Appendix: No findings to suggest acute appendicitis. Bladder: Unremarkable. No stones. Reproductive: Unremarkable as visualized. ABDOMEN and PELVIS: Intraperitoneal space: Unremarkable. No free air. No significant fluid collection. Bones/joints: No acute fracture. No dislocation. Soft tissues: Unremarkable. Vasculature: Unremarkable. No abdominal aortic aneurysm. Lymph nodes: Unremarkable. No enlarged lymph nodes. IMPRESSION: Bilateral lower lobe parenchymal opacities concerning for an infectious etiology. High density material within the left base parenchyma concerning for aspiration. No acute abdominal or pelvic process. No evidence of bowel obstruction. Electronically signed by: Aditya Estrella M.D. 12/29/22 22:[address] 12/29/22 21:20 Exam(s): CT HEAD Without Contrast EXAM: CT Head Without Intravenous Contrast CLINICAL HISTORY: Reason for exam: cionfusion. TECHNIQUE: Axial computed tomography images of the head/brain without intravenous contrast. CTDI is 39.03 mGy and DLP is 2114.08 mGy-cm. Automated exposure control was utilized for the study. A dose lowering technique was utilized adhering to the principles of ALARA. COMPARISON: No relevant prior studies available. FINDINGS: Brain: Unremarkable. No hemorrhage. No significant white matter disease. No edema. Ventricles: Unremarkable. No ventriculomegaly. Bones/joints: Unremarkable. No acute fracture. Soft tissues: Unremarkable. Sinuses: Air-fluid levels within bilateral maxillary sinuses and left frontal sinus. Near complete opacification of bilateral ethmoid air cells. Mastoid air cells: Unremarkable as visualized. No mastoid effusion. IMPRESSION: No acute intracranial abnormality. Air-fluid levels within bilateral maxillary sinuses and left frontal sinus. Electronically signed by: Aditya Estrella M.D. 12/29/22 22:30 PM ECG Data Attestation: I personally reviewed and interpreted this ECG as follows: Indication: + SOB/dyspnea Rate (beats per minute): 90 Rhythm: + sinus with SA ECG Intervals/blocks: + First degree AV block, + Normal QRS and + Normal QT-c ECG ST segments: + Normal ST segments ECG Findings: + PVCs MDM Narrative 2035: The patient was evaluated in room A4. A complete history and physical exam was performed Cardiac monitoring: An order was placed for continuous cardiac monitoring. The monitor shows a rate of 90 with sinus rhythm interpreted by me 2323: Patient became hypoxic on room air. Supplemental oxygen was applied which improved the patient's oxygen saturation. Decadron ordered for the patient given his recent COVID infection. Labs show sodium of 126. Patient's creatinine is slightly worse indicating dehydration. No seizure-like activity no need for hypertonic saline. Gentle IV hydration started the patient. CT of the and pelvis shows no obstruction. There is incidental finding of possible aspiration pneumonia on the CT of the abdomen pelvis. Patient be treated with Unasyn given his hypoxia also. CT of the head within normal limits. [facility]. Impression & Plan Hypoxia, Acute hyponatremia, COVID-19, Aspiration pneumonia Discharge Plan Visit Data Chief Complaint: Referred by Doctor Stated Complaint: REF BY , RECENTLY DISCHARED, COVID + ED Provider: Elvis Mcmanus Discharge Problem: Hypoxia, Acute hyponatremia, COVID-19, Aspiration pneumonia Patient Disposition: Admitted As Inpatient Forms Stand Alone Forms: Counts Include [facility] Prescriptions Prescriptions: No Action fluocinolone acetonide oil 0.01 % drops See Rx Instructions otic (ear) .COMPLEX Qty: 20 3RF Rx Instructions: otic (ear); Apply 4 drops to itchy ear 2-3 days/week PRN itchy ear aspirin 81 mg Tablet,Delayed Release (Dr/Ec) 81 mg PO QDL metoprolol tartrate 25 mg tablet 12.5 mg PO BID Rx Instructions: take 1/2 tablet at lunch time and bedtime Tradjenta 5 mg tablet 5 mg PO QDL losartan 50 mg tablet 50 mg PO BID Rx Instructions: take am and pm with meal isosorbide mononitrate 60 mg tablet extended release 24 hr 60 mg PO QAM atorvastatin 10 mg tablet 10 mg PO QDD cholecalciferol (vitamin D3) [Vitamin D3] 25 mcg (1,000 unit) Tablet 25 mcg PO QAM cyanocobalamin (vitamin B-12) [Vitamin B-12] 1,000 mcg Tablet 1,000 mcg PO QAM pantoprazole 40 mg tablet,delayed release (DR/EC) 40 mg PO Q2D insulin glargine [Basaglar KwikPen U-100 Insulin] 100 unit/mL (3 mL) insulin pen 35 unit SUBCUT QDB Simbrinza 1-0.2 % drops,suspension 1 drp OPB AMPM metformin 500 mg tablet 500 mg PO BIDM insulin aspart U-100 [Novolog FlexPen U-100 Insulin] 100 unit/mL (3 mL) insulin pen 22 unit SUBCUT TIDM timolol maleate 0.5 % drops 1 drp OPB QAM amlodipine 2.5 mg Tablet 2.5 mg PO HS Rocklatan 0.02-0.005 % drops 1 drp OPB HS fluticasone propionate 50 mcg/actuation [place],Suspension 2 spray NA HS Qty: 16 0RF Rx Instructions: Continue using once per day until symptoms resolve. codeine-guaifenesin 10-100 mg/5 mL Liquid 10 ml PO Q6H PRN (Reason: cough) Qty: 120 0RF Rx Instructions: CAUTION: THIS MED CAUSES DROWSINESS, DO NOT DRIVE AFTER TAKING Referrals Referrals: Tito Grullon MD [Primary Care Provider] - Discharge Problem: Aspiration pneumonia Qualifiers: Aspiration pneumonia type: unspecified Laterality: unspecified laterality Lung location: unspecified part of lung Qualified Code(s): J69.0 - Pneumonitis due to inhalation of food and vomit
--- NOTE | 2022-12-30 02:07 | History & Physical Report ---
Date of Service December 30, 2022 Assessment & Plan (1) Acute hyponatremia: Plan: 52-year-old male with past medical history significant for type 2 diabetes, hyperlipidemia, hypertension, CKD stage III, CAD s/p stent, hypertension, vitamin B12 deficiency, GERD, primary open-angle glaucoma bilateral, history of herpes zoster, was recently in the hospital with hyponatremia and COVID and discharged last Monday was brought in by son because patient getting somewhat disoriented and dehydrated at home and found to have hyponatremia, ANUP and possible aspiration pneumonia. Hyponatremia Sodium 126 Was hyponatremic last admission Gentle fluids Follow-up BMP every 6 hours Follow urine osmolality, serum osmolality and urine sodium levels Nephro consult in a.m. COVID 19 Vaccinated and boosted Last booster was last year in December Requiring oxygen We will place him on IV Decadron COVID precautions Close monitor Possible aspiration pneumonia Empiric Zosyn and Doxy We will follow response ANUP on chronic kidney disease stage III Baseline creatinine around 2 Present creatinine of 2.8 We will hold losartan Avoid nephrotoxic agents Getting gentle fluids Follow repeat labs in a.m. Anemia Hemoglobin 8 Was 9-10 last admission We will check stool for Hemoccult. Diabetes Hold metformin and Tradjenta and home NovoLog Continue insulin glargine Insulin sliding scale We will follow blood sugars and HbA1c levels Close monitoring as patient is on steroids History of CAD s/p stent On aspirin, statin, Imdur and beta-erendira Hypertension On metoprolol and Imdur and amlodipine Holding losartan We will monitor DVT prophylaxis Heparin subcu Disposition Med/telemetry Full code History of Present Illness Chief Complaint: Illness Primary Care Provider: Tito Grullon MD 52-year-old male with past medical history significant for type 2 diabetes, hyperlipidemia, hypertension, CKD stage III, CAD s/p stent, hypertension, vitamin B12 deficiency, GERD, primary open-angle glaucoma bilateral, history of herpes zoster, was recently in the hospital with hyponatremia and COVID and discharged last Monday was brought in by son because patient getting somewhat disoriented and dehydrated at home. Patient lives alone. Son lives close by. Since his discharge first few days son and his stayed with him. He seemed doing okay first few days. But since last Monday again he went down. Poor appetite. On and off confusion. Had temp today. His COVID symptoms were sore throat and cough. Cough is improving. Denies any headache or body ache. No nausea/ vomiting or diarrhea. Urine is concentrated. Denies any chest pain no shortness of breath. No abdominal pain. At home son was checking his pulse ox and was ranging from 89 to 92%. Patient is somewhat hard of hearing and son is helping with H&P.. Past medical history. As mentioned above Past surgical history. Cardiac stent placement. Colonoscopy. EGD. EGD and transendoscopic dilatation. Laparoscopic cholecystectomy. Repair of bowel fistula. Social history. Lives alone. Quit cigarettes in 1972. No alcohol use. No drug use. Family history. Sister had breast cancer. Brother had depression. Hypertension. Colostomy. Father had heart disorder. Allergies Allergy/AdvReac Type Severity Reaction Status Date / Time metronidazole Allergy Mild Rash Verified 12/29/22 22:59 GIGI Inhibitors Allergy Unknown EDEMA- Verified 12/29/22 22:59 LOWER EXTREMITIES niacin Allergy Unknown RASH Verified 12/29/22 22:59 Home Medications Medication Instructions Recorded Confirmed Type fluocinolone acetonide oil 0.01 % See Rx Instructions otic (ear) 01/29/21 12/29/22 Rx ear drops .COMPLEX ear itching #20 mL amlodipine 2.5 mg tablet 2.5 mg PO HS 12/22/22 12/29/22 History aspirin 81 mg tablet,delayed 81 mg PO QDL 12/22/22 12/29/22 History release atorvastatin 10 mg tablet 10 mg PO QDD 12/22/22 12/29/22 History brinzolamide 1 %-brimonidine 0.2 % 1 drp OPB AMPM 12/22/22 12/29/22 History eye drops,suspension (Simbrinza) cholecalciferol (vitamin D3) 25 25 mcg PO QAM 12/22/22 12/29/22 History mcg (1,000 unit) tablet (Vitamin D3) cyanocobalamin (vitamin B-12) 1,000 mcg PO QAM 12/22/22 12/29/22 History 1,000 mcg tablet (Vitamin B-12) insulin aspart U-100 100 unit/mL 22 unit subcut TIDM 12/22/22 12/29/22 History (3 mL) subcutaneous pen (Novolog FlexPen U-100 Insulin aspart) insulin glargine 100 unit/mL (3 35 unit subcut QDB 12/22/22 12/29/22 History mL) subcutaneous pen (Basaglar KwikPen U-100 Insulin) isosorbide mononitrate 60 mg 60 mg PO QAM 12/22/22 12/29/22 History tablet,extended release 24 hr linagliptin 5 mg tablet (Tradjenta) 5 mg PO QDL 12/22/22 12/29/22 History losartan 50 mg tablet 50 mg PO BID 12/22/22 12/29/22 History metformin 500 mg tablet 500 mg PO BIDM 12/22/22 12/29/22 History metoprolol tartrate 25 mg tablet 12.5 mg PO BID 12/22/22 12/29/22 History netarsudil 0.02 %-latanoprost 1 drp OPB HS 12/22/22 12/29/22 History 0.005 % eye drops (Rocklatan) pantoprazole 40 mg tablet,delayed 40 mg PO Q2D 12/22/22 12/29/22 History release timolol maleate 0.5 % eye drops 1 drp OPB QAM 12/22/22 12/29/22 History codeine 10 mg-guaifenesin 100 mg/5 10 ml PO Q6H PRN cough #120 mL 12/25/22 12/29/22 Rx mL oral liquid fluticasone propionate 50 2 spray NA HS #16 grams 12/25/22 12/29/22 Rx mcg/actuation nasal spray,suspension Past Med/Surg History Medical History CKD (chronic kidney disease), stage III Hyponatremia CAD (coronary artery disease) COVID History of Mohs micrographic surgery for skin cancer Surgical History History of cholecystectomy Family History Other No family history of adverse response to anesthesia No family history of bleeding disorder No significant family history Social History Smoking Status: Never smoker Tobacco Type: Cigars Cigarettes Per Day: 1 CIGAR/DAY; Second Hand Exposure: No; Do You Dip or Chew Tobacco: No; Hx Alcohol Use: No Hx Substance Use: No Preferred Language: Mohawk Communication Ability: Effective Photo Graphics Librarian Required: No Beliefs That Will Affect Care: None marital status: Current Living Situation: Alone current occupational status: retired Feels Safe at Home: Yes Assistive Devices: None Review of Systems Review of Systems: All systems reviewed & are unremarkable except as noted in HPI & below Physical Exam Physical Exam: General- Not in distress. Head- atraumatic Eyes- PERRL. ENT- oropharynx clear Neck- supple, no JVD. Lungs- clear to auscultation no wheezing or crackles. Heart- regular rhythm; no murmur, no gallop. Abdomen- normal bowel sounds, soft, nontender, no distension. Extremities- no pretibial edema, no erythema seen. Neuro- alert, and awake.; PERRL, no facial palsy; no dysarthria; obeys commands, moves extremities. Skin- warm & dry Results & Data Results & Data Vital Signs (Past 12 Hours) Vital Signs Temp Pulse Pulse Resp BP BP Pulse Ox 12/29/22 23:00 82 23 96 12/29/22 23:00 136/68 12/29/22 23:00 85 18 136/68 96 12/29/22 22:34 88 L 12/29/22 22:30 123/66 12/29/22 22:30 81 22 94 12/29/22 22:19 92 12/29/22 22:00 80 22 91 12/29/22 21:43 85 20 93 12/29/22 21:43 85 12/29/22 19:38 37.4 C 90 22 141/84 H 94 O2 Del Method O2 Flow Rate 12/29/22 23:00 12/29/22 23:00 12/29/22 23:00 Nasal Cannula 2 12/29/22 22:34 Room Air 12/29/22 22:30 12/29/22 22:30 12/29/22 22:19 Room Air 12/29/22 22:00 12/29/22 21:43 12/29/22 21:43 12/29/22 19:38 Room Air Diagnostic Findings Laboratory Results WBC 9.98 K/ul (4.8-10.8) 12/29/22 19:56 RBC 2.69 M/uL (4.70-6.10) L 12/29/22 19:56 Hgb 8.0 g/dl (14.0-18.0) L 12/29/22 19:56 Hct 22.9 % (42.0-52.0) L 12/29/22 19:56 MCV 85.1 fL (80.0-100.0) 12/29/22 19:56 MCH 29.7 pg (25.0-34.0) 12/29/22 19:56 MCHC 34.9 g/dL (32.0-36.0) 12/29/22 19:56 RDW Std Deviation 45.9 fL (36.4-46.3) 12/29/22 19:56 RDW Coeff of Madina 14.7 % (11.5-14.5) H 12/29/22 19:56 Plt Count 322 K/uL (130-400) 12/29/22 19:56 MPV 9.4 fL (9.4-12.4) 12/29/22 19:56 Immature Gran % (Auto) 2.2 % 12/29/22 19:56 Neut % (Auto) 85.5 % 12/29/22 19:56 Lymph % (Auto) 3.3 % 12/29/22 19:56 Calvert % (Auto) 8.2 % 12/29/22 19:56 Eos % (Auto) 0.6 % 12/29/22 19:56 Baso % (Auto) 0.2 % 12/29/22 19:56 Neut # (Auto) 8.53 K/uL (1.40-6.50) H 12/29/22 19:56 Lymph # (Auto) 0.33 K/uL (1.20-3.40) L 12/29/22 19:56 Calvert # (Auto) 0.82 K/uL (0.11-0.59) H 12/29/22 19:56 Eos # (Auto) 0.06 K/uL (0.00-0.50) 12/29/22 19:56 Baso # (Auto) 0.02 K/uL (0.00-0.20) 12/29/22 19:56 Immature Gran # (Auto) 0.22 K/uL (0.01-0.20) H 12/29/22 19:56 Sodium 126 mmol/L (136-145) L 12/29/22 19:56 Potassium 3.8 mmol/L (3.5-5.1) 12/29/22 19:56 Chloride 99 mmol/L (98-107) 12/29/22 19:56 Carbon Dioxide 17 mmol/L (21-32) L 12/29/22 19:56 Anion Gap 10 (3-11) 12/29/22 19:56 BUN 62 mg/dl (6-23) H 12/29/22 19:56 Creatinine 2.88 mg/dl (0.6-1.4) H 12/29/22 19:56 Est Cr Clr Drug Dosing Not Reportable 12/29/22 19:56 Est GFR ( Amer) 22.2 ml/min 12/29/22 19:56 Est GFR (Non-Af Amer) 19.2 ml/min 12/29/22 19:56 BUN/Creatinine Ratio 21.5 (10-20) H 12/29/22 19:56 Glucose 199 mg/dl (70-99(Fasting)) H 12/29/22 19:56 Calcium 8.6 mg/dl (8.6-10.3) 12/29/22 19:56 Total Bilirubin 0.8 mg/dl (0.2-1.0) 12/29/22 19:56 AST 93 U/L (13-39) H 12/29/22 19:56 ALT 99 U/L (7-52) H 12/29/22 19:56 Alkaline Phosphatase 93 U/L (34-104) 12/29/22 19:56 Troponin I High Sens 11.3 pg/ml (0-20) 12/29/22 19:56 Total Protein 7.0 gm/dl (6.0-8.3) 12/29/22 19:56 Albumin 3.3 gm/dl (3.4-5.0) L 12/29/22 19:56 Globulin 3.7 gm/dl (2.5-4.0) 12/29/22 19:56 Albumin/Globulin Ratio 0.9 (0.9-2) 12/29/22 19:56 Lipase 28 U/L (11-82) 12/29/22 19:56 Impressions Abdomen/Pelvis CT 12/29/22 21:19 Exam(s): CT ABDOMEN + PELVIS Without Contrast EXAM: CT Abdomen and Pelvis Without Intravenous Contrast CLINICAL HISTORY: Reason for exam: ro sbo. TECHNIQUE: Axial computed tomography images of the abdomen and pelvis without intravenous contrast. CTDI is 39.03 mGy and DLP is 2141.08 mGy-cm. Automated exposure control was utilized for the study. A dose lowering technique was utilized adhering to the principles of ALARA. COMPARISON: No relevant prior studies available. FINDINGS: Lung bases: Bilateral lower lobe parenchymal opacities concerning for an infectious etiology. High density material within the left base parenchyma concerning for aspiration. ABDOMEN: Liver: Unremarkable. Gallbladder and bile ducts: Gallbladder has been removed. No ductal dilation. Pancreas: Unremarkable. No ductal dilation. Spleen: Unremarkable. No splenomegaly. Adrenals: Unremarkable. No mass. Kidneys and ureters: 1.4 cm simple cyst arising off the mid to inferior right kidney. No further workup is required. No obstructing stones. No hydronephrosis. Stomach and bowel: Small hiatal hernia. No obstruction. No mucosal thickening. PELVIS: Appendix: No findings to suggest acute appendicitis. Bladder: Unremarkable. No stones. Reproductive: Unremarkable as visualized. ABDOMEN and PELVIS: Intraperitoneal space: Unremarkable. No free air. No significant fluid collection. Bones/joints: No acute fracture. No dislocation. Soft tissues: Unremarkable. Vasculature: Unremarkable. No abdominal aortic aneurysm. Lymph nodes: Unremarkable. No enlarged lymph nodes. IMPRESSION: Bilateral lower lobe parenchymal opacities concerning for an infectious etiology. High density material within the left base parenchyma concerning for aspiration. No acute abdominal or pelvic process. No evidence of bowel obstruction. Electronically signed by: Aditya Estrella M.D. 12/29/22 22:[address] 12/29/22 21:20 Exam(s): CT HEAD Without Contrast EXAM: CT Head Without Intravenous Contrast CLINICAL HISTORY: Reason for exam: cionfusion. TECHNIQUE: Axial computed tomography images of the head/brain without intravenous contrast. CTDI is 39.03 mGy and DLP is 2114.08 mGy-cm. Automated exposure control was utilized for the study. A dose lowering technique was utilized adhering to the principles of ALARA. COMPARISON: No relevant prior studies available. FINDINGS: Brain: Unremarkable. No hemorrhage. No significant white matter disease. No edema. Ventricles: Unremarkable. No ventriculomegaly. Bones/joints: Unremarkable. No acute fracture. Soft tissues: Unremarkable. Sinuses: Air-fluid levels within bilateral maxillary sinuses and left frontal sinus. Near complete opacification of bilateral ethmoid air cells. Mastoid air cells: Unremarkable as visualized. No mastoid effusion. IMPRESSION: No acute intracranial abnormality. Air-fluid levels within bilateral maxillary sinuses and left frontal sinus. Electronically signed by: Aditya Estrella M.D. 12/29/22 22:30 PM ECG Additional Comments: ECG. Sinus rhythm with first-degree AV block with frequent PVCs and PACs at a rate of 90. No acute ST changes seen Code Status & VTE Plan VTE Prophylaxis Plan VTE Prophylaxis will be ordered: Yes
[2022-12-30] MEDS ORDERED: SODIUM CHLORIDE 0.9% 1,000 ML IV SCH ×2 (04:41→11:15)
[2022-12-30] MEDS ORDERED: GLUCOSE 40% GEL 15 GM TUBE PO PRN (04:41)
[2022-12-30] MEDS ORDERED: guaiFENesin/CODEINE 100MG/10MG 5ML UDC PO PRN (04:41)
[2022-12-30] MEDS ORDERED: GLUCAGON FOR INJ 1 MG VIAL SQ PRN (04:41)
[2022-12-30] MEDS ORDERED: DEXTROSE 50% 50 ML SYRINGE IV PRN (04:41)
[2022-12-30] MEDS ORDERED: CARBOHYDRATES FOR HYPOGLYCEMIA PO PRN (04:41)
[2022-12-30] MEDS ORDERED: PIPERACILLIN/TAZOBACTAM 2.25 GM in DEXTROSE 5% MINI-B 100 ML IV SCH (04:41)
[2022-12-30] MEDS ORDERED: GLUCOSE 10 TAB/TUBE PO PRN (04:41)
[2022-12-30] MEDS ORDERED: PHARMACY GLYCEMIC MGMT CONSULT PRN (04:41)
[2022-12-30] MEDS ORDERED: NITROGLYCERIN SL 0.4 MG/TAB TAB SL PRN (04:41)
[2022-12-30] MEDS ORDERED: ACETAMINOPHEN 325 MG TAB PO PRN (04:41)
[2022-12-30] MEDS ORDERED: DOXYCYCLINE HYCLATE 100 MG in DEXTROSE 5% MINI-B 100 ML IV STA (04:55)
[2022-12-30] MEDS: HEPARIN SOD 5,000 UNIT/0.5 ML VIAL SQ SCH ×3 (05:59→20:55)
[2022-12-30 06:35] LABS: Hematocrit (blood only) 24.2 % (42.0-52.0); Hemoglobin 8.4 g/dl (14.0-18.0); Mean Corpuscular Hemoglobin 29.9 pg (25.0-34.0); Mean Corpuscular Hgb Conc 34.7 g/dL (32.0-36.0); Mean Corpuscular Volume 86.1 fL (80.0-100.0); Mean Platelet Volume 9.7 fL (9.4-12.4); Platelet Count 313 K/uL (130-400); RDW Coefficient of Variation 14.7 % (11.5-14.5); RDW Standard Deviation 47.1 fL (36.4-46.3); Red Blood Count 2.81 M/uL (4.70-6.10); White Blood Count 10.35 K/ul (4.8-10.8)
[2022-12-30 06:40] LABS: BUN Creatinine Ratio 22.3 (10-20); Calcium 8.6 mg/dl (8.6-10.3); Creatinine Clr Calc Pharmacy 23.3 ml/min; Est GFR (African American) 25.1 ml/min; Est GFR (Non-African American) 21.7 ml/min; Magnesium 1.9 mg/dl (1.7-2.4); Potassium 4.5 mmol/L (3.5-5.1)
[2022-12-30] MEDS ORDERED: Nursing to Pharmacy Communication SCH (06:45)
[2022-12-30 07:13] LABS: Basophils # (auto) 0.02 K/uL (0.00-0.20); Basophils % (auto) 0.2 %; Eosinophils # (auto) 0.01 K/uL (0.00-0.50); Eosinophils % (auto) 0.1 %; Immature Granulocytes # (auto) 0.25 K/uL (0.01-0.20); Immature Granulocytes % (auto) 2.4 %; Lymphocytes % (auto) 2.9 %; Monocytes # (auto) 0.21 K/uL (0.11-0.59); Neutrophils # (auto) 9.56 K/uL (1.40-6.50); Neutrophils % (auto) 92.4 %
[2022-12-30] MEDS ORDERED: LANTUS PER UNIT CHARGE SQ SCH (07:30)
[2022-12-30] MEDS ORDERED: INSULIN HUMAN REGULAR PER UNIT 4 UNITS in SYRINGE 3.96 ML IV ONE (07:45)
--- NOTE | 2022-12-30 08:04 | XRay Report ---
XR chest 1V portable CLINICAL HISTORY: Chest pain, nonspecific, covid + TECHNIQUE: Single frontal radiograph of the chest was obtained. Comparison: Comparison is made to chest radiograph 12/22/2022 FINDINGS: No lines and tubes are seen. Calcified aortic knob is seen. Faint bibasilar airspace opacities are se en. No evidence of pleural effusion or pneumothorax. IMPRESSION: Faint bibasilar airspace opacities which may represent atelectasis and/or pneumonia. ACT 112: Negative or not required by law. Electronically signed by: Geovanny Barbosa M.D. 12/30/2022 8:03 AM
[2022-12-30] MEDS: INSULIN ASPART PER UNIT CHARGE SC SCH ×6 (08:14→20:46)
[2022-12-30] MEDS: PIPER/TAZO 4.5g in D5W MINI-B 100 ML IV SCH ×2 (08:16→15:15)
[2022-12-30] MEDS: CHOLECALCIFEROL 1,000 UNITS 25 MCG TAB PO SCH (08:21)
[2022-12-30] MEDS: ISOSORBIDE MONO EXTENDED REL 60 MG TABCR PO SCH (08:21)
[2022-12-30] MEDS: CYANOCOBALAMIN (B-12) 500 MCG TABLET PO SCH (08:21)
[2022-12-30] MEDS: TIMOLOL MALEATE 0.5% OP SOLN 5 ML BTL OPB SCH (08:22)
[2022-12-30] MEDS ORDERED: STAT IV Infusion **Titration per Protocol STA (08:46)
[2022-12-30] MEDS ORDERED: DKA GOAL RANGE 150-250 mg/dl ONE (08:46)
[2022-12-30] MEDS: FLUTICASONE FUROATE 100MCG 14 PUFFS/INHALER INH SCH (08:53)
[2022-12-30] MEDS ORDERED: FUROSEMIDE INJ 20 MG/2 ML VIAL IV ONE (08:56)
[2022-12-30] MEDS ORDERED: NovoLIN-N (NPH) PER UNIT CHARGE SQ SCH (09:00)
[2022-12-30] MEDS ORDERED: dexAMETHasone 6 MG in SYRINGE 0 ML IV SCH (09:00)
[2022-12-30] MEDS ORDERED: PLASMA-LYTE A 1,000 ML IV SCH (09:00)
[2022-12-30 09:02] LABS: Estimated Average Glucose 177 mg/dl; Hemoglobin A1C 7.8 % (4.5-5.6)
[2022-12-30] MEDS ORDERED: PENDING D5 1/2NS+20mEq KCL IVF SCH (09:15)
[2022-12-30] MEDS ORDERED: SODIUM CHLOR 0.45% + 20MEQ KCL 20 MEQ/1,000 ML BAG IV SCH (09:15)
[2022-12-30 09:28] LABS: Appearance Urine Clear (Clear); Bacteria Urine Automated Negative (Negative); Bilirubin Urine Negative (Negative); Blood Urine 1+ (Negative); Cast Urine Automated 0 /lpf (0-5); Color Urine Yellow; Epithelial Cell Urine Auto 0-5 /lpf (0-5); Glucose Urine UA 2+ (Negative); Ketones Urine Trace (Negative); Leukocyte Esterase Urine Negative (Negative); Nitrite Urine Negative (Negative); Protein Urine 1+ (Negative); RBC Urine Automated 0-4 /hpf (0-4); Specific Gravity Urine 1.013 (1.000-1.030); Urobilinogen Urine Negative (Negative); WBC Urine Automated 0 /hpf (0-5); pH Urine 5.5 (4.5-7.5)
[2022-12-30 10:26] LABS: BUN Creatinine Ratio 23.2 (10-20); Calcium 8.6 mg/dl (8.6-10.3); Creatinine Clr Calc Pharmacy 23.4 ml/min; Est GFR (African American) 25.2 ml/min; Est GFR (Non-African American) 21.8 ml/min; Magnesium 1.8 mg/dl (1.7-2.4); Phosphorus 4.1 mg/dl (2.5-4.9)
[2022-12-30] MEDS: INSULIN REGULAR 250 UNITS in SODIUM CHLORIDE 0.9% 247.5 ML IV SCH (10:52)
[2022-12-30] MEDS: METOPROLOL TARTRATE 25 MG TAB PO SCH ×2 (11:01→20:55)
[2022-12-30] MEDS: ASPIRIN 81 MG ECTAB PO SCH (11:01)
--- NOTE | 2022-12-30 11:07 | Nephrology Consultation ---
Date of Consultation December 30, 2022 Assessment & Plan (1) Aspiration pneumonia: (2) COVID-19: As per primary team. Getting Zosyn. Recent COVID-19 infection reviewed. Not unusual to have some worsening kidney function and hyponatremia in the (3) Acute hyponatremia: Most recent sodium is 129 but corrected for high glucose corrected sodium is 133 which is only mildly abnormal. Based on his blood pressure physical examination he does not appear to be volume depleted. 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 Stop half-normal saline. Use of normal saline at 80 mill per hour. As the blood glucose gets better expect the sodium to get better. Since the corrected sodium is 133 there is no need to do very frequent sodium Check. Once daily is enough. Encourage high-protein intake with solid food. Limit free fluid to 1500 mL/day. Current sodium is really no different than what he had at the time of discharge 5 days ago. History of Present Illness Reason for Consultation: ANUP and Hyponatremia Attending Physician: Kathryn Chaidez MD History of Present Illness 82/M with type 2 diabetes, hypertension, CKD stage III--recent baseline creat around 2, CAD s/p stent was recently in the hospital with hyponatremia and COVID and discharged . He was brought by son because patient was getting somewhat disoriented at home. Patient lives alone. Son lives close by. Since his discharge first few days son and his stayed with him. He seemed doing okay first few days. Poor appetite. On and off confusion. Had mild fever. His COVID symptoms were sore throat and cough. Cough is improving. Denies any headache or body ache. No nausea/ vomiting or diarrhea. Denies any chest pain no shortness of breath. No abdominal pain. At home son was checking his pulse ox and was ranging from 89 to 92%. Patient is not very clear about what all has happened in the last few weeks. Son was not present at the bedside. On admission yesterday sodium was 126 creatinine was 2.9 and Overnight got some iv fluids. This AM creat 2.6 and Na 129 but corrected for glucose--Corrected sodium is 133. Urine osmolarity 339 urine sodium 36. Also appears patient got 1 dose of Lasix 20 iv. His vital signs appears to be fine and he is not requiring any oxygen. Did not have any low blood pressure. Patient admitted not eating much at home but it is not clear how much he was drinking. Review of system----unable to obtain as patient really is not able to give even basic history. Physical examination Elderly white male who is not in any overt respiratory distress his blood pressure is 159/71 pulse of 84 temperature 36.496% on room air. Mucous membrane is moist neck is supple no JVD Chest bilateral decreased breath sound but poor inspiratory effort occasional crackle CVS S1-S2 regular. Trace edema noted Abdomen is soft nontender Extremities there is trace edema Skin did not show any rash Allergies Allergy/AdvReac Type Severity Reaction Status Date / Time metronidazole Allergy Mild Rash Verified 12/29/22 22:59 GIGI Inhibitors Allergy Unknown EDEMA- Verified 12/29/22 22:59 LOWER EXTREMITIES niacin Allergy Unknown RASH Verified 12/29/22 22:59 Home Medications Medication Instructions Recorded Confirmed Type fluocinolone acetonide oil 0.01 % See Rx Instructions otic (ear) 01/29/21 12/29/22 Rx ear drops .COMPLEX ear itching #20 mL amlodipine 2.5 mg tablet 2.5 mg PO HS 12/22/22 12/29/22 History aspirin 81 mg tablet,delayed 81 mg PO QDL 12/22/22 12/29/22 History release atorvastatin 10 mg tablet 10 mg PO QDD 12/22/22 12/29/22 History brinzolamide 1 %-brimonidine 0.2 % 1 drp OPB AMPM 12/22/22 12/29/22 History eye drops,suspension (Simbrinza) cholecalciferol (vitamin D3) 25 25 mcg PO QAM 12/22/22 12/29/22 History mcg (1,000 unit) tablet (Vitamin D3) cyanocobalamin (vitamin B-12) 1,000 mcg PO QAM 12/22/22 12/29/22 History 1,000 mcg tablet (Vitamin B-12) insulin aspart U-100 100 unit/mL 22 unit subcut TIDM 12/22/22 12/29/22 History (3 mL) subcutaneous pen (Novolog FlexPen U-100 Insulin aspart) insulin glargine 100 unit/mL (3 35 unit subcut QDB 12/22/22 12/29/22 History mL) subcutaneous pen (Basaglar KwikPen U-100 Insulin) isosorbide mononitrate 60 mg 60 mg PO QAM 12/22/22 12/29/22 History tablet,extended release 24 hr linagliptin 5 mg tablet (Tradjenta) 5 mg PO QDL 12/22/22 12/29/22 History losartan 50 mg tablet 50 mg PO BID 12/22/22 12/29/22 History metformin 500 mg tablet 500 mg PO BIDM 12/22/22 12/29/22 History metoprolol tartrate 25 mg tablet 12.5 mg PO BID 12/22/22 12/29/22 History netarsudil 0.02 %-latanoprost 1 drp OPB HS 12/22/22 12/29/22 History 0.005 % eye drops (Rocklatan) pantoprazole 40 mg tablet,delayed 40 mg PO Q2D 12/22/22 12/29/22 History release timolol maleate 0.5 % eye drops 1 drp OPB QAM 12/22/22 12/29/22 History codeine 10 mg-guaifenesin 100 mg/5 10 ml PO Q6H PRN cough #120 mL 12/25/22 12/29/22 Rx mL oral liquid fluticasone propionate 50 2 spray NA HS #16 grams 12/25/22 12/29/22 Rx mcg/actuation nasal spray,suspension Patient History Medical History CKD (chronic kidney disease), stage III Hyponatremia CAD (coronary artery disease) COVID History of Mohs micrographic surgery for skin cancer Surgical History History of cholecystectomy Family History Other No family history of adverse response to anesthesia No family history of bleeding disorder No significant family history Social History Smoking Status: Never smoker Tobacco Type: Cigars Cigarettes Per Day: 1 CIGAR/DAY; Second Hand Exposure: No; Do You Dip or Chew Tobacco: No; Hx Alcohol Use: No Hx Substance Use: No Preferred Language: Turkmen Communication Ability: Effective Health Information Internship Required: No Beliefs That Will Affect Care: None marital status: Current Living Situation: Alone Current Living Situation Comment: HOME ALONE current occupational status: retired Other Information That Helps Us Care for You: No Feels Safe at Home: Yes Safety Concerns: Feels Safe At This Time Assistive Devices: Glasses and Hearing Aid - Bilateral Results & Data Vital Signs (Past 12 Hours) Vital Signs Temp Pulse Pulse Pulse Resp BP Pulse Ox 12/30/22 09:59 84 12/30/22 09:58 36.4 C L 85 18 159/71 H 96 12/30/22 09:55 12/30/22 07:52 36.5 C 79 79 16 155/74 H 80 L 12/30/22 06:57 81 12/30/22 04:51 73 20 143/73 H 92 12/30/22 04:47 84 20 143/73 H 97 12/30/22 04:46 73 18 92 12/30/22 03:52 82 20 158/88 H 97 12/30/22 01:37 74 12/30/22 01:22 79 18 145/71 H 94 O2 Del Method O2 Flow Rate 12/30/22 09:59 12/30/22 09:58 Room Air 12/30/22 09:55 Nasal Cannula 2 12/30/22 07:52 Nasal Cannula 2 12/30/22 06:57 12/30/22 04:51 Nasal Cannula 2 12/30/22 04:47 Nasal Cannula 2 12/30/22 04:46 Nasal Cannula 2 12/30/22 03:52 Room Air 12/30/22 01:37 12/30/22 01:22 Nasal Cannula 2 (1) Aspiration pneumonia Aspiration pneumonia type: unspecified Laterality: unspecified laterality Lung location: unspecified part of lung Qualified Code(s): J69.0 - Pneumonitis due to inhalation of food and vomit
[2022-12-30] MEDS ORDERED: PENDING D5NSS IVF SCH (12:30)
--- NOTE | 2022-12-30 12:59 | Electrocardiogram Report ---
Test Reason : Blood Pressure : / mmHG Vent. Rate : 090 BPM Atrial Rate : 090 BPM P-R Int : 336 ms QRS Dur : 080 ms QT Int : 378 ms P-R-T Axes : 024 018 044 degrees QTc Int : 462 ms Probable Atrial fibrillation with premature ventricular or aberrantly conducted complexes Abnormal ECG When compared with ECG of 22-DEC-2022 18:16, Nonspecific T wave abnormality no longer evident in Lateral leads Confirmed by Juancho Barreto ([id number]) on 12/30/2022 12:59:34 PM Referred By: REFERRED SELF Confirmed By:Juancho Barreto
--- NOTE | 2022-12-30 13:20 | Pharmacy Report ---
Pharmacy Glycemic Short Note 2 - Date of Service December 30, 2022 - Glycemic Short BSG Results (Last 24 hours): 12/29/22 12/30/22 12/30/22 19:56 05:50 07:23 Glucose 199 H 263 H POC Glucose 301 H* 12/30/22 12/30/22 12/30/22 07:29 09:08 09:10 Glucose POC Glucose 314 H* 345 H* 365 H* 12/30/22 12/30/22 12/30/22 09:44 09:53 10:53 Glucose 332 H* POC Glucose 359 H* 327 H* 12/30/22 12/30/22 12:03 12:57 Glucose POC Glucose 279 H 212 H OUTPATIENT ANTIDIABETIC REGIMEN: * Novolog 22 units TIDM, Lantus 35 units QAM, Tradjenta 5 mg, Metformin 500 mg BID * A1c 7.8% 12/30 ASSESSMENT: * Patient admitted with COVID + pneumonia. Administered 6 mg IV dexamethasone overnight, ongoing daily * BSGs elevated in the setting of steroids, patient received home lantus dose this morning, in addition to 10 units of novolog and 4 unit IV bolus * Initiated on Insulin drip following new anion gap, patient appears to have low bicarb at baseline (CKD stage III), currently following DKA protocol * Potassium was removed from bag given CKD history, monitor potassium, may need replaced outside of LVF. * Dextrose added to fluid with BSG in goal range- continue to monitor. PLAN FOR INPATIENT GLYCEMIC CONTROL: * Hold outpatient oral diabetes medications * Basal insulin * Lantus 35 units SQ qAM- now on hold * Insulin infusion at 7.1 units/hr
[2022-12-30 13:26] LABS: BUN Creatinine Ratio 23.1 (10-20); Calcium 9.3 mg/dl (8.6-10.3); Creatinine Clr Calc Pharmacy 23.3 ml/min; Est GFR (African American) 25.1 ml/min; Est GFR (Non-African American) 21.7 ml/min; Magnesium 1.9 mg/dl (1.7-2.4); Phosphorus 3.2 mg/dl (2.5-4.9); Potassium 4.1 mmol/L (3.5-5.1)
[2022-12-30] MEDS: D5W AND NSS 1,000 ML IV SCH (14:34)
[2022-12-30] MEDS: ATORVASTATIN 10 MG TAB PO SCH (15:21)
[2022-12-30 17:11] LABS: BUN Creatinine Ratio 22.8 (10-20); Creatinine Clr Calc Pharmacy 23.1 ml/min; Est GFR (African American) 24.8 ml/min; Est GFR (Non-African American) 21.4 ml/min; Magnesium 1.9 mg/dl (1.7-2.4); Phosphorus 2.9 mg/dl (2.5-4.9); Potassium 4.2 mmol/L (3.5-5.1)
--- NOTE | 2022-12-30 17:28 | Communication Note ---
Date of Service: December 30, 2022 Post-Admit addendum: Mr. Martínez is a 52-year-old male with past medical history significant for type 2 diabetes, hyperlipidemia, hypertension, CKD stage III, CAD s/p stent, hypertension, vitamin B12 deficiency, GERD, primary open-angle glaucoma bilateral, history of herpes zoster, was recently in the hospital with hyponatremia and COVID [discharged 12/25] was brought in for dehydration and confusion and admitted for progressive hyponatremia. Patient was started on IV decadron given concern of acute hypoxic respiratory failure iso COVID pneumonia. AM labs returned and labs suspicious for DKA given new anion gap, acidosis, and glucose in 300s--as well as notably dilute urine and relatively normal serum osmo. Patient appeared dry on exam; however, lungs with basilar crackles and cephalization on imaging. It was decided to start insulin drip for optimal glucose control, improvement of acidosis, as well as discontinue decadron to prevent further glycemic insult. #Hyponatremia Sodium 126, iso hyperglycemia, with SIADH component per Nephrology Nephrology on consult: Encourage high solute diet, NS 80/hr Free fluid limit 1500 Correct glucose #Mild Diabetic Ketoacidosis UA +Ketone, VBG 7.32, HCO3 16, small gap 12 Insulin drip for glucose monitoring until acidosis improved (goal HCO3 >18) Discontinue steroids Diabetic diet #Acute hypoxic respiratory failure, possible multifactorial #COVID 19 Vaccinated and boosted Last booster was last year in December Will obtain BNP and consider ECHO COVID precautions Empiric zosyn doxy, follow clinical improvement #ANUP on chronic kidney disease stage III Baseline creatinine around 2 Present creatinine of 2.8 We will hold losartan Avoid nephrotoxic agents Getting gentle fluids Follow repeat labs in a.m. #Normocytic Anemia Hemoglobin 8 Was 9-10 last admission We will check stool for Hemoccult. Anemia labs for am #Diabetes Hold metformin and Tradjenta and home NovoLog Insulin drip as above #CAD s/p stent On aspirin, statin, Imdur and beta-erendira #Hypertension On metoprolol and Imdur and amlodipine Holding losartan We will monitor DVT prophylaxis Heparin subcu Disposition Med/telemetry
[2022-12-30] MEDS: POLYETHYLENE (MIRALAX) 17 GM PACK PO PRN (18:28)
[2022-12-30] MEDS: FLUTICASONE PROPIONATE NA SPR 16 GM BTL SCH (20:33)
[2022-12-30] MEDS ORDERED: amLODIPine BESYLATE 5 MG TAB PO SCH (21:00)
[2022-12-30 21:43] LABS: Calcium 9.3 mg/dl (8.6-10.3); Creatinine Clr Calc Pharmacy 21.1 ml/min; Est GFR (African American) 22.3 ml/min; Est GFR (Non-African American) 19.2 ml/min; Magnesium 1.9 mg/dl (1.7-2.4); Phosphorus 3.1 mg/dl (2.5-4.9); Potassium 3.7 mmol/L (3.5-5.1)
[2022-12-31] MEDS: PIPER/TAZO 4.5g in D5W MINI-B 100 ML IV SCH ×4 (00:45→23:33)
[2022-12-31 01:27] LABS: Calcium 9.3 mg/dl (8.6-10.3); Creatinine Clr Calc Pharmacy 21.8 ml/min; Est GFR (African American) 23.2 ml/min; Magnesium 1.9 mg/dl (1.7-2.4); Phosphorus 3.4 mg/dl (2.5-4.9); Potassium 3.8 mmol/L (3.5-5.1)
[2022-12-31] MEDS: D5W AND NSS 1,000 ML IV SCH (04:03)
[2022-12-31] MEDS: HEPARIN SOD 5,000 UNIT/0.5 ML VIAL SQ SCH ×3 (06:00→19:50)
[2022-12-31 06:27] LABS: BUN Creatinine Ratio 23.4 (10-20); Calcium 8.9 mg/dl (8.6-10.3); Creatinine Clr Calc Pharmacy 22.2 ml/min; Est GFR (African American) 23.7 ml/min; Est GFR (Non-African American) 20.4 ml/min; Magnesium 1.9 mg/dl (1.7-2.4); Phosphorus 3.9 mg/dl (2.5-4.9); Potassium 3.8 mmol/L (3.5-5.1)
[2022-12-31] MEDS ORDERED: POTASSIUM CHLORIDE CRTAB 20 MEQ TABCR PO STA (07:20)
--- NOTE | 2022-12-31 07:20 | Hospitalist Progress Note ---
Date of Service December 31, 2022 Assessment & Plan (1) Acute hyponatremia: (2) DKA (diabetic ketoacidosis): (3) COVID-19: (4) Acute hyponatremia: (5) Hypoxia: Plan Mr. Martínez is a 52-year-old male with past medical history significant for type 2 diabetes, hyperlipidemia, hypertension, CKD stage III, CAD s/p stent, hypertension, vitamin B12 deficiency, GERD, primary open-angle glaucoma bilateral, history of herpes zoster, was recently in the hospital with hyponatremia and COVID [discharged 12/25] was brought in for dehydration and confusion and admitted for progressive hyponatremia. Patient was started on IV decadron given concern of acute hypoxic respiratory failure iso COVID pneumonia. AM labs returned and labs suspicious for impending DKA given new anion gap, acidosis, and glucose in 300s--as well as notably dilute urine and relatively normal serum osmo. Patient appeared dry on exam; however, lungs with basilar crackles and cephalization on imaging. It was decided to start insulin drip for optimal glucose control, improvement of acidosis, as well as discontinue decadron to prevent further glycemic insult. Over the night of 12/30, patient was weened off of oxygen. Patient remains on insulin drip given low bicarb, however, with azotemia and other ongoing ailments, suspect that ANUP is likely contributing to lab abnormalities and bicarb losses. #Constipation -suspect may be contributing partially to some of issues/concerns patient is endorsing, given expressed discomfort -Increase bowel regimen with enema, katelin ducosate and one time bisacodyl -If no BM despite above, will get KUB #Hyponatremia Sodium 126, iso hyperglycemia, with SIADH component per Nephrology Nephrology on consult: Encourage high solute diet, NS 80/hr Free fluid limit 1500 Correct glucose #Generalized weakness Multiple metabolic abnormalities and electrolyte disturbances contributing; COVID contributing factor likely UA negative for infection Signs of questionable aspiration on imaging Continue Zosyn/Doxy, likely deescalate #Uncontrolled Hyperglycemia, concern for looming Diabetic Ketoacidosis UA +Ketone, VBG 7.32, HCO3 16, small gap 12 Insulin drip for glucose monitoring until acidosis improved (goal HCO3 >18) Discontinue steroids Diabetic diet #ANUP on chronic kidney disease stage III Baseline creatinine around 2; Present creatinine of 2.8 We will hold losartan Avoid nephrotoxic agents Getting gentle fluids Follow repeat labs in a.m. #Acute hypoxic respiratory failure, possible multifactorial *resolved #COVID 19 Vaccinated and boosted Last booster was last year in December BNP 179, doesn't appear hypervolemic, ECHO pending COVID precautions Empiric zosyn follow clinical improvement #Normocytic Anemia Hemoglobin 8 Was 9-10 last admission We will check stool for Hemoccult. Anemia labs ordered #Diabetes Hold metformin and Tradjenta and home NovoLog Insulin drip as above #CAD s/p stent On aspirin, statin, Imdur and beta-erendira #Hypertension On metoprolol and Imdur and amlodipine Holding losartan We will monitor DVT prophylaxis Heparin subcu Disposition Med/telemetry Admission and Anticipated Discharge Date Admission Date: December 30, 2022 Subjective Reports urge to pass bowels with minimal success, reports feeling impacted States his energy has improved markedly over 24 hours Endorses cough, but no new acute concerns at this time. Still with sufficent UOP, BG better controlled Review of Systems Review of Systems: All systems reviewed & are unremarkable except as noted in Subjective Physical Exam Constitutional: WD/WN, vitals as above Respiratory: initially dyspnic after returning from washroom, but recovered with rest on edge of bed Musculoskeletal: ambulated to washroom and back without assistance Results & Data Results & Data Vital Signs (Past 12 Hours) Vital Signs Temp Pulse Pulse Resp BP Pulse Ox O2 Del Method 12/31/22 04:00 36.3 C L 71 18 131/63 95 Room Air 12/31/22 02:00 70 12/31/22 00:44 36.5 C 77 20 124/71 96 Room Air 12/30/22 21:35 Room Air 12/30/22 19:35 36.3 C L 102 H 20 154/64 H 97 Nasal Cannula O2 Flow Rate 12/31/22 04:00 12/31/22 02:00 12/31/22 00:44 12/30/22 21:35 12/30/22 19:35 2 Laboratory Results [facility] 12/30/22 12/30/22 12/30/22 09:53 12:39 16:39 Sodium 129 L 131 L 130 L Potassium 4.0 4.1 4.2 Chloride 100 102 102 Carbon Dioxide 16 L 15 L 16 L BUN 60 H 60 H 60 H Creatinine 2.59 H 2.60 H 2.63 H Glucose 332 H* 215 H 211 H Calcium 8.6 9.3 9.0 12/30/22 12/31/22 12/31/22 21:15 00:59 05:33 Sodium 133 L 133 L 133 L Potassium 3.7 3.8 3.8 Chloride 103 104 104 Carbon Dioxide 17 L 16 L 17 L BUN 63 H 64 H 64 H Creatinine 2.87 H 2.78 H 2.73 H Glucose 142 H 118 H 130 H Calcium 9.3 9.3 8.9 Urine 12/30/22 Range/Units 09:08 Urine Color Yellow Urine Appearance Clear (Clear) Urine pH 5.5 (4.5-7.5) Ur Specific Reading 1.013 (1.000-1.030) Urine Protein 1+ H (Negative) Urine Glucose (UA) 2+ H (Negative) Medications Administered Home Medications Medication Instructions Recorded Confirmed Last Taken fluocinolone acetonide oil 0.01 % See Rx Instructions otic (ear) 01/29/21 12/29/22 Unknown ear drops .COMPLEX ear itching #20 mL amlodipine 2.5 mg tablet 2.5 mg PO HS 12/22/22 12/29/22 Unknown aspirin 81 mg tablet,delayed 81 mg PO QDL 12/22/22 12/29/22 Unknown release atorvastatin 10 mg tablet 10 mg PO QDD 12/22/22 12/29/22 Unknown brinzolamide 1 %-brimonidine 0.2 % 1 drp OPB AMPM 12/22/22 12/29/22 Unknown eye drops,suspension (Simbrinza) cholecalciferol (vitamin D3) 25 25 mcg PO QAM 12/22/22 12/29/22 Unknown mcg (1,000 unit) tablet (Vitamin D3) cyanocobalamin (vitamin B-12) 1,000 mcg PO QAM 12/22/22 12/29/22 Unknown 1,000 mcg tablet (Vitamin B-12) insulin aspart U-100 100 unit/mL 22 unit subcut TIDM 12/22/22 12/29/22 Unknown (3 mL) subcutaneous pen (Novolog FlexPen U-100 Insulin aspart) insulin glargine 100 unit/mL (3 35 unit subcut QDB 12/22/22 12/29/22 Unknown mL) subcutaneous pen (Basaglar KwikPen U-100 Insulin) isosorbide mononitrate 60 mg 60 mg PO QAM 12/22/22 12/29/22 Unknown tablet,extended release 24 hr linagliptin 5 mg tablet (Tradjenta) 5 mg PO QDL 12/22/22 12/29/22 Unknown losartan 50 mg tablet 50 mg PO BID 12/22/22 12/29/22 Unknown metformin 500 mg tablet 500 mg PO BIDM 12/22/22 12/29/22 Unknown metoprolol tartrate 25 mg tablet 12.5 mg PO BID 12/22/22 12/29/22 Unknown netarsudil 0.02 %-latanoprost 1 drp OPB HS 12/22/22 12/29/22 Unknown 0.005 % eye drops (Rocklatan) pantoprazole 40 mg tablet,delayed 40 mg PO Q2D 12/22/22 12/29/22 Unknown release timolol maleate 0.5 % eye drops 1 drp OPB QAM 12/22/22 12/29/22 Unknown codeine 10 mg-guaifenesin 100 mg/5 10 ml PO Q6H PRN cough #120 mL 12/25/22 12/29/22 Unknown mL oral liquid fluticasone propionate 50 2 spray NA HS #16 grams 12/25/22 12/29/22 Unknown mcg/actuation nasal spray,suspension Active Medications Generic Name Dose Route Start Last Admin Trade Name Freq PRN Reason Stop Dose Admin Amlodipine Besylate 2.5 mg 12/30/22 21:00 12/30/22 20:32 Amlodipine Besylate 5 Mg Tab PO 01/29/23 20:59 2.5 mg HS KATELIN Administration Aspirin 81 mg 12/30/22 11:30 12/30/22 11:01 Aspirin 81 Mg Ectab PO 01/29/23 11:29 81 mg QDL KATELIN Administration Atorvastatin Calcium 10 mg 12/30/22 16:30 12/30/22 15:21 Atorvastatin 10 Mg Tab PO 01/29/23 16:29 10 mg QDD KATELIN Administration Cyanocobalamin 1,000 mcg 12/30/22 09:00 12/30/22 08:21 Cyanocobalamin (B-12) 500 Mcg Tablet PO 01/29/23 08:59 1,000 mcg QAM KATELIN Administration Fluticasone Furoate 1 puffs 12/30/22 09:00 12/30/22 08:53 Fluticasone Furoate 100mcg 14 Puffs/Inhaler INH 01/29/23 08:59 1 puffs DAILY KATELIN Administration Fluticasone Propionate 2 sprays 12/30/22 21:00 12/30/22 20:33 Fluticasone Propionate Na Spr 16 Gm Btl NA 01/29/23 20:59 2 sprays HS KATELIN Administration Heparin Sodium (Porcine) 5,000 units 12/30/22 06:00 12/31/22 06:00 Heparin Sod 5,000 Unit/0.5 Ml Vial SQ 01/29/23 05:59 5,000 units Q8 KATELIN Administration Piperacillin Sod/Tazobactam 100 mls @ 200 mls/hr 12/30/22 06:00 12/31/22 04:04 Sod 4.5 gm/ Dextrose IV 01/06/23 05:59 Infused Q8H KATELIN Infusion Protocol Insulin Human Regular 250 250 mls @ 2.7 mls/hr 12/30/22 09:00 12/31/22 06:09 units/ Sodium Chloride IV 01/29/23 08:59 2.7 units/hr .Q24H KATELIN 2.7 mls/hr Titration Protocol 2.7 UNITS/HR Dextrose/Sodium Chloride 1,000 mls @ 80 mls/hr 12/30/22 13:15 12/31/22 04:03 D5w And Nss IV 01/29/23 13:14 80 mls/hr .[id number] KATELIN Administration Insulin Aspart 0 units 12/30/22 07:30 12/30/22 08:14 Insulin Aspart Per Unit Charge SC 01/29/23 07:29 10 units ACHS KATELIN Administration Insulin Aspart 0 units 12/30/22 11:30 12/30/22 20:46 Insulin Aspart Per Unit Charge SC 01/29/23 11:29 Not Given ACHS KATELIN Insulin Glargine 35 units 12/30/22 07:30 12/30/22 08:15 Lantus Per Unit Charge SQ 01/29/23 07:29 35 units QDB KATELNI Administration Isosorbide Mononitrate 60 mg 12/30/22 09:00 12/30/22 08:21 Isosorbide [place] Extended Rel 60 Mg Tabcr PO 01/29/23 08:59 60 mg QAM KATELIN Administration Metoprolol Tartrate 12.5 mg 12/30/22 11:30 12/30/22 20:55 Metoprolol Tartrate 25 Mg Tab PO 01/29/23 11:29 12.5 mg BID@1130,2100 KATELIN Administration Miscellaneous 1 each 12/30/22 08:00 12/31/22 00:27 Simbrinza - Order Awaiting Action N/A 01/29/23 07:59 Not Given QS KATELIN Miscellaneous 1 each 12/30/22 08:00 12/31/22 00:27 Netarsudil-Latanoprost [Rocklatan] - Order Awaiting Action N/A 01/29/23 07:59 Not Given QS KATELIN Polyethylene Glycol 17 gm 12/30/22 04:41 12/30/22 18:28 Polyethylene (Miralax) 17 Gm Pack PO 01/29/23 04:40 17 gm DAILY PRN Administration Constipation Timolol Maleate 1 drops 12/30/22 09:00 12/30/22 08:22 Timolol Maleate 0.5% Op Soln 5 Ml Btl OPB 01/29/23 08:59 1 drops QAM [facility] Administration Vitamin D 1,000 units 12/30/22 09:00 12/30/22 08:21 Cholecalciferol 1,000 Units 25 Mcg Tab PO 01/29/23 08:59 1,000 units QAM [facility] Administration
[2022-12-31] MEDS: ASPIRIN 81 MG ECTAB PO SCH (08:05)
[2022-12-31] MEDS: PANTOprazole 40 MG TAB PO SCH (08:05)
[2022-12-31] MEDS: ISOSORBIDE MONO EXTENDED REL 60 MG TABCR PO SCH (08:05)
[2022-12-31] MEDS: CYANOCOBALAMIN (B-12) 500 MCG TABLET PO SCH (08:06)
[2022-12-31] MEDS: TIMOLOL MALEATE 0.5% OP SOLN 5 ML BTL OPB SCH (08:13)
[2022-12-31] MEDS: POLYETHYLENE (MIRALAX) 17 GM PACK PO PRN (08:13)
[2022-12-31] MEDS: FLUTICASONE FUROATE 100MCG 14 PUFFS/INHALER INH SCH (10:01)
[2022-12-31] MEDS: INSULIN ASPART PER UNIT CHARGE SC SCH ×5 (10:07→23:34)
[2022-12-31] MEDS ORDERED: bisacodyL 5 MG TABEC PO ONE (10:15)
[2022-12-31] MEDS: CHOLECALCIFEROL 1,000 UNITS 25 MCG TAB PO SCH (12:20)
[2022-12-31] MEDS: DOCUSATE SODIUM 100 MG CAP PO SCH ×2 (12:20→19:49)
[2022-12-31 12:36] LABS: Hematocrit (blood only) 24.5 % (42.0-52.0); Hemoglobin 8.4 g/dl (14.0-18.0); Mean Corpuscular Hemoglobin 29.5 pg (25.0-34.0); Mean Corpuscular Hgb Conc 34.3 g/dL (32.0-36.0); Mean Platelet Volume 9.5 fL (9.4-12.4); Platelet Count 407 K/uL (130-400); RDW Coefficient of Variation 14.7 % (11.5-14.5); RDW Standard Deviation 46.6 fL (36.4-46.3); Red Blood Count 2.85 M/uL (4.70-6.10); White Blood Count 15.72 K/ul (4.8-10.8)
[2022-12-31] MEDS: METOPROLOL TARTRATE 25 MG TAB PO SCH ×2 (12:38→19:49)
[2022-12-31] MEDS ORDERED: bisacodyL 10 MG SUPP PR STA (14:39)
[2022-12-31] MEDS ORDERED: LANTUS PER UNIT CHARGE SC ONE (14:45)
--- NOTE | 2022-12-31 14:48 | Pharmacy Report ---
Pharmacy Glycemic Short Note 2 - Date of Service December 31, 2022 - Glycemic Short BSG Results (Last 24 hours): 12/30/22 12/30/22 12/30/22 15:09 16:02 16:39 Glucose 211 H POC Glucose 187 H 219 H 12/30/22 12/30/22 12/30/22 17:01 18:08 19:00 Glucose POC Glucose 245 H 256 H 274 H 12/30/22 12/30/22 12/30/22 20:05 21:02 21:15 Glucose 142 H POC Glucose 210 H 184 H 12/30/22 12/30/22 12/31/22 22:01 22:52 00:09 Glucose POC Glucose 142 H 132 H 135 H 12/31/22 12/31/22 12/31/22 00:59 01:06 02:04 Glucose 118 H POC Glucose 135 H 128 H 12/31/22 12/31/22 12/31/22 03:01 04:07 04:59 Glucose POC Glucose 130 H 125 H 130 H 12/31/22 12/31/22 12/31/22 05:33 06:04 07:15 Glucose 130 H POC Glucose 136 H 158 H 12/31/22 12/31/22 12/31/22 08:03 10:03 12:10 Glucose POC Glucose 173 H 248 H 241 H 12/31/22 14:15 Glucose POC Glucose 201 H OUTPATIENT ANTIDIABETIC REGIMEN: * Novolog 22 units TIDM, Lantus 35 units QAM, Tradjenta 5 mg, Metformin 500 mg BID * A1c 7.8% 12/30 ASSESSMENT: 12/31 * Labs improving more this morning, discussed with provider and okay to start transition off insulin drip. Drip running at 2.7 units/hr since this AM, patient ordered diet. Will give 40 Lantus x 1 now * Discussed with RN, plan to reach out to pharmacy when BSGs < 180 x 2 consecutive checks to discuss d/c of drip. 12/30 * Patient admitted with COVID + pneumonia. Administered 6 mg IV dexamethasone overnight, ongoing daily * BSGs elevated in the setting of steroids, patient received home lantus dose this morning, in addition to 10 units of novolog and 4 unit IV bolus * Initiated on Insulin drip following new anion gap, patient appears to have low bicarb at baseline (CKD stage III), currently following DKA protocol * Potassium was removed from bag given CKD history, monitor potassium, may need replaced outside of LVF. * Dextrose added to fluid with BSG in goal range- continue to monitor. PLAN FOR INPATIENT GLYCEMIC CONTROL: * Hold outpatient oral diabetes medications * Basal insulin * Lantus 40 units x 1 now - overlap with insulin drip * Consider starting novolog 110-140 / CF 20 / CR 6 once insulin drip held
[2022-12-31] MEDS: ATORVASTATIN 10 MG TAB PO SCH (16:04)
[2022-12-31] MEDS: POLYETHYLENE (MIRALAX) 17 GM PACK PO SCH (16:05)
--- NOTE | 2022-12-31 16:20 | XRay Report ---
[facility] CLINICAL HISTORY: severe constipation COMPARISON STUDY: CT of the abdomen and pelvis December 29, 2022. FINDINGS: Cholecystectomy clips are incidentally noted. There is no evidence for a bowel obstruction. A large amount of stool within the rectum has increased in amount since CT of December 29, 2022. Ther e is a moderate amount of stool within the colon. IMPRESSION: 1. Increase in a large amount stool within the rectum since recent CT. Moderate amount of stool withi n the colon. 2. No evidence for a bowel obstruction. ACT 112: Negative or not required by law. Electronically signed by: Wiliam Disla M.D. 12/31/2022 4:18 PM
[2022-12-31 16:29] LABS: BUN Creatinine Ratio 25.1 (10-20); Calcium 9.3 mg/dl (8.6-10.3); Creatinine Clr Calc Pharmacy 22.4 ml/min; Est GFR (African American) 23.9 ml/min; Est GFR (Non-African American) 20.6 ml/min; Potassium 3.8 mmol/L (3.5-5.1)
[2022-12-31 17:28] LABS: Base Excess VBG -9.2 mEq/L; HCO3 VBG 15 mmol/L; Oxygen Saturation VBG < 60.0 %; PCO2 VBG 29 mmHg (38-50); PO2 VBG 37 mmHg; pH VBG 7.33 (7.36-7.41)
[2022-12-31] MEDS: INSULIN REGULAR 250 UNITS in SODIUM CHLORIDE 0.9% 247.5 ML IV SCH (18:01)
[2022-12-31] MEDS: amLODIPine BESYLATE 5 MG TAB PO SCH (19:48)
[2022-12-31] MEDS: FLUTICASONE PROPIONATE NA SPR 16 GM BTL SCH (19:49)
[2023-01-01] MEDS: INSULIN ASPART PER UNIT CHARGE SC SCH ×5 (05:19→21:50)
[2023-01-01] MEDS: HEPARIN SOD 5,000 UNIT/0.5 ML VIAL SQ SCH ×3 (05:41→21:18)
[2023-01-01] MEDS: PIPER/TAZO 4.5g in D5W MINI-B 100 ML IV SCH ×2 (07:17→18:29)
[2023-01-01] MEDS: CYANOCOBALAMIN (B-12) 500 MCG TABLET PO SCH ×2 (07:18→07:22)
[2023-01-01] MEDS: ISOSORBIDE MONO EXTENDED REL 60 MG TABCR PO SCH (07:19)
[2023-01-01] MEDS: POLYETHYLENE (MIRALAX) 17 GM PACK PO SCH (07:20)
[2023-01-01] MEDS: DOCUSATE SODIUM 100 MG CAP PO SCH (07:20)
[2023-01-01] MEDS: TIMOLOL MALEATE 0.5% OP SOLN 5 ML BTL OPB SCH (07:21)
[2023-01-01] MEDS: FLUTICASONE FUROATE 100MCG 14 PUFFS/INHALER INH SCH (07:21)
[2023-01-01] MEDS ORDERED: bisacodyL 5 MG TABEC PO PRN (07:43)
[2023-01-01 08:44] LABS: Hematocrit (blood only) 28.3 % (42.0-52.0); Hemoglobin 9.6 g/dl (14.0-18.0); Mean Corpuscular Hemoglobin 29.8 pg (25.0-34.0); Mean Corpuscular Hgb Conc 33.9 g/dL (32.0-36.0); Mean Corpuscular Volume 87.9 fL (80.0-100.0); Mean Platelet Volume 8.8 fL (9.4-12.4); Platelet Count 531 K/uL (130-400); RDW Coefficient of Variation 15.2 % (11.5-14.5); RDW Standard Deviation 48.6 fL (36.4-46.3); Red Blood Count 3.22 M/uL (4.70-6.10); White Blood Count 17.72 K/ul (4.8-10.8)
[2023-01-01 08:57] LABS: BUN Creatinine Ratio 22.8 (10-20); Calcium 9.4 mg/dl (8.6-10.3); Creatinine Clr Calc Pharmacy 22.4 ml/min; Est GFR (African American) 23.8 ml/min; Est GFR (Non-African American) 20.5 ml/min; Phosphorus 5.4 mg/dl (2.5-4.9); Potassium 3.8 mmol/L (3.5-5.1)
--- NOTE | 2023-01-01 10:28 | Nephrology Progress Note ---
Date of Service January 01, 2023 Assessment & Plan (1) COVID-19: Plan: Recent COVID-19 infection reviewed. Breathing is stable. Not unusual to have some worsening kidney function in setting of COVID infection. Patient has CKD stage III with baseline creatinine of 2. Creatinine of 2.7 today. (2) Acute hyponatremia: Plan: Etiology is likely in setting of CKD and COVID infection. Sodium improving to 135 today. Creatinine stable at 2.7. Allow patient to salt his food. Encourage high-protein intake with solid food. Limit free fluid to 1500 mL/day. Admission and Anticipated Discharge Date Admission Date: December 30, 2022 Subjective Seen for hyponatremia and CKD. He feels better today. Main complaint is constipation yesterday and now diarrhea after getting laxatives. No shortness of breath. Legs are slightly swollen. Review of Systems 2 Review of Systems: All other systems were reviewed and negative except as noted in HPI Physical Exam 2 Physical Exam: General exam: Appears comfortable, no acute distress HEENT: Pupils are equal and reactive to light Neck: No JVD, neck is supple trachea is midline Respiratory system: Clear breath sounds bilaterally. Gastrointestinal: Abdomen is soft, non distended, non tender, bowel sounds are present CVS: Regular rate and rhythm. No murmurs, rubs or gallops Musculoskeletal: No joint or muscle tenderness Extremities: Non tender, 1+ edema, peripheral pulses are present Neuro: Oriented, no tremors, no focal neurological deficits Skin: No rashes Results & Data Vital Signs (Past 12 Hours) Vital Signs Temp Pulse Resp BP Pulse Ox O2 Del Method 01/01/23 05:38 36.5 C 77 16 123/77 97 Room Air 12/31/22 23:47 36.1 C L 76 16 128/76 93 Room Air Laboratory Results 01/01/23 08:24 12/31/22 01/01/23 05:35 08:24 WBC 15.72 H 17.72 H RBC 2.85 L 3.22 L MCV 86.0 87.9 MCH 29.5 29.8 MCHC 34.3 33.9 RDW Std Deviation 46.6 H 48.6 H RDW Coeff of [place] 14.7 H 15.2 H Plt Count 407 H 531 H MPV 9.5 8.8 L Phosphorus 5.4 H
--- NOTE | 2023-01-01 10:31 | Gastrointestinal Consultation ---
Date of Consultation January 01, 2023 Assessment & Plan (1) Constipation: He has an acute spell of constipation. I can see no real reason for this as his meds haven't changed. He is on several meds that can be associated with constipation though. He has responded well to suppository so won't intervene now. Once the effects of the suppository have worn off would treat him with daily miralax. History of Present Illness Reason for Consultation: constipation Attending Physician: Kathryn Chaidez MD History of Present Illness Asked to see patient for "severe constipation" but had to wait for him to finish running back and forth to bathroom for bowel movements as I was interviewing him. Received suppository and it is working for him. Says he got constipated about ten days ago and has been unable to have bowel movement until this suppository. Doesn't recall any medication changes or life changes that could have caused this abrupt constipation. Admits last colonoscopy about ten years ago. Typically doesn't have much trouble with bowel movements but did increase his fiber intake about a month ago. Will occasionally take a stool softener. Allergies Allergy/AdvReac Type Severity Reaction Status Date / Time metronidazole Allergy Mild Rash Verified 12/29/22 22:59 GIGI Inhibitors Allergy Unknown EDEMA- Verified 12/29/22 22:59 LOWER EXTREMITIES niacin Allergy Unknown RASH Verified 12/29/22 22:59 Home Medications Medication Instructions Recorded Confirmed Type fluocinolone acetonide oil 0.01 % See Rx Instructions otic (ear) 01/29/21 12/29/22 Rx ear drops .COMPLEX ear itching #20 mL amlodipine 2.5 mg tablet 2.5 mg PO HS 12/22/22 12/29/22 History aspirin 81 mg tablet,delayed 81 mg PO QDL 12/22/22 12/29/22 History release atorvastatin 10 mg tablet 10 mg PO QDD 12/22/22 12/29/22 History brinzolamide 1 %-brimonidine 0.2 % 1 drp OPB AMPM 12/22/22 12/29/22 History eye drops,suspension (Simbrinza) cholecalciferol (vitamin D3) 25 25 mcg PO QAM 12/22/22 12/29/22 History mcg (1,000 unit) tablet (Vitamin D3) cyanocobalamin (vitamin B-12) 1,000 mcg PO QAM 12/22/22 12/29/22 History 1,000 mcg tablet (Vitamin B-12) insulin aspart U-100 100 unit/mL 22 unit subcut TIDM 12/22/22 12/29/22 History (3 mL) subcutaneous pen (Novolog FlexPen U-100 Insulin aspart) insulin glargine 100 unit/mL (3 35 unit subcut QDB 12/22/22 12/29/22 History mL) subcutaneous pen (Basaglar KwikPen U-100 Insulin) isosorbide mononitrate 60 mg 60 mg PO QAM 12/22/22 12/29/22 History tablet,extended release 24 hr linagliptin 5 mg tablet (Tradjenta) 5 mg PO QDL 12/22/22 12/29/22 History losartan 50 mg tablet 50 mg PO BID 12/22/22 12/29/22 History metformin 500 mg tablet 500 mg PO BIDM 12/22/22 12/29/22 History metoprolol tartrate 25 mg tablet 12.5 mg PO BID 12/22/22 12/29/22 History netarsudil 0.02 %-latanoprost 1 drp OPB HS 12/22/22 12/29/22 History 0.005 % eye drops (Rocklatan) pantoprazole 40 mg tablet,delayed 40 mg PO Q2D 12/22/22 12/29/22 History release timolol maleate 0.5 % eye drops 1 drp OPB QAM 12/22/22 12/29/22 History codeine 10 mg-guaifenesin 100 mg/5 10 ml PO Q6H PRN cough #120 mL 12/25/22 12/29/22 Rx mL oral liquid fluticasone propionate 50 2 spray NA HS #16 grams 12/25/22 12/29/22 Rx mcg/actuation nasal spray,suspension Patient History Medical History CKD (chronic kidney disease), stage III Hyponatremia CAD (coronary artery disease) COVID History of Mohs micrographic surgery for skin cancer Surgical History History of cholecystectomy Family History Other No family history of adverse response to anesthesia No family history of bleeding disorder No significant family history Social History Smoking Status: Never smoker Tobacco Type: Cigars Cigarettes Per Day: 1 CIGAR/DAY; Second Hand Exposure: No; Do You Dip or Chew Tobacco: No; Hx Alcohol Use: No Hx Substance Use: No Preferred Language: Yakut Communication Ability: Effective Janitor And Cleaner Required: No Beliefs That Will Affect Care: None marital status: Current Living Situation: Alone Current Living Situation Comment: HOME ALONE current occupational status: retired Other Information That Helps Us Care for You: No Feels Safe at Home: Yes Safety Concerns: Feels Safe At This Time Assistive Devices: None Physical Exam Physical Exam: Did not do physical as patient positive for COVID so did the visit from the door. Constitutional: WD/WN, vitals as above Results & Data Vital Signs (Past 12 Hours) Vital Signs Temp Pulse Resp BP Pulse Ox O2 Del Method 01/01/23 05:38 36.5 C 77 16 123/77 97 Room Air 12/31/22 23:47 36.1 C L 76 16 128/76 93 Room Air Laboratory Results 01/01/23 01/01/23 12/31/22 Range/Units 08:24 06:37 21:34 WBC 17.72 H (4.8-10.8) K/ul RBC 3.22 L (4.70-6.10) M/uL Hgb 9.6 L (14.0-18.0) g/dl Hct 28.3 L (42.0-52.0) % MCV 87.9 (80.0-100.0) fL MCH 29.8 (25.0-34.0) pg MCHC 33.9 (32.0-36.0) g/dL RDW Std Deviation 48.6 H (36.4-46.3) fL RDW Coeff of Madina 15.2 H (11.5-14.5) % Plt Count 531 H (130-400) K/uL MPV 8.8 L (9.4-12.4) fL VBG pH (7.36-7.41) VBG pCO2 (38-50) mmHg VBG pO2 mmHg VBG HCO3 mmol/L VBG O2 Saturation % VBG Base Excess mEq/L Sodium 135 L (136-145) mmol/L Potassium 3.8 (3.5-5.1) mmol/L Chloride 105 (98-107) mmol/L Carbon Dioxide 18 L (21-32) mmol/L Anion Gap 12 H (3-11) BUN 62 H (6-23) mg/dl Creatinine 2.72 H (0.6-1.4) mg/dl Est Cr Clr Drug Dosing 22.4 ml/min Est GFR ( Amer) 23.8 ml/min Est GFR (Non-Af Amer) 20.5 ml/min BUN/Creatinine Ratio 22.8 H (10-20) Glucose 156 H (70-99(Fasting)) mg/dl POC Glucose 142 H 164 H (70-99) mg/dl Calcium 9.4 (8.6-10.3) mg/dl Phosphorus 5.4 H (2.5-4.9) mg/dl Magnesium 2.0 (1.7-2.4) mg/dl Iron (35-175) mcg/dl TIBC (250-450) mcg/dl Unsaturated IBC (155-355) mcg/dl Transferrin % Sat (20-50) % Miscellaneous Test 12/31/22 12/31/22 12/31/22 Range/Units 19:46 17:44 17:14 WBC (4.8-10.8) K/ul RBC (4.70-6.10) M/uL Hgb (14.0-18.0) g/dl Hct (42.0-52.0) % MCV (80.0-100.0) fL MCH (25.0-34.0) pg MCHC (32.0-36.0) g/dL RDW Std Deviation (36.4-46.3) fL RDW Coeff of Madina (11.5-14.5) % Plt Count (130-400) K/uL MPV (9.4-12.4) fL VBG pH 7.33 L (7.36-7.41) VBG pCO2 29 L (38-50) mmHg VBG pO2 37 mmHg VBG HCO3 15 mmol/L VBG O2 Saturation < 60.0 % VBG Base Excess -9.2 mEq/L Sodium (136-145) mmol/L Potassium (3.5-5.1) mmol/L Chloride (98-107) mmol/L Carbon Dioxide (21-32) mmol/L Anion Gap (3-11) BUN (6-23) mg/dl Creatinine (0.6-1.4) mg/dl Est Cr Clr Drug Dosing ml/min Est GFR ( Amer) ml/min Est GFR (Non-Af Amer) ml/min BUN/Creatinine Ratio (10-20) Glucose (70-99(Fasting)) mg/dl POC Glucose 149 H 158 H (70-99) mg/dl Calcium (8.6-10.3) mg/dl Phosphorus (2.5-4.9) mg/dl Magnesium (1.7-2.4) mg/dl Iron (35-175) mcg/dl TIBC (250-450) mcg/dl Unsaturated IBC (155-355) mcg/dl Transferrin % Sat (20-50) % Miscellaneous Test 12/31/22 12/31/22 12/31/22 Range/Units 15:56 14:15 12:10 WBC (4.8-10.8) K/ul RBC (4.70-6.10) M/uL Hgb (14.0-18.0) g/dl Hct (42.0-52.0) % MCV (80.0-100.0) fL MCH (25.0-34.0) pg MCHC (32.0-36.0) g/dL RDW Std Deviation (36.4-46.3) fL RDW Coeff of Madina (11.5-14.5) % Plt Count (130-400) K/uL MPV (9.4-12.4) fL VBG pH (7.36-7.41) VBG pCO2 (38-50) mmHg VBG pO2 mmHg VBG HCO3 mmol/L VBG O2 Saturation % VBG Base Excess mEq/L Sodium 132 L (136-145) mmol/L Potassium 3.8 (3.5-5.1) mmol/L Chloride 104 (98-107) mmol/L Carbon Dioxide 15 L (21-32) mmol/L Anion Gap 13 H (3-11) BUN 68 H (6-23) mg/dl Creatinine 2.71 H (0.6-1.4) mg/dl Est Cr Clr Drug Dosing 22.4 ml/min Est GFR ( Amer) 23.9 ml/min Est GFR (Non-Af Amer) 20.6 ml/min BUN/Creatinine Ratio 25.1 H (10-20) Glucose 170 H (70-99(Fasting)) mg/dl POC Glucose 201 H 241 H (70-99) mg/dl Calcium 9.3 (8.6-10.3) mg/dl Phosphorus (2.5-4.9) mg/dl Magnesium (1.7-2.4) mg/dl Iron (35-175) mcg/dl TIBC (250-450) mcg/dl Unsaturated IBC (155-355) mcg/dl Transferrin % Sat (20-50) % Miscellaneous Test 12/31/22 12/31/22 Range/Units 05:35 05:33 WBC 15.72 H (4.8-10.8) K/ul RBC 2.85 L (4.70-6.10) M/uL Hgb 8.4 L (14.0-18.0) g/dl Hct 24.5 L (42.0-52.0) % MCV 86.0 (80.0-100.0) fL MCH 29.5 (25.0-34.0) pg MCHC 34.3 (32.0-36.0) g/dL RDW Std Deviation 46.6 H (36.4-46.3) fL RDW Coeff of Madina 14.7 H (11.5-14.5) % Plt Count 407 H (130-400) K/uL MPV 9.5 (9.4-12.4) fL VBG pH (7.36-7.41) VBG pCO2 (38-50) mmHg VBG pO2 mmHg VBG HCO3 mmol/L VBG O2 Saturation % VBG Base Excess mEq/L Sodium (136-145) mmol/L Potassium (3.5-5.1) mmol/L Chloride (98-107) mmol/L Carbon Dioxide (21-32) mmol/L Anion Gap (3-11) BUN (6-23) mg/dl Creatinine (0.6-1.4) mg/dl Est Cr Clr Drug Dosing ml/min Est GFR ( Amer) ml/min Est GFR (Non-Af Amer) ml/min BUN/Creatinine Ratio (10-20) Glucose (70-99(Fasting)) mg/dl POC Glucose (70-99) mg/dl Calcium (8.6-10.3) mg/dl Phosphorus (2.5-4.9) mg/dl Magnesium (1.7-2.4) mg/dl Iron 68 (35-175) mcg/dl TIBC 192 L (250-450) mcg/dl Unsaturated IBC 124 L (155-355) mcg/dl Transferrin % Sat 35 (20-50) % Miscellaneous Test Pending Diagnostic Findings Chest X-Ray 12/29/22 19:44 XR chest 1V portable CLINICAL HISTORY: Chest pain, nonspecific, covid + TECHNIQUE: Single frontal radiograph of the chest was obtained. Comparison: Comparison is made to chest radiograph 12/22/2022 FINDINGS: No lines and tubes are seen. Calcified aortic knob is seen. Faint bibasilar airspace opacities are seen. No evidence of pleural effusion or pneumothorax. IMPRESSION: Faint bibasilar airspace opacities which may represent atelectasis and/or pneumonia. ACT 112: Negative or not required by law. Electronically signed by: Geovanny Barbosa M.D. 12/30/2022 8:03 AM Abdomen/Pelvis CT 12/29/22 21:19 Exam(s): CT ABDOMEN + PELVIS Without Contrast EXAM: CT Abdomen and Pelvis Without Intravenous Contrast CLINICAL HISTORY: Reason for exam: ro sbo. TECHNIQUE: Axial computed tomography images of the abdomen and pelvis without intravenous contrast. CTDI is 39.03 mGy and DLP is 2141.08 mGy-cm. Automated exposure control was utilized for the study. A dose lowering technique was utilized adhering to the principles of ALARA. COMPARISON: No relevant prior studies available. FINDINGS: Lung bases: Bilateral lower lobe parenchymal opacities concerning for an infectious etiology. High density material within the left base parenchyma concerning for aspiration. ABDOMEN: Liver: Unremarkable. Gallbladder and bile ducts: Gallbladder has been removed. No ductal dilation. Pancreas: Unremarkable. No ductal dilation. Spleen: Unremarkable. No splenomegaly. Adrenals: Unremarkable. No mass. Kidneys and ureters: 1.4 cm simple cyst arising off the mid to inferior right kidney. No further workup is required. No obstructing stones. No hydronephrosis. Stomach and bowel: Small hiatal hernia. No obstruction. No mucosal thickening. PELVIS: Appendix: No findings to suggest acute appendicitis. Bladder: Unremarkable. No stones. Reproductive: Unremarkable as visualized. ABDOMEN and PELVIS: Intraperitoneal space: Unremarkable. No free air. No significant fluid collection. Bones/joints: No acute fracture. No dislocation. Soft tissues: Unremarkable. Vasculature: Unremarkable. No abdominal aortic aneurysm. Lymph nodes: Unremarkable. No enlarged lymph nodes. IMPRESSION: Bilateral lower lobe parenchymal opacities concerning for an infectious etiology. High density material within the left base parenchyma concerning for aspiration. No acute abdominal or pelvic process. No evidence of bowel obstruction. Electronically signed by: Aditya Estrella M.D. 12/29/22 22:[address] 12/29/22 21:20 Exam(s): CT HEAD Without Contrast EXAM: CT Head Without Intravenous Contrast CLINICAL HISTORY: Reason for exam: cionfusion. TECHNIQUE: Axial computed tomography images of the head/brain without intravenous contrast. CTDI is 39.03 mGy and DLP is 2114.08 mGy-cm. Automated exposure control was utilized for the study. A dose lowering technique was utilized adhering to the principles of ALARA. COMPARISON: No relevant prior studies available. FINDINGS: Brain: Unremarkable. No hemorrhage. No significant white matter disease. No edema. Ventricles: Unremarkable. No ventriculomegaly. Bones/joints: Unremarkable. No acute fracture. Soft tissues: Unremarkable. Sinuses: Air-fluid levels within bilateral maxillary sinuses and left frontal sinus. Near complete opacification of bilateral ethmoid air cells. Mastoid air cells: Unremarkable as visualized. No mastoid effusion. IMPRESSION: No acute intracranial abnormality. Air-fluid levels within bilateral maxillary sinuses and left frontal sinus. Electronically signed by: Aditya Estrella M.D. 12/29/22 22:30 PM KUB X-Ray 12/31/22 14:46 KUB CLINICAL HISTORY: severe constipation COMPARISON STUDY: CT of the abdomen and pelvis December 29, 2022. FINDINGS: Cholecystectomy clips are incidentally noted. There is no evidence for a bowel obstruction. A large amount of stool within the rectum has increased in amount since CT of December 29, 2022. There is a moderate amount of stool within the colon. IMPRESSION: 1. Increase in a large amount stool within the rectum since recent CT. Moderate amount of stool within the colon. 2. No evidence for a bowel obstruction. ACT 112: Negative or not required by law. Electronically signed by: Wiliam Disla M.D. 12/31/2022 4:18 PM
--- NOTE | 2023-01-01 11:58 | Hospitalist Progress Note ---
Date of Service January 01, 2023 Assessment & Plan (1) Acute hyponatremia: (2) DKA (diabetic ketoacidosis): (3) COVID-19: (4) Hypoxia: Plan Mr. Martínez is a 52-year-old male with past medical history significant for type 2 diabetes, hyperlipidemia, hypertension, CKD stage III, CAD s/p stent, hypertension, vitamin B12 deficiency, GERD, primary open-angle glaucoma bilateral, history of herpes zoster, was recently in the hospital with hyponatremia and COVID [discharged 12/25] was brought in for dehydration and confusion and admitted for progressive hyponatremia. Patient was started on IV decadron given concern of acute hypoxic respiratory failure iso COVID pneumonia. AM labs returned and labs suspicious for impending DKA given new anion gap, acidosis, and glucose in 300s--as well as notably dilute urine and relatively normal serum osmo. Patient appeared dry on exam; however, lungs with basilar crackles and cephalization on imaging. It was decided to start insulin drip for optimal glucose control, improvement of acidosis, as well as discontinue decadron to prevent further glycemic insult. Over the night of 12/30, patient was weened off of oxygen. Patient remains on insulin drip given low bicarb, however, with azotemia and other ongoing ailments, suspect that ANUP is likely contributing to lab abnormalities and bicarb losses. #Constipation -suspect may be contributing partially to some of issues/concerns patient is endorsing, given expressed discomfort -Now passing stool, will reduce regimen -GI followed: Daily miralax #Hyponatremia *improving Sodium 126, iso hyperglycemia, with SIADH component per Nephrology Nephrology on consult: high protein intake, solid food Encourage high solute diet, NS 80/hr Free fluid limit 1500 Correct glucose #Leukocytosis #Generalized weakness Multiple metabolic abnormalities and electrolyte disturbances contributing; COVID contributing factor likely UA negative for infection Signs of questionable aspiration on imaging Continue Zosyn likely deescalate once leukocytosis downtrends and energy improves #Uncontrolled Hyperglycemia, concern for looming Diabetic Ketoacidosis UA +Ketone, VBG 7.32, HCO3 16, small gap 12 Insulin drip for glucose monitoring until acidosis improved (goal HCO3 >18) Discontinue steroids Diabetic diet #ANUP on chronic kidney disease stage III #Metabolic gap acidosis (improving) Baseline creatinine around 2; Present creatinine of 2.8 We will hold losartan Avoid nephrotoxic agents Getting gentle fluids Follow repeat labs in a.m. #Acute hypoxic respiratory failure, possible multifactorial *resolved #COVID 19 Vaccinated and boosted Last booster was last year in December BNP 179, doesn't appear hypervolemic, ECHO pending COVID precautions Empiric zosyn follow clinical improvement #Normocytic Anemia Hemoglobin 8 Was 9-10 last admission We will check stool for Hemoccult. Anemia labs ordered #Diabetes Hold metformin and Tradjenta and home NovoLog Insulin drip as above #CAD s/p stent On aspirin, statin, Imdur and beta-erendira #Hypertension On metoprolol and Imdur and amlodipine Holding losartan We will monitor DVT prophylaxis Heparin subcu Disposition Med/telemetry Admission and Anticipated Discharge Date Admission Date: December 30, 2022 Subjective NAEO Reports passing stool and feeling satisfied over bowel movement Review of Systems Review of Systems: All systems reviewed & are unremarkable except as noted in Subjective Physical Exam Constitutional: WD/WN, vitals as above Respiratory: normal respiratory effort, lungs clear to auscultation Cardiovascular: RRR, no murmur, no edema Results & Data Results & Data Vital Signs (Past 12 Hours) Vital Signs Temp Pulse Pulse Resp BP Pulse Ox O2 Del Method 01/01/23 09:00 36.3 C L 70 19 143/54 H 97 Room Air 01/01/23 08:00 59 L 01/01/23 05:38 36.5 C 77 16 123/77 97 Room Air Laboratory Results Short CBC 12/31/22 01/01/23 Range/Units 05:35 08:24 WBC 15.72 H 17.72 H (4.8-10.8) K/ul Hgb 8.4 L 9.6 L (14.0-18.0) g/dl Hct 24.5 L 28.3 L (42.0-52.0) % Plt Count 407 H 531 H (130-400) K/uL BMP 12/31/22 01/01/23 15:56 08:24 Sodium 132 L 135 L Potassium 3.8 3.8 Chloride 104 105 Carbon Dioxide 15 L 18 L BUN 68 H 62 H Creatinine 2.71 H 2.72 H Glucose 170 H 156 H Calcium 9.3 9.4 Medications Administered Home Medications Medication Instructions Recorded Confirmed Last Taken fluocinolone acetonide oil 0.01 % See Rx Instructions otic (ear) 01/29/21 12/29/22 Unknown ear drops .COMPLEX ear itching #20 mL amlodipine 2.5 mg tablet 2.5 mg PO HS 12/22/22 12/29/22 Unknown aspirin 81 mg tablet,delayed 81 mg PO QDL 12/22/22 12/29/22 Unknown release atorvastatin 10 mg tablet 10 mg PO QDD 12/22/22 12/29/22 Unknown brinzolamide 1 %-brimonidine 0.2 % 1 drp OPB AMPM 12/22/22 12/29/22 Unknown eye drops,suspension (Simbrinza) cholecalciferol (vitamin D3) 25 25 mcg PO QAM 12/22/22 12/29/22 Unknown mcg (1,000 unit) tablet (Vitamin D3) cyanocobalamin (vitamin B-12) 1,000 mcg PO QAM 12/22/22 12/29/22 Unknown 1,000 mcg tablet (Vitamin B-12) insulin aspart U-100 100 unit/mL 22 unit subcut TIDM 12/22/22 12/29/22 Unknown (3 mL) subcutaneous pen (Novolog FlexPen U-100 Insulin aspart) insulin glargine 100 unit/mL (3 35 unit subcut QDB 12/22/22 12/29/22 Unknown mL) subcutaneous pen (Basaglar KwikPen U-100 Insulin) isosorbide mononitrate 60 mg 60 mg PO QAM 12/22/22 12/29/22 Unknown tablet,extended release 24 hr linagliptin 5 mg tablet (Tradjenta) 5 mg PO QDL 12/22/22 12/29/22 Unknown losartan 50 mg tablet 50 mg PO BID 12/22/22 12/29/22 Unknown metformin 500 mg tablet 500 mg PO BIDM 12/22/22 12/29/22 Unknown metoprolol tartrate 25 mg tablet 12.5 mg PO BID 12/22/22 12/29/22 Unknown netarsudil 0.02 %-latanoprost 1 drp OPB HS 12/22/22 12/29/22 Unknown 0.005 % eye drops (Rocklatan) pantoprazole 40 mg tablet,delayed 40 mg PO Q2D 12/22/22 12/29/22 Unknown release timolol maleate 0.5 % eye drops 1 drp OPB QAM 12/22/22 12/29/22 Unknown codeine 10 mg-guaifenesin 100 mg/5 10 ml PO Q6H PRN cough #120 mL 12/25/22 12/29/22 Unknown mL oral liquid fluticasone propionate 50 2 spray NA HS #16 grams 12/25/22 12/29/22 Unknown mcg/actuation nasal spray,suspension Active Medications Generic Name Dose Route Start Last Admin Trade Name Freq PRN Reason Stop Dose Admin Amlodipine Besylate 5 mg 12/31/22 21:00 12/31/22 19:48 Amlodipine Besylate 5 Mg Tab PO 01/30/23 20:59 5 mg HS KATELIN Administration Aspirin 81 mg 12/30/22 11:30 12/31/22 08:05 Aspirin 81 Mg Ectab PO 01/29/23 11:29 81 mg QDL KATELIN Administration Atorvastatin Calcium 10 mg 12/30/22 16:30 12/31/22 16:04 Atorvastatin 10 Mg Tab PO 01/29/23 16:29 10 mg QDD KATELIN Administration Cyanocobalamin 1,000 mcg 12/30/22 09:00 01/01/23 07:22 Cyanocobalamin (B-12) 500 Mcg Tablet PO 01/29/23 08:59 1,000 mcg QAM KATELIN Administration Fluticasone Furoate 1 puffs 12/30/22 09:00 01/01/23 07:21 Fluticasone Furoate 100mcg 14 Puffs/Inhaler INH 01/29/23 08:59 1 puffs DAILY KATELIN Administration Fluticasone Propionate 2 sprays 12/30/22 21:00 12/31/22 19:49 Fluticasone Propionate Na Spr 16 Gm Btl NA 01/29/23 20:59 2 sprays HS KATELIN Administration Guaifenesin/Codeine Phosphate 5 ml 12/30/22 04:41 12/31/22 12:20 Guaifenesin/Codeine 100mg/10mg 5ml Udc PO 01/29/23 04:40 5 ml Q6H PRN Administration cough Heparin Sodium (Porcine) 5,000 units 12/30/22 06:00 01/01/23 05:41 Heparin Sod 5,000 Unit/0.5 Ml Vial SQ 01/29/23 05:59 5,000 units Q8 KATELIN Administration Piperacillin Sod/Tazobactam 100 mls @ 200 mls/hr 12/30/22 06:00 01/01/23 08:56 Sod 4.5 gm/ Dextrose IV 01/06/23 05:59 Infused Q8H [facility] Infusion Protocol Insulin Aspart 0 units 12/30/22 07:30 01/01/23 06:41 Insulin Aspart Per Unit Charge SC 01/29/23 07:29 Not Given ACHS KATELIN Isosorbide Mononitrate 60 mg 12/30/22 09:00 01/01/23 07:19 Isosorbide [place] Extended Rel 60 Mg Tabcr PO 01/29/23 08:59 60 mg QAM KATELIN Administration Metoprolol Tartrate 12.5 mg 12/30/22 11:30 12/31/22 19:49 Metoprolol Tartrate 25 Mg Tab PO 01/29/23 11:29 12.5 mg BID@1130,2100 KATELIN Administration Miscellaneous 1 each 12/30/22 08:00 01/01/23 09:45 Simbrinza - Order Awaiting Action N/A 01/29/23 07:59 Not Given QS KATELIN Miscellaneous 1 each 12/30/22 08:00 01/01/23 09:45 Netarsudil-Latanoprost [Rocklatan] - Order Awaiting Action N/A 01/29/23 07:59 Not Given QS [facility] Pantoprazole Sodium 40 mg 12/31/22 09:00 12/31/22 08:05 Pantoprazole 40 Mg Tab PO 01/30/23 08:59 40 mg Q2D@0900 KATELIN Administration Timolol Maleate 1 drops 12/30/22 09:00 01/01/23 07:21 Timolol Maleate 0.5% Op Soln 5 Ml Btl OPB 01/29/23 08:59 1 drops QAM KATELIN Administration Vitamin D 1,000 units 12/30/22 09:00 12/31/22 12:20 Cholecalciferol 1,000 Units 25 Mcg Tab PO 01/29/23 08:59 1,000 units QAM KATELIN Administration
[2023-01-01] MEDS ORDERED: POLYETHYLENE (MIRALAX) 17 GM PACK PO PRN (11:59)
[2023-01-01] MEDS ORDERED: LANTUS PER UNIT CHARGE SC ONE (12:30)
[2023-01-01] MEDS: ASPIRIN 81 MG ECTAB PO SCH (13:11)
[2023-01-01] MEDS: METOPROLOL TARTRATE 25 MG TAB PO SCH ×2 (13:12→21:18)
[2023-01-01] MEDS: CHOLECALCIFEROL 1,000 UNITS 25 MCG TAB PO SCH (13:12)
[2023-01-01] MEDS: ATORVASTATIN 10 MG TAB PO SCH (18:29)
[2023-01-01] MEDS: FLUTICASONE PROPIONATE NA SPR 16 GM BTL SCH (21:17)
[2023-01-01] MEDS: amLODIPine BESYLATE 5 MG TAB PO SCH (21:18)
[2023-01-01] MEDS: BRINZOLAMIDE/BRIMONIDINE TART 119 DROPS/8 ML BTL OP SCH (22:11)
[2023-01-01] MEDS: NETARSUDIL MESYLAT/LATANOPROST 37 DROPS/2.5 ML BTL OP SCH (22:11)
[2023-01-02] MEDS: PIPER/TAZO 4.5g in D5W MINI-B 100 ML IV SCH ×2 (00:23→08:53)
[2023-01-02] MEDS: HEPARIN SOD 5,000 UNIT/0.5 ML VIAL SQ SCH ×3 (06:14→22:18)
--- NOTE | 2023-01-02 08:14 | Nephrology Progress Note ---
Date of Service January 02, 2023 Assessment & Plan (1) Acute hyponatremia: Plan: Etiology is likely in setting of CKD and COVID infection. Sodium improving to 135 01/01 w/ stable creatinine and a slight drop today Allow patient to salt his food. encourage high-protein intake with solid food. continue FR 1500 mL/day. >>f/u labs from today>>sodium w/ slight drop today Care coordinated w/ Dr Chaidez (2) Acute on chronic renal failure: Plan: baseline creatinine 2; creatinine plateau'd at 2.7 past several days. was already w/ ANUP on CKD prior to last d/c and readmitted 12/30 w/ creatinine 2.6. noncon CT on admission of a/p w/o acute process. admission UA w/o infection but remarkable for dipstick blood, sugar, ketones, protein, c/w tubular dysfunction. nonoliguric stage 1 ANUP from ATN -stable -current meds appropriate (reviewed 01/02) -continue supportive care and daily bmp -w/ anion gap metabolic acidosis which emerged w/ ANUP > will check lactate in am as well (3) COVID-19: Plan: Recent COVID-19 infection reviewed. Breathing is stable. Not unusual to have some worsening kidney function in setting of COVID infection. Patient has CKD stage III with baseline creatinine of 2. Creatinine of 2.7 again today. Admission and Anticipated Discharge Date Admission Date: December 30, 2022 Subjective seen on rounds at about 1130; thirsty. reports 5-7 BM ON and ongoing mild abd pain. feels breathing ok for now but ongoing cough Review of Systems 2 Review of Systems: All systems reviewed & are unremarkable except as noted in Subjective Physical Exam 2 Constitutional: well developed and + ill appearing; no acute distress Eyes: EOM intact bilaterally ENMT: Ears: no external ear abnormality Nose: no external nose abnormality Mouth: + dry oral mucous membranes Neck: no nuchal rigidity Respiratory: normal respiratory effort and + cough Auscultation: + diminished lung sounds Cardiovascular: Rate/Rhythm: regular rate and regular rhythm Extremities: + edema (2+ pretibial) Gastrointestinal (Abdomen): Inspection/Auscultation: + abdomen distended and normal bowel sounds Percussion/Palpation: + abdomen tender (LLQ) and abdomen soft Musculoskeletal: Extremities: strength 5/5 throughout Skin: no rashes, warm and dry Neurologic: ochoa, fluent speech, marked BLUE tremor Results & Data Vital Signs (Past 12 Hours) Vital Signs Temp Pulse Pulse Resp BP BP Pulse Ox 01/02/23 03:12 36.9 C 92 H 20 147/82 H 93 01/01/23 23:14 36.2 C L 89 18 113/60 91 O2 Del Method 01/02/23 03:12 Room Air 01/01/23 23:14 Room Air Laboratory Results 01/02/23 08:43 01/02/23 08:32 (2) Acute on chronic renal failure Acute renal failure type: unspecified Chronic kidney disease stage: stage 3 (moderate) Chronic kidney disease stage 3 subtype: stage 3b (GFR 30-44) Qualified Code(s): N17.9 - Acute kidney failure, unspecified; N18.32 - Chronic kidney disease, stage 3b
[2023-01-02] MEDS: PANTOprazole 40 MG TAB PO SCH (08:35)
[2023-01-02] MEDS: CHOLECALCIFEROL 1,000 UNITS 25 MCG TAB PO SCH (08:36)
[2023-01-02] MEDS: CYANOCOBALAMIN (B-12) 500 MCG TABLET PO SCH (08:37)
[2023-01-02] MEDS: BRINZOLAMIDE/BRIMONIDINE TART 119 DROPS/8 ML BTL OP SCH ×2 (08:38→22:19)
[2023-01-02] MEDS: ISOSORBIDE MONO EXTENDED REL 60 MG TABCR PO SCH (08:38)
[2023-01-02] MEDS: FLUTICASONE FUROATE 100MCG 14 PUFFS/INHALER INH SCH (08:39)
[2023-01-02] MEDS: TIMOLOL MALEATE 0.5% OP SOLN 5 ML BTL OPB SCH (08:39)
[2023-01-02] MEDS ORDERED: LANTUS PER UNIT CHARGE SC SCH ×2 (09:00)
[2023-01-02 09:14] LABS: BUN Creatinine Ratio 20.7 (10-20); Calcium 8.7 mg/dl (8.6-10.3); Creatinine Clr Calc Pharmacy 22.5 ml/min; Est GFR (Non-African American) 20.7 ml/min; Phosphorus 5.1 mg/dl (2.5-4.9); Potassium 3.7 mmol/L (3.5-5.1)
[2023-01-02] MEDS: INSULIN ASPART PER UNIT CHARGE SC SCH ×4 (09:38→20:42)
--- NOTE | 2023-01-02 10:37 | Pharmacy Report ---
Pharmacy Glycemic Short Note 2 - Date of Service January 02, 2023 - Glycemic Short BSG Results (Last 24 hours): 01/01/23 01/01/23 01/01/23 12:22 17:08 20:11 Glucose POC Glucose 147 H 109 H 143 H 01/02/23 01/02/23 08:06 08:32 Glucose 180 H POC Glucose 184 H OUTPATIENT ANTIDIABETIC REGIMEN: * Novolog 22 units TIDM, Lantus 35 units QAM, Tradjenta 5 mg, Metformin 500 mg BID * A1c 7.8% 12/30 ASSESSMENT: 01/02 * Patient received total of 43 units of insulin yesterday, of which 35 units were basal insulin * Patient refusing insulin coverage with meals again yesterday evening. BSGs at HS stable despite refusal of insulin, therefore plan to loosen CF/CR this AM. PO intake fluctuating - Plan to split basal bid to allow for more flexibility in dosing in case PO intake decreases 12/31 * Labs improving more this morning, discussed with provider and okay to start transition off insulin drip. Drip running at 2.7 units/hr since this AM, patient ordered diet. Will give 40 Lantus x 1 now * Discussed with RN, plan to reach out to pharmacy when BSGs < 180 x 2 consecutive checks to discuss d/c of drip. 12/30 * Patient admitted with COVID + pneumonia. Administered 6 mg IV dexamethasone overnight, ongoing daily * BSGs elevated in the setting of steroids, patient received home lantus dose this morning, in addition to 10 units of novolog and 4 unit IV bolus * Initiated on Insulin drip following new anion gap, patient appears to have low bicarb at baseline (CKD stage III), currently following DKA protocol * Potassium was removed from bag given CKD history, monitor potassium, may need replaced outside of LVF. * Dextrose added to fluid with BSG in goal range- continue to monitor. PLAN FOR INPATIENT GLYCEMIC CONTROL: * Hold outpatient oral diabetes medications * Basal insulin * Lantus 15 units QAM * Lantus 10-20 units HS * Consider starting novolog 110-140 / CF 25 / CR 9
[2023-01-02] MEDS: ASPIRIN 81 MG ECTAB PO SCH (12:09)
[2023-01-02] MEDS: METOPROLOL TARTRATE 25 MG TAB PO SCH (12:09)
[2023-01-02 12:22] LABS: Hemoglobin 9.4 g/dl (14.0-18.0); Mean Corpuscular Hemoglobin 29.8 pg (25.0-34.0); Mean Corpuscular Hgb Conc 33.6 g/dL (32.0-36.0); Mean Corpuscular Volume 88.9 fL (80.0-100.0); Mean Platelet Volume 9.3 fL (9.4-12.4); Platelet Count 541 K/uL (130-400); RDW Coefficient of Variation 15.4 % (11.5-14.5); RDW Standard Deviation 49.7 fL (36.4-46.3); Red Blood Count 3.15 M/uL (4.70-6.10)
--- NOTE | 2023-01-02 15:00 | Hospitalist Progress Note ---
Date of Service January 02, 2023 Assessment & Plan (1) Acute hyponatremia: (2) DKA (diabetic ketoacidosis): (3) COVID-19: (4) Hypoxia: Plan Mr. Martínez is a 52-year-old male with past medical history significant for type 2 diabetes, hyperlipidemia, hypertension, CKD stage III, CAD s/p stent, hypertension, vitamin B12 deficiency, GERD, primary open-angle glaucoma bilateral, history of herpes zoster, was recently in the hospital with hyponatremia and COVID [discharged 12/25] was brought in for dehydration and confusion and admitted for progressive hyponatremia. Patient was started on IV decadron given concern of acute hypoxic respiratory failure iso COVID pneumonia. AM labs returned and labs suspicious for impending DKA given new anion gap, acidosis, and glucose in 300s--as well as notably dilute urine and relatively normal serum osmo. Patient appeared dry on exam; however, lungs with basilar crackles and cephalization on imaging. It was decided to start insulin drip for optimal glucose control, improvement of acidosis, as well as discontinue decadron to prevent further glycemic insult. Over the night of 12/30, patient was weened off of oxygen. Patient remains on insulin drip given low bicarb, however, with azotemia and other ongoing ailments, suspect that ANUP is likely contributing to lab abnormalities and bicarb losses. #Constipation #Abdominal Distention -suspect may be contributing partially to some of issues/concerns patient is endorsing, given expressed discomfort -Diarrhea initially thought to be secondary to intense regimen; however exam revealed more protuberant abdomen and patient to be more uncomfortable reporting "leaking" #Hyponatremia *improving Sodium 126, iso hyperglycemia, with SIADH component per Nephrology Nephrology on consult: Encourage high solute diet Free fluid limit 1500 Correct glucose #Leukocytosis #Generalized weakness Multiple metabolic abnormalities and electrolyte disturbances contributing; COVID contributing factor likely UA negative for infection Signs of questionable aspiration on imaging Continue Zosyn while inpatient at this time, no clear source for leukkocytosis however, likely related to bowel impaction #Uncontrolled Hyperglycemia, concern for looming Diabetic Ketoacidosis UA +Ketone, VBG 7.32, HCO3 16, small gap 12 Insulin drip for glucose monitoring until acidosis improved (goal HCO3 >18) Discontinue steroids for now Diabetic diet Glycemic constult #ANUP on chronic kidney disease stage III #Metabolic gap acidosis (improving) Baseline creatinine around 2; Present creatinine of 2.8 We will hold losartan Avoid nephrotoxic agents Getting gentle fluids Resolve GI issues Follow repeat labs in a.m . #Acute hypoxic respiratory failure, possible multifactorial *resolved #COVID 19 Vaccinated and boosted Last booster was last year in December BNP 179, doesn't appear hypervolemic, ECHO pending COVID precautions Empiric zosyn follow clinical improvement #Normocytic Anemia Hemoglobin 8 Was 9-10 last admission We will check stool for Hemoccult. Anemia labs ordered #Diabetes Hold metformin and Tradjenta and home NovoLog Insulin drip as above #CAD s/p stent On aspirin, statin, Imdur and beta-erendira #Hypertension On metoprolol and Imdur and amlodipine Holding losartan We will monitor DVT prophylaxis Heparin subcu Disposition Med/telemetry Admission and Anticipated Discharge Date Admission Date: December 30, 2022 Subjective Reports "leakage" ongoing and worsening distention of abdomen Denies any other acute concerns, just rectal pain from straining Review of Systems Review of Systems: All systems reviewed & are unremarkable except as noted in Subjective Physical Exam Constitutional: standing, appears uncomfortable Respiratory: normal respiratory effort, lungs clear to auscultation Cardiovascular: RRR, no murmur, no edema Gastrointestinal (Abdomen): distended abdomen, tense,tender to moderate palpation, BS+ Results & Data Results & Data Vital Signs (Past 12 Hours) Vital Signs Temp Pulse Pulse Pulse Resp BP Pulse Ox 01/02/23 12:52 60 01/02/23 12:11 36.7 C 73 132/73 90 01/02/23 09:50 01/02/23 08:25 36.3 C L 92 H 18 133/63 97 01/02/23 08:00 01/02/23 03:12 36.9 C 92 H 20 147/82 H 93 Pulse Ox O2 Del Method O2 Del Method 01/02/23 12:52 01/02/23 12:11 Room Air 01/02/23 09:50 Room Air 01/02/23 08:25 Room Air 01/02/23 08:00 97 Room Air 01/02/23 03:12 Room Air Laboratory Results Short CBC 01/02/23 Range/Units 08:43 WBC 14.30 H (4.8-10.8) K/ul Hgb 9.4 L (14.0-18.0) g/dl Hct 28.0 L (42.0-52.0) % Plt Count 541 H (130-400) K/uL BMP 01/02/23 08:32 Sodium 133 L Potassium 3.7 Chloride 105 Carbon Dioxide 16 L BUN 56 H Creatinine 2.70 H Glucose 180 H Calcium 8.7 Medications Administered Home Medications Medication Instructions Recorded Confirmed Last Taken fluocinolone acetonide oil 0.01 % See Rx Instructions otic (ear) 01/29/21 12/29/22 Unknown ear drops .COMPLEX ear itching #20 mL amlodipine 2.5 mg tablet 2.5 mg PO HS 12/22/22 12/29/22 Unknown aspirin 81 mg tablet,delayed 81 mg PO QDL 12/22/22 12/29/22 Unknown release atorvastatin 10 mg tablet 10 mg PO QDD 12/22/22 12/29/22 Unknown brinzolamide 1 %-brimonidine 0.2 % 1 drp OPB AMPM 12/22/22 12/29/22 Unknown eye drops,suspension (Simbrinza) cholecalciferol (vitamin D3) 25 25 mcg PO QAM 12/22/22 12/29/22 Unknown mcg (1,000 unit) tablet (Vitamin D3) cyanocobalamin (vitamin B-12) 1,000 mcg PO QAM 12/22/22 12/29/22 Unknown 1,000 mcg tablet (Vitamin B-12) insulin aspart U-100 100 unit/mL 22 unit subcut TIDM 12/22/22 12/29/22 Unknown (3 mL) subcutaneous pen (Novolog FlexPen U-100 Insulin aspart) insulin glargine 100 unit/mL (3 35 unit subcut QDB 12/22/22 12/29/22 Unknown mL) subcutaneous pen (Basaglar KwikPen U-100 Insulin) isosorbide mononitrate 60 mg 60 mg PO QAM 12/22/22 12/29/22 Unknown tablet,extended release 24 hr linagliptin 5 mg tablet (Tradjenta) 5 mg PO QDL 12/22/22 12/29/22 Unknown losartan 50 mg tablet 50 mg PO BID 12/22/22 12/29/22 Unknown metformin 500 mg tablet 500 mg PO BIDM 12/22/22 12/29/22 Unknown metoprolol tartrate 25 mg tablet 12.5 mg PO BID 12/22/22 12/29/22 Unknown netarsudil 0.02 %-latanoprost 1 drp OPB HS 12/22/22 12/29/22 Unknown 0.005 % eye drops (Rocklatan) pantoprazole 40 mg tablet,delayed 40 mg PO Q2D 12/22/22 12/29/22 Unknown release timolol maleate 0.5 % eye drops 1 drp OPB QAM 12/22/22 12/29/22 Unknown codeine 10 mg-guaifenesin 100 mg/5 10 ml PO Q6H PRN cough #120 mL 12/25/22 12/29/22 Unknown mL oral liquid fluticasone propionate 50 2 spray NA HS #16 grams 12/25/22 12/29/22 Unknown mcg/actuation nasal spray,suspension Active Medications Generic Name Dose Route Start Last Admin Trade Name Freq PRN Reason Stop Dose Admin Amlodipine Besylate 5 mg 12/31/22 21:00 01/01/23 21:18 Amlodipine Besylate 5 Mg Tab PO 01/30/23 20:59 5 mg HS KATELIN Administration Aspirin 81 mg 12/30/22 11:30 01/02/23 12:09 Aspirin 81 Mg Ectab PO 01/29/23 11:29 81 mg QDL KATELIN Administration Atorvastatin Calcium 10 mg 12/30/22 16:30 01/01/23 18:29 Atorvastatin 10 Mg Tab PO 01/29/23 16:29 10 mg QDD KATELIN Administration Brinzolamide/Brimonidine Tartrate 1 drops 01/01/23 22:00 01/02/23 08:38 Brinzolamide/Brimonidine Tart 119 Drops/8 Ml Btl OP 01/31/23 21:59 1 drops BID KATELIN Administration Cyanocobalamin 1,000 mcg 12/30/22 09:00 01/02/23 08:37 Cyanocobalamin (B-12) 500 Mcg Tablet PO 01/29/23 08:59 1,000 mcg QAM KATELIN Administration Fluticasone Furoate 1 puffs 12/30/22 09:00 01/02/23 08:39 Fluticasone Furoate 100mcg 14 Puffs/Inhaler INH 01/29/23 08:59 1 puffs DAILY KATELIN Administration Fluticasone Propionate 2 sprays 12/30/22 21:00 01/01/23 21:17 Fluticasone Propionate Na Spr 16 Gm Btl NA 01/29/23 20:59 2 sprays HS KATELIN Administration Guaifenesin/Codeine Phosphate 5 ml 12/30/22 04:41 12/31/22 12:20 Guaifenesin/Codeine 100mg/10mg 5ml Udc PO 01/29/23 04:40 5 ml Q6H PRN Administration cough Heparin Sodium (Porcine) 5,000 units 12/30/22 06:00 01/02/23 13:38 Heparin Sod 5,000 Unit/0.5 Ml Vial SQ 01/29/23 05:59 5,000 units Q8 KATELIN Administration Insulin Aspart 0 units 12/30/22 07:30 01/02/23 13:27 Insulin Aspart Per Unit Charge SC 01/29/23 07:29 8 units ACHS KATELIN Administration Isosorbide Mononitrate 60 mg 12/30/22 09:00 01/02/23 08:[address] [place] Extended Rel 60 Mg Tabcr PO 01/29/23 08:59 60 mg QAM KATELIN Administration Metoprolol Tartrate 12.5 mg 12/30/22 11:30 01/02/23 12:09 Metoprolol Tartrate 25 Mg Tab PO 01/29/23 11:29 12.5 mg BID@1130,2100 KATELIN Administration Netarsudil/Latanoprost 1 drops 01/01/23 22:00 01/01/23 22:11 Netarsudil Mesylat/Latanoprost 37 Drops/2.5 Ml Btl OP 01/31/23 21:59 Not Given HS KATELIN Pantoprazole Sodium 40 mg 12/31/22 09:00 01/02/23 08:35 Pantoprazole 40 Mg Tab PO 01/30/23 08:59 40 mg Q2D@0900 KATELIN Administration Timolol Maleate 1 drops 12/30/22 09:00 01/02/23 08:39 Timolol Maleate 0.5% Op Soln 5 Ml Btl OPB 01/29/23 08:59 1 drops QAM KATELIN Administration Vitamin D 1,000 units 12/30/22 09:00 01/02/23 08:36 Cholecalciferol 1,000 Units 25 Mcg Tab PO 01/29/23 08:59 1,000 units QAM KATELIN Administration
--- NOTE | 2023-01-02 15:58 | XRay Report ---
XR KUB/Abdomen 1 view CLINICAL HISTORY: concerns of impaction still TECHNIQUE: 1 view of the abdomen was obtained. Comparison: Comparison is made to abdomen radiograph 12/31/2022 FINDINGS: Lung bases are unremarkable. Degenerative changes are seen in the visualized skeleton. The bowel gas pattern is nonobstructive. A stool ball measures 71 mm in diameter with peripheral gas suggestive of inspissation. IMPRESSION: Residual impacted stool appears to remain in the rectum. ACT 112: Negative or not required by law. Electronically signed by: Geovanny Barbosa M.D. 01/02/2023 3:56 PM
--- NOTE | 2023-01-02 16:08 | Gastroenterology Progress Note ---
Date of Service January 02, 2023 Assessment & Plan (1) Constipation: Plan: Still with effects of laxatives. If impaction doesn't resolve may need to try tap water enemas to break it up or even a colonoscopy prep. Will see how he does over night. Admission and Anticipated Discharge Date Admission Date: December 30, 2022 Subjective Feels "rough". Leaking some stool. Always feels the need to go. KUB shows large rectal stool ball with a lot more stool to eliminate Physical Exam Physical Exam: He looks uncomfortable Results & Data Vital Signs (Past 12 Hours) Vital Signs Temp Pulse Pulse Resp BP BP Pulse Ox 01/02/23 15:55 36.4 C L 70 16 125/55 L 95 01/02/23 15:48 75 01/02/23 12:52 60 01/02/23 12:11 36.7 C 73 132/73 90 01/02/23 09:50 01/02/23 08:25 36.3 C L 92 H 18 133/63 97 01/02/23 08:00 Pulse Ox O2 Del Method O2 Del Method 01/02/23 15:55 Room Air 01/02/23 15:48 01/02/23 12:52 01/02/23 12:11 Room Air 01/02/23 09:50 Room Air 01/02/23 08:25 Room Air 01/02/23 08:00 97 Room Air
[2023-01-02] MEDS: ATORVASTATIN 10 MG TAB PO SCH (17:11)
--- OUTSIDE RECORDS SUMMARY | 2023-01-02 21:53 | External Medical Summary | Summary of Care ---
Author Name Unknown Organization [facility] Address [address] [place] [address] Phone [phone] Care Team Providers Care Supervisor Hydrochloric Area Name Role Phone Tito Grullon MD Primary Care Provider + Reason for Visit * Reason Onset Date Comments Advice 09/30/2022 Encounter Details Date Type Department Care Team (Late st Contact Info) Description 09/30/2022 Telephone Gynecology/Obstetrics Anthony Alejo [address] [place] [address] Penelope Alcaraz MD [address] [place] [id number] Advice Allergies Active Allergy Reactions Criticality Noted Date Comments Lisinopril 07/15/2008 Swelling, hives Metronidazole Hcl 06/28/2001 rash,itchy Niacin 10/16/2008 Itching, Can tolerate Niacin documented as of this encounter (statuses as of 12/26/2022) Medications Medication Sig Dispensed Refills Start Date End Date Status ASPIRIN 81 MG PO CHEW One pill by mouth once a day with food 100 5 07/12/2007 Active [employer] ULTRA SYSTEM W/DEVICE KITIndications:DM type 2, goal A1C 7-8 Use to check sugar once a day. Dx: 250.00 1 Kit 0 03/04/2013 Active Cyanocobalamin (B-12-SL) [address] 1,000 mcg under the tongue daily. 90 Tab 3 09/26/2017 Active Glucose Blood In Vitro StripIndications:T ype 2 diabetes mellitus with hemoglobin A1c goal of less than 8.0% ([facility]) Tests daily 100 Strip 3 09/27/2017 Active Cholecalciferol 1000 units Capsule Take 1 Capsule by mouth in the morning. 0 05/24/2018 Active tacrolimus (PROTOPIC) 0.1 % ointment Apply topically to affected area 2 times a day . Apply to eyelids as needed 0 Active Pen Secor 32G X 6 MMIndications: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 ([facility]) Use as directed . Use to take [...] 24 Hour (Imdur)Indications :Coronary artery disease involving [place] coronary artery of [place] heart without angina pectoris,Dyslipide yelitza, goal LDL below 70,Type 2 diabetes mellitus with hemoglobin A1c goal of less than 8.0% ([facility]),Essential hypertension with goal blood pressure less than [...] other day. 90 Tablet 3 09/09/2022 Active Insulin Glargine Solostar 100 UNIT/ML Subcutaneous Solution Pen-injector (Basaglar KwikPen)Indication s: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 45 mL 1 02/24/2022 3 Discontinue d(Refill) Atorvastatin Calcium 10 MG Oral Tablet (Lipitor) TAKE 1 WHOLE TABLET BY MOUTH DAILY. 90 Tablet 0 06/28/2022 3 Discontinue d(Refill) metFORMIN HCl 500 MG Oral Tablet (Glucophage)Indica tions:Type 2 diabetes mellitus with hemoglobin A1c goal of less than 8.0% (HCC) Take 1 Tablet by mouth 2 times a day with morning and evening meals. 180 Tablet 3 09/09/2022 3 Discontinue d(Medicatio n/Dose Changed) Clopidogrel Bisulfate 75 MG Oral Tablet (pLAVix) TAKE 1 TABLET BY MOUTH DAILY IN THE MORNING 90 Tablet 1 09/29/2022 3 Discontinue d(Medicatio n/Dose Changed) documented as of this encounter (statuses as of 12/26/2022) Active Problems Problem Noted Date Diagnosed Date [...] as of this encounter (statuses as of 12/26/2022) Resolved Problems Problem Noted Date Diagnosed Date Resolved Date Type 2 diabetes mellitus wit h stage 3 chronic kidney disease and hypertension 01/03/2018 07/03/19 21 Overview: Per CKD protocol Kidney disease, chronic, sta ge III (GFR 30-59 ml/min) 04/15/2013 02/02/2018 Overview: Per CKD protocol #1 Unstable angina 11/03/2012 12/14/2016 [employer] Other*[id number] 11/02/2012 03/29/2016 Overview: Study Title: [employer] Mark[employer] for Patients with Cardiovascular Disease Project # [id number] Awning Spreader: Eleni Briggs MD [phone] HTN, goal below 130/80 10/12/201211/18 ACTIVE CASE MANAGEMENT Tamera De RN [phone] 07/04/2008 12/07/2009 ACTIVE CASE MANAGEMENT Taemra De RN [phone] 07/06/2007 05/14/2008 RECTAL & ANAL DIS NEC [...] as of this encounter (statuses as of 12/26/2022) Immunizations Name Administration Dates Next Due COVID-19 [...] encounter Miscellaneous Notes * Telephone Encounter - Penelope Alcaraz MD - 10/03/2022 3:38 PM EDT Noted, thanks. * Telephone Encounter - Yareli Odmo RDMS - 10/03/2022 3:21 PM EDT Thank you for clarifying. The bladder is actually included with the renal US. We cancelled the pelvic order and bladder was scanned under the renal. Thank you! * Telephone Encounter - Penelope Alcaraz MD - 09/30/2022 6:22 PM EDT Yes, ordered for bladder. Patient not able to do IV contrast for CT urogram, so ultrasound is next best option. * Telephone Encounter - Yareli Odom RDMS - 09/30/2022 3:45 PM EDT Rei is scheduled for an US on Monday. There was a renal US ordered as well as a pelvic limited US. Reason for exam on both orders is "hematuria". Was the pelvis US ordered for bladder, or were you looking for something else? Please advise and thank you! documented in this encounter Plan of Treatment Upcoming Encounters Date Type Department Care Team (Late st Contact Info) Description 01/04/2023 2:40 PM EST Office Visit [facility] [address] [place] [phone] Tito Grullon MD [address] [place] [address] 04/21/2023 9:20 AM EST Office Visit [facility] [address] [place] [address] Tito Grullon MD [address] [place] [address] 05/04/2023 11:00 AM EDT Office Visit Pharmacy, [facility] [place] [address] [place] [address] [address] [facility] [address] [place] [address] 05/26/2023 2:00 PM EDT Office Visit Nephrology, [facility] [address] [place] [address] Marshal Davis MD [address] [place] [address] Health Maintenance Due Date Last Done Comments Hepatitis B (1 of 3 - Risk 3-dose series) 2000 COVID-19 Vaccine ( season) 2022 11/09/2021, 05/28/2021, 11/16/2020, Additional history exists HbA1c 03/08/2023 09/05/2022, 06/2022, 08/27/2021, Additional history exists GFR 05/16/2023 11/15/2022, 08/20, 12/30/2021, Additional history exists Diabetic Eye Exam 08/02/2023 08/01/2022, , 09/20/2021, Additional history exists Albumin/Creatinine Ratio 09/06/202309/05/2 023, 08/27/2021, 05/06/2021, Additional history exists CKD HGB USE SMARTSET 51607 09/06/202309/05, 06/18/2021, 06/18/2021, Additional history exists CKD PHOS USE SMARTSET 09106 09/06/202308/20, 05/06/2021, 07/16/2020, Additional history exists Depression [...] the patient have Health Care Power of Features Editor? No Care Teams Supervisor Hydrochloric Area Relationship Specialty Start Date End Date Tito Grullon MD [address] [place] [address] PCP - General Family Medicine 09/01/15 documented as of this encounter
--- OUTSIDE RECORDS SUMMARY | 2023-01-02 21:53 | External Medical Summary | Summary of Care ---
Author Name Unknown Organization [facility] Address [address] [place] [address] Phone [phone] Care Team Providers Care Tax Specialist Name Role Phone Tito Grullon MD Primary Care Provider + Reason for Referral * Evaluate & Treat - Unlimited Visits (Within 10 days (routine)) - Authorized Specialty Diagnoses / Procedures Referred By Contara t Referred To Contact Butter Wrapper Diagnoses COVID-19 virus infection Tito Grullon MD [address] [place] [address] Referral ID Status Reason Start Date Expiration Date Visits Requested Visits Authorized [id number] Authorized Specialty Services Required 12/26/2022 1 1 Question Answer Referral Priority Within 10 days (routine) Where should this appointment be scheduled? [facility] Program Type Case Management Complex Case Management [facility] Health Device(s) Requested Other (See Comment) - PDIVR Alarm Settings Standard per protocol Comments Primary Butter Wrapper: Patti Rodrigues RN Is the patient already enrolled with another [facility] device/service? (If no, will need to "push the button") No Does the patient have a physical address? (If no, provide physical address if requesting device) Yes Requested Devices/IVR: IVR Post-Discharge Start date: 12/27/22 How many weeks: 4 If want time other than 9am, note time here: Reason for Visit * Reason Comments case management Encounter Details Date Type Department Care Team (Late st Contact Info) Description 12/26/[address] [facility] [address] [facility] [address] [place] [address] Patti Rodrigues RN [address] [place] [address] COVID-19 virus infection* Allergies Active Allergy Reactions Criticality Noted Date Comments Lisinopril 07/15/2008 Swelling, hives Metronidazole Hcl 06/28/2001 rash,itchy Niacin 10/16/2008 Itching, Can tolerate Niacin documented as of this encounter (statuses as of 12/26/2022) Medications Medication Sig Dispensed Refills Start Date End Date Status ASPIRIN 81 MG PO CHEW One pill by mouth once a day with food 100 5 07/12/2007 Active Tivix SYSTEM W/DEVICE KITIndications:DM type 2, goal A1C 7-8 Use to check sugar once a day. Dx: 250.00 1 Kit 0 03/04/2013 Active Cyanocobalamin (B-12-SL) [address] 1,000 mcg under the tongue daily. 90 Tab 3 09/26/2017 Active Glucose Blood In Vitro StripIndications:Ty pe 2 diabetes mellitus with hemoglobin A1c goal of less than 8.0% ([facility]) Tests daily 100 Strip 3 09/27/2017 Active Cholecalciferol 1000 units Capsule Take 1 Capsule by mouth in the morning. 0 05/24/2018 Active tacrolimus (PROTOPIC) 0.1 % ointment Apply topically to affected area 2 times a day . Apply to eyelids as needed 0 Active Pen [place] 32G X 6 MMIndications:Type 2 diabetes mellitus [...] 24 Hour (Imdur)Indications: Coronary artery disease involving [place] coronary artery of [place] heart without angina pectoris,Dyslipidem ia, goal LDL [...] Tablet Sublingual (Nitrostat)Indicati ons:Coronary artery disease involving [place] coronary artery of [place] heart without angina pectoris DISSOLVE ONE TABLET UNDER THE TONGUE EVERY 5 MINUTES NEEDED FOR CHEST PAINS 25 Tablet 1 10/27/2022 10/27/2023 Active guaiFENesin-Codeine 100-10 MG/5ML Oral Solution (Robitussin AC) take 10 mL by mouth every 6 hours As Needed for cough; CAUTION: THIS MED CAUSES DROWSINESS, DO NOT DRIVE AFTER TAKING 120 mL 0 12/25/2022 Active Fluticasone Propionate 50 MCG/ACT Nasal Suspension (Flonase) instill 2 sprays into each Nostril at bedtime; Continue using once per day until symptoms resolve. 16 g 0 12/25/2022 Active documented as of this encounter (statuses [...] Unstable angina 11/03/2012 12/14/2016 [employer] Other*[id number] 11/02/2012 03/29/2016 Overview: Study Title: Genomic Markers for Patients with Cardiovascular Disease Project # [id number] Nurse Intern: Eleni Briggs MD [phone] HTN, goal below 130/80 10/12/201211/18 ACTIVE CASE MANAGEMENT Tamera De RN [phone] 07/04/2008 12/07/2009 ACTIVE CASE MANAGEMENT Tamera De RN [phone] 07/06/2007 05/14/2008 RECTAL & ANAL DIS NEC [...] mRNA, LNP-s, No Pre serve, 2-Dose Series (Melboss) 05/28/2021,11/16/2020,05/15/2020,2020 Covid-19, Mrna, Lnp-s, Pf, B ivalent, [...] money to buy more. Never true 09/10/19 Within the past 12 months, t he [...] as of this encounter Progress Notes * Patti Rodrigues RN - 12/26/2022 10:19 AM EST Butter Wrapper Progress Note: Date: 12/26/22 Assigned Patient Tier: 2 Connected with patient via phone. Verified patient name/. Advised patient that call is being recorded for quality and training purposes. Assessment: Pt. noted the following: He has a :loose cough". Is having someone stop at the pharmacy to olive picker cough syrup and nose spray today. He has a very dry nose, and gets some blood when blowing his nose.Has a humidifier running in the home. Does not use a DME and lives alone. Is independent with ADLs and iADLs. A hospital d/c appointment has been scheduled for next week. Does not have a pulse oximeter at home. Denies any problems with bowels or bladder, states he is eating and drinking okay. Agreeable to CM follow up calls. Did you receive an alert for an annual wellness visit? No Is this call for a hospital, longterm or rehab facility discharge to home? Yes [facility] 12/22 -12/25 Covid, hyponatremia Medication Reconciliation: Medication Reconciliation completed: yes Review of Current goals: Discussed the following patient-centered CM goals with the patient during this discussion: -RESPIRATORY: Patient/caregiver will monitor for exacerbation of respiratory condition and treat accordingly -Status: On Track . -Activity: Patient will increase activity or maintain level as tolerated -Status: On Track . -SYMPTOM Monitoring: Patient will verbalize understanding of symptom monitoring -Status: On Track . COPD Patient: No CHF Patient: NO CM Plan: Reviewed 3 Red Flags with patient. Advised to call CM with any of the following: Red Flag 1: SOB, Red Flag 2: worsening cough, or Red Flag 3: weakness Remote Patient Monitoring: At this time, RPM not offered/considered for patient due to N/A. Plan for Future Contacts: Plan to follow up within 1 week to check progress on the following goals/needs pulmonary/post covidstatus. Planned contacts from the following parties will occur this week: PCP office visit as additional contacts per workflow. Advancement/Closure Plan: Keep patient at current Tier with reassessment per workflow. Patient provided CM contact information and encouraged to call with any changes in condition. SNP Member? No PCP Notified of enrollment in CM/HM program: Yes Is Provider in agreement with POC? Yes Patti Rodrigues RN Outpatient Case Management documented in this encounter Plan of Treatment Upcoming Encounters Date Type Department Care Team (Late st Contact Info) Description 01/04/2023 2:40 PM EST Office Visit [facility] [address] [place] [address] Tito Grullon MD [address] [place] [address] 04/21/2023 9:20 AM EST Office Visit [facility] [address] [place] [address] Tito Grullon MD [address] [place] [address] 05/04/2023 11:00 AM EDT Office Visit Pharmacy, [facility] [address] [place] [address] [facility] [address] [facility] [place] [address] 05/26/2023 2:00 PM EDT Office Visit Nephrology, [facility] [address] [place] [address] Marshal Davis MD [address] [place] [address] Scheduled Referrals Name Type Priority Associated Diagnoses Orde r Schedule REMOTE PATIENT MONITORING REFERRAL Referral Within 10 days (routine) COVID-19 virus infection Ordered: 12/26/2022 Health Maintenance Due Date Last Done Comments [...] Additional history exists CKD HGB USE SMARTSET 16111 09/06/202309/05, 06/18/2021, 06/18/2021, Additional history exists CKD PHOS USE SMARTSET 90693 09/06/202308/20, 05/06/2021, 07/16/2020, Additional history exists Depression [...] as of this encounter Visit Diagnoses Diagnosis COVID-19 virus infection- Primary documented in this encounter Advance Directives [...] the patient have Health Care Power of Manufacturing Area Manager? No Care Teams Tax Specialist Relationship Specialty Start Date End Date Tito Grullon MD [address] [place] [address] PCP - General Family Medicine 09/01/15 documented as of this encounter
--- OUTSIDE RECORDS SUMMARY | 2023-01-02 21:53 | External Medical Summary | Summary of Care ---
Author Name Unknown Organization [facility] Address [address] [place] [address] Phone [phone] Care Team Providers Care Validation Scientist Name Role Phone Tito Grullon MD Primary Care Provider + Reason for Visit * Reason Onset Date Comments Follow Up Medication Administration 12/14/2022 Flu an d/or Pneumo Inj Encounter Details Date Type Department Care Team (Late st Contact Info) Description 12/14/2022 8:30 AM EDT Office Visit Cardiology, [facility] [address] [place] [address] Aminata Estrada PA-C [address] [place] [id number] Coronary artery disease involving [place] coronary artery of [place] heart without angina pectoris*; HTN, goal below 140/90; Dyslipidemia, goal LDL below 70; 1st degree AV block; Fatigue, unspecified type; Need for prophylactic vaccination and inoculation against influenza Allergies Active Allergy Reactions Criticality Noted Date Comments Lisinopril 07/15/2008 Swelling, hives Metronidazole Hcl 06/28/2001 rash,itchy Niacin 10/16/2008 Itching, Can tolerate Niacin documented as of this encounter (statuses as of 12/23/2022) Medications Medication Sig Dispensed Refills Start Date End Date Status ASPIRIN 81 MG PO CHEW One pill by mouth once a day with food 100 5 07/12/2007 Active Webcentrix SYSTEM W/DEVICE KITIndications:DM type 2, goal A1C 7-8 Use to check sugar once a day. Dx: 250.00 1 Kit 0 03/04/2013 Active Cyanocobalamin (B-12-SL) [address] 1,000 mcg under the tongue daily. 90 Tab 3 09/26/2017 Active Glucose Blood In Vitro StripIndications:T ype 2 diabetes mellitus with hemoglobin A1c goal of less than 8.0% ([facility]) Tests daily 100 Strip 3 09/27/2017 Active Cholecalciferol 1000 units Capsule Take 1 Capsule by mouth in the morning. 0 05/24/2018 Active tacrolimus (PROTOPIC) 0.1 % ointment Apply topically to affected area 2 times a day . Apply to eyelids as needed 0 Active [place] 32G X 6 MMIndications: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 ([facility]) Use as directed . Use to [...] 24 Hour (Imdur)Indications :Coronary artery disease involving [place] coronary artery of [place] heart without angina pectoris,Dyslipide yelitza, goal LDL below 70,Type 2 diabetes mellitus with hemoglobin A1c goal of less than 8.0% ([facility]),Essential hypertension with goal blood pressure less [...] hemoglobin A1c goal of less than 8.0% ([facility]) Take 1 Tablet by mouth in [...] Solostar 100 UNIT/ML Subcutaneous Solution Pen-injector (Basaglar SilvioikMiguel)Indication s: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 45 mL 1 10/19/2022 Active Nitroglycerin 0.4 MG Sublingual Tablet Sublingual (Nitrostat)Indicat ions:Coronary artery disease involving conf[place] coronary artery of [place] heart without angina pectoris DISSOLVE ONE TABLET UNDER THE TONGUE EVERY 5 MINUTES NEEDED FOR CHEST PAINS 25 Tablet 1 10/27/2022 4 Active Clopidogrel Bisulfate 75 MG Oral Tablet (pLAVix) TAKE 1 TABLET BY MOUTH DAILY IN THE MORNING 90 Tablet 1 09/29/2022 3 Discontinue d(Medicatio n/Dose Changed) documented as of this encounter (statuses as of 12/23/2022) Active Problems Problem Noted Date Diagnosed Date [...] as of this encounter (statuses as of 12/23/2022) Resolved Problems Problem Noted Date Diagnosed Date Resolved Date Type 2 diabetes mellitus wit h stage 3 chronic kidney disease and hypertension 01/03/2018 07/03/19 21 Overview: Per CKD protocol Kidney disease, chronic, sta ge III (GFR 30-59 ml/min) 04/15/2013 02/02/2018 Overview: Per CKD protocol #1 Unstable angina 11/03/2012 12/14/2016 [employer] Other*[id number] 11/02/2012 03/29/2016 Overview: Study Title: Genomic Markers for Patients with Cardiovascular Disease Project # [id number] Enterprise Architect: Eleni Briggs MD [phone] HTN, goal below 130/80 10/12/201211/18 ACTIVE CASE MANAGEMENT Tamera De RN [phone] 07/04/2008 12/07/2009 ACTIVE CASE MANAGEMENT Tamera De RN [phone] 07/06/2007 05/14/2008 RECTAL & ANAL DIS NEC [...] as of this encounter (statuses as of 12/23/2022) Immunizations Name Administration Dates Next Due COVID-19 [...] Sign Reading Time Taken Comments Blood Pressure 128/60 12/14/2022 8:28 AM EDT Pulse 66 12/14/2022 8:28 AM EDT Temperature - - Respiratory Rate - - Oxygen Saturation 97% 12/14/2022 8:28 AM EDT Inhaled Oxygen Concentration - - Weight 91.2 kg (201 lb) 12/14/2022 8:28 AM EDT Height - - Body Mass Index 30.56 10/10/2022 10:40 AM EDT documented in this encounter Patient Instructions * Patient Instructions* Jovanni Garcia LPN - 12/14/2022 9:00 AM EDT Stop clopidogrel (plavix) Continue aspirin 81 mg - 1 tablet daily Wear the heart monitor for 7 days. Blood work in January ~~PATIENT INSTRUCTIONS FOR FLU SHOT~~ Possible side effects of influenza vaccine, (flu shot), are usually mild and include: 1. Soreness or redness at injection site 2. Low grade fever 3. Body aches You may use Tylenol/Acetaminophen as needed for these symptoms. LET YOUR DOCTOR KNOW IMMEDIATELY IF YOU HAVE DIFFICULTY BREATHING OR SWALLOWING, EXPERIENCE ITCHINGOF FEET OR HANDS, HAVE SWELLING OF EYES, FACE OR INSIDE OF NOSE. documented in this encounter Progress Notes * Jovanni Garcia LPN - 12/14/2022 9:11 AM EDT PRE - ADMINISTRATION DOCUMENTATION Are you experiencing any cold symptoms or fever? No Have you had Guillain-Van Buren Syndrome (an illness that causes paralysis) within the last 6 weeks? No Have you had the flu shot in the past? YES Have you ever had a reaction to the flu shot? No Jovanni Garcia LPN, 12/14/2022 9:11 AM Immunization Administration Documentation Time Out Procedure Performed: Yes Patient Identified (Ask Name/Date of ): Yes Does the patient have a fever greater than 101 degrees today? No Patient allergic to latex? No VFC Stock: No Immunization(s) verified: Yes, Immunization Name: Flu, VIS Sheet(s) given: Yes Verified Side and Site: Yes Verified Shot(s) with Parent(s)/Patient: Yes * Aminata Estrada PA-C - 12/14/2022 8:39 AM EDT Cardiology F/U: Chief Complaint: Follow-up ischemic heart disease, hypertension SUBJECTIVE: Rei Martínez is a 82 year old male here today for routine cardiology f/u. Last clinic evaluation approx 8 months ago with the undersigned. Primary seo strategist is Dr. Doe. History includes: 1. 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 2.Ischemic heart disease status post coronary intervention October 2012 after abnormal stress testing, receiving a drug-eluting stent to the mid left anterior descending and angioplasty of the LAD diagonal. 3. Class 1-2 angina and functional capacity. 4. Hypertension. 5.Hyperlipidemia. 6. Diabetes mellitus. Patient presents today feeling well. He notes generalized fatigue. No dizziness. No recent chest pain or unusual shortness of breath. He had prior issues with hematuria and anemia. Remained on dual antiplatelet therapy. No recent coronary or vascular interventions. No TIA/CVA No chest pain, shortness of breath, palpitations, dizziness, syncope or near syncope. No orthopnea,PND, or increased lower extremity edema. No fever, chills, cough, hematochezia, melena, or hemoptysis. Review of Systems: See HPI for pertinent positives. All others negative, other than those noted in HPI. 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 Apply to eyelids as needed [place] 32G X 6 MM Use as directed [...] Glargine Solostar 100 UNIT/ML Subcutaneous Solution Pen-injector ([employer] KwikPen) Inject 35 Units under the skin every night at bedtime. 45 mL 1 Nitroglycerin 0.4 MG Sublingual Tablet Sublingual (Nitrostat) DISSOLVE ONE TABLET UNDER THE TONGUE EVERY 5 MINUTES NEEDED FOR CHEST PAINS 25 Tablet 1 No current facility-administered medications for this visit. OBJECTIVE/PHYSICAL EXAMINATION: BP 128/60 | Pulse 66 | Wt 91.2 kg (201 lb) | SpO2 97% | BMI 30.56 kg/m | BSA 2.09 m On my repeat 138/70 equal in both arms Wt Readings from Last 3 Encounters: 12/14/22 91.2 kg (201 lb) 12/07/22 90.8 kg (200 lb 3.2 oz) 10/10/22 90.1 kg (198 lb 9.6 oz) General: no acute distress and stated age Head: normocephalic, no masses, lesions, tenderness or abnormalities Eyes: conjunctiva are pink and non-injected, sclera clear Throat: clear Nares: without discharge Neck: supple, no adenopathy, no bruits, normal jugular venous pulse, no hepatojugular reflux, no carotid bruits Chest: normal shape and normal respiratory effort Lungs: clear to auscultation and percussion Cardiac Exam: - regular rate & rhythm, no murmurs gallops or rubs - normal S-1, normal S-2 Pulses: 2(+) throughout Abdomen: abdomen soft, non-tender, no abnormal masses, no hepatosplenomegaly, no abdominal bruit, no femoral bruit there is a midline ventral hernia without tenderness Musculoskeletal: no gait disturbance, no joint inflammation, no deforming arthritis Extremities: no edema, no cyanosis, pulses intact 2+/4 Neuro: Fine resting tremor Data: EKG performed today and reviewed personally: Sinus rhythm with marked first degree AV block Otherwise normal ECG When compared with ECG of 18-JUN-2021 No significant change EKG June 18, 2021: Sinus rhythm with first-degree AV block, rate 76 beats per minute otherwise normal tracing Echocardiogram November 19, 2020 Normal LV chamber size with mild concentric LVH. Normal LV systolic function. The apical septum is mildly hypokinetic at rest, otherwise, normal wall motion. Calculated LV ejection Fraction = 56% (bi-plane method of discs). The global longitudinal strain (GLS) is - 18 %. Normal left ventricular systolic function is suggested if GLS is -14% to -30%. Grade 1 diastolic dysfunction. Mild aortic valve sclerosis without stenosis. Mild aortic regurgitation. Mild tricuspid regurgitation. The aortic root is normal sized. The proximal ascending thoracic aorta is mildly enlarged Latest Reference Range & Units 09/05/22 09:33 Triglycerides <=174 mg/dL 184 (H) Cholesterol <200 mg/dL 101 Non-HDL Cholesterol <=159 mg/dL 77 HDL Cholesterol >39 mg/dL 24 (L) LDL Cholesterol (Direct Measure) <=129 mg/dL 48 (H): Data is abnormally high (L): Data is abnormally low ASSESSMENT: 82 year old male 1. CAD - no anginal complaints. 2. Hypertension - controlled 3. Dyslipidemia on therapy - controlled 4. Type 2 diabetes mellitus on appropriate therapies with glucoses responding, cardio benefit regimen 5. Chronic renal insufficiency 6. Long first degree AV block 7. Fatigue 8. Recent issues with hematuria and anemia PLAN: Stable cardiac symptoms. He has significantly long first degree AV block on EKG. Recommend ZIO monitor to assess and R/O high degree AV block Consider stopping metoprolol. Taking 12.5 mg BID Given his recent issues with anemia and hematuria, with shared decision making, will discontinue plavix and continue single antiplatelet therapy with ASA 81 mg daily Patient agreeable. Repeat labs in 3 months The patient is to continue all current medications as listed above Lipids controlled. Patient Instructions Stop clopidogrel (plavix) Continue aspirin 81 mg - 1 tablet daily Wear the heart monitor for 7 days. Blood work in January ~~PATIENT INSTRUCTIONS FOR FLU SHOT~~ Possible side effects of influenza vaccine, (flu shot), are usually mild and include: 1. Soreness or redness at injection site 2. Low grade fever 3. Body aches You may use Tylenol/Acetaminophen as needed for these symptoms. LET YOUR DOCTOR KNOW IMMEDIATELY IF YOU HAVE DIFFICULTY BREATHING OR SWALLOWING, EXPERIENCE ITCHINGOF FEET OR HANDS, HAVE SWELLING OF EYES, FACE OR INSIDE OF NOSE. I spent a total of 30 minutes on the date of service in preparation, delivery, and documentation ofthe care provided to Rei Martínez excluding any time spent in the performance of separately billedservices. The patient agrees to the above plan and will call with additional questions or concerns. ER with all emergencies advised. Follow-up: Return in about 6 months (around 06/15/2023). | Check-out note: Print instructions 6 month f/u with Dr. Nader Estrada PA-C Department of Cardiology This chart was completed in part utilizing [employer] Speech Voice Recognition Software. Grammatical errors, random word insertions, prounoun errors, and incomplete sentences are an occasional consequence of this system due to software limitations, ambient noise, and hardware issues. Any formal questions or concerns about the content, text, or information contained within the body of this dictation should be directly addressed to the provider for clarification. documented in this encounter Procedure Notes * Jaswinder Doe MD - 12/14/2022 8:49 AM EDTAssociated Order(s): EKG REASON FOR STUDY: routine CONCLUSIONS: Sinus rhythm with marked first degree AV block Otherwise normal ECG When compared with ECG of 18-JUN-2021 No significant change Ventricular Rate: 65 Atrial Rate: 65 IA Interval: 512 QRS Duration: 92 QT/QTc: 412/428 ms P-R-T [place]: 24 : 19 : 35 degrees documented in this encounter Nursing Notes * Lorraine De Jesus CMA - 12/14/2022 8:27 AM EDT Examination Room: 6 Name: Rei Martínez Date of : (1940) Reason for Visit: 6m Interim Hospitalization(s): none Problems/Concerns: none Chest Pain/SOB: denied [facility] is a way you can talk to your provider online through e-mail. Would you like to sign up? I can activate it for you? ALREADY ACTIVE Patient was instructed to not get up on the exam table until directed and assisted by their provider; patient is to remain seated in the chair/ wheelchair/ exam table for fall prevention and safety reasons. Patient is aware to have assistance to step down off exam table with personnel. Patient voiced full comprehension of instructions. documented in this encounter Plan of Treatment Upcoming Encounters Date Type Department Care Team (Late st Contact Info) Description 04/21/2023 9:20 AM EST Office Visit Family Practice [facility] [address] [place] [id number] Tito Grullon MD [address] [place] [address] 05/04/2023 11:00 AM EDT Office Visit Pharmacy, [facility] [address] [place] [address] [facility] [address] [place] [address] 05/26/2023 2:00 PM EDT Office Visit Nephrology, [facility] [address] [place] [address] Marshal Davis MD [address] [place] [address] Scheduled Orders Name Type Priority Associated Diagnoses Orde r Schedule CBC Lab Routine HTN, goal below 140/90 Dyslipidemia, goal LDL below 70 Coronary artery disease involving [place] coronary artery of [place] heart without angina pectoris Expected: 12/14/2022, Expires: 12/15/2023 MAGNESIUM Lab Routine HTN, goal below 140/90 Dyslipidemia, goal LDL below 70 Coronary artery disease involving [place] coronary artery of [place] heart without angina pectoris Expected: 12/14/2022, Expires: 12/15/2023 EXTERNAL EKG 2 TO 7 DAYS Holter Routine HTN, goal below 140/90 Dyslipidemia, goal LDL below 70 Coronary artery disease involving [place] coronary artery of [place] heart without angina pectoris 1st degree AV block Fatigue, unspecified type Expected: 12/14/2022 (Approximate), Expires: 12/15/2023 Health Maintenance Due Date Last Done Comments Hepatitis B (1 of 3 - Risk 3-dose series) 1998 COVID-19 Vaccine ( season) 2022 11/09/2021, 05/28/2021, 11/16/2020, Additional history exists HbA1c 03/08/2023 09/05/2022, 06/2022, 08/27/2021, Additional history exists GFR 05/16/2023 11/15/2022, 08/20, 12/30/2021, Additional history exists Diabetic Eye Exam 08/02/2023 08/01/2022, , 09/20/2021, Additional history exists Albumin/Creatinine Ratio 09/06/2023 023, 08/27/2021, 05/06/2021, Additional history exists CKD HGB USE SMARTSET 53133 09/06/202309/05, 06/18/2021, 06/18/2021, Additional history exists CKD PHOS USE SMARTSET 45481 09/06/202308/20, 05/06/2021, 07/16/2020, Additional history exists Depression [...] Procedure Name Priority Date/Time Associated Diagnosis Comments IA ECG ROUTINE ECG W/LEAST 12 LDS W/I&R Routine 12/14/2022 8:49 AM EDT HTN, goal below 140/90 Dyslipidemia, goal LDL below 70 documented in this encounter Results * EKG (12/14/2022 8:49 AM EDT) 12/14/2022 8:49 AM EDT Narrative Procedure Note Jaswinder Doe MD - 12/14/2022 8:49 AM EDT REASON FOR STUDY: routine CONCLUSIONS: Sinus rhythm with marked first degree AV block Otherwise normal ECG When compared with ECG of 18-JUN-2021 No significant change Ventricular Rate: 65 Atrial Rate: 65 IA Interval: 512 QRS Duration: 92 QT/QTc: 412/428 ms P-R-T [place]: 24 : 19 : 35 degrees Aminata Estrada PA-C EKG [facility] documented in this encounter Visit Diagnoses Diagnosis Coronary artery disease involving [place] coronary artery of [place] heart without angina pectoris- Primary HTN, goal below 140/90 Unspecified essential hypertension Dyslipidemia, goal LDL below 70 Other and unspecified hyperlipidemia 1st degree AV block First degree atrioventricular block Fatigue, unspecified type Need for prophylactic vaccination and inoculation against influenza documented in this encounter Advance Directives Latest [...] the patient have Health Care Power of Toe Trimmer? No Care Teams Validation Scientist Relationship Specialty Start Date End Date Tito Grullon MD [address] [facility] [place] [address] PCP - General Family Medicine 09/01/15 documented as of this encounter"
[2023-01-02] MEDS: amLODIPine BESYLATE 5 MG TAB PO SCH (22:18)
[2023-01-02] MEDS: FLUTICASONE PROPIONATE NA SPR 16 GM BTL SCH (22:19)
[2023-01-02] MEDS: NETARSUDIL MESYLAT/LATANOPROST 37 DROPS/2.5 ML BTL OP SCH (22:20)
[2023-01-02] MEDS: LANTUS PER UNIT CHARGE SC SCH (22:25)
[2023-01-03] MEDS ORDERED: SODIUM CHLORIDE 0.9% 1,000 ML IV SCH (01:00)
[2023-01-03 01:44] LABS: Hematocrit (blood only) 23.8 % (42.0-52.0); Hemoglobin 8.3 g/dl (14.0-18.0); Mean Corpuscular Hgb Conc 34.9 g/dL (32.0-36.0); Mean Corpuscular Volume 85.9 fL (80.0-100.0); Mean Platelet Volume 9.1 fL (9.4-12.4); Platelet Count 419 K/uL (130-400); RDW Standard Deviation 47.4 fL (36.4-46.3); Red Blood Count 2.77 M/uL (4.70-6.10); White Blood Count 10.98 K/ul (4.8-10.8)
[2023-01-03 01:45] LABS: Hematocrit (blood only) 23.7 % (42.0-52.0); Hemoglobin 7.9 g/dl (14.0-18.0)
[2023-01-03 01:54] LABS: BUN Creatinine Ratio 19.3 (10-20); Calcium 8.4 mg/dl (8.6-10.3); Creatinine Clr Calc Pharmacy 20.9 ml/min; Magnesium 1.9 mg/dl (1.7-2.4); Phosphorus 5.1 mg/dl (2.5-4.9); Potassium 3.5 mmol/L (3.5-5.1)
[2023-01-03] MEDS: HEPARIN SOD 5,000 UNIT/0.5 ML VIAL SQ SCH ×3 (06:41→21:08)
[2023-01-03 08:07] LABS: Hematocrit (blood only) 25.2 % (42.0-52.0); Hemoglobin 8.5 g/dl (14.0-18.0)
[2023-01-03] MEDS: INSULIN ASPART PER UNIT CHARGE SC SCH ×4 (08:11→21:08)
--- NOTE | 2023-01-03 08:59 | Gastroenterology Progress Note ---
Date of Service January 03, 2023 Assessment & Plan (1) Constipation: Plan 82 year old male with history of T2DM, hyperlipidemia, HTN, CKD3, CAD s/p stent, HTN, vitamin B12 deficiency, GERD, glaucoma admitted w/ COVID pneumonia - imaging showing constipation w/ fecal impaction. He notes last evening he passed a large amount of stool and is feeling improved. Would repeat KUB to re-evaluate for any residual fecal impaction. Otherwise, would start a scheduled oral bowel regimen. May use Miralax 1-2 capfuls daily. Admission and Anticipated Discharge Date Admission Date: December 30, 2022 Supervising Physician Co-Signing Physician Notes It appears that the patient began to have spontaneous bowel movements yesterday evening. He notes that he is now passing his bowels on a more regular basis. We would highly recommend that the patient be on a longstanding bowel regimen to include MiraLAX 17 g 1 time daily in addition to Colace 200 mg/day. Please call with any additional questions or concerns GI to sign off Subjective GI was asked to re-evaluate. Last evening notes he had a large amount of stools. Formed to semi-formed. Feels improved with these movements. No abd pain, tolerating PO intake, no vomiting. KUB 01/02: Residual impacted stool appears to remain in the rectum. Review of Systems Review of Systems: All systems reviewed & are unremarkable except as noted in HPI & below Physical Exam Constitutional: WD/WN, vitals as above Respiratory: normal respiratory effort Cardiovascular: Rate/Rhythm: regular rate Gastrointestinal (Abdomen): Percussion/Palpation: abdomen soft; abdomen nontender Skin: no rashes, warm and dry Results & Data Vital Signs (Past 12 Hours) Vital Signs Temp Pulse Pulse Resp BP BP Pulse Ox 01/03/23 08:01 36.2 C L 68 18 158/67 H 97 01/03/23 07:46 01/03/23 07:26 66 01/03/23 03:28 36.8 C 67 16 116/55 L 97 01/02/23 22:32 36.4 C L 79 16 156/67 H 97 01/02/23 22:20 01/02/23 22:00 65 O2 Del Method 01/03/23 08:01 Room Air 01/03/23 07:46 Room Air 01/03/23 07:26 01/03/23 03:28 Room Air 01/02/23 22:32 Room Air 01/02/23 22:20 Room Air 01/02/23 22:00 Laboratory Results 01/03/23 01/03/23 01/03/23 Range/Units 08:00 07:33 01:16 WBC (4.8-10.8) K/ul RBC (4.70-6.10) M/uL Hgb 8.5 L (14.0-18.0) g/dl Hct 25.2 L 23.7 L (42.0-52.0) % MCV 85.9 (80.0-100.0) fL MCH 30.0 (25.0-34.0) pg MCHC 34.9 (32.0-36.0) g/dL RDW Std Deviation 47.4 H (36.4-46.3) fL RDW Coeff of Madina 15.0 H (11.5-14.5) % Plt Count 419 H (130-400) K/uL MPV 9.1 L (9.4-12.4) fL VBG pH 7.32 L (7.36-7.41) Sodium 132 L (136-145) mmol/L Potassium 3.5 (3.5-5.1) mmol/L Chloride 106 (98-107) mmol/L Carbon Dioxide 16 L (21-32) mmol/L Anion Gap 10 (3-11) BUN 56 H (6-23) mg/dl Creatinine 2.90 H (0.6-1.4) mg/dl Est Cr Clr Drug Dosing 20.9 ml/min Est GFR ( Amer) 22.0 ml/min Est GFR (Non-Af Amer) 19.0 ml/min BUN/Creatinine Ratio 19.3 (10-20) Glucose 121 H (70-99(Fasting)) mg/dl POC Glucose 109 H (70-99) mg/dl Lactate 0.8 (0.4-2.0) mmol/L Calcium 8.4 L (8.6-10.3) mg/dl Phosphorus 5.1 H (2.5-4.9) mg/dl Magnesium 1.9 (1.7-2.4) mg/dl Stl C. diff Tox B Gene (Neg) Miscellaneous Test 01/03/23 01/03/2301/03/23 Range/Units 01:16 01:16 00:10 WBC 10.98 H (4.8-10.8) K/ul RBC 2.77 L (4.70-6.10) M/uL Hgb 7.9 L 8.3 L (14.0-18.0) g/dl Hct 23.8 L (42.0-52.0) % MCV (80.0-100.0) fL MCH (25.0-34.0) pg MCHC (32.0-36.0) g/dL RDW Std Deviation (36.4-46.3) fL RDW Coeff of Madina (11.5-14.5) % Plt Count (130-400) K/uL MPV (9.4-12.4) fL VBG pH (7.36-7.41) Sodium (136-145) mmol/L Potassium (3.5-5.1) mmol/L Chloride (98-107) mmol/L Carbon Dioxide (21-32) mmol/L Anion Gap (3-11) BUN (6-23) mg/dl Creatinine (0.6-1.4) mg/dl Est Cr Clr Drug Dosing ml/min Est GFR ( Amer) ml/min Est GFR (Non-Af Amer) ml/min BUN/Creatinine Ratio (10-20) Glucose (70-99(Fasting)) mg/dl POC Glucose (70-99) mg/dl Lactate (0.4-2.0) mmol/L Calcium (8.6-10.3) mg/dl Phosphorus (2.5-4.9) mg/dl Magnesium (1.7-2.4) mg/dl Stl C. diff Tox B Gene Negative Cdiff Gene (Neg) Miscellaneous Test 01/02/23 01/02/23 01/02/23 Range/Units 20:14 17:08 12:13 WBC (4.8-10.8) K/ul RBC (4.70-6.10) M/uL Hgb (14.0-18.0) g/dl Hct (42.0-52.0) % MCV (80.0-100.0) fL MCH (25.0-34.0) pg MCHC (32.0-36.0) g/dL RDW Std Deviation (36.4-46.3) fL RDW Coeff of Madina (11.5-14.5) % Plt Count (130-400) K/uL MPV (9.4-12.4) fL VBG pH (7.36-7.41) Sodium (136-145) mmol/L Potassium (3.5-5.1) mmol/L Chloride (98-107) mmol/L Carbon Dioxide (21-32) mmol/L Anion Gap (3-11) BUN (6-23) mg/dl Creatinine (0.6-1.4) mg/dl Est Cr Clr Drug Dosing ml/min Est GFR ( Amer) ml/min Est GFR (Non-Af Amer) ml/min BUN/Creatinine Ratio (10-20) Glucose (70-99(Fasting)) mg/dl POC Glucose 105 H 112 H 232 H (70-99) mg/dl Lactate (0.4-2.0) mmol/L Calcium (8.6-10.3) mg/dl Phosphorus (2.5-4.9) mg/dl Magnesium (1.7-2.4) mg/dl Stl C. diff Tox B Gene (Neg) Miscellaneous Test 01/02/23 01/02/23 12/31/22 Range/Units 08:43 08:32 05:35 WBC 14.30 H (4.8-10.8) K/ul RBC 3.15 L (4.70-6.10) M/uL Hgb 9.4 L (14.0-18.0) g/dl Hct 28.0 L (42.0-52.0) % MCV 88.9 (80.0-100.0) fL MCH 29.8 (25.0-34.0) pg MCHC 33.6 (32.0-36.0) g/dL RDW Std Deviation 49.7 H (36.4-46.3) fL RDW Coeff of Madina 15.4 H (11.5-14.5) % Plt Count 541 H (130-400) K/uL MPV 9.3 L (9.4-12.4) fL VBG pH (7.36-7.41) Sodium 133 L (136-145) mmol/L Potassium 3.7 (3.5-5.1) mmol/L Chloride 105 (98-107) mmol/L Carbon Dioxide 16 L (21-32) mmol/L Anion Gap 12 H (3-11) BUN 56 H (6-23) mg/dl Creatinine 2.70 H (0.6-1.4) mg/dl Est Cr Clr Drug Dosing 22.5 ml/min Est GFR ( Amer) 24.0 ml/min Est GFR (Non-Af Amer) 20.7 ml/min BUN/Creatinine Ratio 20.7 H (10-20) Glucose 180 H (70-99(Fasting)) mg/dl POC Glucose (70-99) mg/dl Lactate (0.4-2.0) mmol/L Calcium 8.7 (8.6-10.3) mg/dl Phosphorus 5.1 H (2.5-4.9) mg/dl Magnesium 2.0 (1.7-2.4) mg/dl Stl C. diff Tox B Gene (Neg) Miscellaneous Test REPORT
[2023-01-03] MEDS ORDERED: LANTUS PER UNIT CHARGE SC ONE (09:00)
[2023-01-03] MEDS: ISOSORBIDE MONO EXTENDED REL 60 MG TABCR PO SCH (09:20)
[2023-01-03] MEDS: CYANOCOBALAMIN (B-12) 500 MCG TABLET PO SCH (09:21)
[2023-01-03] MEDS: CHOLECALCIFEROL 1,000 UNITS 25 MCG TAB PO SCH (09:21)
[2023-01-03] MEDS: BRINZOLAMIDE/BRIMONIDINE TART 119 DROPS/8 ML BTL OP SCH ×2 (09:22→21:07)
[2023-01-03] MEDS: FLUTICASONE FUROATE 100MCG 14 PUFFS/INHALER INH SCH (09:22)
[2023-01-03] MEDS: TIMOLOL MALEATE 0.5% OP SOLN 5 ML BTL OPB SCH (09:23)
--- NOTE | 2023-01-03 09:57 | Nephrology Progress Note ---
Date of Service January 03, 2023 Assessment & Plan (1) Acute on chronic renal failure: Plan: baseline creatinine 2 (CKD 3B); creatinine plateau'd at 2.7 past several days until today w/ increase to 2.9. was already w/ ANUP on CKD prior to last d/c and readmitted 12/30 w/ creatinine 2.6. noncon CT on admission of a/p w/o acute process. admission UA w/o infection but remarkable for dipstick blood, sugar, ketones, protein, c/w tubular dysfunction. nonoliguric stage 1 ANUP from ATN -slightly worse > started on NS at 80 mL/hr overnight -current meds appropriate (reviewed 01/02) -continue supportive care and daily bmp -continue mack -w/ anion gap metabolic acidosis which emerged w/ ANUP (lactate wnl); now NAGMA >> agree w/ stopping NS he was started on ON (2) Chronic hyponatremia: Plan: Etiology is likely in setting of CKD and COVID infection. Sodium improving to 135 01/01 w/ stable creatinine and a slight drop today Allow patient to salt his food. encourage high-protein intake with solid food. continue FR 1500 mL/day. >>sodium w/ slight drop today (3) COVID-19: Plan: Recent COVID-19 infection reviewed. Breathing is stable. Not unusual to have some worsening kidney function in setting of COVID infection. Admission and Anticipated Discharge Date Admission Date: December 30, 2022 Subjective came off isolation. feeling a bit more perky. no sob. still tired. some edema. after I saw him, RN reported 2L retained urine > pt now w/ mack. also had XR yesterday PM w/ 7 cm stool ball in rectum. pt having mutliple small bm Review of Systems 2 Review of Systems: All systems reviewed & are unremarkable except as noted in Subjective Physical Exam 2 Constitutional: well developed and + frail appearing; no acute distress Eyes: EOM intact bilaterally ENMT: Ears: no external ear abnormality Nose: no external nose abnormality Mouth: + dry oral mucous membranes Neck: no nuchal rigidity Respiratory: normal respiratory effort; no cough Auscultation: + diminished lung sounds Cardiovascular: Rate/Rhythm: regular rate and regular rhythm Extremities: + edema (2+ pretibial) Gastrointestinal (Abdomen): Inspection/Auscultation: + abdomen distended and normal bowel sounds Percussion/Palpation: + abdomen tender (LLQ much less today) and abdomen soft Musculoskeletal: Extremities: strength 5/5 throughout Skin: no rashes, warm and dry Results & Data Vital Signs (Past 12 Hours) Vital Signs Temp Pulse Pulse Resp BP BP Pulse Ox 01/03/23 08:01 36.2 C L 68 18 158/67 H 97 01/03/23 07:46 01/03/23 07:26 66 01/03/23 03:28 36.8 C 67 16 116/55 L 97 01/02/23 22:32 36.4 C L 79 16 156/67 H 97 01/02/23 22:20 01/02/23 22:00 65 O2 Del Method 01/03/23 08:01 Room Air 01/03/23 07:46 Room Air 01/03/23 07:26 01/03/23 03:28 Room Air 01/02/23 22:32 Room Air 01/02/23 22:20 Room Air 01/02/23 22:00 Laboratory Results 01/03/23 07:33 01/03/23 01:16 Diagnostic Findings abd xr (image reviewed personally) 7 cm stool ball in rectum (1) Acute on chronic renal failure Acute renal failure type: unspecified Chronic kidney disease stage: stage 3 (moderate) Chronic kidney disease stage 3 subtype: stage 3b (GFR 30-44) Qualified Code(s): N17.9 - Acute kidney failure, unspecified; N18.32 - Chronic kidney disease, stage 3b
--- NOTE | 2023-01-03 11:04 | Hospitalist Progress Note ---
Date of Service January 03, 2023 Assessment & Plan (1) Acute hyponatremia: (2) DKA (diabetic ketoacidosis): (3) COVID-19: (4) Hypoxia: Plan Mr. Martínez is a 52-year-old male with past medical history significant for type 2 diabetes, hyperlipidemia, hypertension, CKD stage III, CAD s/p stent, hypertension, vitamin B12 deficiency, GERD, primary open-angle glaucoma bilateral, history of herpes zoster, was recently in the hospital with hyponatremia and COVID [discharged 12/25] was brought in for dehydration and confusion and admitted for progressive hyponatremia. Patient was started on IV decadron given concern of acute hypoxic respiratory failure iso COVID pneumonia. AM labs returned and labs suspicious for impending DKA given new anion gap, acidosis, and glucose in 300s--as well as notably dilute urine and relatively normal serum osmo. Patient appeared dry on exam; however, lungs with basilar crackles and cephalization on imaging. It was decided to start insulin drip for optimal glucose control, improvement of acidosis, as well as discontinue decadron to prevent further glycemic insult. Over the night of 12/30, patient was weened off of oxygen. Patient transitioned off of insulin drip despite gap/bicarb, given azotemia and other ongoing ailments, suspect that ANUP is likely contributing to lab abnormalities and bicarb losses. Patient's course complicated by constipation/obstipation, which seems to have resolved at this time, as KUB on 01/03 with notable reduction in stool burden. Further issues include urinary retention prompting mack placement and ANUP. PT/OT recommending SNF rehab at this time. #Constipation/Obstipation #Abdominal Distention -suspect may be contributing partially to some of issues/concerns patient is endorsing, given expressed discomfort -Diarrhea initially thought to be secondary to intense regimen; however exam rev ealed more protuberant abdomen and patient to be more uncomfortable reporting "leaking" -C-Diff negative -KUB with improved stool burden, no imapction on 01/03 -Miralax daily and Colace 100mg bid per gi -concern constipation contributing to retention #Acute Urinary Retention -Working on bowel obstruction as possible contributing to retention -Mack in place 01/03 with 2L return -Repeat UA (been on zosyn 24 hours? however, UA on admission negative) -Start Tamsulosin #Chronic Hyponatremia *improving Sodium 126, iso hyperglycemia, with SIADH component per Nephrology Nephrology on consult: Encourage high solute diet Free fluid limit 1500 Correct glucose Address underlying issues with urine retention #Leukocytosis #Generalized weakness Multiple metabolic abnormalities and electrolyte disturbances contributing; COVID contributing factor likely UA negative for infection Signs of questionable aspiration on imaging Discontinue Zosyn no infection, however, repeat UA ordered iso retention, low threshold to resume #Uncontrolled Hyperglycemia, concern for looming Diabetic Ketoacidosis UA +Ketone, VBG 7.32, HCO3 16, small gap 12 Insulin drip for glucose monitoring until acidosis improved (goal HCO3 >18) Discontinue steroids for now Diabetic diet Glycemic constult #ANUP on chronic kidney disease stage III #Metabolic gap acidosis (improving) Baseline creatinine around 2 hold losartan Avoid nephrotoxic agents Getting gentle fluids Resolve GI issues Mack in place given acute retention Nephrology following CMP in am #Acute hypoxic respiratory failure, possible multifactorial *resolved #COVID 19 Vaccinated and boosted Last booster was last year in December BNP 179, doesn't appear hypervolemic, ECHO stable with LVH, COVID precautions #Normocytic Anemia Hemoglobin 8 Was 9-10 last admission Iron WNL Folate/b12 in am #Diabetes Hold metformin and Tradjenta and home NovoLog Insulin drip as above #CAD s/p stent On aspirin, statin, Imdur Discontinue BB 2/2 block/bradycardia noted #AV Block, 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 Trivedi #Hypertension #LVH #Aortic sclerosis, moderate #Mitral Calcification, mild Home regimen metoprolol and Imdur and amlodipine Holding losartan D/C metoprolol Continue amlodipine Resume other agents We will monitor DVT prophylaxis Heparin subcu Disposition Med/telemetry Admission and Anticipated Discharge Date Admission Date: December 30, 2022 Subjective More passing of stool overnight Reports of hemorrhoidal like blood and urinary retention Notes feeling improved as stool is passing more frequently and with more ease Denies fevers chills, or other acute concerns Review of Systems Review of Systems: All systems reviewed & are unremarkable except as noted in Subjective Physical Exam Constitutional: WD/WN, vitals as above Respiratory: normal respiratory effort, lungs clear to auscultation Cardiovascular: RRR, no murmur, no edema Results & Data Results & Data Vital Signs (Past 12 Hours) Vital Signs Temp Pulse Pulse Resp BP BP Pulse Ox 01/03/23 08:01 36.2 C L 68 18 158/67 H 97 01/03/23 07:46 01/03/23 07:26 66 01/03/23 03:28 36.8 C 67 16 116/55 L 97 O2 Del Method 01/03/23 08:01 Room Air 01/03/23 07:46 Room Air 01/03/23 07:26 01/03/23 03:28 Room Air Laboratory Results Short CBC 01/03/23 01/03/23 01/03/23 Range/Units 01:16 01:16 01:16 WBC 10.98 H (4.8-10.8) K/ul Hgb 8.3 L 7.9 L (14.0-18.0) g/dl Hct 23.8 L 23.7 L (42.0-52.0) % Plt Count 419 H (130-400) K/uL 01/03/23 Range/Units 07:33 WBC (4.8-10.8) K/ul Hgb 8.5 L (14.0-18.0) g/dl Hct 25.2 L (42.0-52.0) % Plt Count (130-400) K/uL BMP 01/03/23 01:16 Sodium 132 L Potassium 3.5 Chloride 106 Carbon Dioxide 16 L BUN 56 H Creatinine 2.90 H Glucose 121 H Calcium 8.4 L Medications Administered Home Medications Medication Instructions Recorded Confirmed Last Taken fluocinolone acetonide oil 0.01 % See Rx Instructions otic (ear) 01/29/21 12/29/22 Unknown ear drops .COMPLEX ear itching #20 mL amlodipine 2.5 mg tablet 2.5 mg PO HS 12/22/22 12/29/22 Unknown aspirin 81 mg tablet,delayed 81 mg PO QDL 12/22/22 12/29/22 Unknown release atorvastatin 10 mg tablet 10 mg PO QDD 12/22/22 12/29/22 Unknown brinzolamide 1 %-brimonidine 0.2 % 1 drp OPB AMPM 12/22/22 12/29/22 Unknown eye drops,suspension (Simbrinza) cholecalciferol (vitamin D3) 25 25 mcg PO QAM 12/22/22 12/29/22 Unknown mcg (1,000 unit) tablet (Vitamin D3) cyanocobalamin (vitamin B-12) 1,000 mcg PO QAM 12/22/22 12/29/22 Unknown 1,000 mcg tablet (Vitamin B-12) insulin aspart U-100 100 unit/mL 22 unit subcut TIDM 12/22/22 12/29/22 Unknown (3 mL) subcutaneous pen (Novolog FlexPen U-100 Insulin aspart) insulin glargine 100 unit/mL (3 35 unit subcut QDB 12/22/22 12/29/22 Unknown mL) subcutaneous pen (Basaglar KwikPen U-100 Insulin) isosorbide mononitrate 60 mg 60 mg PO QAM 12/22/22 12/29/22 Unknown tablet,extended release 24 hr linagliptin 5 mg tablet (Tradjenta) 5 mg PO QDL 12/22/22 12/29/22 Unknown losartan 50 mg tablet 50 mg PO BID 12/22/22 12/29/22 Unknown metformin 500 mg tablet 500 mg PO BIDM 12/22/22 12/29/22 Unknown metoprolol tartrate 25 mg tablet 12.5 mg PO BID 12/22/22 12/29/22 Unknown netarsudil 0.02 %-latanoprost 1 drp OPB HS 12/22/22 12/29/22 Unknown 0.005 % eye drops (Rocklatan) pantoprazole 40 mg tablet,delayed 40 mg PO Q2D 12/22/22 12/29/22 Unknown release timolol maleate 0.5 % eye drops 1 drp OPB QAM 12/22/22 12/29/22 Unknown codeine 10 mg-guaifenesin 100 mg/5 10 ml PO Q6H PRN cough #120 mL 12/25/22 12/29/22 Unknown mL oral liquid fluticasone propionate 50 2 spray NA HS #16 grams 12/25/22 12/29/22 Unknown mcg/actuation nasal spray,suspension Active Medications Generic Name Dose Route Start Last Admin Trade Name Freq PRN Reason Stop Dose Admin Amlodipine Besylate 5 mg 12/31/22 21:00 01/02/23 22:18 Amlodipine Besylate 5 Mg Tab PO 01/30/23 20:59 5 mg HS KATELIN Administration Aspirin 81 mg 12/30/22 11:30 01/03/23 12:45 Aspirin 81 Mg Ectab PO 01/29/23 11:29 81 mg QDL KATELIN Administration Atorvastatin Calcium 10 mg 12/30/22 16:30 01/02/23 17:11 Atorvastatin 10 Mg Tab PO 01/29/23 16:29 10 mg QDD KATELIN Administration Brinzolamide/Brimonidine Tartrate 1 drops 01/01/23 22:00 01/03/23 09:22 Brinzolamide/Brimonidine Tart 119 Drops/8 Ml Btl OP 01/31/23 21:59 1 drops BID KATELIN Administration Cyanocobalamin 1,000 mcg 12/30/22 09:00 01/03/23 09:21 Cyanocobalamin (B-12) 500 Mcg Tablet PO 01/29/23 08:59 1,000 mcg QAM KATELIN Administration Fluticasone Furoate 1 puffs 12/30/22 09:00 01/03/23 09:22 Fluticasone Furoate 100mcg 14 Puffs/Inhaler INH 01/29/23 08:59 1 puffs DAILY KATELIN Administration Fluticasone Propionate 2 sprays 12/30/22 21:00 01/02/23 22:19 Fluticasone Propionate Na Spr 16 Gm Btl NA 01/29/23 20:59 2 sprays HS KATELIN Administration Guaifenesin/Codeine Phosphate 5 ml 12/30/22 04:41 12/31/22 12:20 Guaifenesin/Codeine 100mg/10mg 5ml Udc PO 01/29/23 04:40 5 ml Q6H PRN Administration cough Heparin Sodium (Porcine) 5,000 units 12/30/22 06:00 01/03/23 14:00 Heparin Sod 5,000 Unit/0.5 Ml Vial SQ 01/29/23 05:59 Not Given Q8 KATELIN Insulin Aspart 0 units 12/30/22 07:30 01/03/23 13:26 Insulin Aspart Per Unit Charge SC 01/29/23 07:29 7 units ACHS KATELIN Administration Insulin Glargine 0 units 01/02/23 21:00 01/02/23 22:25 Lantus Per Unit Charge SC 02/01/23 20:59 15 units BID KATELIN Administration Protocol Isosorbide Mononitrate 60 mg 12/30/22 09:00 01/03/23 09:20 Isosorbide [place] Extended Rel 60 Mg Tabcr PO 01/29/23 08:59 60 mg QAM KATELIN Administration Netarsudil/Latanoprost 1 drops 01/01/23 22:00 01/02/23 22:20 Netarsudil Mesylat/Latanoprost 37 Drops/2.5 Ml Btl OP 01/31/23 21:59 1 drops HS KATELIN Administration Pantoprazole Sodium 40 mg 12/31/22 09:00 01/02/23 08:35 Pantoprazole 40 Mg Tab PO 01/30/23 08:59 40 mg Q2D@0900 KATELIN Administration Timolol Maleate 1 drops 12/30/22 09:00 01/03/23 09:23 Timolol Maleate 0.5% Op Soln 5 Ml Btl OPB 01/29/23 08:59 1 drops QAM KATELIN Administration Vitamin D 1,000 units 12/30/22 09:00 01/03/23 09:21 Cholecalciferol 1,000 Units 25 Mcg Tab PO 01/29/23 08:59 1,000 units QAM KATELIN Administration
--- NOTE | 2023-01-03 12:21 | XRay Report ---
KUB HISTORY: Acute onset abdominal pain with constipation hx fecal impaction COMPARISON: KUB 01/02/2023 FINDINGS: Nonobstructive bowel gas pattern. Left lateral abdomen is excluded from the [id number]. Cholecystectomy. Vascular calcifications of the pelvis. Renal shadows are obscured by bowel gas. No r adiographic evidence of constipation. No renal calculi. No ureteral calculi. No pneumoperitoneum or pneumatosis. Lumbar levoscoliosis. Degenerative changes of the spine, pelvis and hips. No fracture. IMPRESSION: 1. Nonobstructive bowel gas pattern. 2. No radiographic evidence of constipation. ACT 112: Negative or not required by law. The above report was generated using voice recognition software. It may contain grammatical, syntax o r spelling errors. Electronically signed by: Jarvis Vasquez M.D. 01/03/2023 12:20 PM
[2023-01-03] MEDS: ASPIRIN 81 MG ECTAB PO SCH (12:45)
--- NOTE | 2023-01-03 12:54 | Pharmacy Report ---
Pharmacy Glycemic Short Note 2 - Date of Service January 03, 2023 - Glycemic Short BSG Results (Last 24 hours): 01/02/23 01/02/23 01/03/23 17:08 20:14 01:16 Glucose 121 H POC Glucose 112 H 105 H 01/03/23 01/03/23 08:00 12:41 Glucose POC Glucose 109 H 166 H OUTPATIENT ANTIDIABETIC REGIMEN: * Novolog 22 units TIDM, Lantus 35 units QAM, Tradjenta 5 mg, Metformin 500 mg BID * A1c 7.8% 12/30 ASSESSMENT: 01/03: * Patient received a total of 44 units of insulin yesterday, 30 of which were basal insulin * Patient was NPO this morning, fasting 109 mg/dL, basal dose reduced to 10 units this morning, diet reordered with lunch, will reduce scale for PM * Continue current novolog parameters (loosened yesterday) 01/02 * Patient received total of 43 units of insulin yesterday, of which 35 units were basal insulin * Patient refusing insulin coverage with meals again yesterday evening. BSGs at HS stable despite refusal of insulin, therefore plan to loosen CF/CR this AM. PO intake fluctuating - Plan to split basal bid to allow for more flexibility in dosing in case PO intake decreases 12/31 * Labs improving more this morning, discussed with provider and okay to start transition off insulin drip. Drip running at 2.7 units/hr since this AM, patient ordered diet. Will give 40 Lantus x 1 now * Discussed with RN, plan to reach out to pharmacy when BSGs < 180 x 2 consecutive checks to discuss d/c of drip. 12/30 * Patient admitted with COVID + pneumonia. Administered 6 mg IV dexamethasone overnight, ongoing daily * BSGs elevated in the setting of steroids, patient received home lantus dose this morning, in addition to 10 units of novolog and 4 unit IV bolus * Initiated on Insulin drip following new anion gap, patient appears to have low bicarb at baseline (CKD stage III), currently following DKA protocol * Potassium was removed from bag given CKD history, monitor potassium, may need replaced outside of LVF. * Dextrose added to fluid with BSG in goal range- continue to monitor. PLAN FOR INPATIENT GLYCEMIC CONTROL: * Hold outpatient oral diabetes medications * Basal insulin * Lantus 10-15 units BID * novolog 110-140 / CF 25 / CR 9
[2023-01-03] MEDS ORDERED: TAMSULOSIN HCL 0.4 MG CAP PO ONE (15:51)
[2023-01-03] MEDS ORDERED: HYDROCORTISONE HC 2.5% CRM 30GM TUBE EXT ONE (16:00)
[2023-01-03] MEDS ORDERED: ANUSOL SUPP 1 EA PR PRN (16:00)
[2023-01-03] MEDS ORDERED: HYDROCORTISONE HC 2.5% CRM 30GM TUBE EXT PRN (16:00)
[2023-01-03 16:34] LABS: Appearance Urine Clear (Clear); Bacteria Urine Automated Negative (Negative); Bilirubin Urine Negative (Negative); Blood Urine 2+ (Negative); Color Urine Yellow; Glucose Urine UA Negative (Negative); Ketones Urine Negative (Negative); Leukocyte Esterase Urine Negative (Negative); Nitrite Urine Negative (Negative); Protein Urine 1+ (Negative); RBC Urine Automated >30 /hpf (0-4); Specific Gravity Urine 1.014 (1.000-1.030); Urobilinogen Urine Negative (Negative); pH Urine 5.5 (4.5-7.5)
[2023-01-03] MEDS: ATORVASTATIN 10 MG TAB PO SCH (17:14)
[2023-01-03] MEDS: TAMSULOSIN HCL 0.4 MG CAP PO SCH (21:07)
[2023-01-03] MEDS: FLUTICASONE PROPIONATE NA SPR 16 GM BTL SCH (21:07)
[2023-01-03] MEDS: NETARSUDIL MESYLAT/LATANOPROST 37 DROPS/2.5 ML BTL OP SCH (21:07)
[2023-01-03] MEDS: amLODIPine BESYLATE 5 MG TAB PO SCH (21:07)
[2023-01-03] MEDS: DOCUSATE SODIUM 100 MG CAP PO SCH (21:08)
[2023-01-03] MEDS: LANTUS PER UNIT CHARGE SC SCH (21:08)
[2023-01-04] MEDS: HEPARIN SOD 5,000 UNIT/0.5 ML VIAL SQ SCH ×3 (05:48→21:02)
[2023-01-04] MEDS: PANTOprazole 40 MG TAB PO SCH (08:25)
[2023-01-04] MEDS: FLUTICASONE FUROATE 100MCG 14 PUFFS/INHALER INH SCH (08:25)
[2023-01-04] MEDS: BRINZOLAMIDE/BRIMONIDINE TART 119 DROPS/8 ML BTL OP SCH ×2 (08:25→20:59)
[2023-01-04] MEDS: TIMOLOL MALEATE 0.5% OP SOLN 5 ML BTL OPB SCH (08:26)
[2023-01-04] MEDS: DOCUSATE SODIUM 100 MG CAP PO SCH (08:29)
[2023-01-04] MEDS ORDERED: POLYETHYLENE (MIRALAX) 17 GM PACK PO SCH (09:00)
[2023-01-04] MEDS: INSULIN ASPART PER UNIT CHARGE SC SCH ×4 (09:19→21:00)
[2023-01-04] MEDS: LANTUS PER UNIT CHARGE SC SCH ×2 (09:20→21:00)
[2023-01-04 09:36] LABS: Calcium 8.8 mg/dl (8.6-10.3); Magnesium 1.9 mg/dl (1.7-2.4); Potassium 3.5 mmol/L (3.5-5.1)
[2023-01-04 09:42] LABS: BUN Creatinine Ratio 15.8 (10-20); Creatinine Clr Calc Pharmacy 25.5 ml/min; Est GFR (African American) 28.5 ml/min; Est GFR (Non-African American) 24.6 ml/min
[2023-01-04 09:45] LABS: Hematocrit (blood only) 25.5 % (42.0-52.0); Hemoglobin 8.7 g/dl (14.0-18.0); Mean Corpuscular Hemoglobin 29.7 pg (25.0-34.0); Mean Corpuscular Hgb Conc 34.1 g/dL (32.0-36.0); Mean Platelet Volume 8.6 fL (9.4-12.4); Platelet Count 427 K/uL (130-400); RDW Coefficient of Variation 14.7 % (11.5-14.5); RDW Standard Deviation 46.9 fL (36.4-46.3); Red Blood Count 2.93 M/uL (4.70-6.10); White Blood Count 9.48 K/ul (4.8-10.8)
[2023-01-04] MEDS: ISOSORBIDE MONO EXTENDED REL 60 MG TABCR PO SCH (10:17)
--- NOTE | 2023-01-04 10:58 | Nephrology Progress Note ---
Date of Service January 04, 2023 Assessment & Plan (1) Acute on chronic renal failure: Plan: baseline creatinine 2 (CKD 3B); creatinine plateau'd at 2.7 then w/ 01/03 peak at 2.9. was already w/ ANUP on CKD prior to last d/c and readmitted 12/30 w/ creatinine 2.6. noncon CT on admission of a/p w/o acute process. admission UA w/o infection but remarkable for dipstick blood, sugar, ketones, protein, c/w tubular dysfunction. nonoliguric stage 1 ANUP from [facility] improving now w/ NS limited administration -current meds appropriate (reviewed 01/04) -continue supportive care and daily bmp -continue mack -w/ ongoing metabolic acidosis that emerged with acute kidney injury. Currently with NAGMA; monitor WILL SIGN OFF Nephro D/C Recs -hospital d/c appt w/ me about 2-4 wks after d/c w/ bmp to be ordered by renal nurse about 1-2 wks post pcp visit -hold losartan at hospital d/c -BMP before pcp appt -continue 1.5L FR and low Na diet at hospital d/c (2) Chronic hyponatremia: Plan: Etiology is likely in setting of CKD and COVID infection. Sodium improving to 133 01/04 w/ stable creatinine and a slight drop today Allow patient to salt his food. encourage high-protein intake with solid food. continue FR 1500 mL/day. >>sodium w/ slight drop today in the wake of normal saline administration which was required Daily BMP (3) COVID-19: Plan: Recent COVID-19 infection reviewed. Breathing is stable. Not unusual to have some worsening kidney function in setting of COVID infection. Admission and Anticipated Discharge Date Admission Date: December 30, 2022 Subjective feels improved; walked halls at least 2X today and did all his own toiletting independently; no sob; perirectal area and urethral meatus are tender Review of Systems 2 Review of Systems: All systems reviewed & are unremarkable except as noted in Subjective Physical Exam 2 Constitutional: well developed, + frail appearing and cooperative; no acute distress Eyes: EOM intact bilaterally ENMT: Ears: no external ear abnormality Nose: no external nose abnormality Mouth: + dry oral mucous membranes Neck: no nuchal rigidity Respiratory: normal respiratory effort; no cough Auscultation: + diminished lung sounds Cardiovascular: Rate/Rhythm: regular rate and regular rhythm Extremities: + edema (2+ pretibial) Gastrointestinal (Abdomen): Inspection/Auscultation: + abdomen distended and normal bowel sounds Percussion/Palpation: abdomen soft; abdomen nontender Musculoskeletal: Extremities: strength 5/5 throughout Skin: no rashes, warm and dry Genitourinary: mack w/ ample le urine Results & Data Vital Signs (Past 12 Hours) Vital Signs Temp Pulse Pulse Resp BP Pulse Ox O2 Del Method 01/04/23 08:01 36.4 C L 73 18 158/75 H 96 Room Air 01/04/23 05:38 96 H 01/04/23 03:13 36.3 C L 77 18 141/66 H 96 Room Air 01/03/23 23:09 36.5 C 77 18 153/56 H 97 Room Air Laboratory Results 01/04/23 09:02 01/04/23 09:02 (1) Acute on chronic renal failure Acute renal failure type: unspecified Chronic kidney disease stage: stage 3 (moderate) Chronic kidney disease stage 3 subtype: stage 3b (GFR 30-44) Qualified Code(s): N17.9 - Acute kidney failure, unspecified; N18.32 - Chronic kidney disease, stage 3b
[2023-01-04] MEDS: CHOLECALCIFEROL 1,000 UNITS 25 MCG TAB PO SCH (11:05)
[2023-01-04] MEDS: ASPIRIN 81 MG ECTAB PO SCH (13:22)
--- NOTE | 2023-01-04 15:53 | Hospitalist Progress Note ---
Date of Service January 04, 2023 Assessment & Plan (1) Acute hyponatremia: (2) DKA (diabetic ketoacidosis): (3) COVID-19: (4) Hypoxia: Plan 52-year-old male w/ PMH of T2DM, hyperlipidemia, hypertension, CKD stage III, CAD s/p stent, hypertension, vitamin B12 deficiency, GERD, primary open-angle glaucoma bilateral, history of herpes zoster, was recently in the hospital with hyponatremia and COVID [discharged 12/25] was brought in for dehydration and confusion and admitted for progressive hyponatremia. Admitting bl gl high in early 300s and Urinary ketones was positive w/ AG acidosis s/p insulin drip for developing DKA w/ improvement in above parameters. He is being managed for the following: #Constipation/Obstipation #Abdominal Distention Patient through scheduled and as needed bowel regimen, finally started moving bowels with relief of abdominal distention per patient. Now with multiple loose stools [C. difficile negative] , bowel regimen on hold, will resume bowel regimen once bowel movements are regular. #Acute Urinary Retention: -Working on bowel obstruction as possible contributing to retention -Becker in place 01/03 with 2L return. Continue with tamsulosin started this admission. -Voiding trial prior to DC versus urology follow-up on discharge. #Chronic Hyponatremia *improving Admitting sodium of 126, ISO hyperglycemia, with SIADH component per nephrology. Nephrology on board, high solute diet, FFR 1500 mL/day. Allow patient to salt his food. Sodium of 133 today. Continue to monitor. #Leukocytosis #Generalized weakness Multiple metabolic abnormalities and electrolyte disturbances contributing; recent COVID contributing factor likely UA negative for infection Signs of questionable aspiration on imaging; was initially on zosyn but was dc'd as no concerns for infection. Pt afebrile, wbc wnl, continue to monitor off of antibiotic. #Uncontrolled Hyperglycemia, concern for developing diabetic Ketoacidosis Admitting UA positive for ketone, admitting blood sugar in early 300s with anion gap metabolic acidosis. Status post insulin drip, currently on sliding scale insulin. Diabetic diet, glycemic pharmacy on board. #ANUP on chronic kidney disease stage III #Metabolic gap acidosis (improving) Baseline creatinine around 2, admitting creatinine of 2.88 Status post IV fluid, creatinine today 2.34 Holding losartan, avoid nephrotoxic agent. Nephrology on board, appreciate recommendation. Labs in AM. #Acute hypoxic respiratory failure, possible multifactorial *resolved #COVID 19 Vaccinated and boosted Last booster was last year in December BNP 179 at presentation, doesn't appear hypervolemic, ECHO stable with LVH Off of isolation for COVID infection. #Normocytic Anemia: Hemoglobin is stable around mid 8. Iron WNL. Folate and vitamin B12 level in AM. #Diabetes: Sliding scale insulin. #CAD s/p stent: Continue with home aspirin/statin/Imdur. BB dc'd earlier on this admission due to block/margi on tele. 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 Trivedi #Hypertension #LVH #Aortic sclerosis, moderate #Mitral Calcification, mild Continue with home regimen as and when able. Metoprolol discontinuedsee above. DVT prophylaxis: Heparin subcu Disposition: Med/telemetry. Admission and Anticipated Discharge Date Admission Date: December 30, 2022 Subjective Patient seen and examined at bedside. Patient was sitting up in chair, on room air, NAD, reports feeling better. Patient initially came in with constipation, now is having multiple loose stools since yesterday. Bowel regimen on hold until bowel movements are regular. Patient reports appetite getting significantly better, strength getting better. Patient denies any other complaints. Physical Exam Physical Exam: GENERAL: Alert and oriented x3. NAD, on RA. HEENT: No pallor, no icterus. Pupils equal, round and reactive to light. Oral mucosa moist. NECK: No JVD, no neck masses. HEART: S1 and S2 heard. Regular rate and rhythm. No murmur, no gallop. RESPIRATORY SYSTEM: Normal AP diameter. No accessory muscle use. No wheezing, no crackles. ABDOMEN: Soft, bowel sounds present, nontender, no distention. CENTRAL NERVOUS SYSTEM: No facial droop. Speech is clear. Obeys simple commands. Moves extremities. EXTREMITIES: 1+ ble edema, no erythema seen. Results & Data Results & Data Vital Signs (Past 12 Hours) Vital Signs Temp Pulse Pulse Resp BP BP Pulse Ox 01/04/23 15:16 36.6 C 83 18 135/63 96 01/04/23 13:55 78 01/04/23 13:15 01/04/23 12:31 36.4 C L 88 18 121/59 L 95 01/04/23 08:01 36.4 C L 73 18 158/75 H 96 01/04/23 05:38 96 H O2 Del Method 01/04/23 15:16 Room Air 01/04/23 13:55 01/04/23 13:15 Room Air 01/04/23 12:31 Room Air 01/04/23 08:01 Room Air 01/04/23 05:38
[2023-01-04] MEDS: ATORVASTATIN 10 MG TAB PO SCH (16:51)
[2023-01-04] MEDS: amLODIPine BESYLATE 5 MG TAB PO SCH (20:58)
[2023-01-04] MEDS: FLUTICASONE PROPIONATE NA SPR 16 GM BTL SCH (20:59)
[2023-01-04] MEDS: NETARSUDIL MESYLAT/LATANOPROST 37 DROPS/2.5 ML BTL OP SCH (21:00)
[2023-01-04] MEDS: TAMSULOSIN HCL 0.4 MG CAP PO SCH (21:01)
[2023-01-05 05:22] LABS: BUN Creatinine Ratio 14.9 (10-20); Calcium 8.5 mg/dl (8.6-10.3); Creatinine Clr Calc Pharmacy 26.9 ml/min; Est GFR (African American) 30.4 ml/min; Est GFR (Non-African American) 26.2 ml/min; Magnesium 1.8 mg/dl (1.7-2.4); Potassium 3.3 mmol/L (3.5-5.1)
[2023-01-05] MEDS: HEPARIN SOD 5,000 UNIT/0.5 ML VIAL SQ SCH ×2 (05:24→13:07)
[2023-01-05 05:30] LABS: Hemoglobin 7.7 g/dl (14.0-18.0); Mean Corpuscular Hemoglobin 29.3 pg (25.0-34.0); Mean Corpuscular Hgb Conc 33.5 g/dL (32.0-36.0); Mean Corpuscular Volume 87.5 fL (80.0-100.0); Mean Platelet Volume 9.2 fL (9.4-12.4); Platelet Count 417 K/uL (130-400); RDW Coefficient of Variation 14.5 % (11.5-14.5); RDW Standard Deviation 45.4 fL (36.4-46.3); Red Blood Count 2.63 M/uL (4.70-6.10); White Blood Count 7.09 K/ul (4.8-10.8)
[2023-01-05 06:29] LABS: Folate (Folic Acid),Ser orPlas 14.82 ng/ml (>5.38)
[2023-01-05 07:58] VITALS: RESP 18
[2023-01-05] MEDS ORDERED: POTASSIUM CHLORIDE CRTAB 20 MEQ TABCR PO STA (08:04)
[2023-01-05] MEDS: TIMOLOL MALEATE 0.5% OP SOLN 5 ML BTL OPB SCH (08:35)
[2023-01-05] MEDS: BRINZOLAMIDE/BRIMONIDINE TART 119 DROPS/8 ML BTL OP SCH (08:36)
[2023-01-05] MEDS: FLUTICASONE FUROATE 100MCG 14 PUFFS/INHALER INH SCH (08:36)
[2023-01-05] MEDS: CYANOCOBALAMIN (B-12) 500 MCG TABLET PO SCH (08:37)
[2023-01-05] MEDS: CHOLECALCIFEROL 1,000 UNITS 25 MCG TAB PO SCH (08:38)
[2023-01-05] MEDS: ASPIRIN 81 MG ECTAB PO SCH (08:38)
[2023-01-05] MEDS: ISOSORBIDE MONO EXTENDED REL 60 MG TABCR PO SCH (08:40)
[2023-01-05] MEDS: INSULIN ASPART PER UNIT CHARGE SC SCH ×2 (08:47→13:04)
[2023-01-05] MEDS: LANTUS PER UNIT CHARGE SC SCH (08:49)
[2023-01-05 11:28] VITALS: TEMP 97.9; O2SAT 97
[2023-01-05 13:10] LABS: Hematocrit (blood only) 23.9 % (42.0-52.0); Hemoglobin 8.2 g/dl (14.0-18.0)
--- NOTE | 2023-01-05 13:17 | Pharmacy Report ---
Pharmacy Glycemic Short Note 2 - Date of Service January 05, 2023 - Glycemic Short BSG Results (Last 24 hours): 01/04/23 01/04/23 01/05/23 17:13 20:45 04:24 Glucose 147 H POC Glucose 147 H 152 H 01/05/23 01/05/23 01/05/23 08:05 08:05 11:55 Glucose POC Glucose 156 H 156 H 274 H OUTPATIENT ANTIDIABETIC REGIMEN: * Novolog 22 units TIDM, Lantus 35 units QAM, Tradjenta 5 mg, Metformin 500 mg BID A1c 7.8% 12/30 ASSESSMENT: 01/05: * BSGs reasonably well-controlled over past 48 hours w/ fasting BSG of 156 mg/dL this morning * Receiving ~40-45 units insulin/day * Novolog tightened yesterday and further tightened this morning, but lunch BSG still elevated today. Will consider further tightening carb ratio at breakfast tomorrow pending trend rest of day. * Will plan to increase basal insulin today 01/03: * Patient received a total of 44 units of insulin yesterday, 30 of which were basal insulin * Patient was NPO this morning, fasting 109 mg/dL, basal dose reduced to 10 units this morning, diet reordered with lunch, will reduce scale for PM * Continue current novolog parameters (loosened yesterday) 01/02 * Patient received total of 43 units of insulin yesterday, of which 35 units were basal insulin * Patient refusing insulin coverage with meals again yesterday evening. BSGs at HS stable despite refusal of insulin, therefore plan to loosen CF/CR this AM. PO intake fluctuating - Plan to split basal bid to allow for more flexibility in dosing in case PO intake decreases 12/31 * Labs improving more this morning, discussed with provider and okay to start transition off insulin drip. Drip running at 2.7 units/hr since this AM, patient ordered diet. Will give 40 Lantus x 1 now * Discussed with RN, plan to reach out to pharmacy when BSGs < 180 x 2 consecutive checks to discuss d/c of drip. 12/30 * Patient admitted with COVID + pneumonia. Administered 6 mg IV dexamethasone overnight, ongoing daily * BSGs elevated in the setting of steroids, patient received home lantus dose this morning, in addition to 10 units of novolog and 4 unit IV bolus * Initiated on Insulin drip following new anion gap, patient appears to have low bicarb at baseline (CKD stage III), currently following DKA protocol * Potassium was removed from bag given CKD history, monitor potassium, may need replaced outside of LVF. * Dextrose added to fluid with BSG in goal range- continue to monitor. PLAN FOR INPATIENT GLYCEMIC CONTROL: * Hold outpatient oral diabetes medications * Basal insulin - adjust scale BSG cutoff * Lantus 10-15 units BID (see EHR for details) * Bolus insulin * NovoLog per scale ACHS or Q6hrs while NPO * Goal Range: Low 110 mg/dL - High 140 mg/dL * Correction Factor: 25 mg/dL/unit * Nutritional / Prandial insulin per carb ratio of 1 unit per 7 grams CHO consumed
--- NOTE | 2023-01-05 15:02 | Discharge Summary ---
Date of Service January 05, 2023 Admission HPI Per Admitting Provider 52-year-old male with past medical history significant for type 2 diabetes, hyperlipidemia, hypertension, CKD stage III, CAD s/p stent, hypertension, vitamin B12 deficiency, GERD, primary open-angle glaucoma bilateral, history of herpes zoster, was recently in the hospital with hyponatremia and COVID and discharged last Monday was brought in by son because patient getting somewhat disoriented and dehydrated at home. Patient lives alone. Son lives close by. Since his discharge first few days son and his stayed with him. He seemed doing okay first few days. But since last Monday again he went down. Poor appetite. On and off confusion. Had temp today. His COVID symptoms were sore throat and cough. Cough is improving. Denies any headache or body ache. No nausea/ vomiting or diarrhea. Urine is concentrated. Denies any chest pain no shortness of breath. No abdominal pain. At home son was checking his pulse ox and was ranging from 89 to 92%. Patient is somewhat hard of hearing and son is helping with H&P.. Past medical history. As mentioned above Past surgical history. Cardiac stent placement. Colonoscopy. EGD. EGD and transendoscopic dilatation. Laparoscopic cholecystectomy. Repair of bowel fistula. Social history. Lives alone. Quit cigarettes in 1972. No alcohol use. No drug use. Family history. Sister had breast cancer. Brother had depression. Hypertens ion. Colostomy. Father had heart disorder. Admission Exam Per Admitting Provider General- Not in distress. Head- atraumatic Eyes- PERRL. ENT- oropharynx clear Neck- supple, no JVD. Lungs- clear to auscultation no wheezing or crackles. Heart- regular rhythm; no murmur, no gallop. Abdomen- normal bowel sounds, soft, nontender, no distension. Extremities- no pretibial edema, no erythema seen. Neuro- alert, and awake.; PERRL, no facial palsy; no dysarthria; obeys commands, moves extremities. Skin- warm & dry Principal Diagnosis Constipation/obstipation Abdominal distention Acute urinary retention Generalized weakness ANUP on CKD stage III Acute hypoxic respiratory failure, resolved COVID-19 infection Discharge Exam GENERAL: Alert and oriented x3. NAD, on RA. HEENT: No pallor, no icterus. Pupils equal, round and reactive to light. Oral mucosa moist. NECK: No JVD, no neck masses. HEART: S1 and S2 heard. Regular rate and rhythm. No murmur, no gallop. RESPIRATORY SYSTEM: Normal AP diameter. No accessory muscle use. No wheezing, no crackles. ABDOMEN: Soft, bowel sounds present, nontender, no distention. CENTRAL NERVOUS SYSTEM: No facial droop. Speech is clear. Obeys simple commands. Moves extremities. EXTREMITIES: 1+ ble edema, no erythema seen. Discharge Data Allergies Allergy/AdvReac Type Severity Reaction Status Date / Time metronidazole Allergy Mild Rash Verified 12/29/22 22:59 GIGI Inhibitors Allergy Unknown EDEMA- Verified 12/29/22 22:59 LOWER EXTREMITIES niacin Allergy Unknown RASH Verified 12/29/22 22:59 Consultations 12/29/22 22:42 ED Decision to Admit Stat 12/30/22 08:00 Consult Nephrology Routine 12/31/22 15:55 Consult Gastroenterology Routine Ordered Studies 12/29/22 21:19 CT abd pelvis wo con Stat 12/29/22 21:20 CT head/brain wo con Stat Hospital Course (1) Acute hyponatremia: (2) DKA (diabetic ketoacidosis): (3) COVID-19: (4) Hypoxia: Plan 52-year-old male w/ PMH of T2DM, hyperlipidemia, hypertension, CKD stage III, CAD s/p stent, hypertension, vitamin B12 deficiency, GERD, primary open-angle glaucoma bilateral, history of herpes zoster, was recently in the hospital with hyponatremia and COVID [discharged 12/25] was brought in for dehydration and confusion and admitted for progressive hyponatremia. Admitting bl gl high in early 300s and Urinary ketones was positive w/ AG acidosis s/p insulin drip for developing DKA w/ improvement in above parameters. He was managed for the following: #Constipation/Obstipation #Abdominal Distention Patient through scheduled and as needed bowel regimen, finally started moving bowels with relief of abdominal distention per patient. Had loose stool after the first bowel movement, C. difficile was negative, now resolved. Continue with bowel regimen at home/upon discharge with a goal of 1 bowel movement a day. Patient has been educated on this. He voiced understanding. #Acute Urinary Retention: -Working on bowel obstruction as possible contributing to retention -Mack in place 01/03 with 2L return. Continue with tamsulosin started this admission. -Patient to establish/follow-up with urology in 1 to 2 weeks time upon discharge for further evaluation. Patient is being discharged on Mack catheter. Patient is aware/educated. #Chronic Hyponatremia *improving Admitting sodium of 126, ISO hyperglycemia, with SIADH component per nephrology. Nephrology on board, high solute diet, FFR 1500 mL/day. Allow patient to salt his food. Sodium of 134 today. Continue to monitor. #Leukocytosis #Generalized weakness Multiple metabolic abnormalities and electrolyte disturbances contributing; recent COVID contributing factor likely UA negative for infection Signs of questionable aspiration on imaging; was initially on zosyn but was dc'd as no concerns for infection. Pt afebrile, wbc wnl, continue to monitor off of antibiotic. #Uncontrolled Hyperglycemia, concern for developing diabetic Ketoacidosis Admitting UA positive for ketone, admitting blood sugar in early 300s with anion gap metabolic acidosis. Status post insulin drip, currently on sliding scale insulin. Diabetic diet, glycemic pharmacy on board. #ANUP on chronic kidney disease stage III #Metabolic gap acidosis (improving) Baseline creatinine around 2, admitting creatinine of 2.88 Status post IV fluid, creatinine today 2.34 Holding losartan, avoid nephrotoxic agent. Nephrology on board, appreciate recommendation. Holding losartan upon discharge, to be resumed after PCP evaluation of renal function in a week time as appropriate. WNL. #Acute hypoxic respiratory failure, possible multifactorial *resolved #COVID 19 Vaccinated and boosted Last booster was last year in December BNP 179 at presentation, doesn't appear hypervolemic, ECHO stable with LVH Off of isolation for COVID infection. #Normocytic Anemia: Hemoglobin is stable around mid 8. Iron WNL. Folate and vitamin B12 level in AM. #Diabetes: Sliding scale insulin. #CAD s/p stent: Continue with home aspirin/statin/Imdur. BB dc'd earlier on this admission due to block/margi on tele. 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 Trivedi #Hypertension #LVH #Aortic sclerosis, moderate #Mitral Calcification, mild Continue with home regimen as and when able. Metoprolol discontinuedsee above. DVT prophylaxis: Heparin subcu Disposition: Med/telemetry. Patient being discharged home with home health with following instruction at the point of discharge: Follow-up with your primary care physician within a week time and likely you will need labs CBC/CMP/magnesium/phosphorus. Maintain bowel regimen with a goal of 1 bowel movements a day. You are being discharged on Mack catheter, you will need to set up and establish with urology in 1 to 2 weeks upon discharge. Coordinate with your PCP office for referral to urology. For your low sodium in the body, maintain fluid restriction of about 1500 mL a day, consume high solute diet like protein drink/meat products. Follow-up with nephrology in 2 to 4 weeks time. Your beta-erendira/metoprolol has been discontinued due to noting heart block in the monitor while in hospital. Your losartan is being held upon discharge, to be resumed either by your PCP or nephrology office once your renal function goes back to your baseline. Please make sure that you are able to get your medications today by calling your pharmacy before you leave the hospital so that your treatment continuity is not broken. Home Health Attestation I certify that this patient is under my care and that I, or a physicians administration assistant working with me, had a face to-face encounter that meets the home health [id number] encounter requirements with this patient. The encounter with the patient was in whole, or in part, for the following medical condition, which is the primary reason for home health care (list medical condition): pneumonia; hyponatremia; dc home w/ mack and needs teaching I certify that, based on my findings, the following services are medically necessary home health services: My clinical findings support the need for the above services because: Home Safety Assessment Medication Compliance and Monitoring Effective of New Medications Medication Compliance OT Assess ADL Status and Restore Function w ADLs PT Assessment for Endurance / Balance / Strength PT Eval for Safety and Mobility PT Eval for Safety, Gait Training, Assistive Devices PT Gait and Balance Training, Strengthening and Safety Safety Skilled Nsg Assessment Skilled Nsg Instruction New Medications Skilled Nsg Assess Pt Illness, Disease and Sx Monitoring S/S to Report to Provider Teach on Disease Management and Interventions Vital Signs Further, I certify that my clinical findings support that this patient is homebound (i.e. absences from home require considerable and taxing effort and are for medical reasons or oriental orthodox services or infrequently or of short duration when for other reasons) because: Transportation Assistance/Unable to Leave Home Unassisted Certification for Home Health Services: Based on the above findings, I certify that this patient is confined to the home and needs intermittent mcc care, physical therapy and/or speech therapy or continues to need occupational therapy. The patient is under my care, and I have initiated the establishment of the plan of care. This patient will be followed by a physician who will periodically review the plan of care. Total Time Total Time Spent Total Time Spent (In Minutes): 45 Discharge Plan Discharge Items Patient Disposition: Home - Home Health Services Reason For Visit: COVID, HYPONATREMIA, PNEUMONIA Discharge Diagnosis: Constipation/obstipation Abdominal distention Acute urinary retention Generalized weakness ANUP on CKD stage III Acute hypoxic respiratory failure, resolved COVID-19 infection Activity: Resume your previous activity Non-emergency contact: Primary Care Provider Call non-emergency contact if: you have any medication questions Follow-up/Referrals: Tito Grullon MD [Primary Care Provider] - Diet: Carb Consistent or DM2 Fluids: 1500ml (6 cups) Addtl Attending Provider Instructions: Follow-up with your primary care physician within a week time and likely you will need labs CBC/CMP/magnesium/phosphorus. Maintain bowel regimen with a goal of 1 bowel movements a day. You are being discharged on Mack catheter, you will need to set up and establish with urology in 1 to 2 weeks upon discharge. Coordinate with your PCP office for referral to urology. For your low sodium in the body, maintain fluid restriction of about 1500 mL a day, consume high solute diet like protein drink/meat products. Follow-up with nephrology in 2 to 4 weeks time. Your beta-erendira/metoprolol has been discontinued due to noting heart block in the monitor while in hospital. Your losartan is being held upon discharge, to be resumed either by your PCP or nephrology office once your renal function goes back to your baseline. Please make sure that you are able to get your medications today by calling your pharmacy before you leave the hospital so that your treatment continuity is not broken. Pending Studies at Discharge: No Stand-Alone Forms: My School Admissions, Smoking Cessation Medications and DC Order Prescriptions: New tamsulosin 0.4 mg Capsule 0.4 mg PO HS Qty: 30 0RF amlodipine [Norvasc] 5 mg Tablet 5 mg PO HS Qty: 30 0RF polyethylene glycol 3350 [Miralax] 17 gram Powder In Packet 17 g PO DAILY Qty: 30 0RF Continued fluocinolone acetonide oil 0.01 % drops See Rx Instructions otic (ear) .COMPLEX Qty: 20 3RF Rx Instructions: otic (ear); Apply 4 drops to itchy ear 2-3 days/week PRN itchy ear aspirin 81 mg Tablet,Delayed Release (Dr/Ec) 81 mg PO QDL Tradjenta 5 mg tablet 5 mg PO QDL isosorbide mononitrate 60 mg tablet extended release 24 hr 60 mg PO QAM atorvastatin 10 mg tablet 10 mg PO QDD cholecalciferol (vitamin D3) [Vitamin D3] 25 mcg (1,000 unit) Tablet 25 mcg PO QAM cyanocobalamin (vitamin B-12) [Vitamin B-12] 1,000 mcg Tablet 1,000 mcg PO QAM pantoprazole 40 mg tablet,delayed release (DR/EC) 40 mg PO Q2D insulin glargine [Basaglar KwikPen U-100 Insulin] 100 unit/mL (3 mL) insulin pen 35 unit SUBCUT QDB Simbrinza 1-0.2 % drops,suspension 1 drp OPB AMPM metformin 500 mg tablet 500 mg PO BIDM insulin aspart U-100 [Novolog FlexPen U-100 Insulin] 100 unit/mL (3 mL) insulin pen 22 unit SUBCUT TIDM timolol maleate 0.5 % drops 1 drp OPB QAM Rocklatan 0.02-0.005 % drops 1 drp OPB HS fluticasone propionate 50 mcg/actuation [place],Suspension 2 spray NA HS Qty: 16 0RF Rx Instructions: Continue using once per day until symptoms resolve. codeine-guaifenesin 10-100 mg/5 mL Liquid 10 ml PO Q6H PRN (Reason: cough) Qty: 120 0RF Rx Instructions: CAUTION: THIS MED CAUSES DROWSINESS, DO NOT DRIVE AFTER TAKING Held losartan 50 mg tablet 50 mg PO BID Hold Instructions: Resume on 01/12/23. To be resumed after renal function evaluation at PCP office. Rx Instructions: take am and pm with meal Discontinued metoprolol tartrate 25 mg tablet 12.5 mg PO BID Rx Instructions: take 1/2 tablet at lunch time and bedtime amlodipine 2.5 mg Tablet 2.5 mg PO HS Discharge Orders: Discharge Order (Routine); Ordered 01/05/23 Ordered By: Sg Earl/Other Patient Handouts: Managing Type 2 Diabetes Admission Data Admit Date/Time: 12/30/22 01:11 Attending Provider: Sg Bazan Admit Provider: Philip Jovel Primary Care Provider: Tito Grullon Other Providers: Philip Jovel; Phan Austin Jr; [facility]; [facility] Fax
[2023-01-05 15:06] VITALS: BP 149/65; PULSE 76
--- NOTE | 2023-01-09 06:15 | Coding Query ---
CODING QUERY To promote full compliance with coding requirements relating to patient care, provider participation is requested in all cases of control room tender uncertainty. Please assist us with the question(s) below: Coding Question(s): Pt admitted with shortness of breath/acute respiratory faiilure with hypoxia. 4 days earlier pt discharged from hospital d/t Covid. ED CT/Abd : bilateral lung opacities concerning for an infectious process. Dense material in left lung base possible aspiration. Pt treated with Doxy & Zosyn. H/P documented aspiration pneumonia possible.Progress notes mention COVID pneumonia. Please check below the type of pneumonia patient was treated for during this hospital stay. Thanks for your help. Dewayne Nguyen. [facility] Physician's Response(s): Patient was treated for Aspiration Pneumonia Patient was treated for COVID Pneumonia Other/ Please document: no aspiration, consolidation likely d/t recent h/o covid infxn at the time. no actively managed for covid pna as well. sequela of recent covid infection - followed up. Principal Diagnosis: "that condition established after study, to be chiefly responsible for occasioning the admission of the patient to the hospital for care." Co-Existing Principal Diagnosis: "when two or more diagnoses equally meet the criteria for principal diagnosis as determined by the circumstances of admission, diagnostic work up, and/or therapy provided, and the Alphabetic Index, Tabular List, or another coding guideline does not provide sequencing direction, any one of the diagnoses may be sequenced first." "When the physician has documented what appears to be a current diagnosis in the body of the record, but has not included the diagnosis in the final diagnostic statement, the physician should be asked whether the diagnosis should be added." (Source Coding [facility] 2 QTR90. p3-4) MIRIAM
== END 2023-01-05 16:41 | disposition home health service (06) | DRG 177 ==
LOC: ED 19:30 → EDINP 12-30 01:11 → SUATTDRO 12-30 01:11 → 2N 12-30 04:42
DX: K21.9 Gastro-esophageal reflux disease without esophagitis; Z79.82 Long term (current) use of aspirin; K59.00 Constipation, unspecified; H40.1190 Primary open-angle glaucoma, unspecified eye, stage unspecified; E53.8 Deficiency of other specified B group vitamins; I25.10 Atherosclerotic heart disease of native coronary artery without angina pectoris; R33.9 Retention of urine, unspecified; N17.9 Acute kidney failure, unspecified; I12.9 Hypertensive chronic kidney disease with stage 1 through stage 4 chronic kidney disease, or unspecified chronic kidney disease; E11.22 Type 2 diabetes mellitus with diabetic chronic kidney disease; E11.10 Type 2 diabetes mellitus with ketoacidosis without coma; U07.1 COVID-19; E86.0 Dehydration; Z79.4 Long term (current) use of insulin; Z79.84 Long term (current) use of oral hypoglycemic drugs; E22.2 Syndrome of inappropriate secretion of antidiuretic hormone; J96.01 Acute respiratory failure with hypoxia; D64.9 Anemia, unspecified; N18.30 Chronic kidney disease, stage 3 unspecified

== ENCOUNTER 2023-03-22 17:23 | Observation (INO) ==
--- NOTE | 2023-03-22 17:59 | ED Triage Note ---
Date of Service March 22, 2023 Provider in Triage Author: Darron Geller History of Present Illness This patient was briefly evaluated while in triage. An abbreviated physical exam was performed. This patient is a 83-year-old Male who presents to the ED for evaluation of swelling to the left arm. Had pacemaker placed 03/08/23. No redness or discharge from the pacemaker site. Denies fevers. Denies chest pain or SOB. Denies pain of the left arm, just swelling and tightness. Physical Exam GENERAL: Non-toxic and in no acute distress. HEENT: Pupils equal. No obvious scleral icterus. HEART: Regular rate and rhythm. LUNGS: Clear to auscultation. No accessory muscle use. CHEST: Pacemaker site to the left chest without evidence for infection. NEURO: Alert and oriented. No obvious neurological deficits on quick neuro exam. MUSCULOSKELETAL: The left upper extremity is diffusely edematous. Initial orders for labs and / or imaging were placed and patient was placed in the waiting area until a bed is available. Please see further documentation for the full ED course. MDM / Impression Impression Impression: Edema of left upper arm, DVT (deep venous thrombosis)
[2023-03-22 19:08] LABS: Basophils # (auto) 0.05 K/uL (0.00-0.20); Basophils % (auto) 0.6 %; Eosinophils % (auto) 4.4 %; Hematocrit (blood only) 29.1 % (42.0-52.0); Hemoglobin 10.1 g/dl (14.0-18.0); Immature Granulocytes # (auto) 0.03 K/uL (0.01-0.20); Immature Granulocytes % (auto) 0.3 %; Lymphocytes # (auto) 0.52 K/uL (1.20-3.40); Lymphocytes % (auto) 5.8 %; Mean Corpuscular Hemoglobin 29.8 pg (25.0-34.0); Mean Corpuscular Hgb Conc 34.7 g/dL (32.0-36.0); Mean Corpuscular Volume 85.8 fL (80.0-100.0); Mean Platelet Volume 9.7 fL (9.4-12.4); Monocytes # (auto) 0.85 K/uL (0.11-0.59); Monocytes % (auto) 9.4 %; Neutrophils # (auto) 7.15 K/uL (1.40-6.50); Neutrophils % (auto) 79.5 %; Platelet Count 224 K/uL (130-400); RDW Coefficient of Variation 15.3 % (11.5-14.5); RDW Standard Deviation 48.3 fL (36.4-46.3); Red Blood Count 3.39 M/uL (4.70-6.10)
[2023-03-22 19:13] LABS: Albumin Globulin Ratio 1.3 (0.9-2); Albumin Level 4.2 gm/dl (3.4-5.0); BUN Creatinine Ratio 15.6 (10-20); Bilirubin,Total 0.5 mg/dl (0.2-1.0); Calcium 9.1 mg/dl (8.6-10.3); Creatinine Clr Calc Pharmacy 26.2 ml/min; Est GFR (African American) 30.9 ml/min; Est GFR (Non-African American) 26.6 ml/min; Globulin 3.2 gm/dl (2.5-4.0); Total Protein 7.4 gm/dl (6.0-8.3)
--- NOTE | 2023-03-22 20:18 | Emergency Department Note ---
Impression & Plan Edema of left upper arm, DVT (deep venous thrombosis) ED Provider Note ED Provider Note NAME: HANNAH MARY AGE:83 SEX: Male : 1940 ARRIVES VIA: private vehicle INFORMANT: Patient ED PROVIDER(s): Staci Vincent DO CHIEF COMPLAINT: Left arm swelling HPI: This is an 83-year-old male who presents emergency department due to concern for left upper extremity swelling which began earlier today. Patient states he felt fine yesterday and did not notice any edema. Patient states he has intermittently had ankle swelling if his legs hanging down, however has not noticed any ankle swelling recently. He denies fevers, chills, difficulty breathing, or chest pain. He states the swelling seems worse down in his hand but he feels that the entire way up his arm. Patient states 2 weeks ago he underwent placement of a pacemaker. He states that he did have a follow-up visit and seem to be doing well. He has not noticed any redness, drainage, discharge, or increased pain from the pacemaker site. PAST MEDICAL HISTORY:See Below PAST SURGICAL HISTORY:See Below FAMILY HISTORY:See Below SOCIAL HISTORY:See Below HOME MEDICATIONS:See Below ALLERGIES:See Below VITALS:See Below PHYSICAL EXAMINATION: GENERAL: alert, well appearing, well nourished, no distress, non-toxic EYE EXAM: normal conjunctiva, PERRL and EOM's grossly intact OROPHARYNX: no exudate, no erythema, lips, buccal mucosa, and tongue normal and mucous membranes are moist NECK: supple, no nuchal rigidity, no adenopathy, non-tender LUNGS: Clear to auscultation. Normal chest wall mechanics, no w/r/r HEART: no murmurs, S1 normal and S2 normal, pacemaker site well-appearing, no dehiscence, no drainage, no surrounding erythema, Steri-Strips intact ABDOMEN: abdomen soft, non-tender, normo-active bowel sounds, no masses, no rebound or guarding. BACK: Back is symmetrical on inspection and there is no deformity, no midline tenderness, no CVA tenderness. SKIN: no rashes, petechiae, orbruising UPPER EXTREMITIES: upper extremities are grossly normal. FROM, nml pulses b/l. Left upper extremity with marked edema, worse distally. LOWER EXTREMITIES: No pitting edema. FROM, nml pulses b/l. NEURO EXAM: Normal sensorium, cranial nerves II-XII grossly intact, normal speech, no facial droop,nogross weakness of arms, no gross weakness of legs. Gross sensation intact. No ataxia. Vital Signs: reviewed and remarkable Differential Diagnosis: DVT, superficial thrombophlebitis, musculoskeletal strain, acute tendon rupture, infection, trauma, and others were considered. MEDICAL DECISION MAKING: This is an 83-year-old male presents emergency room due to concern of left upper extremity swelling. Patient with recent pacemaker placement. He does take low- dose aspirin daily, no other antiplatelet or anticoagulation. Patient afebrile vital signs stable. No evidence of pocket infection at pacemaker incision site. Labs drawn and sent, IV established, patient sent for upper extremity ultrasound. Ultrasound revealed proximal DVT in the axillary artery and subclavian vein on the left. Case discussed with on-call cardiology who recommended heparin drip and admission. They will plan on performing an echo in the morning. Patient unable to have any additional imaging such as CT angiography due to history of chronic kidney disease. Case discussed with [facility].. Consultation(s): 2312: Discussed with Dr. Bailon, cardiology. Recommends heparin drip, no need for additional imaging, and echo in the morning. They will then discuss additional oral anticoagulation. 2330: Discussed with Dr. Jovel, [facility], for additional evaluation and management. ER Treatment Provided: See below Diagnostics Interpreted By Me: -ECG: Normal sinus at 70, first-degree AV block, normal axis, normal intervals, nonspecific ST/T wave changes -Cardiac Monitoring: An order was placed for continuous cardiac monitoring. The monitor shows a rate of [] with [] rhythm. -Laboratory studies: As stated above and show below. -Imaging studies: X-ray Chest: A single view study of the chest was reviewed and was negative for cardiomegaly, focal infiltrate, effusion, pulmonary edema, or wide mediastinum. Pacemaker noted. Triage Nursing Note Reviewed Prior/Outside Records Reviewed Critical Care: Critical care of 39 min performed to assess and manage high likelihood of life- threatening proximal upper extremity DVT, involving labs and imaging performed with assessment to evaluate DVT diagnosis with frequent reassessment. This time includes bedside time, treatment discussions with patient/family/consultants, documentation time and excludes procedure time. Past Med/Surg History Medical History CKD (chronic kidney disease), stage III Hyponatremia CAD (coronary artery disease) COVID History of Mohs micrographic surgery for skin cancer Surgical History History of cholecystectomy Family History Other No family history of adverse response to anesthesia No family history of bleeding disorder No significant family history Social History Smoking Status: Former smoker Tobacco Type: Cigars Cigarettes Per Day: 1 CIGAR/DAY; Second Hand Exposure: No; Do You Dip or Chew Tobacco: No; Hx Alcohol Use: No Hx Substance Use: No Preferred Language: Telugu Communication Ability: Effective Shipping 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 Required: No Beliefs That Will Affect Care: None marital status: Current Living Situation: Alone Current Living Situation Comment: HOME ALONE current occupational status: retired Feels Safe at Home: Yes Assistive Devices: None Allergies Allergies Allergy/AdvReac Type Severity Reaction Status Date / Time metronidazole Allergy Intermediate Rash Verified 03/22/23 20:37 niacin Allergy Intermediate RASH Verified 03/22/23 20:37 GIGI Inhibitors AdvReac Intermediate EDEMA- Verified 03/22/23 20:37 LOWER EXTREMITIES Home Meds Home Medications Medication Instructions Recorded Confirmed aspirin 81 mg tablet,delayed 81 mg PO QDL 12/22/22 03/22/23 release atorvastatin 10 mg tablet 10 mg PO QAM 12/22/22 03/22/23 brinzolamide 1 %-brimonidine 0.2 % 1 drp OPB AMPM 12/22/22 03/22/23 eye drops,suspension (Simbrinza) cyanocobalamin (vitamin B-12) 1,000 mcg PO QAM 12/22/22 03/22/23 1,000 mcg tablet (Vitamin B-12) insulin aspart U-100 100 unit/mL 22 unit subcut TIDM 12/22/22 03/22/23 (3 mL) subcutaneous pen (Novolog FlexPen U-100 Insulin aspart) insulin glargine 100 unit/mL (3 35 unit subcut QDB 12/22/22 03/22/23 mL) subcutaneous pen (Basaglar KwikPen U-100 Insulin) isosorbide mononitrate 60 mg 60 mg PO QAM 12/22/22 03/22/23 tablet,extended release 24 hr linagliptin 5 mg tablet (Tradjenta) 5 mg PO QDL 12/22/22 03/22/23 pantoprazole 40 mg tablet,delayed 40 mg PO Q2D 12/22/22 03/22/23 release timolol maleate 0.5 % eye drops 1 drp OPB QAM 12/22/22 03/22/23 nitroglycerin 0.4 mg sublingual 0.4 mg sublingual DIRECTED PRN 03/08/23 03/22/23 tablet Chest Pain Previous Rx's Medication Instructions Recorded amlodipine 5 mg tablet (Norvasc) 5 mg PO HS #30 tabs 01/05/23 tamsulosin 0.4 mg capsule 0.4 mg PO HS #30 caps 01/05/23 Results & Data (ED) Vital Signs Vital Signs - 24 hr 03/22/23 17:56 03/22/23 19:35 03/22/23 19:46 Temperature 36.5 C Temperature Source Temporal Artery Scan Pulse Rate 84 72 Pulse Rate [Right Finger] 73 Pulse Rate from SpO2 Sensor Pulse Rhythm Respiratory Rate 16 Respiratory Effort / Characteristics Respiratory Depth Blood Pressure 138/74 Blood Pressure [Right Arm] 136/71 Blood Pressure Mean 95 Blood Pressure Mean [Right Arm] 92 Pulse Oximetry 100 98 Oxygen Delivery Method Room Air Sepsis Recent Fever Within 48 Hours No Sepsis New/Unexplained Change in Mental Status No Sepsis Action Taken by Nursing No Action Required 03/22/23 21:59 03/22/23 22:00 03/22/23 22:10 Temperature Temperature Source Pulse Rate 74 73 68 Pulse Rate [Right Finger] Pulse Rate from SpO2 Sensor 75 72 70 Pulse Rhythm Respiratory Rate 18 16 14 Respiratory Effort / Characteristics Respiratory Depth Blood Pressure 140/79 Blood Pressure [Right Arm] Blood Pressure Mean 99 Blood Pressure Mean [Right Arm] Pulse Oximetry 96 96 96 Oxygen Delivery Method Room Air Sepsis Recent Fever Within 48 Hours Sepsis New/Unexplained Change in Mental Status Sepsis Action Taken by Nursing 03/22/23 22:20 03/22/23 22:30 03/22/23 22:40 Temperature Temperature Source Pulse Rate 71 71 74 Pulse Rate [Right Finger] Pulse Rate from SpO2 Sensor 71 72 74 Pulse Rhythm Respiratory Rate 16 20 18 Respiratory Effort / Characteristics Respiratory Depth Blood Pressure Blood Pressure [Right Arm] Blood Pressure Mean Blood Pressure Mean [Right Arm] Pulse Oximetry 97 95 95 Oxygen Delivery Method Sepsis Recent Fever Within 48 Hours Sepsis New/Unexplained Change in Mental Status Sepsis Action Taken by Nursing 03/22/23 23:19 03/22/23 23:19 03/22/23 23:19 Temperature Temperature Source Pulse Rate 80 Pulse Rate [Right Finger] 77 Pulse Rate from SpO2 Sensor 73 Pulse Rhythm Regular Respiratory Rate 14 19 Respiratory Effort / Characteristics Non-Labored Spontaneous Respiratory Depth Normal Blood Pressure 155/85 H Blood Pressure [Right Arm] 155/85 H Blood Pressure Mean 108 Blood Pressure Mean [Right Arm] 108 Pulse Oximetry 98 98 93 Oxygen Delivery Method Room Air Room Air Sepsis Recent Fever Within 48 Hours Sepsis New/Unexplained Change in Mental Status Sepsis Action Taken by Nursing 03/22/23 23:20 03/22/23 23:30 03/22/23 23:39 Temperature Temperature Source Pulse Rate 72 71 73 Pulse Rate [Right Finger] Pulse Rate from SpO2 Sensor 72 71 Pulse Rhythm Respiratory Rate 20 17 Respiratory Effort / Characteristics Respiratory Depth Blood Pressure Blood Pressure [Right Arm] Blood Pressure Mean Blood Pressure Mean [Right Arm] Pulse Oximetry 98 96 Oxygen Delivery Method Sepsis Recent Fever Within 48 Hours Sepsis New/Unexplained Change in Mental Status Sepsis Action Taken by Nursing 03/22/23 23:40 03/22/23 23:50 03/23/23 00:00 Temperature Temperature Source Pulse Rate 71 70 71 Pulse Rate [Right Finger] Pulse Rate from SpO2 Sensor 71 71 72 Pulse Rhythm Respiratory Rate 15 24 20 Respiratory Effort / Characteristics Respiratory Depth Blood Pressure Blood Pressure [Right Arm] Blood Pressure Mean Blood Pressure Mean [Right Arm] Pulse Oximetry 95 94 93 Oxygen Delivery Method Sepsis Recent Fever Within 48 Hours Sepsis New/Unexplained Change in Mental Status Sepsis Action Taken by Nursing 03/23/23 00:10 03/23/23 00:20 Temperature Temperature Source Pulse Rate 71 71 Pulse Rate [Right Finger] Pulse Rate from SpO2 Sensor 73 71 Pulse Rhythm Respiratory Rate 22 18 Respiratory Effort / Characteristics Respiratory Depth Blood Pressure 140/73 Blood Pressure [Right Arm] Blood Pressure Mean 95 Blood Pressure Mean [Right Arm] Pulse Oximetry 96 95 Oxygen Delivery Method Sepsis Recent Fever Within 48 Hours Sepsis New/Unexplained Change in Mental Status Sepsis Action Taken by Nursing Laboratory Data 03/22/23 18:39 03/22/23 18:39 Lab Results 03/22/23 03/22/23 Range/Units 18:39 19:42 WBC 9.00 (4.8-10.8) K/ul RBC 3.39 L (4.70-6.10) M/uL Hgb 10.1 L (14.0-18.0) g/dl Hct 29.1 L (42.0-52.0) % MCV 85.8 (80.0-100.0) fL MCH 29.8 (25.0-34.0) pg MCHC 34.7 (32.0-36.0) g/dL RDW Std Deviation 48.3 H (36.4-46.3) fL RDW Coeff of Madina 15.3 H (11.5-14.5) % Plt Count 224 (130-400) K/uL MPV 9.7 (9.4-12.4) fL Immature Gran % (Auto) 0.3 % Neut % (Auto) 79.5 % Lymph % (Auto) 5.8 % Stanley % (Auto) 9.4 % Eos % (Auto) 4.4 % Baso % (Auto) 0.6 % Neut # (Auto) 7.15 H (1.40-6.50) K/uL Lymph # (Auto) 0.52 L (1.20-3.40) K/uL Stanley # (Auto) 0.85 H (0.11-0.59) K/uL Eos # (Auto) 0.40 (0.00-0.50) K/uL Baso # (Auto) 0.05 (0.00-0.20) K/uL Immature Gran # (Auto) 0.03 (0.01-0.20) K/uL PT Cancelled 10.8 INR Cancelled 1.0 APTT Cancelled 24 PTT Ratio Cancelled 0.9 Sodium 133 L (136-145) mmol/L Potassium 4.0 (3.5-5.1) mmol/L Chloride 104 (98-107) mmol/L Carbon Dioxide 21 (21-32) mmol/L Anion Gap 8 (3-11) BUN 34 H (6-23) mg/dl Creatinine 2.18 H (0.6-1.4) mg/dl Est Cr Clr Drug Dosing 26.2 ml/min Est GFR ( Amer) 30.9 ml/min Est GFR (Non-Af Amer) 26.6 ml/min BUN/Creatinine Ratio 15.6 (10-20) Glucose 145 H (70-99(Fasting)) mg/dl Calcium 9.1 (8.6-10.3) mg/dl Total Bilirubin 0.5 (0.2-1.0) mg/dl AST 17 (13-39) U/L ALT 11 (7-52) U/L Alkaline Phosphatase 61 (34-104) U/L Total Protein 7.4 (6.0-8.3) gm/dl Albumin 4.2 (3.4-5.0) gm/dl Globulin 3.2 (2.5-4.0) gm/dl Albumin/Globulin Ratio 1.3 (0.9-2) Administered Medications Heparin Sodium/Dextrose (Heparin Sodium/Dextrose) 25,000 units in 500 mls @ 27 mls/hr IV .[id number] [facility]; Protocol Stop: 04/21/23 23:29 Last Admin: 03/23/23 00:09 Dose: 1,350 units/hr, 27 mls/hr Documented By: AMY Co-signed By: ROMA Discontinued Medications Heparin Sodium/Dextrose (Heparin Iv Adult Wt-Based Standard *No* Initial Bolus Protocol) 1 each IV ONE STA; Protocol Stop: 03/22/23 23:13 Last Admin: 03/23/23 00:09 Dose: Not Given Documented By: AMY Insulin Aspart (Insulin Aspart Per Unit Charge) 5 units SC NOW STA Stop: 03/23/23 02:33 Last Admin: 03/23/23 03:04 Dose: 5 units Documented By: NEDRA Co-signed By: WENDY Imaging Data Radiologist's Impression: Extremity Venous Study 03/22/23 17:59 Exam(s): US VENOUS LEFT UPPER EXTREMITY EXAM: US Duplex Left Upper Extremity Veins CLINICAL HISTORY: Reason for exam: Left arm swelling and pain s/p pacemaker 03/08/23. TECHNIQUE: Real-time duplex ultrasound scan of the left upper extremity veins integrating B-mode two-dimensional vascular structure, Doppler spectral analysis, color flow Doppler imaging and compression. COMPARISON: No relevant prior studies available. FINDINGS: Deep veins: Nearly occlusive thrombus within the left subclavian vein, axillary vein, and proximal cephalic vein. Superficial veins: See above. Soft tissues: No acute findings. IMPRESSION: 1. DVT within the left subclavian and axillary arteries 2. Superficial thrombophlebitis involving the left proximal cephalic vein Electronically signed by: Ned Guerrier MD 03/22/23 22:11 PM Discharge Plan Visit Data Chief Complaint: Swelling/Edema to Extremity Stated Complaint: LT ARM SWOLLEN, PACE MAKER PUT IN ED Provider: Staci Vincent Discharge Problem: Edema of left upper arm, DVT (deep venous thrombosis) Patient Disposition: Admitted As Inpatient Discharge Instructions Interventions: ED Discharge Assessment Last Done: 03/23/23 01:46
[2023-03-22 20:34] LABS: Partial Thromboplastin Ratio 0.9; Partial Thromboplastin Time 24 Seconds (21-31); Prothrombin Time 10.8 Seconds (9.0-12.0)
--- NOTE | 2023-03-22 22:12 | Ultrasound Report ---
Exam(s): US VENOUS LEFT UPPER EXTREMITY EXAM: US Duplex Left Upper Extremity Veins CLINICAL HISTORY: Reason for exam: Left arm swelling and pain s/p pacemaker 03/08/23. TECHNIQUE: Real-time duplex ultrasound scan of the left upper extremity veins integrating B-mode two-dimensional vascular structure, Doppler spectral analysis, color flow Doppler imaging and compression. COMPARISON: No relevant prior studies available. FINDINGS: Deep veins: Nearly occlusive thrombus within the left subclavian vein, axillary vein, and proximal cephalic vein. Superficial veins: See above. Soft tissues: No acute findings. IMPRESSION: 1. DVT within the left subclavian and axillary arteries 2. Superficial thrombophlebitis involving the left proximal cephalic vein Electronically signed by: Ned Guerrier MD 03/22/23 22:11 PM
[2023-03-23] MEDS: Heparin IV Adult Wt-Based Standard *NO* INITIAL Bolus Protocol IV STA (00:09)
[2023-03-23] MEDS: HEPARIN SODIUM/DEXTROSE 25,000 UNITS/500 ML BAG IV SCH (00:09)
--- NOTE | 2023-03-23 00:47 | History & Physical Report ---
Date of Service March 23, 2023 Assessment & Plan (1) DVT (deep venous thrombosis): Plan: 83 -year-old male with past medical history significant for type 2 diabetes, hyperlipidemia, hypertension, CKD stage III, CAD s/p stent, hypertension, vitamin B12 deficiency, GERD, primary open-angle glaucoma bilateral, history of herpes zoster, was recently in the hospital with hyponatremia and COVID and s/p pacemaker couple of weeks ago for intermittent complete heart block presents with left upper extremity edema since the morning and the ER found to have DVT. Patient denies any pain. Resting comfortably. Somewhat hard of hearing but able to answer. Son is in the room. Patient lives alone. Ambulates without walker or cane. Eating and drinking okay. No difficulties swallowing. Denies any chest pain or shortness of breath. No headache. Vision is okay. No runny nose or sore throat. No cough. No nausea. No abdominal pain. Normal bowel and bladder movements. Denies any blood in the stools or black stool. Denies any blood in the urine currently. Hemodynamically stable. Left upper extremity DVT Started on IV heparin Will follow echo for any right heart strain Cardiology consult as recently had pacemaker placement History of intermittent complete heart block S/p pacemaker CKD stage III Plan creatinine of 2.18 around baseline Will follow labs Hyponatremia SIADH Sodium 133 today On fluid restrictions 1200 mill per day Follows with Nephrology Will follow labs Diabetes Continue long-acting insulin Insulin sliding scale Will monitor CAD s/p stent On aspirin, Imdur and statin Hypertension Currently on Imdur and amlodipine Will monitor Chronic anemia Hemoglobin 10.1 Will monitor BPH Flomax GERD Protonix DVT prophylaxis On IV heparin Disposition Med/tele Full code if chance of recovery per discussion with the son History of Present Illness Chief Complaint: Left upper extremity DVT Primary Care Provider: Tito Grullon MD 83 -year-old male with past medical history significant for type 2 diabetes, hyperlipidemia, hypertension, CKD stage III, CAD s/p stent, hypertension, vitamin B12 deficiency, GERD, primary open-angle glaucoma bilateral, history of herpes zoster, was recently in the hospital with hyponatremia and COVID and s/p pacemaker couple of weeks ago for intermittent complete heart block presents with left upper extremity edema since the morning and in the ER found to have DVT. Patient denies any pain. Resting comfortably. Somewhat hard of hearing but able to answer. Son is in the room. Patient lives alone. Ambulates without walker or cane. Eating and drinking okay. No difficulties swallowing. Denies any chest pain or shortness of breath. No headache. Vision is okay. No runny nose or sore throat. No cough. No nausea. No abdominal pain. Normal bowel and bladder movements. Denies any blood in the stools or black stool. Denies any blood in the urine currently. Hemodynamically stable. Past medical history. As mentioned above Past surgical history. Cardiac stent placement. Colonoscopy. EGD. EGD and transendoscopic dilatation. Laparoscopic cholecystectomy. Repair of bowel fistula. Social history. Lives alone. Quit cigarettes in 1972. No alcohol use. No drug use. Family history. Sister had breast cancer. Brother had depression. Hypertension. Colostomy. Father had heart disorder. Allergies Allergy/AdvReac Type Severity Reaction Status Date / Time metronidazole Allergy Intermediate Rash Verified 03/22/23 20:37 niacin Allergy Intermediate RASH Verified 03/22/23 20:37 GIGI Inhibitors AdvReac Intermediate EDEMA- Verified 03/22/23 20:37 LOWER EXTREMITIES Home Medications Medication Instructions Recorded Confirmed Type aspirin 81 mg tablet,delayed 81 mg PO QDL 12/22/22 03/22/23 History release atorvastatin 10 mg tablet 10 mg PO QAM 12/22/22 03/22/23 History brinzolamide 1 %-brimonidine 0.2 % 1 drp OPB AMPM 12/22/22 03/22/23 History eye drops,suspension (Simbrinza) cyanocobalamin (vitamin B-12) 1,000 mcg PO QAM 12/22/22 03/22/23 History 1,000 mcg tablet (Vitamin B-12) insulin aspart U-100 100 unit/mL 22 unit subcut TIDM 12/22/22 03/22/23 History (3 mL) subcutaneous pen (Novolog FlexPen U-100 Insulin aspart) insulin glargine 100 unit/mL (3 35 unit subcut QDB 12/22/22 03/22/23 History mL) subcutaneous pen (Basaglar KwikPen U-100 Insulin) isosorbide mononitrate 60 mg 60 mg PO QAM 12/22/22 03/22/23 History tablet,extended release 24 hr linagliptin 5 mg tablet (Tradjenta) 5 mg PO QDL 12/22/22 03/22/23 History pantoprazole 40 mg tablet,delayed 40 mg PO Q2D 12/22/22 03/22/23 History release timolol maleate 0.5 % eye drops 1 drp OPB QAM 12/22/22 03/22/23 History amlodipine 5 mg tablet (Norvasc) 5 mg PO HS #30 tabs 01/05/23 03/22/23 Rx tamsulosin 0.4 mg capsule 0.4 mg PO HS #30 caps 01/05/23 03/22/23 Rx nitroglycerin 0.4 mg sublingual 0.4 mg sublingual DIRECTED PRN 03/08/23 03/22/23 History tablet Chest Pain Past Med/Surg History Medical History CKD (chronic kidney disease), stage III Hyponatremia CAD (coronary artery disease) COVID History of Mohs micrographic surgery for skin cancer Surgical History History of cholecystectomy Family History Other No family history of adverse response to anesthesia No family history of bleeding disorder No significant family history Social History Smoking Status: Never smoker Tobacco Type: Cigars Cigarettes Per Day: 1 CIGAR/DAY; Second Hand Exposure: No; Do You Dip or Chew Tobacco: No; Hx Alcohol Use: No Hx Substance Use: No Preferred Language: Faroese Communication Ability: Effective 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 ENT- oropharynx clear Neck- supple, no JVD. Lungs- clear to auscultation no wheezing or crackles. Heart- regular rate and rhythm; no murmur, no gallop,pacemaker site no erythema or drainage seen. Abdomen- normal bowel sounds, soft, nontender, no distension. Extremities- no pretibial edema, Left upper extremity is swollen, no erythema seen Neuro- alert, oriented x 3; PERRL, no facial palsy; no dysarthria; moves extremities. Skin- warm & dry Results & Data Results & Data Vital Signs (Past 12 Hours) Vital Signs Temp Pulse Pulse Resp BP BP Pulse Ox 03/22/23 23:39 73 03/22/23 23:19 77 19 155/85 H 98 03/22/23 23:19 80 14 98 03/22/23 22:40 74 18 95 03/22/23 22:30 71 20 95 03/22/23 22:20 71 16 97 03/22/23 22:10 68 14 96 03/22/23 22:00 73 16 96 03/22/23 21:59 74 18 140/79 96 03/22/23 19:46 72 03/22/23 19:35 73 16 136/71 98 03/22/23 17:56 36.5 C 84 138/74 100 O2 Del Method 03/22/23 23:39 03/22/23 23:19 Room Air 03/22/23 23:19 Room Air 03/22/23 22:40 03/22/23 22:30 03/22/23 22:20 03/22/23 22:10 03/22/23 22:00 03/22/23 21:59 Room Air 03/22/23 19:46 03/22/23 19:35 03/22/23 17:56 Room Air Diagnostic Findings Laboratory Results WBC 9.00 K/ul (4.8-10.8) 03/22/23 18:39 RBC 3.39 M/uL (4.70-6.10) L 03/22/23 18:39 Hgb 10.1 g/dl (14.0-18.0) L 03/22/23 18:39 Hct 29.1 % (42.0-52.0) L 03/22/23 18:39 MCV 85.8 fL (80.0-100.0) 03/22/23 18:39 MCH 29.8 pg (25.0-34.0) 03/22/23 18:39 MCHC 34.7 g/dL (32.0-36.0) 03/22/23 18:39 RDW Std Deviation 48.3 fL (36.4-46.3) H 03/22/23 18:39 RDW Coeff of Madina 15.3 % (11.5-14.5) H 03/22/23 18:39 Plt Count 224 K/uL (130-400) 03/22/23 18:39 MPV 9.7 fL (9.4-12.4) 03/22/23 18:39 Immature Gran % (Auto) 0.3 % 03/22/23 18:39 Neut % (Auto) 79.5 % 03/22/23 18:39 Lymph % (Auto) 5.8 % 03/22/23 18:39 [place] % (Auto) 9.4 % 03/22/23 18:39 Eos % (Auto) 4.4 % 03/22/23 18:39 Baso % (Auto) 0.6 % 03/22/23 18:39 Neut # (Auto) 7.15 K/uL (1.40-6.50) H 03/22/23 18:39 Lymph # (Auto) 0.52 K/uL (1.20-3.40) L 03/22/23 18:39 [place] # (Auto) 0.85 K/uL (0.11-0.59) H 03/22/23 18:39 Eos # (Auto) 0.40 K/uL (0.00-0.50) 03/22/23 18:39 Baso # (Auto) 0.05 K/uL (0.00-0.20) 03/22/23 18:39 Immature Gran # (Auto) 0.03 K/uL (0.01-0.20) 03/22/23 18:39 PT 10.8 Seconds (9.0-12.0) 03/22/23 19:42 INR 1.0 (0.9-1.1) 03/22/23 19:42 APTT 24 Seconds (21-31) 03/22/23 19:42 PTT Ratio 0.9 03/22/23 19:42 Sodium 133 mmol/L (136-145) L 03/22/23 18:39 Potassium 4.0 mmol/L (3.5-5.1) 03/22/23 18:39 Chloride 104 mmol/L (98-107) 03/22/23 18:39 Carbon Dioxide 21 mmol/L (21-32) 03/22/23 18:39 Anion Gap 8 (3-11) 03/22/23 18:39 BUN 34 mg/dl (6-23) H 03/22/23 18:39 Creatinine 2.18 mg/dl (0.6-1.4) H 03/22/23 18:39 Est Cr Clr Drug Dosing 26.2 ml/min 03/22/23 18:39 Est GFR ( Amer) 30.9 ml/min 03/22/23 18:39 Est GFR (Non-Af Amer) 26.6 ml/min 03/22/23 18:39 BUN/Creatinine Ratio 15.6 (10-20) 03/22/23 18:39 Glucose 145 mg/dl (70-99(Fasting)) H 03/22/23 18:39 Calcium 9.1 mg/dl (8.6-10.3) 03/22/23 18:39 Total Bilirubin 0.5 mg/dl (0.2-1.0) 03/22/23 18:39 AST 17 U/L (13-39) 03/22/23 18:39 ALT 11 U/L (7-52) 03/22/23 18:39 Alkaline Phosphatase 61 U/L (34-104) 03/22/23 18:39 Total Protein 7.4 gm/dl (6.0-8.3) 03/22/23 18:39 Albumin 4.2 gm/dl (3.4-5.0) 03/22/23 18:39 Globulin 3.2 gm/dl (2.5-4.0) 03/22/23 18:39 Albumin/Globulin Ratio 1.3 (0.9-2) 03/22/23 18:39 Impressions Extremity Venous Study 03/22/23 17:59 Exam(s): US VENOUS LEFT UPPER EXTREMITY EXAM: US Duplex Left Upper Extremity Veins CLINICAL HISTORY: Reason for exam: Left arm swelling and pain s/p pacemaker 03/08/23. TECHNIQUE: Real-time duplex ultrasound scan of the left upper extremity veins integrating B-mode two-dimensional vascular structure, Doppler spectral analysis, color flow Doppler imaging and compression. COMPARISON: No relevant prior studies available. FINDINGS: Deep veins: Nearly occlusive thrombus within the left subclavian vein, axillary vein, and proximal cephalic vein. Superficial veins: See above. Soft tissues: No acute findings. IMPRESSION: 1. DVT within the left subclavian and axillary arteries 2. Superficial thrombophlebitis involving the left proximal cephalic vein Electronically signed by: Ned Guerrier MD 03/22/23 22:11 PM ECG Additional Comments: ECG. Sinus rhythm with first-degree AV block with a rate of 70. Code Status & VTE Plan VTE Prophylaxis Plan VTE Prophylaxis will be ordered: Yes
[2023-03-23] MEDS ORDERED: GLUCAGON FOR INJ 1 MG VIAL SQ PRN (02:08)
[2023-03-23] MEDS ORDERED: NITROGLYCERIN SL 0.4 MG/TAB TAB SL PRN (02:08)
[2023-03-23] MEDS ORDERED: CARBOHYDRATES FOR HYPOGLYCEMIA PO PRN (02:08)
[2023-03-23] MEDS ORDERED: GLUCOSE 10 TAB/TUBE PO PRN (02:08)
[2023-03-23] MEDS ORDERED: DEXTROSE 50% 50 ML SYRINGE IV PRN (02:08)
[2023-03-23] MEDS ORDERED: ACETAMINOPHEN 325 MG TAB PO PRN (02:08)
[2023-03-23] MEDS ORDERED: GLUCOSE 40% GEL 15 GM TUBE PO PRN (02:08)
[2023-03-23] MEDS: INSULIN ASPART PER UNIT CHARGE SC STA (03:04)
[2023-03-23 06:34] LABS: Basophils # (auto) 0.06 K/uL (0.00-0.20); Eosinophils # (auto) 0.42 K/uL (0.00-0.50); Eosinophils % (auto) 6.9 %; Hematocrit (blood only) 28.3 % (42.0-52.0); Hemoglobin 9.8 g/dl (14.0-18.0); Immature Granulocytes # (auto) 0.01 K/uL (0.01-0.20); Immature Granulocytes % (auto) 0.2 %; Lymphocytes # (auto) 0.56 K/uL (1.20-3.40); Lymphocytes % (auto) 9.2 %; Mean Corpuscular Hemoglobin 29.4 pg (25.0-34.0); Mean Corpuscular Hgb Conc 34.6 g/dL (32.0-36.0); Mean Platelet Volume 9.6 fL (9.4-12.4); Monocytes # (auto) 0.65 K/uL (0.11-0.59); Monocytes % (auto) 10.7 %; Neutrophils # (auto) 4.36 K/uL (1.40-6.50); Platelet Count 223 K/uL (130-400); RDW Coefficient of Variation 15.3 % (11.5-14.5); RDW Standard Deviation 47.3 fL (36.4-46.3); Red Blood Count 3.33 M/uL (4.70-6.10); White Blood Count 6.06 K/ul (4.8-10.8)
[2023-03-23 06:46] LABS: BUN Creatinine Ratio 15.7 (10-20); Calcium 9.3 mg/dl (8.6-10.3); Creatinine Clr Calc Pharmacy 28.8 ml/min; Est GFR (African American) 34.7 ml/min; Est GFR (Non-African American) 29.9 ml/min; Magnesium 1.8 mg/dl (1.7-2.4); Potassium 3.6 mmol/L (3.5-5.1)
[2023-03-23 06:54] LABS: Troponin I High Sensitivity 6.7 pg/ml (0-20)
--- NOTE | 2023-03-23 06:54 | XRay Report ---
XR chest 1V portable CLINICAL HISTORY: Chest pain, nonspecific TECHNIQUE: Single frontal radiograph of the chest was obtained. Comparison: Comparison is made to chest radiograph 03/08/2023 FINDINGS: An implanted pacemaker is seen. Calcified aortic knob is seen. The lungs are clear. No evidence of pl eural effusion or pneumothorax. IMPRESSION: No acute chest disease. ACT 112: Negative or not required by law. Electronically signed by: Geovanny Barbosa M.D. 03/23/2023 6:53 AM
[2023-03-23 07:25] LABS: Estimated Average Glucose 154 mg/dl
[2023-03-23 07:35] LABS: ANTI-Xa, UFH(UnfractionatedHep 0.38 IU/ml (0.3-0.7)
[2023-03-23] MEDS ORDERED: TIMOLOL MALEATE 0.5% OP SOLN 5 ML BTL OP SCH (09:00)
[2023-03-23] MEDS: INSULIN ASPART PER UNIT CHARGE SC SCH (09:32)
[2023-03-23] MEDS: LANTUS PER UNIT CHARGE SQ SCH (09:32)
[2023-03-23] MEDS: ISOSORBIDE MONO EXTENDED REL 60 MG TABCR PO SCH (09:38)
[2023-03-23] MEDS: PANTOprazole 40 MG TAB PO SCH (09:38)
[2023-03-23] MEDS: ATORVASTATIN 10 MG TAB PO SCH (09:38)
[2023-03-23] MEDS: TIMOLOL MALEATE 0.5% OP SOLN 5 ML BTL OP SCH (09:39)
[2023-03-23] MEDS: BRINZOLAMIDE (AZOPT) OPS 10 ML BTL OP SCH (09:39)
[2023-03-23] MEDS: CYANOCOBALAMIN (B-12) 500 MCG TABLET PO SCH (09:40)
[2023-03-23] MEDS: BRIMONIDINE TARTRATE 0.2% 5ML OP SCH (09:40)
[2023-03-23] MEDS: POLYETHYLENE (MIRALAX) 17 GM PACK PO PRN (10:42)
--- NOTE | 2023-03-23 11:45 | Electrocardiogram Report ---
Test Reason : Blood Pressure : / mmHG Vent. Rate : 070 BPM Atrial Rate : 070 BPM P-R Int : 402 ms QRS Dur : 080 ms QT Int : 436 ms P-R-T Axes : 031 017 031 degrees QTc Int : 470 ms Sinus rhythm with 1st degree A-V block Otherwise normal ECG When compared with ECG of 08-MAR-2023 13:29, Incomplete right bundle branch block is no longer Present Nonspecific T wave abnormality has replaced inverted T waves in Inferior leads Confirmed by Juancho Barreto ([id number]) on 03/23/2023 11:45:30 AM Referred By: Tito Grullon Confirmed By:Juancho Barreto
[2023-03-23] MEDS: ASPIRIN 81 MG ECTAB PO SCH (11:59)
--- OUTSIDE RECORDS SUMMARY | 2023-03-23 13:15 | External Medical Summary | Summary of Care ---
Author Name Unknown Organization [facility] Address [address] [place] [address] Phone [phone] Care Team Providers Care Sander And Polisher Name Role Phone Tito Grullon MD Primary Care Provider + Encounter Details Date Type Department Care Team (Late st Contact Info) Description 03/08/2023 Result Scan Unspecified Department Nay Perez, DO [address] [facility] [place] [id number] <No scans attached> Allergies Active Allergy Reactions Criticality Noted Date Comments Lisinopril 07/15/2008 Swelling, hives Metronidazole Hcl 06/28/2001 rash,itchy Niacin 10/16/2008 Itching, Can tolerate Niacin documented as of this encounter (statuses as of 03/20/2023) Medications Medication Sig Dispensed Refills Start Date End Date Status ASPIRIN 81 MG PO CHEW One pill by mouth once a day with food 100 5 07/12/2007 Active Sensipass ULTRA SYSTEM W/DEVICE KITIndications:DM type 2, goal A1C 7-8 Use to check sugar once a day. Dx: 250.00 1 Kit 0 03/04/2013 Active Cyanocobalamin (B-12-SL) [address] 1,000 mcg under the tongue daily. 90 Tab 3 09/26/2017 Active Glucose Blood In Vitro StripIndications:Ty pe 2 diabetes mellitus with hemoglobin A1c goal of less than 8.0% ([facility]) Tests daily 100 Strip 3 09/27/2017 Active Cholecalciferol 1000 units Capsule Take 1 Capsule by mouth in the morning. 0 05/24/2018 Active tacrolimus (PROTOPIC) 0.1 % ointment Apply topically to affected area 2 times a day . Apply to eyelids as needed 0 Active Pen [place] 32G X 6 MMIndications: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 ([facility]) Use as directed . Use to take insulin 4 times daily 400 Each 3 11/02/2021 Active Insulin Aspart 100 UNIT/ML Subcutaneous Solution [...] twice daily 24 mL 6 06/17/2022 Active NovoLOG FlexPen 100 UNIT/ML Subcutaneous Solution Pen-injector (insulin aspart) INJECT 30 UNITS UNDER THE SKIN THREE TIMES A DAY WITH MEALS DIRECTED BY DIABETIC CLINIC 90 mL 2 07/25/2022 07/25/2023 Active linaGLIPtin 5 MG Oral Tablet (Tradjenta)Indicati ons:Type 2 diabetes mellitus with hemoglobin A1c goal of less than 8.0% ([facility]) Take 1 Tablet by mouth in the morning. 90 Tablet 3 09/09/2022 Active Pantoprazole Sodium 40 MG Oral Tablet Delayed Release (Protonix)Indicatio ns:Gastroesophageal reflux disease without esophagitis Take 1 Tablet by mouth every other day. 90 Tablet 3 09/09/2022 Active Insulin Glargine Solostar 100 UNIT/ML Subcutaneous Solution Pen-injector (Basaglar KwikPen)Indications :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 ([facility]) Inject 35 Units under the skin every night at bedtime. 45 mL 1 10/19/2022 Active Additional Information Patient taking differently:35 Units SubcutaneousDaily(AM), Reported on 03/16/2023 Nitroglycerin 0.4 MG Sublingual Tablet Sublingual (Nitrostat)Indicati ons:Coronary artery disease involving [place] coronary artery of [place] heart without angina pectoris DISSOLVE ONE TABLET UNDER THE TONGUE EVERY 5 MINUTES NEEDED FOR CHEST PAINS 25 Tablet 1 10/27/2022 10/27/2023 Active Additional Information Patient not taking.Reported on 02/21/2023 guaiFENesin-Codeine 100-10 MG/5ML Oral Solution (Robitussin AC) take 10 mL by mouth every 6 hours As Needed for cough; CAUTION: THIS MED CAUSES DROWSINESS, DO NOT DRIVE AFTER TAKING 120 mL 0 12/25/2022 Active Additional Information Patient not taking.Reported on 02/21/2023 Fluticasone Propionate 50 MCG/ACT Nasal Suspension (Flonase) instill 2 sprays into each Nostril at bedtime; Continue using once per day until symptoms resolve. 16 g 0 12/25/2022 Active Polyethylene Glycol 3350 17 GM/SCOOP Oral Powder (Miralax) take 17 g orally daily as directed 476 g 0 01/05/2023 Active Isosorbide Mononitrate ER 60 MG Oral Tablet Extended Release 24 Hour (Imdur)Indications: Coronary artery disease involving [place] coronary artery of [place] heart without angina pectoris,Dyslipidem ia, goal LDL below 70,Type 2 diabetes mellitus with hemoglobin A1c goal of less than 8.0% ([facility]),Essential hypertension with goal blood pressure less than 140/90 Take 1 Tablet by mouth in the morning. 90 Tablet 3 01/26/2023 Active Tamsulosin HCl 0.4 MG Oral Capsule (Flomax) Take 1 Capsule by mouth in the morning. 90 Capsule 3 01/26/2023 Active Atorvastatin Calcium 10 MG Oral Tablet (Lipitor) TAKE 1 WHOLE TABLET BY MOUTH DAILY. 90 Tablet 1 02/01/2023 02/01/2024 Active amLODIPine Besylate 5 MG Oral Tablet (Norvasc) take 1 tablet (5 mg) orally at bedtime 30 Tablet 5 02/09/2023 Active Timolol Maleate 0.5 % Ophthalmic Solution (Timoptic) instill one drop in both eyes every morning 5 mL 5 03/06/2023 Active documented as of this encounter (statuses as of 03/20/2023) Active Problems Problem Noted Date Diagnosed Date [...] as of this encounter (statuses as of 03/20/2023) Resolved Problems Problem Noted Date Diagnosed Date Resolved Date Type 2 diabetes mellitus wit h stage 3 chronic kidney disease and hypertension 01/03/2018 07/03/19 21 Overview: Per CKD protocol Kidney disease, chronic, sta ge III (GFR 30-59 ml/min) 04/15/2013 02/02/2018 Overview: Per CKD protocol #1 Unstable angina 11/03/2012 12/14/2016 [employer] Other*[id number] 11/02/2012 03/29/2016 Overview: Study Title: [employer] Markers for Patients with Cardiovascular Disease Project # [id number] Cable Tv Installer: Eleni Briggs MD [phone] HTN, goal below 130/80 10/12/201211/18 ACTIVE CASE MANAGEMENT Tamera De RN [phone] 07/04/2008 12/07/2009 ACTIVE CASE MANAGEMENT Tamera De RN [phone] 07/06/2007 05/14/2008 RECTAL & ANAL DIS NEC [...] as of this encounter (statuses as of 03/20/2023) Immunizations Name Administration Dates Next Due COVID-19 mRNA, LNP-s, No Pre serve, 2-Dose Series (Pfizer) 05/28/2021,11/16/2020,05/15/2020,2020 Covid-19, Mrna, Lnp-s, Pf, B ivalent, 30 Mcg, IM, 12 yrs and above (Pfizer) 11/09/2021 Pneumococcal Conjugate Vacc, 13 Valent (Prevnar) 12/02/2015 RSV Vac., Bivalent, Perfusio n F, Pf,0.5 Ml (Abrysvo) 02/10/2023 Season Influenza, Quad, PF, Adjuvanted, 65+ Yrs, IM (FLUAD) 11/02/2019 Seasonal Influenza, PF, 6 M & above, IM , (FluLaval or Fluzone) 11/21/2020,11/06/2017,12/14/2016 Seasonal Influenza, Quadriva lent Hd (Fluzone [...] Date Recorded PHQ Adult Total Score 0 02/14/2023 Hunger Vital Sign Answer Date Recorded Within the past 12 months, y ou worried that your food would run out before you got the money to buy more. Never true 03/10/19 24 Within the past 12 months, t he food you bought just didn't last and you didn't have money to get more. Never true 03/10/2023 Sex and Gender Information Value Date Recorded [...] 04/21/2023 9:20 AM EST Office Visit [facility] [address] [place] [address] Tito Grullon MD [address] [place] [address] 05/04/2023 11:00 AM EDT Office [facility], [facility] [address] [facility] [address] [place], [facility] [address] [facility] [place] [address] 06/06/2023 10:30 AM EDT Cardiac Studies Cardiology, [facility] [address] [facility] [address] [facility] [address] 06/12/2023 9:45 AM EDT Office Visit Urology, [facility] [address] [facility] [place] [address] Herbert Cevallos MD [address] [address] [place] [address] 07/21/2023 9:30 AM EDT Office Visit [facility], [facility] [address] [facility] [address] Aminata Estrada [facility]C [address] [facility] [address] 12/28/2023 3:00 PM EST Office Visit Nephrology, [facility] [address] [place], [place] [address] Laurence Lopez MD [address] [place], [place] [address] Health Maintenance Due Date Last Done Comments Hepatitis B (1 of 3 - Risk 3-dose series) 1998 COVID-19 Vaccine (2022- season) 2022 11/09/2021, 05/28/2021, 11/16/2020, Additional history exists HbA1c 08/22/2023 02/21/2023, 08/20, 02/24/2022, Additional history exists Albumin/Creatinine Ratio 09/06/2023 023, 08/27/2021, 05/06/2021, Additional history exists DTaP,Tdap,and Td Vaccines (2 - Td or Tdap) 09/26/2023 09/25/2013, 10/08/2007 Diabetic Foot Exam 10/11/2023 10/10/2022, 0 08/27/2021, 09/23/2019, Additional history exists Diabetic Eye Exam 11/01/2023 10/31/2022, , 08/01/2022, Additional history exists CKD PHOS USE SMARTSET 04436 01/11/202412/22, 09/05/2022, 05/06/2021, Additional history exists Depression Screening 02/15/2024 02/14/2023 CKD HGB USE SMARTSET 28700 02/22/202402/21, 01/23/2023, 01/10/2023, Additional history exists Pneumococcal Vaccine: 65+ Years [...] Procedure Name Priority Date/Time Associated Diagnosis Comments RADIOLOGY SCANNED RESULT 03/08/2023 documented in this encounter Results * RADIOLOGY SCANNED RESULT (03/08/2023) 03/08/2023 Nay Perez DO DIAGNOSTIC RADI OLOGY SERVICES documented in this encounter Advance Directives Latest [...] the patient have Health Care Power of Hide Washer? No Care Teams Sander And Polisher Relationship Specialty Start Date End Date Tito Grullon MD [address] [place] [id number] PCP - General Family Medicine 09/01/15 documented as of this encounter
--- OUTSIDE RECORDS SUMMARY | 2023-03-23 13:15 | External Medical Summary | Summary of Care ---
Author Name Unknown Organization [facility] Address [address] [facility] [place] [address] Phone [phone] Care Team Providers Care Test And Research Reactor Operator Name Role Phone Tito Grullon MD Primary Care Provider + Encounter Details Date Type Department Care Team (Late st Contact Info) Description 03/17/2023 Result Scan Unspecified Department Jaswinder Doe MD [address] [place] [id number] <No scans attached> Allergies Active Allergy Reactions Criticality Noted Date Comments Lisinopril 07/15/2008 Swelling, hives Metronidazole Hcl 06/28/2001 rash,itchy Niacin 10/16/2008 Itching, Can tolerate Niacin documented as of this encounter (statuses as of 03/17/2023) Medications Medication Sig Dispensed Refills Start Date End Date Status ASPIRIN 81 MG PO CHEW One pill by mouth once a day with food 100 5 07/12/2007 Active [employer] ULTRA SYSTEM W/DEVICE KITIndications:DM type 2, goal A1C 7-8 Use to check sugar once a day. Dx: 250.00 1 Kit 0 03/04/2013 Active Cyanocobalamin (B-12-SL) [address] 1,000 mcg under the tongue daily. 90 Tab 3 09/26/2017 Active Glucose Blood In Vitro StripIndications:Ty pe 2 diabetes mellitus with hemoglobin A1c goal of less than 8.0% ([facility]) Tests daily 100 Strip 3 09/27/2017 Active Cholecalciferol 1000 units Capsule Take 1 Capsule by mouth in the morning. 0 05/24/2018 Active tacrolimus (PROTOPIC) 0.1 % ointment Apply topically to affected area 2 times a day . 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 Use to [...] hemoglobin A1c goal of less than 8.0% ([facility]) Take 1 Tablet by mouth in the morning. 90 Tablet 3 09/09/2022 Active Pantoprazole Sodium 40 MG Oral Tablet Delayed Release (Protonix)Indicatio ns:Gastroesophageal reflux disease without esophagitis Take 1 Tablet by mouth every other day. 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 45 mL 1 10/19/2022 Active Additional Information Patient taking differently:35 Units SubcutaneousDaily(AM), Reported on 03/16/2023 Nitroglycerin 0.4 MG Sublingual Tablet Sublingual (Nitrostat)Indicati ons:Coronary artery disease involving [place] coronary artery of [place] heart without angina pectoris DISSOLVE ONE TABLET [...] 24 Hour (Imdur)Indications: Coronary artery disease involving [place] coronary artery of [place] heart without angina pectoris,Dyslipidem ia, goal LDL below 70,Type 2 diabetes mellitus with hemoglobin A1c goal of less than 8.0% ([facility]),Essential hypertension with goal blood pressure less [...] every morning 5 mL 5 03/06/2023 Active GNP UltiCare Pen [place] 32G X 6 MM (NOVOFINE 32G PEN NEEDLE) USE DIRECTED TAKE INSULIN 4 TIMES DAILY 400 Each 3 03/13/2023 03/11/2024 Active documented as of this encounter (statuses as of 03/17/2023) Active Problems Problem Noted Date Diagnosed Date [...] as of this encounter (statuses as of 03/17/2023) Resolved Problems Problem Noted Date Diagnosed Date Resolved Date Type 2 diabetes mellitus wit h stage 3 chronic kidney disease and hypertension 01/03/2018 07/03/19 21 Overview: Per CKD protocol Kidney disease, chronic, sta ge III (GFR 30-59 ml/min) 04/15/2013 02/02/2018 Overview: Per CKD protocol #1 Unstable angina 11/03/2012 12/14/2016 [employer] Other*[id number] 11/02/2012 03/29/2016 Overview: Study Title: [employer] Markers for Patients with Cardiovascular Disease Project # [id number] Registered Veterinary Technician: Eleni Briggs MD [phone] HTN, goal below 130/80 10/12/201211/18 ACTIVE CASE MANAGEMENT Tamera De RN [phone] 07/04/2008 12/07/2009 ACTIVE CASE MANAGEMENT Tamera De RN [phone] 07/06/2007 05/14/2008 RECTAL & ANAL DIS NEC [...] as of this encounter (statuses as of 03/17/2023) Immunizations Name Administration Dates Next Due COVID-19 [...] 04/21/2023 9:20 AM EST Office Visit Family [facility] [address] [facility] [place] [address] Tito Grullon MD [address] [facility] [address] 05/04/2023 11:00 AM EDT Office Visit Pharmacy, [facility] [address] [facility] [place] [address] [facility] [address] [place] [address] 06/06/2023 10:30 AM EDT Cardiac Studies Cardiology, [facility] [address] [place] [address] [facility] [address] [place] [address] 06/12/2023 9:45 AM EDT Office Visit Urology, [facility] [address] [place] [address] Herbert Cevallos MD [address] [place] [address] 07/21/2023 9:30 AM EDT Office Visit Cardiology, [facility] [address] [place] [address] Aminata Estrada, SHARIFA [facility] [place] [address] 12/28/2023 3:00 PM EST Office Visit Nephrology, [facility] [address] [place] [address] Laurence Lopez MD [address] [place] [address] Health Maintenance Due Date Last Done Comments [...] Additional history exists CKD PHOS USE SMARTSET 78999 01/11/202412/22, 09/05/2022, 05/06/2021, Additional history exists Depression Screening 02/15/2024 02/14/2023 CKD HGB USE SMARTSET 38072 02/22/202402/21, 01/23/2023, 01/10/2023, Additional history exists Pneumococcal [...] Procedure Name Priority Date/Time Associated Diagnosis Comments CARDIOLOGY SCANNED RESULT 03/17/2023 documented in this encounter Results * CARDIOLOGY SCANNED RESULT (03/17/2023) 03/17/2023 Jaswinder CORDERO documented in this encounter Advance Directives Latest [...] the patient have Health Care Power of Highway Maintenance Worker? No Care Teams Test And Research Reactor Operator Relationship Specialty Start Date End Date Tito Grullon MD [address] [place] [address] PCP - General Family Medicine 09/01/15 documented as of this encounter
--- OUTSIDE RECORDS SUMMARY | 2023-03-23 13:16 | External Medical Summary | Summary of Care ---
Author Name Unknown Organization [facility] Address [address] [facility] [place] [address] Phone [phone] Care Team Providers Care Sock Examiner Name Role Phone Tito Brooks MD Primary Care Provider + Reason for Visit * Reason Comments Medication Refill Encounter Details Date Type Department Care Team (Late st Contact Info) Description 03/12/2023 Refill Family Practice [facility] [address] [place] [address] Tito Brooks MD [address] [place] [address] Allergies Active Allergy Reactions Criticality Noted Date Comments Lisinopril 07/15/2008 Swelling, hives Metronidazole Hcl 06/28/2001 rash,itchy Niacin 10/16/2008 Itching, Can tolerate Niacin documented as of this encounter (statuses as of 03/13/2023) Medications Medication Sig Dispensed Refills Start Date End Date Status ASPIRIN 81 MG PO CHEW One pill by mouth once a day with food 100 5 07/12/2007 Active [employer] ULTRA SYSTEM W/DEVICE KITIndications:DM type 2, goal A1C 7-8 Use to check sugar once a day. Dx: 250.00 1 Kit 0 03/04/2013 Active Cyanocobalamin (B-12-SL) [address] 1,000 mcg under the tongue daily. 90 Tab 3 09/26/2017 Active Glucose Blood In Vitro StripIndications:T ype 2 diabetes mellitus with hemoglobin A1c goal of less than 8.0% ([facility]) Tests daily 100 Strip 3 09/27/2017 Active Cholecalciferol 1000 units Capsule Take 1 Capsule by mouth in the morning. 0 05/24/2018 Active tacrolimus (PROTOPIC) 0.1 % ointment Apply topically to affected area 2 times a day . 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 Use to take [...] BY DIABETIC CLINIC 90 mL 2 07/25/2022 Active linaGLIPtin 5 MG Oral Tablet (Tradjenta)Indicat ions:Type 2 diabetes mellitus with hemoglobin A1c goal of less than 8.0% ([facility]) Take 1 Tablet by mouth in the morning. 90 Tablet 3 09/09/2022 Active Pantoprazole Sodium 40 MG Oral Tablet Delayed Release (Protonix)Indicati ons:Gastroesophage al reflux disease without esophagitis Take 1 Tablet by mouth every other day. 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 45 mL 1 10/19/2022 Active Nitroglycerin 0.4 MG Sublingual Tablet Sublingual (Nitrostat)Indicat ions:Coronary artery disease involving [place] coronary artery of [place] heart without angina pectoris DISSOLVE ONE TABLET UNDER THE TONGUE EVERY 5 MINUTES NEEDED FOR CHEST PAINS 25 Tablet 1 10/27/2022 4 Active Additional Information Patient not taking.Reported on 02/21/2023 guaiFENesin-Codein e 100-10 MG/5ML Oral Solution (Robitussin AC) take [...] as directed 476 g 0 01/05/2023 Active Additional Information Patient not taking.Reported on 02/21/2023 Isosorbide Mononitrate ER 60 MG Oral Tablet Extended Release 24 Hour (Imdur)Indications :Coronary artery disease involving [place] coronary artery of [place] heart without angina pectoris,Dyslipide yelitza, goal LDL below 70,Type 2 diabetes mellitus with hemoglobin A1c goal of less than 8.0% ([facility]),Essential hypertension with goal blood pressure less than 140/90 Take 1 Tablet by mouth in the morning. 90 Tablet 3 01/26/2023 Active Tamsulosin HCl 0.4 MG Oral Capsule (Flomax) Take 1 Capsule by mouth in the morning. 90 Capsule 3 01/26/2023 Active Atorvastatin Calcium 10 MG Oral Tablet (Lipitor) TAKE 1 WHOLE TABLET BY MOUTH DAILY. 90 Tablet 1 02/01/2023 4 Active amLODIPine Besylate 5 MG Oral Tablet (Norvasc) take 1 tablet (5 mg) orally at bedtime 30 Tablet 5 02/09/2023 Active Timolol Maleate 0.5 % Ophthalmic Solution (Timoptic) instill one drop in both eyes every morning 5 mL 5 03/06/2023 Active GNP UltiCare Pen [place] 32G X 6 MM (NOVOFINE 32G PEN NEEDLE) USE DIRECTED TAKE INSULIN 4 TIMES DAILY 400 Each 3 03/13/2023 5 Active Insulin Pen [place] 32G X 6 MM USE DIRECTED TAKE INSULIN 4 TIMES DAILY 400 Each 3 11/02/2021 4 Discontinue d(Refill) documented as of this encounter (statuses as of 03/13/2023) Active Problems Problem Noted Date Diagnosed Date [...] as of this encounter (statuses as of 03/13/2023) Resolved Problems Problem Noted Date Diagnosed Date Resolved Date Type 2 diabetes mellitus wit h stage 3 chronic kidney disease and hypertension 01/03/2018 05/13/20 21 Overview: Per CKD protocol Kidney disease, chronic, sta ge III (GFR 30-59 ml/min) 04/15/2013 02/02/2018 Overview: Per CKD protocol #1 Unstable angina 11/03/2012 12/14/2016 [employer] Other*[id number] 11/02/2012 03/29/2016 Overview: Study Title: [employer] Markers for Patients with Cardiovascular Disease Project # [id number] Quality Control Industrial Engineer: Eleni Briggs MD [phone] HTN, goal below 130/80 10/12/201211/18 ACTIVE CASE MANAGEMENT Tamera De RN [phone] 07/04/2008 12/07/2009 ACTIVE CASE MANAGEMENT Tamera De RN [phone] 07/06/2007 05/14/2008 RECTAL & ANAL DIS NEC [...] as of this encounter (statuses as of 03/13/2023) Immunizations Name Administration Dates Next Due COVID-19 mRNA, LNP-s, No Pre serve, 2-Dose Series ([place]) 05/28/2021,11/16/2020,05/15/2020,2020 Covid-19, Mrna, Lnp-s, Pf, B ivalent, [...] Miscellaneous Notes * Telephone Encounter - Tito Blankenship, [facility] - 03/13/2023 5:28 PM EST Signed Prescriptions: Disp Refills GNP UltiCare Pen [place] 32G X 6 MM (NOVOF*400 Ea*3 Sig: USE DIRECTED TAKE INSULIN 4 TIMES DAILYAuthorizing Provider: TITO BROOKSOrdersola User: TITO BLANKENSHIP documented in this encounter Plan of Treatment Upcoming Encounters Date Type Department Care Team (Late st Contact Info) Description 03/14/2023 11:00 AM EST Cardiac Studies Cardiology, [facility] [address] [facility] [place] [address] [facility]en [facility] [address] [facility] [place] [address] 03/16/2023 11:00 AM EST Office Visit Nephrology, [facility] [address] [place] [address] Laurence Lopez MD [address] [place] [address] 04/21/2023 9:20 AM EST Office Visit Family Practice [facility] [address] [place] [address] Tito Brooks MD [address] [place] [address] 05/04/2023 11:00 AM EDT Office Visit Pharmacy, [facility] [address] [place] [address] [facility] [address] [place] [address] 06/12/2023 9:45 AM EDT Office Visit Urology, [facility] [address] [place] [address] Herbert Cevallos MD [address] [place] [address] 07/21/2023 9:30 AM EDT Office Visit Cardiology, [facility] [address] [place] [address] Aminata Estrada PA-C [address] [place] [address] Health Maintenance Due Date Last Done Comments [...] Additional history exists CKD PHOS USE SMARTSET 15736 01/11/202412/22, 09/05/2022, 05/06/2021, Additional history exists Depression Screening 02/15/2024 02/14/2023 CKD HGB USE SMARTSET 34557 02/22/202402/21, 01/23/2023, 01/10/2023, Additional history exists Pneumococcal [...] the patient have Health Care Power of Cd Reactor Operator? No Care Teams Sock Examiner Relationship Specialty Start Date End Date Tito Brooks MD [address] [facility] [place] [address] PCP - General Family Medicine 09/01/15 documented as of this encounter
--- OUTSIDE RECORDS SUMMARY | 2023-03-23 13:16 | External Medical Summary | Summary of Care ---
Author Name Unknown Organization [facility] Address [address] [place] [address] Phone [phone] Care Team Providers Care Atomizer Assembler Name Role Phone Tito Grullon MD Primary Care Provider + Reason for Visit * Reason Comments Outpatient Testing Encounter Details Date Type Department Care Team (Late st Contact Info) Description 03/16/2023 12:50 PM EST Laboratory Laboratory [facility] [address] [place] [phone] [facility] [address] [place] [address] CKD (chronic kidney disease) stage 4, GFR 15-29 ml/min ([facility]) Allergies Active Allergy Reactions Criticality Noted Date Comments Lisinopril 07/15/2008 Swelling, hives Metronidazole Hcl 06/28/2001 rash,itchy Niacin 10/16/2008 Itching, Can tolerate Niacin documented as of this encounter (statuses as of 03/16/2023) Medications Medication Sig Dispensed Refills Start Date End Date Status ASPIRIN 81 MG PO CHEW One pill by mouth once a day with food 100 5 07/12/2007 Active [employer] ULTRA SYSTEM W/DEVICE KITIndications:DM type 2, goal A1C 7-8 Use to check sugar once a day. Dx: 250.00 1 Kit 0 03/04/2013 Active Cyanocobalamin (B-12-SL) [address] 1,000 mcg under the tongue daily. 90 Tab 3 09/26/2017 Active Glucose Blood In Vitro StripIndications:Ty pe 2 diabetes mellitus with hemoglobin A1c goal of less than 8.0% ([facility]) Tests daily 100 Strip 3 09/27/2017 Active Cholecalciferol 1000 units Capsule Take 1 Capsule by mouth in the morning. 0 05/24/2018 Active tacrolimus (PROTOPIC) 0.1 % ointment Apply topically to affected area 2 times a day . 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 Use [...] A1c goal of less than 8.0% ([facility]) Take 1 Tablet by mouth [...] 3 chronic kidney disease and hypertension ([facility]) Inject 35 Units under the skin every night at bedtime. 45 mL 1 10/19/2022 Active Additional Information Patient taking differently:35 Units SubcutaneousDaily(AM), Reported on 03/16/2023 Nitroglycerin 0.4 MG Sublingual Tablet Sublingual (Nitrostat)Indicati ons:Coronary artery disease involving [place] coronary artery of [place] heart without angina pectoris DISSOLVE ONE TABLET [...] 24 Hour (Imdur)Indications: Coronary artery disease involving [place] coronary artery of [place] heart without angina pectoris,Dyslipidem ia, goal LDL below 70,Type 2 diabetes mellitus with hemoglobin A1c goal of less than 8.0% ([facility]),Essential hypertension with goal blood pressure [...] mL 5 03/06/2023 Active GNP UltiCare Pen [place] 32G X 6 MM (NOVOFINE 32G PEN NEEDLE) USE DIRECTED TAKE INSULIN 4 TIMES DAILY 400 Each 3 03/13/2023 03/11/2024 Active documented as of this encounter (statuses as of 03/16/2023) Active Problems Problem Noted Date Diagnosed Date [...] as of this encounter (statuses as of 03/16/2023) Resolved Problems Problem Noted Date Diagnosed Date Resolved Date Type 2 diabetes mellitus wit h stage 3 chronic kidney disease and hypertension 01/03/2018 07/03/19 21 Overview: Per CKD protocol Kidney disease, chronic, sta ge III (GFR 30-59 ml/min) 04/15/2013 02/02/2018 Overview: Per CKD protocol #1 Unstable angina 11/03/2012 12/14/2016 [employer] Other*[id number] 11/02/2012 03/29/2016 Overview: Study Title: [employer] Markers for Patients with Cardiovascular Disease Project # [id number] Machinist Instructor: Eleni Briggs MD [phone] HTN, goal below 130/80 10/12/201211/18 ACTIVE CASE MANAGEMENT Tamera De RN [phone] 07/04/2008 12/07/2009 ACTIVE CASE MANAGEMENT Tamera De RN [phone] 07/06/2007 05/14/2008 RECTAL & ANAL DIS NEC [...] as of this encounter (statuses as of 03/16/2023) Immunizations Name Administration Dates Next Due COVID-19 [...] 9:20 AM EST Office Visit Family Practice [facility] [address] [place] [place] [address] Tito Grullon MD [address] [facility] [place] [address] 05/04/2023 11:00 AM EDT Office Visit Pharmacy, [facility] [address] [place] [place] [address] [facility] 132 [facility] [place] [address] 06/06/2023 10:30 AM EDT Cardiac Studies Cardiology, [facility] [address] [place] [place] [address] [facility] [place] [address] 06/12/2023 9:45 AM EDT Office Visit Urology, [facility] [address] [facility] [place] [address] Herbert Cevallos MD [address] [place] [address] [place] [address] 07/21/2023 9:30 AM EDT Office Visit Cardiology, [facility] [address] [facility] [place] [address] Aminata Estrada PA-C 132 [facility] [place] [address] 12/28/2023 3:00 PM EST Office Visit Nephrology, [facility] [address] [place] [address] Laurence Lopez MD [address] [place] [address] Pending Results Name Type Priority Associated Diagnoses Date /Time BASIC METABOLIC PANEL Lab Routine CKD (chronic kidney disease) stage 4, GFR 15-29 ml/min (HCC) 03/16/2023 12:50 PM EST Health Maintenance Due Date Last Done Comments [...] Additional history exists CKD PHOS USE SMARTSET 90268 01/11/202412/22, 09/05/2022, 05/06/2021, Additional history exists Depression Screening 02/15/2024 02/14/2023 CKD HGB USE SMARTSET 17653 02/22/202402/21, 01/23/2023, 01/10/2023, Additional history exists Pneumococcal [...] as of this encounter Visit Diagnoses Diagnosis CKD (chronic kidney disease) stage 4, GFR 15-29 ml/min (HCC) Chronic kidney disease, Stage IV (severe) documented in this encounter Advance Directives Latest [...] the patient have Health Care Power of Quencher Operator? No Care Teams Atomizer Assembler Relationship Specialty Start Date End Date Tito Grullon MD [address] [place] [address] PCP - General Family Medicine 09/01/15 documented as of this encounter
--- OUTSIDE RECORDS SUMMARY | 2023-03-23 13:16 | External Medical Summary | Summary of Care ---
Author Name Unknown Organization [facility] Address [address] [facility] [place] [address] Phone [phone] Care Team Providers Care Buckle Stringer Name Role Phone Tito Grullon MD Primary Care Provider + Reason for Visit * Reason Comments Pacemaker Clinic Encounter Details Date Type Department Care Team (Latest Contact Info) Description 03/14/2023 11:00 AM EST Cardiac Studies [facility], [facility] [address] [facility] 132 [place] [place] [address] 1st degree AV block*; Third degree heart block (HCC); Cardiac pacemaker in situ Allergies Active Allergy Reactions Criticality Noted Date Comments Lisinopril 07/15/2008 Swelling, hives Metronidazole Hcl 06/28/2001 rash,itchy Niacin 10/16/2008 Itching, Can tolerate Niacin documented as of this encounter (statuses as of 03/14/2023) Medications Medication Sig Dispensed Refills Start Date End Date Status ASPIRIN 81 MG PO CHEW One pill by mouth once a day with food 100 5 07/12/2007 Active [employer] SYSTEM W/DEVICE KITIndications:DM type 2, goal A1C [...] to eyelids as needed 0 Active Pen [place] 32G X 6 MMIndications:Type 2 diabetes mellitus [...] less than 8.0% ([facility]) Take 1 Tablet by mouth in [...] Tablet Sublingual (Nitrostat)Indicati ons:Coronary artery disease involving [place] coronary artery of [place] heart without angina pectoris DISSOLVE ONE TABLET [...] 24 Hour (Imdur)Indications: Coronary artery disease involving [place] coronary artery of [place] heart without angina pectoris,Dyslipidem ia, goal LDL [...] mL 5 03/06/2023 Active GNP [employer] Pen [place] 32G X 6 MM (NOVOFINE 32G PEN NEEDLE) USE DIRECTED TAKE INSULIN 4 TIMES DAILY 400 Each 3 03/13/2023 03/11/2024 Active documented as of this encounter (statuses as of 03/14/2023) Active Problems Problem Noted Date Diagnosed Date [...] as of this encounter (statuses as of 03/14/2023) Resolved Problems Problem Noted Date Diagnosed Date Resolved Date Type 2 diabetes mellitus wit h stage 3 chronic kidney disease and hypertension 01/03/2018 07/03/19 21 Overview: Per CKD protocol Kidney disease, chronic, sta ge III (GFR 30-59 ml/min) 04/15/2013 02/02/2018 Overview: Per CKD protocol #1 Unstable angina 11/03/2012 12/14/2016 [employer] Other*[id number] 11/02/2012 03/29/2016 Overview: Study Title: Genomic Markers for Patients with Cardiovascular Disease Project # [id number] Orthotic/Prosthetic Clinician: Eleni Briggs MD [phone] HTN, goal below 130/80 10/12/201211/18 ACTIVE CASE MANAGEMENT Zachariah De RN [phone] 07/04/2008 12/07/2009 ACTIVE CASE MANAGEMENT Tamera De RN [phone] 07/06/2007 05/14/2008 RECTAL & ANAL DIS NEC [...] as of this encounter (statuses as of 03/14/2023) Immunizations Name Administration Dates Next Due COVID-19 [...] on file documented as of this encounter Nursing Notes * Chanel Rubi LPN - 03/14/2023 12:51 PM EST Patient and implanted device were evaluated today in the [facility]. Providers please see scanned report in the Scans tab. Duoderm dressing removed. Left pectoral device pocket appears to be healing. No drainage is noted. Incision edges are in approximation. No ecchymosis is noted. Area is soft to palpation. Area cleansed with chlora prep. After dry Sure prep applied to surrounding skin avoiding incision. Steri strips applied. Interrogated by [facility] documented in this encounter Plan of Treatment Upcoming Encounters Date Type Department Care Team (Late st Contact Info) Description 03/16/2023 11:00 AM EST Office Visit Nephrology, [facility] [address] [facility] [place] [address] Laurence Lopez MD [address] [facility] [place] [address] 04/21/2023 9:20 AM EST Office Visit Family Practice [facility] [address] Tito Grullon MD 132 [facility] [address] 05/04/2023 11:00 AM EDT [facility], [facility] [address] [facility] [place] [address] 06/06/2023 10:30 AM EDT Cardiac Studies Cardiology, [facility] 132 [facility] [place] [address] [place] [place] [address] 06/12/2023 9:45 AM EDT Office Visit Urology, [facility] [place] [address] Herbert Cevallos MD [address] [facility] [address] [place] [address] 07/21/2023 9:30 AM EDT Office Visit Cardiology, [facility] 132 [facility] [place] [address] Aminata Estrada PA-C [address] [facility] [place] [address] Scheduled Orders Name Type Priority Associated Diagnoses Orde r Schedule POSTOP F-UP VISIT IN GLOBAL Procedures Routine 1st degree AV block Third degree heart block (HCC) Cardiac pacemaker in situ Ordered: 03/14/2023 Health Maintenance Due Date Last Done Comments [...] Additional history exists CKD PHOS USE SMARTSET 01939 01/11/202412/22, 09/05/2022, 05/06/2021, Additional history exists Depression Screening 02/15/2024 02/14/2023 CKD HGB USE SMARTSET 62634 02/22/202402/21, 01/23/2023, 01/10/2023, Additional history exists Pneumococcal [...] as of this encounter Visit Diagnoses Diagnosis 1st degree AV block- Primary First degree atrioventricular block Third degree heart block (HCC) Atrioventricular block, complete Cardiac pacemaker in situ documented in this encounter Advance Directives Latest [...] the patient have Health Care Power of Vegetable Cook? No Care Teams Buckle Stringer Relationship Specialty Start Date End Date Tito Grullon MD [address] [place] [address] PCP - General Family Medicine 09/01/15 documented as of this encounter
--- OUTSIDE RECORDS SUMMARY | 2023-03-23 13:16 | External Medical Summary | Summary of Care ---
Author Name Unknown Organization [facility] Address [address] [facility] [place] [address] Phone [phone] Care Team Providers Care Supervisor Dyer Name Role Phone Tito Grullon MD Primary Care Provider + Encounter Details Date Type Department Care Team (Late st Contact Info) Description 03/08/2023 Result Scan Unspecified Department <No scans attached> Allergies Active Allergy Reactions Criticality Noted Date Comments Lisinopril 07/15/2008 Swelling, hives Metronidazole Hcl 06/28/2001 rash,itchy Niacin 10/16/2008 Itching, Can tolerate Niacin documented as of this encounter (statuses as of 03/10/2023) Medications Medication Sig Dispensed Refills Start Date End Date Status ASPIRIN 81 MG PO CHEW One pill by mouth once a day with food 100 5 07/12/2007 Active [employer] ULTRA SYSTEM W/DEVICE KITIndications:DM type 2, goal A1C 7-8 Use to check sugar once a day. Dx: 250.00 1 Kit 0 03/04/2013 Active Cyanocobalamin (B-12-SL) [address] 1,000 mcg under the tongue daily. 90 Tab 3 09/26/2017 Active Glucose Blood In Vitro StripIndications:Ty pe 2 diabetes mellitus with hemoglobin A1c goal of less than 8.0% ([facility]) Tests daily 100 Strip 3 09/27/2017 Active Cholecalciferol 1000 units Capsule Take 1 Capsule by mouth in the morning. 0 05/24/2018 Active tacrolimus (PROTOPIC) 0.1 % ointment Apply topically to affected area 2 times a day . Apply to eyelids as needed 0 Active Pen [place] 32G X 6 MMIndications: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 ([facility]) Use as directed . Use to [...] hemoglobin A1c goal of less than 8.0% ([facility]) Take 1 Tablet by mouth in the morning. 90 Tablet 3 09/09/2022 Active Pantoprazole Sodium 40 MG Oral Tablet Delayed Release (Protonix)Indicatio ns:Gastroesophageal reflux disease without esophagitis Take 1 Tablet by mouth every other day. 90 Tablet 3 09/09/2022 Active Insulin Glargine Solostar 100 UNIT/ML Subcutaneous Solution Pen-injector (Basaglar KwikPen)Indications :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 ([facility]) Inject 35 Units under the skin every night at bedtime. 45 mL 1 10/19/2022 Active Nitroglycerin 0.4 MG Sublingual Tablet Sublingual (Nitrostat)Indicati ons:Coronary artery disease involving [place] coronary artery of [place] heart without angina pectoris DISSOLVE ONE TABLET [...] 24 Hour (Imdur)Indications: Coronary artery disease involving [place] coronary artery of [place] heart without angina pectoris,Dyslipidem ia, goal LDL below 70,Type 2 diabetes mellitus with hemoglobin A1c goal of less than 8.0% ([facility]),Essential hypertension with goal blood pressure less [...] as of this encounter (statuses as of 03/10/2023) Active Problems Problem Noted Date Diagnosed Date [...] as of this encounter (statuses as of 03/10/2023) Resolved Problems Problem Noted Date Diagnosed Date Resolved Date Type 2 diabetes mellitus wit h stage 3 chronic kidney disease and hypertension 01/03/2018 07/03/19 21 Overview: Per CKD protocol Kidney disease, chronic, sta ge III (GFR 30-59 ml/min) 04/15/2013 02/02/2018 Overview: Per CKD protocol #1 Unstable angina 11/03/2012 12/14/2016 [employer] Other*[id number] 11/02/2012 03/29/2016 Overview: Study Title: [employer] Markers for Patients with Cardiovascular Disease Project # [id number] Candles Pourer: Eleni Briggs MD [phone] HTN, goal below 130/80 10/12/201211/18 ACTIVE CASE MANAGEMENT Tamera Santino RN [phone] 07/04/2008 12/07/2009 ACTIVE CASE MANAGEMENT Tamera Santino RN [phone] 07/06/2007 05/14/2008 RECTAL & ANAL DIS NEC [...] as of this encounter (statuses as of 03/10/2023) Immunizations Name Administration Dates Next Due COVID-19 [...] 03/14/2023 11:00 AM EST Cardiac Studies Cardiology, [facility] [address] [facility] [place] [address] [facility] [address] [place] [address] 03/16/2023 11:00 AM EST Office Visit Nephrology, [facility] [address] [place] [address] Laurence Lopez MD [address] [place] [address] 04/21/2023 9:20 AM EST Office Visit Family Practice [facility] 132 [facility] [place] [address] Tito Grullon MD 132 [facility] [place] [address] 05/04/2023 11:00 AM EDT Office Visit Pharmacy, [facility] 132 [facility] [place] [address] [facility] [place] [address] 06/12/2023 9:45 AM EDT Office Visit Urology, [facility] 132 [facility] [place] [address] Herbert Cevallos MD [address] [address] [place] [address] 07/21/2023 9:30 AM EDT Office Visit Cardiology, [facility] 132 [facility] [place] [address] Aminata Estrada PA-C [facility] [place] [id number] Health Maintenance Due Date Last Done Comments Hepatitis B (1 of 3 - Risk 3-dose series) 1998 COVID-19 Vaccine ( season) 2022 11/09/2021, 05/28/2021, 11/16/2020, Additional history exists HbA1c 08/22/2023 02/21/2023, 08/20, 02/24/2022, Additional history exists Albumin/Creatinine Ratio 09/06/202309/05/2 023, 08/27/2021, 05/06/2021, Additional history exists DTaP,Tdap,and Td Vaccines (2 - Td or Tdap) 09/26/2023 09/25/2013, 10/08/2007 Diabetic Foot Exam 10/11/2023 10/10/2022, 0 08/27/2021, 09/23/2019, Additional history exists Diabetic Eye Exam 11/01/2023 10/31/2022, , 08/01/2022, Additional history exists CKD PHOS USE SMARTSET 27617 01/11/202412/22, 09/05/2022, 05/06/2021, Additional history exists Depression Screening 02/15/2024 02/14/2023 CKD HGB USE SMARTSET 20112 02/22/202402/21, 01/23/2023, 01/10/2023, Additional history exists Pneumococcal [...] Procedure Name Priority Date/Time Associated Diagnosis Comments OUTSIDE LAB RESULTS 03/08/2023 documented in this encounter Results * OUTSIDE LAB RESULTS (03/08/2023) 03/08/2023 No Physician Data Unknown LABORATORY documented in this encounter Advance Directives Latest [...] the patient have Health Care Power of Warp Doffer? No Care Teams Supervisor Dyer Relationship Specialty Start Date End Date Tito Grullon MD 132 [place] [address] PCP - General Family Medicine 09/01/15 documented as of this encounter
--- OUTSIDE RECORDS SUMMARY | 2023-03-23 13:16 | External Medical Summary ---
Author Name Unknown Address Unknown Organization K09:[facility] [address] Laboratory Report Ordering Provider Test Date Status KEYSHAPATEL 03/16/2023 12:50:52 Final Observation Date Value Abnormality Reference (Units ) Status BUN 03/16/2023 12:50:52 30 Above high normal 6-20 (mg/dL) Final Creatinine 03/16/2023 12:50:52 2.1 Above high normal 0.6-1.2 (mg/dL) Final Glomerular filtration rate/1.73 sq M.predicted [Volume Rate/Area] in Serum, Plasma or Blood by Creatinine-based formula (CKD-EPI) 03/16/2023 12:50:52 31 Below low normal >=60 (mL/min) Final eGFR is calculated based on the CKD-EPI 2020 equation SODIUM 03/16/2023 12:50:52 137 135-146 (m mol/L) Final Potassium 03/16/2023 12:50:52 4.3 3.5-5.1 (m mol/L) Final Cl 03/16/2023 12:50:52 102 98-107 (mm ol/L) Final CO2 03/16/2023 12:50:52 24 22-32 (mmo l/L) Final Anion gap 03/16/2023 12:50:52 11 7-15 (mmol /L) Final Glucose 03/16/2023 12:50:52 223 Above high normal 70 -120 (mg/dL) Final Calcium 03/16/2023 12:50:52 9.6 8.4-10.2 ( mg/dL) Final Performing Location [facility] [place] [address]
--- NOTE | 2023-03-23 14:19 | Cardiology Consultation ---
Date of Consultation March 23, 2023 Assessment & Plan (1) DVT (deep venous thrombosis): Plan Assessment: 83 year-old male presents with one day history of left upper extremity swelling. Venous US demonstrates DVT within the left subclavian and axillary arteries as well as superficial thrombophlebitis involving the left proximal cephalic vein Plan: 1. DVT Left upper extremity as noted above. Recent dual chamber PPM placement 03/08/23 Continue heparin gtt at this time. Will need to transition to oral anticoagulation therapy when appropriate for discharge. given his age and renal function (baseline Cr. 2), would require reduced dosing of Eliquis 2.5mg by mouth twice daily. please ensure cost affordability of anticoagulation therapy Obtain echocardiogram to assess for right heart strain in the setting of known clot. We will continue to follow. Case has been discussed with Dr. Bailon. Further recommendations regarding plan of care as per his assessment. I spent a total of 30 minutes on the date of service in preparation, delivery, documentation of the care provided to the patient excluding any time spent in the performance of separately billed services. SHAISTA Clark [facility] Cardiology [facility] Supervising Physician Co-Signing Physician Notes Attending attestation: Case reviewed with SHAISTA Meneses. I have reviewed the advanced practitioner's documentation on the date of service referenced in note, and I agree with, and take responsibility for the plan of care. Subjective: Patient noted left upper extremity swelling he thinks of 1 day duration. Exam: Chest: Left infraclavicular pacemaker pocket clean dry and intact, incision without erythema or redness Left arm and hand with 1-2+ edema Impression/ Plan: Left upper extremity DVT as noted -Proceed with anticoagulation. Long-term may need a compression band of his left upper extremity, but not in the acute phase in an effort to avoid embolism of the DVT. -Echocardiogram without suggestion of RV strain. I spent a total of 20 minutes coordinating, documenting, and providing care for this patient excluding time spent in the performance of separately billed services or time spent by another provider. Hayden Bailon DO History of Present Illness Reason for Consultation: Left arm DVT, recent PPM placement Requesting Physician: [facility] hospitalist Attending Physician: Kathryn Chaidez MD History of Present Illness HPI: patient is a 83 year old male with PMHx significant for intermittant CHB s/p recent PPM placement, CAD, HTN, HLD, DM, CKD, GERD and Primary open angle glaucoma that presented to the ED with one day history of left arm swelling. Venous US of AHMET as follows: IMPRESSION: 1. DVT within the left subclavian and axillary arteries 2. Superficial thrombophlebitis involving the left proximal cephalic vein Underwent dual chamber PPM placement on 03/08/[address] Perez. Patient resting comfortably in bed at this time with son at bedside. offers no complaints. Denies chest pain, pressure, palpitations, denies shortness of breath or swelling other than his left arm. No pre-syncope or syncope. Allergies Allergy/AdvReac Type Severity Reaction Status Date / Time metronidazole Allergy Intermediate Rash Verified 03/22/23 20:37 niacin Allergy Intermediate RASH Verified 03/22/23 20:37 GIGI Inhibitors AdvReac Intermediate EDEMA- Verified 03/22/23 20:37 LOWER EXTREMITIES Home Medications Medication Instructions Recorded Confirmed Type aspirin 81 mg tablet,delayed 81 mg PO QDL 12/22/22 03/22/23 History release atorvastatin 10 mg tablet 10 mg PO QAM 12/22/22 03/22/23 History brinzolamide 1 %-brimonidine 0.2 % 1 drp OPB AMPM 12/22/22 03/22/23 History eye drops,suspension (Simbrinza) cyanocobalamin (vitamin B-12) 1,000 mcg PO QAM 12/22/22 03/22/23 History 1,000 mcg tablet (Vitamin B-12) insulin aspart U-100 100 unit/mL 22 unit subcut TIDM 12/22/22 03/22/23 History (3 mL) subcutaneous pen (Novolog FlexPen U-100 Insulin aspart) insulin glargine 100 unit/mL (3 35 unit subcut QDB 12/22/22 03/22/23 History mL) subcutaneous pen (Basaglar KwikPen U-100 Insulin) isosorbide mononitrate 60 mg 60 mg PO QAM 12/22/22 03/22/23 History tablet,extended release 24 hr linagliptin 5 mg tablet (Tradjenta) 5 mg PO QDL 12/22/22 03/22/23 History pantoprazole 40 mg tablet,delayed 40 mg PO Q2D 12/22/22 03/22/23 History release timolol maleate 0.5 % eye drops 1 drp OPB QAM 12/22/22 03/22/23 History amlodipine 5 mg tablet (Norvasc) 5 mg PO HS #30 tabs 01/05/23 03/22/23 Rx tamsulosin 0.4 mg capsule 0.4 mg PO HS #30 caps 01/05/23 03/22/23 Rx nitroglycerin 0.4 mg sublingual 0.4 mg sublingual DIRECTED PRN 03/08/23 03/22/23 History tablet Chest Pain Patient History Medical History (Updated 03/23/23 @ 08:[address]) Diabetes mellitus, type 2 CKD (chronic kidney disease), stage III Hyponatremia CAD (coronary artery disease) COVID History of Mohs micrographic surgery for skin cancer Surgical History History of cholecystectomy Family History Other No family history of adverse response to anesthesia No family history of bleeding disorder No significant family history Social History Smoking Status: Never smoker Tobacco Type: Cigars Cigarettes Per Day: 1 CIGAR/DAY; Second Hand Exposure: No; Do You Dip or Chew Tobacco: No; Hx Alcohol Use: No Hx Substance Use: No Preferred Language: Algerian Communication Ability: Effective Jute Bag Clipper Required: No Beliefs That Will Affect Care: None marital status: Current Living Situation: Alone Current Living Situation Comment: alone, son lives 5 minutes away current occupational status: retired Other Information That Helps Us Care for You: No Feels Safe at Home: Yes Safety Concerns: Feels Safe At This Time Assistive Devices: None Review of Systems Review of Systems: All systems reviewed & are unremarkable except as noted in HPI & below Physical Exam Constitutional: well developed and well nourished; no acute distress Neck: normal visual inspection and trachea midline Respiratory: normal respiratory effort, lungs clear to auscultation Cardiovascular: Rate/Rhythm: regular rate Heart Sounds: normal S1 and normal S2 Vessels: dorsalis pedis pulses present; no JVD Musculoskeletal: Extremities: + upper extremity abnormal to inspection Left (left arm swelling, no erythema or pain) Skin: no rashes, warm and dry Psychiatric: A+Ox3, euthymic affect Results & Data Vital Signs (Past 12 Hours) Vital Signs Temp Pulse Pulse Resp BP Pulse Ox O2 Del Method 03/23/23 12:18 36.7 C 69 20 117/68 97 Room Air 03/23/23 07:37 36.6 C 70 21 154/74 H 96 Room Air 03/23/23 02:10 71 03/23/23 02:05 36.9 C 81 18 154/59 H 96 Room Air Laboratory Results Cardiac Enzymes 03/22/23 03/23/23 03/23/23 Range/Units 18:39 06:07 10:59 AST 17 (13-39) U/L Troponin I High Sens 6.7 5.7 (0-20) pg/ml Coagulation 03/22/23 03/22/23 Range/Units 18:39 19:42 PT Cancelled 10.8 APTT Cancelled 24 CBC 03/22/23 03/23/23 Range/Units 18:39 06:07 WBC 9.00 6.06 (4.8-10.8) K/ul RBC 3.39 L 3.33 L (4.70-6.10) M/uL Hgb 10.1 L 9.8 L (14.0-18.0) g/dl Hct 29.1 L 28.3 L (42.0-52.0) % Plt Count 224 223 (130-400) K/uL Neut # (Auto) 7.15 H 4.36 (1.40-6.50) K/uL Lymph # (Auto) 0.52 L 0.56 L (1.20-3.40) K/uL [place] # (Auto) 0.85 H 0.65 H (0.11-0.59) K/uL Eos # (Auto) 0.40 0.42 (0.00-0.50) K/uL Baso # (Auto) 0.05 0.06 (0.00-0.20) K/uL Comprehensive Metabolic Panel 03/22/23 03/23/23 Range/Units 18:39 06:07 Sodium 133 L 136 (136-145) mmol/L Potassium 4.0 3.6 (3.5-5.1) mmol/L Chloride 104 106 (98-107) mmol/L Carbon Dioxide 21 23 (21-32) mmol/L BUN 34 H 31 H (6-23) mg/dl Creatinine 2.18 H 1.98 H (0.6-1.4) mg/dl Glucose 145 H 186 H (70-99(Fasting)) mg/dl Calcium 9.1 9.3 (8.6-10.3) mg/dl AST 17 (13-39) U/L ALT 11 (7-52) U/L Alkaline Phosphatase 61 (34-104) U/L Total Protein 7.4 (6.0-8.3) gm/dl Albumin 4.2 (3.4-5.0) gm/dl Intake and Output 03/22/23 03/23/23 03/23/23 22:59 06:59 14:59 Intake Total 80 / 80 204.3 / 204.3 Balance 80 / 80 204.3 / 204.3 Intake: IV 204.3 / 204.3 Heparin Sodium/Dextrose 25,000 204.3 / 204.3 units In 500 ml @ 1,350 UNITS/ HR 27 mls/hr IV .[id number] [facility] Rx #:[id number] Oral 80 / 80 Other: Weight 84.3 kg 84 kg Weight Measurement Method Built in [facility] Diagnostic Findings Venous US LUE 1. DVT within the left subclavian and axillary arteries 2. Superficial thrombophlebitis involving the left proximal cephalic vein
--- NOTE | 2023-03-23 16:16 | Communication Note ---
Date of Service: March 23, 2023 Evaluated at bedside, son Patrick present. Denies any acute concerns, notes some discomfort laying in bed. Denies left arm pain or discomfort. Exam revealed notably edematous left hand. #Left upper extremity edema 2/2 DVT,due to recent pacemaker insertion, Pt had a pacemaker inserted on 03/08. Now with DVT within the left subclavian and axillary arteries and superficial thrombophlebitis involving the left proximal cephalic vein Continue Tele Plan to transition to Oral DOAC--will discuss dosing for DVT, as recommended 2.5 is for a fib, but DVT usually 10mg x 7 days, 5mg BID. Further cardiology recommendations
[2023-03-23] MEDS: TAMSULOSIN HCL 0.4 MG CAP PO SCH (20:51)
[2023-03-23] MEDS: amLODIPine BESYLATE 5 MG TAB PO SCH (20:51)
[2023-03-24 07:01] LABS: Hematocrit (blood only) 27.3 % (42.0-52.0); Hemoglobin 9.3 g/dl (14.0-18.0); Mean Corpuscular Hemoglobin 29.2 pg (25.0-34.0); Mean Corpuscular Hgb Conc 34.1 g/dL (32.0-36.0); Mean Corpuscular Volume 85.6 fL (80.0-100.0); Mean Platelet Volume 9.7 fL (9.4-12.4); Platelet Count 206 K/uL (130-400); RDW Coefficient of Variation 15.3 % (11.5-14.5); RDW Standard Deviation 48.4 fL (36.4-46.3); Red Blood Count 3.19 M/uL (4.70-6.10); White Blood Count 5.92 K/ul (4.8-10.8)
[2023-03-24 07:20] LABS: ANTI-Xa, UFH(UnfractionatedHep 0.62 IU/ml (0.3-0.7)
[2023-03-24 07:28] LABS: BUN Creatinine Ratio 14.6 (10-20); Calcium 9.3 mg/dl (8.6-10.3); Creatinine Clr Calc Pharmacy 23.1 ml/min; Est GFR (African American) 26.5 ml/min; Est GFR (Non-African American) 22.9 ml/min; Magnesium 1.8 mg/dl (1.7-2.4); Phosphorus 4.2 mg/dl (2.5-4.9); Potassium 3.7 mmol/L (3.5-5.1)
--- NOTE | 2023-03-24 11:12 | Cardiology Progress Note ---
Date of Service March 24, 2023 Assessment & Plan (1) DVT (deep venous thrombosis): Plan Assessment: 83 year-old male presents with one day history of left upper extremity swelling. Venous US demonstrates DVT within the left subclavian and axillary arteries as well as superficial thrombophlebitis involving the left proximal cephalic vein Plan: 1. DVT Left upper extremity as noted above. Recent dual chamber PPM placement 03/08/23 Continues on heparin gtt at this time with plans to transition to Eliquis. please ensure cost affordability of anticoagulation therapy Echocardiogram shows no evidence of right heart strain. Case has been discussed with Dr. Bailon. Further recommendations regarding plan of care as per his assessment. I spent a total of 30 minutes on the date of service in preparation, delivery, documentation of the care provided to the patient excluding any time spent in the performance of separately billed services. SHAISTA [facility] Admission and Anticipated Discharge Date Admission Date: March 23, 2023 Supervising Physician Co-Signing Physician Notes Case discussed with SHAISTA Marie. Agree with findings and plan as documented. Case discussed with Dr. Chaidez, given Eliquis indication of DVT proceed with DVT dose of 10 mg twice a day for 7 days followed by 5 mg twice daily. I am however concerned with regards to the patient's renal insufficiency, age 83, and he has a fresh pacemaker pocket device having been placed about 2 weeks ago on 04/08/2023. The patient had already been discharged and was home before I had the opportunity to discuss this with him and his son and had the opportunity to examine him. I discussed things with Dr. Chaidez by phone call the patient and his son, Seamus. In an effort to balance the risk of progressive thrombotic event versus bleeding risk in this relatively frail 83-year-old male I recommend proceeding with Eliquis 5 mg every 12 hours start now without the 10 mg dose. Patient agreeable and understands instructions. He has the necessary tablets. Julieth Bailon, Subjective 03/23/24: Patient seen and examined in follow up today. He is out of bed in chair visiting with his son. Looks well. Offers no cardiac questions or concerns. Denies chest pain, pressure, palpitations, no shortness of breath, no pre- syncope or syncope. Reports mild decrease in left arm swelling. demonstrates positive pulse/motor sensation. Review of telemetry overnight shows SR/Paced. rates 70's no acute events. Reviewed notes, labs, vitals and diagnostics. Review of Systems Review of Systems: All systems reviewed & are unremarkable except as noted in HPI & below Physical Exam Constitutional: well developed and well nourished; no acute distress Neck: normal visual inspection and trachea midline Respiratory: normal respiratory effort, lungs clear to auscultation Cardiovascular: Rate/Rhythm: regular rate Heart Sounds: normal S1 and normal S2 Vessels: dorsalis pedis pulses present; no JVD Musculoskeletal: Extremities: + upper extremity abnormal to inspection Left (left arm swelling, no erythema or pain) Skin: no rashes, warm and dry Psychiatric: A+Ox3, euthymic affect Results & Data Vital Signs (Past 12 Hours) Vital Signs Temp Pulse Pulse Resp BP Pulse Ox O2 Del Method 03/24/23 09:00 Room Air 03/24/23 08:20 36.9 C 70 18 128/69 95 Room Air 03/24/23 07:00 62 03/24/23 03:08 37.3 C 70 18 130/64 94 Room Air 03/23/23 23:49 36.5 C 78 16 135/71 97 Room Air Laboratory Results Cardiac Enzymes 03/23/23 03/23/23 Range/Units 10:59 16:32 Troponin I High Sens 5.7 5.9 (0-20) pg/ml CBC 03/24/23 Range/Units 06:43 WBC 5.92 (4.8-10.8) K/ul RBC 3.19 L (4.70-6.10) M/uL Hgb 9.3 L (14.0-18.0) g/dl Hct 27.3 L (42.0-52.0) % Plt Count 206 (130-400) K/uL Comprehensive Metabolic Panel 03/24/23 Range/Units 06:43 Sodium 134 L (136-145) mmol/L Potassium 3.7 (3.5-5.1) mmol/L Chloride 103 (98-107) mmol/L Carbon Dioxide 22 (21-32) mmol/L BUN 36 H (6-23) mg/dl Creatinine 2.47 H D (0.6-1.4) mg/dl Glucose 206 H (70-99(Fasting)) mg/dl Calcium 9.3 (8.6-10.3) mg/dl Intake and Output 03/23/23 03/24/23 03/24/23 22:59 06:59 14:59 Intake Total 778.95 / 3.25 300 / 2022.25 486 / 486 Balance 778.95 / 2022.25 300 / 2022.25 486 / 486 Intake: IV 238.95 / 443.25 486 / 486 Heparin Sodium/Dextrose 25,000 238.95 / 443.25 486 / 486 units In 500 ml @ 1,350 UNITS/ HR 27 mls/hr IV .[id number] [facility] Rx #:[id number] Oral 540 / 1580 300 / 1580 Other: Weight 84.3 kg Weight Measurement Method Built in [facility] Diagnostic Findings Echocardiogram 03/23/23: Left ventricle wall motion is normal LVEF 55-60% right ventricle mildly dilated on some views with normal right ventricular systolic function Pacemaker lead is visualized in the right ventricle terminating in the proximal interventricular septum mild MR mild TR grade I diastolic dysfunction no pericardial effusion
[2023-03-24] MEDS: APIXABAN 5 MG TABLET PO SCH (11:42)
--- NOTE | 2023-03-24 17:04 | Communication Note ---
Date of Service: March 24, 2023 Code 44 attestation; The chart of Rei Martínez 1940 was reviewed and noted to be noted that she was appropriately discharged by the attending physician. By CMS guidelines, a determination that the admission or continued stay is not medically necessary has been made by a member of the UR committee and a physician for this hospital stay, therefore a Code 44 will be completed and the Inpatient admission will be changed to outpatient. Dr Joleen Garcia Member UR committee
--- NOTE | 2023-03-24 17:32 | Discharge Summary ---
Discharge Summary Date of Service March 24, 2023 Notes For Next Care Provider Medication Changes From Visit Apixaban initially discussed 10mg BID for 7 days, but given age and renal function, discussed with Dr Bailon to transition to 5mg BID then transition to 2.5mg BID Admission HPI Per Admitting Provider 83 -year-old male with past medical history significant for type 2 diabetes, hyperlipidemia, hypertension, CKD stage III, CAD s/p stent, hypertension, vitamin B12 deficiency, GERD, primary open-angle glaucoma bilateral, history of herpes zoster, was recently in the hospital with hyponatremia and COVID and s/p pacemaker couple of weeks ago for intermittent complete heart block presents with left upper extremity edema since the morning and in the ER found to have D VT. Patient denies any pain. Resting comfortably. Somewhat hard of hearing but able to answer. Son is in the room. Patient lives alone. Ambulates without walker or cane. Eating and drinking okay. No difficulties swallowing. Denies any chest pain or shortness of breath. No headache. Vision is okay. No runny nose or sore throat. No cough. No nausea. No abdominal pain. Normal bowel and bladder movements. Denies any blood in the stools or black stool. Denies any blood in the urine currently. Hemodynamically stable. Past medical history. As mentioned above Past surgical history. Cardiac stent placement. Colonoscopy. EGD. EGD and transendoscopic dilatation. Laparoscopic cholecystectomy. Repair of bowel fistula. Social history. Lives alone. Quit cigarettes in 1972. No alcohol use. No drug use. Family history. Sister had breast cancer. Brother had depression. Hypertension. Colostomy. Father had heart disorder. Admission Exam Per Admitting Provider General- Not in distress Head- atraumatic Eyes- PERRL. ENT- oropharynx clear Neck- supple, no JVD. Lungs- clear to auscultation no wheezing or crackles. Heart- regular rate and rhythm; no murmur, no gallop,pacemaker site no erythema or drainage seen. Abdomen- normal bowel sounds, soft, nontender, no distension. Extremities- no pretibial edema, Left upper extremity is swollen, no erythema seen Neuro- alert, oriented x 3; PERRL, no facial palsy; no dysarthria; moves extremities. Skin- warm & dry Principal Dx & Hospital Course #1 = Principal Diagnosis (1) DVT (deep venous thrombosis): Mr. Young is an 83 -year-old male with past medical history significant for type 2 diabetes, hyperlipidemia, hypertension, CKD stage III, CAD s/p stent, hypertension, vitamin B12 deficiency, GERD, primary open-angle glaucoma bilateral, history of herpes zoster, was recently in the hospital with hyponatremia and COVID and s/p pacemaker couple of weeks ago for intermittent complete heart block presents with left upper extremity edema since the morning of 03/23 and presented to ER. Patient found to have LUE DVT and admitted for management and evaluation. Patient was placed on heparin drip. Noted to have significant improvement in LUE edema. ECHO was without any signs of heart strain. Eliquis was started and patient felt cost of 55$ was acceptable. Initially, plan was to place patient on 10mg BID for 7 days then to 5mg BID, however, concern over age and renal function, therefore transitioned to 5mgBID x 7 days with plans to decrease to 2.5mg BID. #Left upper extremity DVT iso recent pacemaker placement #intermittent complete heart block s/p pacemaker Started on IV heparin echo for any negative for right heart strain Cardiology consult as recently had pacemaker placement -Device functioning appropriately, healing well -Discharge on apixaban 5mg BID x 7 days, then 2.5mg BID #CKD stage III Cr stable #Chronic Hyponatremia #SIADH Sodium 133 today Continue fluid restrictions 1200 mill per day Follows with Nephrology #Diabetes Resume home regimen #CAD s/p stent On aspirin, Imdur and statin #Hypertension Currently on Imdur and amlodipine #Chronic anemia stable #BPH Flomax #GERD ppi On day of discharge, patient was eager to leave. Reports understanding that he needs to be cautious with shaving, working on cars/hands, and take extreme precautions to prevent/avoid falls. Patient denied any chest pain, palpitations, or acute concerns. Discharge Exam Constitutional WD/WN, vitals as above Respiratory normal respiratory effort, lungs clear to auscultation Cardiovascular RRR, no murmur, no edema PPM incision site well approximated nontender, no apparent hematoma formation Gastrointestinal (Abdomen) normal bowel sounds, soft, nontender, no hepatosplenomegaly Updated Medication List Medication Instructions Recorded Confirmed Type aspirin 81 mg tablet,delayed 81 mg PO QDL 12/22/22 03/22/23 History release atorvastatin 10 mg tablet 10 mg PO QAM 12/22/22 03/22/23 History brinzolamide 1 %-brimonidine 0.2 % 1 drp OPB AMPM 12/22/22 03/22/23 History eye drops,suspension (Simbrinza) cyanocobalamin (vitamin B-12) 1,000 mcg PO QAM 12/22/22 03/22/23 History 1,000 mcg tablet (Vitamin B-12) insulin aspart U-100 100 unit/mL 22 unit subcut TIDM 12/22/22 03/22/23 History (3 mL) subcutaneous pen (Novolog FlexPen U-100 Insulin aspart) insulin glargine 100 unit/mL (3 35 unit subcut QDB 12/22/22 03/22/23 History mL) subcutaneous pen (Basaglar KwikPen U-100 Insulin) isosorbide mononitrate 60 mg 60 mg PO QAM 12/22/22 03/22/23 History tablet,extended release 24 hr linagliptin 5 mg tablet (Tradjenta) 5 mg PO QDL 12/22/22 03/22/23 History pantoprazole 40 mg tablet,delayed 40 mg PO Q2D 12/22/22 03/22/23 History release timolol maleate 0.5 % eye drops 1 drp OPB QAM 12/22/22 03/22/23 History amlodipine 5 mg tablet (Norvasc) 5 mg PO HS #30 tabs 01/05/23 03/22/23 Rx tamsulosin 0.4 mg capsule 0.4 mg PO HS #30 caps 01/05/23 03/22/23 Rx nitroglycerin 0.4 mg sublingual 0.4 mg sublingual DIRECTED PRN 03/08/23 03/22/23 History tablet Chest Pain apixaban 5 mg tablet See Rx Instructions .Route 03/24/23 Rx .COMPLEX #74 tabs Hospital Stay Data Consultations 03/22/23 23:30 ED Decision to Admit Stat 03/23/23 08:00 Consult Cardiology Routine Diagnostic Imagining Performed 03/22/23 17:59 US venous doppler UE LT Stat Pending Results Patient Have Any Pending Studies at Discharge: No Discharge Instructions Given to Patient (Per Discharging Provider) You were admitted due to a clot in your left arm that formed after pacemaker placement. Luckily, this does not seem to be stressing your heart. You will go home on Eliquis (Apixaban) to help prevent further clot formation and to allow for your body to break up the clot. You will need to take eliquis in the following manner: Please take 10mg (two tablets) two times a day until 03/31/2022. Then transition to 5mg (1 tablet) two times a day on 04/01/2022. Total Time Total Time Spent Total Time Spent (In Minutes): 55
== END 2023-03-24 13:30 | disposition home or self-care (01) ==
LOC: ED 17:23 → INTOOBSV 03-23 00:24 → EDINP 03-23 00:24 → 2N 03-23 01:46